=== PATIENT | male | born 1960 | race Caucasian/White ===

== ENCOUNTER 2022-02-13 22:47 | Observation (INO) | payer BC, SELFPAY ==
[2022-02-13 22:56] VITALS: BP 149/82; PULSE 84; RESP 16; TEMP 36.4; O2SAT 94
--- NOTE | 2022-02-13 23:33 | DI.RAD_ITS ---
Exam(s) XR PORTABLE CHEST AP EXAM: XR PORTABLE CHEST AP CLINICAL HISTORY: cough, sob, r/o acute disease TECHNIQUE: COMPARISON: CR RIGHT KNEE LIMITED 1 OR 2 VIEW from 09/16/2014 FINDINGS: Portable AP film was obtained. The heart appears mildly enlarged. There are diffuse bilateral patch y intrapulmonary infiltrates consistent with multifocal pneumonitis. No gross pleural effusion seen on the frontal film. IMPRESSION: Appearance is suggestive of multifocal pneumonia in the appropriate clinical setting. RADIATION DOSE DELIVERED: Total DLP
[2022-02-14] VITALS (35 sets, daily range): BP systolic 121–157; BP diastolic 65–91; PULSE 57–87; RESP 14–20; TEMP 35–36.4; O2SAT 88–99
--- NOTE | 2022-02-14 00:06 | DI.VRAD_ITS ---
PROCEDURE INFORMATION: Exam: XR Chest Exam date and time: 02/13/2022 11:10 PM Age: 61 years old Clinical indication: Cough and shortness of breath; Patient HX: Cough, SOB, R/O acute disease. + covid test at home. TECHNIQUE: Imaging protocol: Radiologic exam of the chest. Views: 1 view. COMPARISON: No relevant prior studies available. FINDINGS: Lungs: There scattered hazy opacities in the mid to lower lungs bilaterally, worrisome for an infectious process. Given the patient's Covid positive status, CT scan is recommended for further evaluation. Pleural spaces: No pneumothorax. There is blunting of the right costophrenic angle, suggestive of an effusion. The left costophrenic angle is difficult to delineate. Overlying soft tissue may be contributing. It is not well assessed. Heart/Mediastinum: There is cardiomegaly. The mediastinum is measuring widened at 7.5 cm. This may be secondary to the patient's semiupright status. If there is concern for acute mediastinal or vascular abnormality, CTA is recommended. Bones/joints: Skeletal degenerative changes. IMPRESSION: 1. There scattered hazy opacities in the mid to lower lungs bilaterally, worrisome for an infectious process. Given the patient's Covid positive status, CT scan is recommended for further evaluation. 2. Possible small right pleural effusion. Left costophrenic angle not well assessed. 3. Cardiomegaly. 4.The mediastinum is measuring widened at 7.5 cm. This may be secondary to the patient's semiupright status. If there is concern for acute mediastinal or vascular abnormality, CTA is recommended. Other findings/details as above. THIS REPORT CONTAINS FINDINGS THAT MAY BE CRITICAL TO PATIENT CARE. The findings were verbally communicated via telephone conference with alanna anne at 12:05 AM EST on 02/14/2022. The findings were acknowledged and understood. A CT scan is being performed. Correlation with those findings suggested. Dictated and Authenticated by: Venessa Rodriguez MD. Ordering:BIJU Hughes MD
--- NOTE | 2022-02-14 00:22 | W.ED.GENAD ---
Discharge Plan Disposition Patient Disposition: Admit to [facility] Condition: Stable Discharge Details Clinical Impression: COVID-19, Multifocal pneumonia, Hypoxia Admit Date/Time: 02/14/22 02:32 Admit Provider: Benedicto Aguilar Attending Provider: Benedicto Aguilar Primary Care Provider: Unknown,Unknown ED Provider: Ellen Marquez Discharge Data Discharge Date/Time-TO BE ENTERED AT DEPARTURE: 02/14/22 03:40 Medical Decision Making 2300 -- 61-year-old male who is morbidly obese with a history of atrial fibrillation on Eliquis, hypertension, hyperlipidemia, sleep apnea presents with a diagnosis of COVID this morning with a complaint of cough and shortness of breath of the past 2 days. Vitals reassuring. His blood pressure is moderately elevated. His oxygen saturation is 94% on room air. Patient is speaking in full sentences demonstrates no signs of respiratory distress. He has diminished breath sounds throughout but no obvious wheezing or crackles. Portable chest x-ray obtained on arrival and notes a possible multifocal pneumonia. Case discussed with virtual radiology who recommends CT chest. We will place an IV, bolus IV fluids, screening labs, CT chest, IV Solu-Medrol, DuoNeb and reassess. 0010 -- labs and imaging reviewed. Normal white blood cell count. Troponin within normal limits. CT chest again notes groundglass opacities likely consistent with multifocal pneumonia in the setting of COVID-19 but no evidence of PE. Patient reassessed and oxygen saturation 90 to 91% on room air. He does admit to some improvement with DuoNeb. I attempted to order monoclonal antibody infusion but this is no longer available. I confirmed this with the nursing eyewear manufacturing supervisor and on-call pharmacy. I do not think that patient is appropriate for paxloivd as he is on Eliquis which requires 50% dose decrease. Considering his multifocal pneumonia in the setting of hypoxia, will admit for continued observation with plan for IV fluid hydration, IV steroids, IV remdesivir and supplemental oxygen as needed. We will place patient on 2 L nasal cannula oxygen. 0220 --Case discussed with hospitalist who accepts patient for admission. Medical Records Medical records reviewed: Yes I reviewed the patient's medical records. Imaging Data Radiologic Study: Radiologist's impression: XR Chest Exam date and time: 02/13/2022 11:10 PM Age: 61 years old Clinical indication: Cough and shortness of breath; Patient HX: Cough, SOB, R/O acute disease. + covid test at home. TECHNIQUE: Imaging protocol: Radiologic exam of the chest. Views: 1 view. COMPARISON: No relevant prior studies available. FINDINGS: Lungs: There scattered hazy opacities in the mid to lower lungs bilaterally, worrisome for an infectious process. Given the patient's Covid positive status, CT scan is recommended for further evaluation. Pleural spaces: No pneumothorax.? There is blunting of the right costophrenic angle, suggestive of an effusion.? The left costophrenic angle is difficult to delineate. Overlying soft tissue may be contributing. It is not well assessed. Heart/Mediastinum: There is cardiomegaly. The mediastinum is measuring widened at 7.5 cm. This may be secondary to the patient's semiupright status. If there is concern for acute mediastinal or vascular abnormality, CTA is recommended. Bones/joints: Skeletal degenerative changes. IMPRESSION: 1. There scattered hazy opacities in the mid to lower lungs bilaterally, worrisome for an infectious process. Given the patient's Covid positive status, CT scan is recommended for further evaluation. 2. Possible small right pleural effusion.? Left costophrenic angle not well assessed. 3. Cardiomegaly. 4.The mediastinum is measuring widened at 7.5 cm. This may be secondary to the patient's semiupright status. If there is concern for acute mediastinal or vascular abnormality, CTA is recommended.? Other findings/details as above. CTA Chest With Contrast Exam date and time: 02/14/2022 1:04 AM Age: 61 years old Clinical indication: Cough and shortness of breath; Patient HX: Cough, SOB, R/O pneumonia TECHNIQUE: Imaging protocol: Computed tomographic angiography of the chest with contrast. 3D rendering (Not supervised by radiologist): MIP and/or 3D reconstructed images were created by the technologist. Radiation optimization: All CT scans at this facility use at least one of these dose optimization techniques: automated exposure control; mA and/or kV adjustment per patient size (includes targeted exams where dose is matched to clinical indication); or iterative reconstruction. Contrast material: OMNI-PAQUE 350; Contrast volume: 100 ml; Contrast route: INTRAVENOUS (IV);? COMPARISON: XR PORTABLE CHEST AP 02/13/2022 11:10 PM FINDINGS: Pulmonary arteries: The pulmonary artery is enlarged measuring 3.2 cm. Consider developing pulmonary hypertension. No evidence of acute pulmonary embolism. Aorta: The aorta is normal without evidence of aneurysmal dilatation, dissection or occlusive disease. Lungs: There are diffuse interstitial infiltrates present. This may represent cardiogenic versus noncardiogenic edema. An acute inflammatory process and/or infectious process/pneumonia are not excluded. Diffuse ground-glass opacities within the lungs. These findings are nonspecific and may represent hypoventilatory change,edema, hemorrhage, or an infectious/inflammatory process (acute or chronic). There is no evidence of pulmonary masses. Pleural spaces: There is no evidence of pneumothorax. There are no pleural effusions present. Heart: No evidence of reflux of contrast into the inferior vena cava or hepatic veins to suggest right heart strain or pulmonary hypertension. There is moderate atherosclerotic calcification of the coronary arteries. The cardiac structures are otherwise normal. The right ventricular to left ventricular ratio is normal measuring approximately 0.9. Lymph nodes: There is no evidence of lymphadenopathy. Bones/joints: The spine, sternum, ribs, and pectoral girdles show no evidence of acute abnormality. Soft tissues: There are no soft tissue masses or fluid collections. The upper abdominal viscera are unremarkable. Other findings: The mediastinal structures are normal. IMPRESSION: 1. There are diffuse interstitial infiltrates present. This may represent cardiogenic versus noncardiogenic edema. An acute inflammatory process and/or infectious process/pneumonia are not excluded. Diffuse ground-glass opacities within the lungs. These findings are nonspecific and may represent hypoventilatory change,edema, hemorrhage, or an infectious/inflammatory process (acute or chronic). 2. No evidence of acute pulmonary embolism. Lab Data Lab results reviewed: Yes I reviewed the patient's lab results. Labs: Laboratory Tests Range/Units 02/14/22 02/14/22 00:30 00:30 WBC (4.4-10.8) 10^3/uL 8.43 RBC (4.36-5.78) 10^6/uL 5.31 Hgb (13.5-17.5) g/dL 15.5 Hct (40.0-50.0) % 46.5 MCV (80-95) fL 88 MCH (27.0-33.0) pg 29.2 MCHC (32.0-36.0) % 33.3 RDW (11.8-14.1) % 14.0 Plt Count (130-400) 10^3/uL 153 MPV (8.0-11.0) fL 10.2 Immature Gran % 0.4 Neutrophils % 78.1 Lymphocytes % 7.9 Monocytes % 13.3 Eosinophils % 0.1 Basophils % 0.2 Nucleated RBC % (0.0-0.3) % 0.0 Absolute Neutrophils (1.2-6.7) 10^3/uL 6.58 Absolute Lymphocytes (1.2-3.4) 10^3/uL 0.67 L Absolute Monocytes (0.1-0.8) 10^3/uL 1.12 H Absolute Eosinophils (0.0-0.7) 10^3/uL 0.01 Absolute Basophils (0.0-0.2) 10^3/uL 0.02 Sodium (136-145) mmol/L 140 Potassium (3.5-5.1) mmol/L 3.4 L Chloride (98-107) mmol/L 101 Carbon Dioxide (21.0-32.0) mmol/L 29.1 Anion Gap (3-11) mmol/L 9.9 BUN (7-18) mg/dL 21 H Creatinine (0.70-1.30) mg/dL 1.4 H Est GFR (CKD-EPI 2020) (mL/min/1.73m2) 56.83 Glucose (74-106) mg/dL 123 H Calcium (8.5-10.1) mg/dL 8.8 Magnesium (1.8-2.4) mg/dL 1.8 Total Bilirubin (0.2-1.0) mg/dL 1.9 H AST (15-37) U/L 31 ALT (16-63) U/L 39 Alkaline Phosphatase (46-116) U/L 83 Troponin I (<or=60) ng/L 51 Total Protein (6.4-8.2) g/dL 7.3 Albumin (3.4-5.0) g/dL 3.5 Sign Out No HPI General Mode of arrival: ambulatory. Date/Time Provider Initiated Documentation: 02/13/22 22:48. Limitations to Documentation: no limitations. Information obtained by: patient. HPI Narrative: Pt is a 61yo M w/ a h/o atrial fibrillation on eliquis, hypertension, hyperlipidemia, morbid obesity, sleep apnea who presents for cough, difficulty breathing and a diagnosis of COVID this morning. Patient states 2 days ago he started with nasal congestion, cough and then today rest to worsening cough and shortness of breath. He states he has family members in healthcare and they prescribed him Tessalon Perles, albuterol and paxlovid. He states he took 1 dose of Paxlovid this evening. Patient took Tylenol as well earlier today. He denies any known fever. Related Data Home Medications Medication Instructions Recorded Confirmed metoprolol succinate 200 mg 200 mg PO BID #60 tabs 03/17/18 02/13/22 tablet,extended release 24 hr apixaban 5 mg tablet (Eliquis) 5 mg PO BID 90 days #180 tabs 05/26/18 02/13/22 potassium chloride 8 mEq 8 meq PO DAILY 90 days #90 tab-caps 07/10/18 02/13/22 tablet,extended release (Klor-Con) lisinopril 20 mg tablet 20 mg PO DAILY 90 days #90 tab-caps 08/04/18 02/13/22 lisinopril 40 mg tablet 40 mg PO DAILY 90 days #90 tabs 08/04/18 02/13/22 amlodipine 10 mg tablet 10 mg PO DAILY 02/13/22 02/13/22 atorvastatin 80 mg tablet 80 mg PO DAILY 02/13/22 02/13/22 bupropion HCl 150 mg tablet,12 hr 150 mg PO BID 02/13/22 02/13/22 sustained-release minoxidil 10 mg tablet 10 mg PO BID 02/13/22 02/13/22 torsemide 20 mg tablet 20 mg PO DAILY 02/13/22 02/13/22 prednisone 20 mg tablet 40 mg PO DAILY #6 tabs 02/15/22 Previous Rx's Medication Instructions Recorded metoprolol succinate 200 mg 200 mg PO BID #60 tabs 03/17/18 tablet,extended release 24 hr apixaban 5 mg tablet (Eliquis) 5 mg PO BID 90 days #180 tabs 05/26/18 potassium chloride 8 mEq 8 meq PO DAILY 90 days #90 tab-caps 07/10/18 tablet,extended release (Klor-Con) lisinopril 20 mg tablet 20 mg PO DAILY 90 days #90 tab-caps 08/04/18 lisinopril 40 mg tablet 40 mg PO DAILY 90 days #90 tabs 08/04/18 prednisone 20 mg tablet 40 mg PO DAILY #6 tabs 02/15/22 Allergies Allergy/AdvReac Type Severity Reaction Status Date / Time No Known Allergies Allergy Unverified 02/13/22 23:02 General Stated Complaint: RespSymp JAZZ: 4 Review of Systems All systems reviewed & are unremarkable except as noted in HPI and below Constitutional Constitutional: Reports as per HPI, Denies chills and Denies fever(s) Eyes Eyes: Denies blurry vision ENT Ears, Nose, Mouth, and Throat: Denies dizziness, Reports sore throat and Denies throat swelling Cardiovascular Cardiovascular: Denies chest pain and Reports dyspnea Respiratory Respiratory: Reports cough and Reports dyspnea Gastrointestinal Gastrointestinal: Denies abdominal pain, Denies diarrhea and Denies vomiting Genitourinary Genitourinary: Denies hematuria and Denies dysuria Musculoskeletal Musculoskeletal: Denies back pain and Denies numbness Integumentary/Breasts Skin/Breast: Denies lesions and Denies rash Neurologic Neurologic: Denies dizziness, Denies localized weakness and Denies numbness Allergic/Immunologic Allergic/Immunologic: Denies throat swelling PFSH All Active Problems (Updated 02/16/22 @ 00:05 by ANGELIQUE FLORENCE) COVID-19 (Acute) Multifocal pneumonia (Acute) Chronic rhinitis (Chronic 03/24/11) Dysmetabolic syndrome X (Chronic 03/24/11) obesity, impaired FBS, hypertension, Knee pain, right (Chronic 09/16/14) prior x-rays 2006, 2011; Synvisc Dr Piña Localized primary osteoarthritis of lower leg (Chronic 03/24/11) Localized primary osteoarthritis of lower legs, bilateral (Chronic 03/24/11) Paroxysmal ventricular tachycardia (Chronic 06/13/07) JUNE 2007 [facility] [place] ANTHONY DYKES, F/U 09/2011; EP STUDY 10/22/11, NOT INDUCABLE Medical History Atrial fibrillation (07/22/15) Chronic anticoagulation (04/14/15) CADSVaSC2 score 3: Apixaban ([facility] [place]); ASA discontinued 12/2016! Essential hypertension (03/28/82) difficult to control, onset 1982 at life insurance PE Goal 140/90 Hyperlipidemia (03/24/11) goal LDL<70 [place] Morbid obesity (03/24/11) realistic goal 340 (07/2013) achieved 01/2014; new goal 330#; Take [employer] Life program with Dtr-in-law Sleep apnea Bi-PAP SINCE 2006 per [facility], Dr Min Morrissey Surgical History History of bilateral knee replacement Family History Mother , auto accident at age 30. No problems noted. Father Heart disease Myocardial infarction Sister No problems noted. 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 What type of physical activity do you participate in: none Do you feel safe in your relationship?: Yes Exam Const General: cooperative and no acute distress Orientation: alert, awake and oriented x3 HENMT Head: normal to inspection Ears: hearing grossly normal bilaterally and external ears normal Face and sinus: normal facial exam Mouth: oral mucosae normal Throat: posterior oropharynx normal Eyes General: appearance normal, both eyes and all related structures Pupils: PERRL EOM: EOM intact bilaterally Neck Neck: normal visual inspection and No submandibular swelling Lymphatic: no lymphadenopathy noted Chest Chest: normal inspection of the chest and no tenderness Resp Effort & Inspection: normal respiratory effort and able to speak in complete sentences Auscultation: diminished lung sounds bilaterally throughout Cardio Rate: regular rate Rhythm: regular rhythm GI Inspection: normal to inspection and obesity Palpation: soft, not firm, not rigid and nontender Auscultation: hypoactive bowel sounds Skin General skin exam: no rashes or lesions noted Neuro General: patient alert, patient awake and patient oriented x3 Cognition: normal cognition Speech: speech normal Motor: muscle tone normal throughout Sensory Exam: no sensory deficits noted Extrem General: normal to inspection, full ROM, capillary refill normal, no calf tenderness bilaterally and no edema Psych Appearance: grossly normal Mental Status: mental status grossly normal Speech and Movement: speech and movement normal Affect: normal affect Course Vital Signs Vital signs: Vital Signs Temperature 97.5 F L 02/13/22 22:56 Pulse 84 02/13/22 22:56 Respiratory Rate 16 02/13/22 22:56 Blood Pressure 149/82 H 02/13/22 22:56 Pulse Oximetry 94 02/13/22 22:56 Temperature 97.5 F L 02/13/22 22:56 Temperature Source Temporal Artery Scan 02/13/22 22:56 Pulse 84 02/13/22 22:56 Respiratory Rate 16 02/13/22 22:56 Respiratory Effort 02/13/22 22:56 Blood Pressure 149/82 H 02/13/22 22:56 Blood Pressure Position Sitting 02/13/22 22:56 Pulse Oximetry 94 02/13/22 22:56 Oxygen Delivery Method Room Air 02/13/22 22:56 Oxygen Flow Rate 0 02/13/22 22:56 Pain Level 0 02/13/22 22:56
[2022-02-14] MEDS: Normal Saline 250 ML 500 ML IV (00:30)
[2022-02-14 00:32] LABS: Abs Immature Grans 0.03 10^3/uL (0.0-0.06); Absolute Basophil Count 0.02 10^3/uL (0.0-0.2); Absolute Eosinophil Count 0.01 10^3/uL (0.0-0.7); Absolute Lymphocyte Count 0.67 10^3/uL (1.2-3.4); Absolute Monocyte Count 1.12 10^3/uL (0.1-0.8); Absolute Neutrophil Count 6.58 10^3/uL (1.2-6.7); Basophils % 0.2; Eosinophils % 0.1; HCT 46.5 % (40.0-50.0); HGB 15.5 g/dL (13.5-17.5); Immature Grans % 0.4; Lymphocytes % 7.9; MCH 29.2 pg (27.0-33.0); MCHC 33.3 % (32.0-36.0); MCV 88 fL (80-95); MPV 10.2 fL (8.0-11.0); Monocytes % 13.3; Neutrophils % 78.1; Platelet Count 153 10^3/uL (130-400); RBC 5.31 10^6/uL (4.36-5.78); RDW-SD 45.3 fL; WBC 8.43 10^3/uL (4.4-10.8)
[2022-02-14] MEDS: methylPREDNISolone SUCC 125 MG VIAL IVP (00:40)
[2022-02-14] MEDS: Omnipaque 350 MG/ML 100 ML BTL IJ (00:42)
[2022-02-14 00:50] LABS: ALT 39 U/L (16-63); AST 31 U/L (15-37); Albumin 3.5 g/dL (3.4-5.0); Alkaline Phosphatase 83 U/L (46-116); Anion Gap 9.9 mmol/L (3-11); BUN 21 mg/dL (7-18); Bilirubin, Total 1.9 mg/dL (0.2-1.0); CO2 29.1 mmol/L (21.0-32.0); CREATININE 1.4 mg/dL (0.70-1.30); Calcium 8.8 mg/dL (8.5-10.1); Chloride 101 mmol/L (98-107); Estimated GFR 56.83 (mL/min/1.73m2); Glucose 123 mg/dL (74-106); Magnesium 1.8 mg/dL (1.8-2.4); Potassium 3.4 mmol/L (3.5-5.1); Sodium 140 mmol/L (136-145); Total Protein 7.3 g/dL (6.4-8.2); Troponin I 51 ng/L (<or=60)
[2022-02-14] MEDS: Albuterol/Ipratropium 3 ML UPD VIAL UPD (00:50)
--- NOTE | 2022-02-14 01:15 | DI.CT_ITS ---
Exam(s) CT CHEST PE CTA EXAM: CT CHEST PE CTA CLINICAL HISTORY: shortness of breath, cough, r/o PE/pneumonia. TECHNIQUE: Imaging Protocol: Axial CT angiography was performed with multi-slice acquisition and mu lti-planar and/or 3D reconstructions. CONTRAST MATERIAL: Intravenous: Omnipaque 350 Contrast volume:structured data in ml COMPARISON: No exams were available for comparison FINDINGS: CT angiography of the chest was performed with intravenous infusion of 100 cc of Omnipaque 350. There are due multifocal diffuse bilateral pulmonary ground-glass and consolidative opacities, the fi ndings are suspicious for infectious process although they could represent variant pulmonary edema. Heart is mildly enlarged with coronary artery calcification.. No pleural effusion. Tracheobronchial tree appears intact. No evidence of pulmonary embolic disease. Thoracic aorta is of normal diameter, no thoracic aortic an eurysm or dissection, major branch vessels appear intact. No mediastinal or hilar adenopathy. Images obtained through the upper abdomen show unremarkable appearance of the visualized portions of the liver, spleen, pancreas, adrenals, and kidneys. IMPRESSION: Pulmonary opacities with pattern suggesting infectious process,CHF not excluded.. No evidence of pul monary embolic disease. RADIATION DOSE DELIVERED: 697.18mGy.cm Total DLP 697.18mGy.cm Total DLP DATA REPOSITORY: All CT scans at this facility are submitted to the National Radiology Data Registry (NRDR) Dose Index Registry (DIR) with the [employer] (A[employer]). RADIATION OPTIMIZATION: All CT scans at this facility use at least one of these dose optimization te chniques: automated exposure control; mA and/or kV adjustment per patient size (includes targeted exa ms where dose is matched to clinical indication); or iterative reconstruction.
--- NOTE | 2022-02-14 02:17 | DI.VRAD_ITS ---
PROCEDURE INFORMATION: Exam: CTA Chest With Contrast Exam date and time: 02/14/2022 1:04 AM Age: 61 years old Clinical indication: Cough and shortness of breath; Patient HX: Cough, SOB, R/O pneumonia TECHNIQUE: Imaging protocol: Computed tomographic angiography of the chest with contrast. 3D rendering (Not supervised by radiologist): MIP and/or 3D reconstructed images were created by the technologist. Radiation optimization: All CT scans at this facility use at least one of these dose optimization techniques: automated exposure control; mA and/or kV adjustment per patient size (includes targeted exams where dose is matched to clinical indication); or iterative reconstruction. Contrast material: OMNI-PAQUE 350; Contrast volume: 100 ml; Contrast route: INTRAVENOUS (IV); COMPARISON: XR PORTABLE CHEST AP 02/13/2022 11:10 PM FINDINGS: Pulmonary arteries: The pulmonary artery is enlarged measuring 3.2 cm. Consider developing pulmonary hypertension. No evidence of acute pulmonary embolism. Aorta: The aorta is normal without evidence of aneurysmal dilatation, dissection or occlusive disease. Lungs: There are diffuse interstitial infiltrates present. This may represent cardiogenic versus noncardiogenic edema. An acute inflammatory process and/or infectious process/pneumonia are not excluded. Diffuse ground-glass opacities within the lungs. These findings are nonspecific and may represent hypoventilatory change,edema, hemorrhage, or an infectious/inflammatory process (acute or chronic). There is no evidence of pulmonary masses. Pleural spaces: There is no evidence of pneumothorax. There are no pleural effusions present. Heart: No evidence of reflux of contrast into the inferior vena cava or hepatic veins to suggest right heart strain or pulmonary hypertension. There is moderate atherosclerotic calcification of the coronary arteries. The cardiac structures are otherwise normal. The right ventricular to left ventricular ratio is normal measuring approximately 0.9. Lymph nodes: There is no evidence of lymphadenopathy. Bones/joints: The spine, sternum, ribs, and pectoral girdles show no evidence of acute abnormality. Soft tissues: There are no soft tissue masses or fluid collections. The upper abdominal viscera are unremarkable. Other findings: The mediastinal structures are normal. IMPRESSION: 1. There are diffuse interstitial infiltrates present. This may represent cardiogenic versus noncardiogenic edema. An acute inflammatory process and/or infectious process/pneumonia are not excluded. Diffuse ground-glass opacities within the lungs. These findings are nonspecific and may represent hypoventilatory change,edema, hemorrhage, or an infectious/inflammatory process (acute or chronic). 2. No evidence of acute pulmonary embolism. Dictated and Authenticated by: Trevor Regan MD. Ordering:BIJU Hughes MD
[2022-02-14 02:36] LABS: Source Nasal/Nares
[2022-02-14 02:46] LABS: Procalcitonin 0.1 ng/mL
[2022-02-14 03:05] LABS: COVID-19 PCR POSITIVE (Negative)
--- OUTSIDE RECORDS SUMMARY | 2022-02-14 03:43 | XMS_ITS | Encounter Summary ---
:1960 [place] [address] Care Team Providers Name Role Phone Álvaro Lagos MD Primary Care Provider [phone] Encounter Details Date Type Department Care Team Description 08/13/2016 Ancillary Procedure Radiology Library at [place], Ronald Bui [facility] [place] [address] ORTHOPAEDIC SURGERY [phone] [place] [id number] (Wo rk) Social History Tobacco Use Types Packs/Day Years Used Date Smoking Tobacco: Never Smokeless Tobacco: Never Sex Assigned at Date Recorded Not on file documented as of this encounter Plan of Treatment Not on filedocumented as of this encounter Procedures Procedure Name Priority Date/Time Associated Diagnosis Comme nts FILM LIBRARY Routine 08/13/2016 12:00 AM Results for this STORAGE ONLY DX EDT procedure ar e in LOWER EXTREMITY the results section. documented in this encounter Results Film Library- Storage Only DX Lower Extremity (08/13/2016 12:00 AM EDT) Specimen (Source) Anatomical Location Collection Method / Collectio n Time Received Time / Laterality Volume Narrative PRADEEP - 06/20/2018 7:27 PM EDT This exam is auto-finalizing. It's purpo se is for storage only. Ramandeep Chávez MD Octavio FILM LIBRARY ORDERABLES Performing Organization Address City/State/ZIP Code Phon e Number RAD [place], [place] documented in this encounter Visit Diagnoses Not on filedocumented in this encounter Care Teams Commercial Construction Estimator Relationship Specialty Start Date End Date Álvaro Lagos MD PCP - General 02/03/10 06/21/[address] [place] [address] documented as of this encounter
--- OUTSIDE RECORDS SUMMARY | 2022-02-14 03:43 | XMS_ITS | Encounter Summary ---
:1960 Author Organization [facility] [place] [address] Care Team Providers Name Role Phone Álvaro London DO Primary Care Provider Reason for Visit Auth/Cert Specialty Diagnoses / Procedures Referred By Contact Refer red To Contact Diagnoses f/u colo - CONSULT Procedures PRO COLONOSCOPY, DIAGNOSTIC COLONOSCOPY, DIAGNOSTIC Referral ID Status Reason Start Date Expiration Date Visits Requ ested Visits Authorized [id number] 1 Encounter Details Date Type Department Care Team Description 10/07/2017 Anesthesia Event Gastroenterology at [facility] Fernando Nieves, [facility] [place] [address] [facility] [phone] DR ANESTHESIOLOGY [place] [address] Anesthesia Record Procedure Summary Procedure Name Responsible Anesthesia Start Anesthesia Stop Anesthesiologist Time Time COLONOSCOPY, Fernando Nieves MD 10/07/17 1139 10/07/17 12 09 DIAGNOSTIC (Trunk) Events Date Time Event Comment 10/07/2017 1139 AN Verify 1139 Start 1139 An Start Data 1142 An Induction 1145 Anesthesia Ready 1209 an stop data 1209 Recovery or ICU Handoff Patient care was transferred to the destination unit staff after review of the patient's medica l history, current anesthetic/surgi tres status and plan, according to the Provider Handoff Checklist. 1209 Stop 1242 Name Total IV Lidocaine 40 mg Propofol 150 mg Propofol INF 372.63 mg PHENYLephrine 80 mcg lactated Ringers infusion 1,000 mL 0 mL Agents Name O2 Air N2O Blood No blood administrations on file. Lines, Drains, and Airways Type Details Placement Removal PIV 10/07/17; 1131; metacarpal 10/07/17 1131 by Leydi varelas, 10/07/17 1303 by Christy, vein (top of hand), right; PRABHJOT Pink RN [id number] catheter system; 22 gauge; paras robles rn; distraction, tolerated well; 0; 10/07/17; 1303 documented in this encounter Social History Tobacco Use Types Packs/Day Years Used Date Smoking Tobacco: Never Smokeless Tobacco: Never Alcohol Use Standard Drinks/Week Comments No 0 (1 standard drink = 0.6 oz pure alcoho l) no alcohol since 1984 Sex Assigned at Date Recorded Not on file documented as of this encounter OR Notes Anesthesia Postprocedure Evaluation - Fernando Nieves MD - 10/07/2017 3:27 PM EDT [facility] Department of Anesthesiology Post-procedure Note Patient: Reza James II Procedure Summary Date Anesthesia Start Anesthesia Stop Room / Location 10/07/17 1139 1209 [facility] / [facility] Procedure Diagnosis Surgeon Responsible Provider COLONOSCOPY, DIAGNOSTIC (N/A Trunk) (hx of hyperplastic polyp sigmoid - CONSULT;; Special prep: NuLytely 4L, 2 days of clears prior to procedure ) Jonh Cortez MD Schroeck, Hedwig, MD All Anesthesia Providers: Anesthesiologist: Fernando Nieves MD HIGHWAY WORKER: Sravan Christian CRNA Most Recent Vitals: 10/07/17 1240 BP: 119/74 Pulse: SpO2: 97% Pain Patient Location: PACU/[facility] Level of Consciousness: Awake and Alert Pain Management: Satisfactory Analgesia PONV: None Cardiovascular Status: At Baseline and Hemodynamically Stable Respiratory Status: At Baseline and Room Air Postoperative Fluid Status: Intravascular EUvolemia Possible Anesthetic Complications: NONE apparent at time of evaluation Final Primary Anesthesia Type: General (The anesthetic type performed was the same as planned.) Comments: FERNANDO NIEVES MD Anesthesia Preprocedure Evaluation - Fernando Nieves MD - 10/06/2017 5:16 PM EDT Pre-Anesthesia Evaluation for: Reza James II a 57 y.o. male. Procedure(s): COLONOSCOPY, DIAGNOSTIC Patient Active Problem List Diagnosis ??? Ventricular tachycardia episode 2007 Pre-syncope / palpitations - Presented with Wide complex tachycardia ~ 20 mins duration, terminatedwith cardioversion. Cardiac catheterization 06/19/2007 Nonobstructive coronary artery disease - Moderate diffuse left ventricular dysfunction (Calculated EF-45%) EPS 06/20/2007 - Reproducibly inducible LB/inferior axis monomorphic VT at about 208 bpm that is pace-terminable (symptoms identical to those at presentation). VT morphology was slightly different with the different inductions, though all were LBB/inferior axis. The transition in the precordial leads varied. Repeat EPS 06/23/2007 on verapamil, VT still inducible, flecainide added - Inducible monomorphic VT, with both RBBB and LBBB morphologies, both with right inferior axis. A high septal outflow tract focus is possible. Cannot exclude bundle branch reentry on the basis of thisstudy. Repeat EPS 08/23/2007 on flecainide Patient was not inducible for a sustained ventricular tachycardia. The NSVT had multiple (including polymorphic) morphologies. Flecainide stopped probably that summer, patient reports taking it for only a few mo TTE 06/19/2007 1. The left ventricular chamber size is normal. Moderate concentric LVH, LVEF 65%. No LV WMAs 2. The right ventricle is not well visualized. Right ventricular global systolic function is probably normal. 3. The left atrium is mildly dilated. 4. There is no hemodynamically significant valve disease. 5. There is mild dilatation of the ascending aorta 3.8 cm ??? KAYLEEN on CPAP ??? Obesity, morbid - BMI 52 ??? HTN (hypertension) Thought to be secondary to obesity and KAYLEEN Renal artery angiography 06/19/2007: There is no atherosclerosis of the renal arteries bilaterally. LAB RESULTS: TSH Renin Activity Aldosterone Free Normetanephrine Free Metanephrine 06/21/2007 <0.6 Na-deplete, upright: Mean: 5.9 Range: 2.9-10.8 Na-replete, upright: Mean: 1.0 Range: <= 0.6-3.0 5.8 Normal: <=21 0.35 Normal: <0.90 <0.20 Normal: <0.50 06/19/2007 1.86 * ??? S/P vasectomy ??? Hyperlipidemia Past Medical History: Diagnosis Date ??? HTN (hypertension) 09/26/2011 ??? Hyperlipidemia 09/26/2011 ??? Obesity, morbid 09/26/2011 ??? KAYLEEN on CPAP 09/26/2011 ??? S/P vasectomy 09/26/2011 ??? Ventricular tachycardia 09/26/2011 No past surgical history on file. Social History Substance Use Topics ??? Smoking status: Never Smoker ??? Smokeless tobacco: Never Used ??? Alcohol use Not on file History Drug Use Not on file Allergies Allergen Reactions ??? Fish Containing Products Medications: MAR and/or home medications have been reviewed. Physical Exam: There were no vitals filed for this visit. There is no height or weight on file to calculate BMI. Airway Assessment: Mallampati: III TM distance: >3 FB Neck ROM: full Cardiovascular Assessment: Rate: normal cardiovascular exam normal Pulmonary Assessment: pulmonary exam normal Dental Assessment: Misc Assessment: IV access: Peripheral line Anesthesia Plan: ASA 3 MAC, with a(n) intravenous induction 57yoM, 134kg, forcolonoscopy. PMH: morbid obesity BMI 46, HTN (torsemide, DOROTA-I, BB, CCB), KAYLEEN (CPAP). A flutter on eliquis. Plan: Propofol IV with rincon airway, LMA or ETT as backup. The patient verbalized understanding of the anesthesia plan including risks and alternatives and agreed to proceed. All questions were answered. Ata Nieves MD. Region - Other Informed Consent: Anesthetic plan and risks discussed with patient. Plan discussed with HIGHWAY WORKER and attending. PAT Staff Note documented in this encounter Plan of Treatment Not on filedocumented as of this encounter Visit Diagnoses Not on filedocumented in this encounter Administered Medications Inactive Administered Medications - up to 3 most recent administrations Medication Order MAR Action Action Date Dose Rate Site lactated Ringers infusion 1,000 mL New Bag 10/07/2017 11:39 AM EDT 1,000 mL, at 100 mL/hr, Intravenous, CONTINUOUS, Starting on Tue10/07/17 at 1130, Until Tue10/07/17 at 1303, Day of Surgery (Day of Procedure) New Bag 10/07/2017 11:30 AM EDT 1,000 mLs 100 mL/hr lidocaine (PF) (XYLOCAINE) 100 mg/5 mL (2 %) Given 11:42 AM EDT 40 mg injection PRN, Starting on Tue10/07/17 at 1142, Until Tue10/07/17 at 1209, Anesthesia Intra-op, Routine PHENYLephrine in NS (PF) (VIOLETA-SYNEPHRINE) Given 10/07/2017 11:54 AM EDT 80 mcg 0.8 mg/10 mL (80 mcg/mL) multi-dose injection Syrg PRN, Starting on Tue10/07/17 at 1154, Until Tue10/07/17 at 1209, Anesthesia Intra-op, Routine propofol (DIPRIVAN) 10 mg/mL bolus injection Given 11:44 AM EDT 50 mg (Anesthesia) PRN, Starting on Tue10/07/17 at 1142, Until Tue10/07/17 at 1209, Anesthesia Intra-op Given 10/07/2017 11:43 AM EDT 40 mg Given 10/07/2017 11:42 AM EDT 60 mg propofol (DIPRIVAN) Rate/Dose 10/07/2017 11:58 75 mcg/kg/min 62.7 mL /hr infusion Change AM EDT CONTINUOUS PRN, Starting on Tue10/07/17 at 1142, Until Tue10/07/17 at 1209, Anesthesia Intra-op, Routine Rate/Dose Change 10/07/2017 11:54 AM EDT 125 mcg/kg/min 104.5 mL/hr New Bag 10/07/2017 11:42 AM EDT 150 mcg/kg/min 125.4 mL/hr documented in this encounter Care Teams Warper Tender Relationship Specialty Start Date End Date Álvaro London DO PCP - General Family Medicine 10/07/17 01/19/[address] [place] [address] documented as of this encounter
--- OUTSIDE RECORDS SUMMARY | 2022-02-14 03:43 | XMS_ITS | Encounter Summary ---
:1960 Author Organization [facility] [place] [address] Care Team Providers Name Role Phone Álvaro Lagos MD Primary Care Provider [phone] Reason for Visit Reason Onset Date Comments Medication Refill 04/10/2015 Fani Encounter Details Date Type Department Care Team Description 04/10/2015 Refill Cardiology at [facility] [place], Medication Refill [facility] MD Vinay ([place]liquelbert) [place] [address] CARDIOLOGY DEPT [place] [address] (Wo rk) Social History Tobacco Use Types Packs/Day Years Used Date Smoking Tobacco: Never Smokeless Tobacco: Never Sex Assigned at Date Recorded Not on file documented as of this encounter Miscellaneous Notes Telephone Encounter - Karen Avitia RN - 04/15/2015 9:17 AM EST Rx handled by Dr. Forde, see encounter dated 04/14/2015. Closing encounter. Karen Avitia RN 04/15/2015 9:17 AM Telephone Encounter - Karen Avitia RN - 04/10/2015 12:16 PM EST Incoming call received from patient. He has decided he would like to try Eliquis. Encounter forwarded to Vinay Forde MD for order. Will notify patient once order has been received and pharmacy contacted patient is aware that PA maybe needed. Karen Avitia, PRABHJOT 04/10/2015 12:40 PM documented in this encounter Plan of Treatment Not on filedocumented as of this encounter Visit Diagnoses Not on filedocumented in this encounter Care Teams Tax Accounting Assistant Relationship Specialty Start Date End Date Álvaro Lagos MD PCP - General 02/03/10 06/21/17 [address] [place] [address] documented as of this encounter
--- OUTSIDE RECORDS SUMMARY | 2022-02-14 03:43 | XMS_ITS | Encounter Summary ---
:1960 Author Organization [facility] [place] [address] Care Team Providers Name Role Phone Álvaro Lagos MD Primary Care Provider [phone] Encounter Details Date Type Department Care Team Description 05/26/2015 Orders Only Cardiology Vinay Forde, [facility] [place] [address] [facility] [phone] CARDIOLOGY DEPT [place] [address] (Wo rk) Social History Tobacco Use Types Packs/Day Years Used Date Smoking Tobacco: Never Smokeless Tobacco: Never Sex Assigned at Date Recorded Not on file documented as of this encounter Plan of Treatment Not on filedocumented as of this encounter Visit Diagnoses Not on filedocumented in this encounter Care Teams Jitterbug Operator Relationship Specialty Start Date End Date Álvaro Lagos MD PCP - General 02/03/10 06/21/17 [address] [place] [address] documented as of this encounter
--- OUTSIDE RECORDS SUMMARY | 2022-02-14 03:43 | XMS_ITS | Encounter Summary ---
:1960 Author Organization [facility] [place] [address] Care Team Providers Name Role Phone Jv Fam DO Primary Care Provider Reason for Visit Consultation (Routine) - Closed Specialty Diagnoses / Procedures Referred By Contact Refer red To Contact Endocrinology Diagnoses Hypoglycemia Miroslava Friend MD [facility] Endocrinology 3b [facility] D [facility] [place] [address] [place] [address] Referral ID Status Reason Start Date Expiration Date Visits V isits Requested Authorized [id number] Closed Consult, 10/30/2020 10/30/2021 1 1 Test & Treat Encounter Details Date Type Department Care Team Description 01/20/2021 Office Visit Endocrinology at [facility] Dinorah Ceja, Obesity, morbid - BMI 52; [facility] [place] [address] CENTER [phone] ENDOCRINOLOGY DEPT [place], [place] [address] Social History Tobacco Use Types Packs/Day Years Used Date Smoking Tobacco: Never Smokeless Tobacco: Never Alcohol Use Standard Drinks/Week Comments No 0 (1 standard drink = 0.6 oz pure alcoho l) no alcohol since 1984 Sex Assigned at Date Recorded Not on file documented as of this encounter Last Filed Vital Signs Vital Sign Reading Time Taken Comments Blood Pressure 169/108 01/20/2021 8:03 AM EST Pulse 65 01/20/2021 8:03 AM EST Temperature 35.9 ??C (96.6 ??F) 01/20/2021 8:03 AM EST Respiratory Rate - - Oxygen Saturation 100% 01/20/2021 8:03 AM EST Inhaled Oxygen Concentration - - Weight 152 kg (335 lb) 01/20/2021 8:03 AM EST Height 176.5 cm (5' 9.5) 01/20/2021 8:03 AM EST Body Mass Index 48.76 01/20/2021 8:03 AM EST documented in this encounter Progress Notes Dinorah Amato MD - 01/20/2021 8:30 AM EST Images from the original note were not included. Endocrinology Consult Note Name: Meli James II : 1960 Date: 01/20/21 Reason for Consult: Hypoglycemia HPI: Meli James II is a 60 y.o. male with a PMH significant for V. tach in 2007, KAYLEEN on CPAP, morbid obesity, hypertension, and hyperlipidemia who presents today referred by his PCP for evaluation of hypoglycemia. 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 He called 911 and when EMS arrived he was found to have a fsg of 34. He was given glucose with improvement of his symptoms. He was brought to the ED and was told everything was normal. On that day he skipped breakfast because he was trying to reduce his calory intake. His last meal was 2 apples and a bow of popcorn on the eveningbefore. The second event happened in the morning of 11/25/20, when he was at home sitting on his chair after he had breakfast (waffles). This event was less severe and his main complaint was vision blurriness. He checked his vitals and the BP was 159/101, his fsg was 120. Patient has not experienced any events asides from the ones mentioned above. He does not have a history of diabetes, but because of his hx of cardiac disease he keeps a daily log of his vital signs andmeals. His is diabetic (diet- controlled only), and she has a glucometer at home. Review of Systems: negative except for what is mentioned in HPI Past Medical History: Diagnosis Date ??? HTN (hypertension) 09/26/2011 ??? Hyperlipidemia 09/26/2011 ??? Obesity, morbid 09/26/2011 ??? KAYLEEN on CPAP 09/26/2011 ??? S/P vasectomy 09/26/2011 ??? Ventricular tachycardia 09/26/2011 Past Surgical History: Procedure Laterality Date ??? PRO COLONOSCOPY, DIAGNOSTIC N/A 10/07/2017 COLONOSCOPY, DIAGNOSTIC performed by Jonh Cortez MD at [facility] ENDOSCOPY He had both knees replaced in 2019 Family Hx: maternal grandfather had diabetes, paternal uncle and cousin with diabetes. Other relatives from both sides with cardiac disease. Social History Socioeconomic History ??? Marital status: Spouse name: Not on file ??? Number of children: Not on file ??? Years of education: Not on file ??? Highest education level: Not on file Occupational History ??? Not on file Tobacco Use ??? Smoking status: Never Smoker ??? Smokeless tobacco: Never Used Vaping Use ??? Vaping Use: Never used Substance and Sexual Activity ??? Alcohol use: No Comment: no alcohol since 1984 ??? Drug use: No ??? Sexual activity: Not on file Other Topics Concern ??? Do You live alone? Yes ??? Tobacco in Home Not Asked Social History Narrative ??? 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 has diabetes. Etoh: none Smoking: none Illicit drug use: none Allergies Allergen Reactions ??? Fish Containing Products Vitals BP (!) 169/108 Pulse 65 Temp 35.9 ??C (96.6 ??F) (Temporal) Ht 176.5 cm (5' 9.5) Wt (!) 152kg (335 lb) SpO2 100% BMI 48.76 kg/m?? Physical Exam: General appearance: pleasant male pt, appears stated age, not in distress HEENT: anicteric, EOMI, KEYON, no lymphadenopathy, moist mucus membranes CVS: +S1, S2. no murmurs, RRR Pulm: clear to auscultation BL Abd: soft, non-tender, non-distended, +bowel sounds, no rebound or guarding Extremities: 2+ pulses peripherally, no edema, no wounds over feet Neurological: non-focal, 2+ DTRs Thyroid gland: non-palpable Labs: Results for MELI JAMES II ( ) as of 01/21/2021 20:41 Ref. Range 10/30/2020 16:22 10/30/2020 17:35 10/30/2020 18:21 Insulin Lvl Latest Ref Range: 2.6 - 24.9 mcunit/mL 19.6 C-Peptide Latest Ref Range: 1.1 - 4.4 ng/mL 3.4 Proinsulin Latest Ref Range: 3.6 - 22 pmol/L 23 (H) Results for MELI JAMES II ( ) as of 01/21/2021 20:41 Ref. Range 10/30/2020 17:35 10/30/2020 19:33 Sodium Latest Ref Range: 135 - 145 mmol/L 145 Potassium Latest Ref Range: 3.5 - 5.0 mmol/L 3.7 Chloride Latest Ref Range: 98 - 107 mmol/L 106 CO2 Latest Ref Range: 22 - 31 mmol/L 29 Anion Gap Latest Ref Range: 5 - 15 mmol/L 10 BUN Latest Ref Range: 10 - 20 mg/dL 16 Creatinine Latest Ref Range: 0.80 - 1.50 mg/dL 1.04 Estimated GFR Latest Ref Range: >=60 mL/min/1.73 m?? 77 Calcium Latest Ref Range: 8.5 - 10.5 mg/dL 8.8 BOHB Latest Ref Range: 0.00 - 0.30 mmol/L 0.12 Glucose Lvl Latest Ref Range: 65 - 199 mg/dL 96 Assessment and plan: Meli James II is a 60 y.o. male with a PMH significant for V. tach in 2007, KAYLEEN on CPAP, morbid obesity, hypertension, and hyperlipidemia who presents today referred by his PCP for evaluation of hypoglycemia. During the first episode, when he felt more symptomatic, his fsg was 34. It is possible that he experienced reactive hypoglycemia, in which he had over stimulation of insulin secretion even though he had skipped breakfast on that morning. It is also possible, although less likely in the setting of symptoms, that the fsg value was inaccurate, lowering his actual glucose level. Today we decided to implant a CGM using Jose-2 for 14 days to monitor his blood glucose closely andevaluate for any episodes of hypoglycemia. Additionally, we discussed the importance of having balanced meals with more protein and less carbs as to avoid excess insulin secretion and post-prandial hypoglycemia. We also discussed importance of weight loss and exercising as tolerated in the setting of elevated BMI ~ 50 and metabolic syndrome. We will also check his A1c, cortisol, ACTH, TSH and free T4 to rule out other underlying causes thatcould cause similar symptoms. Thank you for allowing us participate in the care of this patient. Patient was discussed with Dr. Hankins. Dinorah Amato, PGY4 Endocrinology Fellow Pager: [phone] Lefty Hankins MD - 01/20/2021 8:30 AM EST I have seen the patient and reviewed Dr. Dinorah Amato's above history and I agree with the details as written. The assessment and plan were formulated in discussion with me and I agree with them as documented. We will check baseline lab and start diagnostic CGM using Jose-2 for 14 days to monitor BGclosely for his most likely reactive hypoglycemia for BMI ~50 and metabolic syndrome. He will try tocut back on carb and eat more protein and white meats to prevent insulin over-stimulation and post-pandrial hypoglycemia. Thanks for the consult. Lefty Hankins MD, PhD, FACP, FACE documented in this encounter Plan of Treatment Not on filedocumented as of this encounter Results T4, free (01/20/2021 10:23 AM EST) P athologist Signature Free T4 1.29 0.93 - 1.70 [facility] ng/dL [facility] Comment: Reference Interval (ng/dL): Females: ??First Trimester: 0.97-1.68 ??Second Trimester: 0.77-1.51 ??Third Trimester: 0.77-1.49 Specimen Anatomical Collection Method Collection Time Receive d Time (Source) Location / / Volume Laterality Blood 01/20/2021 10:23 01/20/2021 AM EST 10:38 AM EST Resulting Agency Comment Spec In Lab Lefty Hankins MD CHEMISTRY ORDERABLES Performing Organization Address City/[facility]/ZIP [facility] Phon e Number [address] TSH (01/20/2021 10:23 AM EST) P athologist Signature TSH 1.98 0.27 - 4.20 ANGELY MELGARCOCK mcIU/mL [facility] Comment: Reference Interval (mcIU/mL): Females: ??First Trimester: 0.23-3.88 ??Second Trimester: 0.22-3.90 ??Third Trimester: 0.44-4.66 Specimen Anatomical Collection Method Collection Time Receive d Time (Source) Location / / Volume Laterality Blood 01/20/2021 10:23 01/20/2021 AM EST 10:38 AM EST Resulting Agency Comment Spec In Lab Lefty Hankins MD CHEMISTRY ORDERABLES Performing Organization Address City/[facility] Phon e Number [address] ACTH (01/20/2021 10:23 AM EST) P athologist Signature ACTH 15 pg/mL ANGELY NEWELL ([facility]) LABORATORY Comment: REFERENCE VALUE------ 7.2-63 (a.m. collection) Test Performed by: [facility] [address] [address] 03 Gas Combustion Engineer: Gary Jain M.D. Ph. D.; CLIA# [id number] Specimen Anatomical Collection Method Collection Time Receive d Time (Source) Location / / Volume Laterality Blood 01/20/2021 10:23 01/20/2021 4:31 AM EST PM EST Resulting Agency Comment Spec In Lab Lefty Hankins MD CHEMISTRY ORDERABLES Performing Organization Address City/[facility] Code Phon e Number [address] Cortisol (01/20/2021 10:23 AM EST) P athologist Signature Cortisol 11.1 mcg/dL [facility] Comment: Reference ranges: ??AM (6-10am): ??4.8-19.5 mcg/dL ??PM (4-8pm) : ??2.5-11.9 mcg/dL Specimen Anatomical Collection Method Collection Time Receive d Time (Source) Location / / Volume Laterality Blood 01/20/2021 10:23 01/20/2021 AM EST 10:38 AM EST Resulting Agency Comment Spec In Lab Lefty Hankins MD CHEMISTRY ORDERABLES Performing Organization Address City/[facility] Code Phon e Number [address] Hemoglobin A1c (01/20/2021 10:23 AM EST) athologist Signature Hemoglobin A1C 5.4 4.3 - 5.6 [facility] Comment: Reference Range: 4.3 - 5.6% 5.7 - 6.4% - Increased Risk of Developin g Diabetes Mellitus >= 6.5% - Consistent with diagnosis of D iabetes Mellitus In the absence of hyperglycemia (i.e. pl asma glucose > 200 mg/dL) or classic symptoms of hyperglycemia a repeat measu rement of HbA1c should be performed on a separate sample to confirm the diagnos is. Diagnosis and Classification of Diabetes Mellitus, Diabetes Care 2013; 36: Suppl. 1, S67-85 Est Avg Gluc 110 mg/dL [facility] Comment: eAG equivalents for HbA1c percentages: HbA1c(%) ?eAG(mg/dL) 6.0 ?126 6.5 ?140 7.0 ?154 7.5 ?169 8.0 ?183 8.5 ?197 9.0 ?212 9.5 ?226 10.0 ? 240 Limitations: The eAG calculation has not been validated on women, individuals below 18 years old and above 70 years old, and individuals with hemoglobinopathies. Additional resources are available on ADA website. Mark ESPINOZA, Spencer J, Madeline R, et al. ??Tr anslating the A1C assay into estimated average glucose values. ??Diabetes Care 2008:31(8):9139-1766. Specimen Anatomical Collection Method Collection Time Receive d Time (Source) Location / / Volume Laterality Blood 01/20/2021 10:23 01/20/2021 AM EST 10:37 AM EST Resulting Agency Comment Spec In Lab Lefty Hankins MD CHEMISTRY ORDERABLES Performing Organization Address City/State/ZIP [place] [address] documented in this encounter Visit Diagnoses Diagnosis Obesity, morbid - BMI 52 Morbid obesity Hypoglycemia Hypoglycemia, unspecified documented in this encounter Care Teams Flute Grinder Relationship Specialty Start Date End Date Jv Fam, PCP - General Family Medicine 01/20/21 [address] [place] [address] documented as of this encounter
--- OUTSIDE RECORDS SUMMARY | 2022-02-14 03:43 | XMS_ITS | Encounter Summary ---
:1960 Author Organization [facility] [place] [address] Care Team Providers Name Role Phone Reynaldo Lagos MD Primary Care Provider [phone] Reason for Referral Diagnostic Test (Routine) - Closed Specialty Diagnoses / Procedures Referred By Contact Refer red To Contact Cardiology Diagnoses Chest pain, unspecified type Vinay Doll Mhm[facility] Non-Inv Card Lab Procedures Echocardiogram Transthoracic(Leb) [facility] [place] [address] [place] [address] Referral ID Status Reason Start Date Expiration Date Visits V isits Requested Authorized [id number] Closed Specialty 08/13/2015 08/12/2016 1 1 Service Requested Reason for Visit Reason Comments Shortness of Breath Encounter Details Date Type Department Care Team Description 07/04/2015 Office Visit Cardiology at [facility] Aprremediosnidmis, Diastolic congestive heart f ailure, unspecified congestive heart failure chronicity; [facility] MD Vinay Chest pain, unspecified type; [facility] Paroxysmal [place] [address] CARDIOLOGY DEPT [phone] [place], [place] [address] Social History Tobacco Use Types Packs/Day Years Used Date Smoking Tobacco: Never Smokeless Tobacco: Never Sex Assigned at Date Recorded Not on file documented as of this encounter Last Filed Vital Signs Vital Sign Reading Time Taken Comments Blood Pressure 130/78 07/04/2015 1:21 PM EDT Pulse 63 07/04/2015 1:21 PM EDT Temperature - - Respiratory Rate - - Oxygen Saturation 97% 07/04/2015 1:21 PM EDT Inhaled Oxygen Concentration - - Weight 134 kg (295 lb 6.4 oz) 07/04/2015 1:21 PM EDT Height 175.3 cm (5' 9) 07/04/2015 1:21 PM EDT Body Mass Index 43.62 07/04/2015 1:21 PM EDT documented in this encounter Progress Notes Esha Larose MD - 07/04/2015 8:46 PM EDT I was the attending physician available for supervision at the time of this visit. I did not see thepatient or discuss the plan of management. I did not submit any professional charges as the fellow provided the care. ESHA LAROSE MD Vinay Doll MD - 07/03/2015 4:26 PM EDT Cardiology Clinic Follow-up Note Patient Name: Reza James II Date of : 1960 Age: 54 y.o. PCP: REYNALDO LAGOS MD Presenting Diagnosis/Chief Complaint: AF Problem List: Patient Active Problem List Diagnosis Code ??? Ventricular tachycardia episode 2007 I47.2 ??? KAYLEEN on CPAP G47.33 ??? Obesity, morbid - BMI 52 E66.01 ??? HTN (hypertension) I10 ??? S/P vasectomy Z98.52 ??? Hyperlipidemia E78.5 History of Present Illness: Reza James II is a 54 y.o. male presents today in follow up for his cardiac problems. Mr. James his morbidly obese ( BMI 45)?? male has history of CAD ( nonobstructive) , rate controlled AF diagnosed in March now on usp anticoagulation for his AF with elevated [id number] score with Apxaban 5 mg bid,ith newly diagnosed AF, resistant hypertension, dyslipidemia, KAYLEEN on SPAP,history of RVOT/ventricular arrhythmia, CKD, IGT and chronic fatigue for many years. Initially his fatigue was attributed to yasmine dose of beta blockers. He denies dizziness, palpitations, lightheadedness, syncope,PND, orthopnea, pedal edema.?? Mr. James had several episodes of epigastric discomfort not always associated with exertion. He noticed the he had those episodes after eating salmon. After he stopped taking salmon he stopped having those chest discomfort episodes. 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 He is compliant with his medication. Past Medical History: Past Medical History Diagnosis Date ??? Ventricular tachycardia 09/26/2011 ??? KAYLEEN on CPAP 09/26/2011 ??? Obesity, morbid 09/26/2011 ??? HTN (hypertension) 09/26/2011 ??? S/P vasectomy 09/26/2011 ??? Hyperlipidemia 09/26/2011 Review of Systems (as above otherwise): General: no fevers, chills, night sweats; no recent weight changes; no fatigue EENT: no changes in vision; Cardiovascular: as above Respiratory: no SOB, BEARD, no cough, no wheeze GI: no abdominal pain; no nausea or vomiting Heme: no easy bruising or bleeding Neuro: no headaches; no numbness or tingling; no weakness Allergies Allergen Reactions ??? Fish Containing Products Current Home Medications: ??? apixaban (ELIQUIS) 5 mg Tablet ??? lisinopril (PRINIVIL;ZESTRIL) 20 mg Tablet ??? buPROPion (WELLBUTRIN SR) 150 mg Tablet Sustained Release ??? potassium chloride (KLOR-CON) 8 mEq tablet ??? aspirin 81 mg EC tablet ??? atorvastatin (LIPITOR) 80 mg tablet ??? lisinopril (PRINIVIL;ZESTRIL) 40 mg tablet ??? metoprolol succinate (TOPROL-XL) 200 mg 24 hr tablet ??? minoxidil (LONITEN) 10 mg tablet ??? torsemide (DEMADEX) 20 mg tablet ??? amlodipine (NORVASC) 10 mg tablet ??? glucosamine-chondroitin 500-400 mg tablet Social and family history reviewed. Physical Exam: Filed Vitals: 07/04/15 1321 BP: 130/78 Pulse: 63 General: morbidly obese, appears well, in no acute distress CV: Irregular rate and rhythm, Normally split S1, S2, No murmur or S3. JVP normal. Normal peripheralpulses. No carotid or abdominal bruits. Trace b/l pedal edema. Pulmonary: Non labored breathing. Breath sounds throughout. No wheezes, rales or rhonchi Abdomen: Protuberant, soft and non-tender, no ascites. 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 Last 3 Lytes Recent Labs 07/04/15 1420 NA 145 K 4.4 CL 103 CO2 30 BUN 23* CREATININE 1.30 Last 3 LFTs Recent Labs 07/04/15 1420 AST 28 ALT 31 ALKPHOS 86 BILITOT 1.2 BILIDIR 0.3 Assessment and Plan: 54 y.o. male is seen in clinic for regular follow up. He is overall doing well and continues to haveactive lifestyle. 1. CAD. Had nonobstructive CAD on [facility] when he had RVOT. Recent episodes of epigastric discomfort stopped after he stopped heating fish. He denies any CP with exertion now. He supposed to have a stress test done in his PCP's office but for some reason it did not happen there. He is on GDMT ( ASA, statin, BB and DOROTA). 2. Rate control AF was recently diagnosed, we started usp anticoagulation (elevated [id number] score) apixaban 5 mg bid since April 15. Today on exam his heart rhythm is irregular. Today he did have labs: renal function is stable and LFTs are WNL. In 2007 he had normal LV systolic function and moderately enlarged LA. In 2011 his LA was already severely enlarged. At this point he might have underwent significant electrical remodeling of his LA and gnosticism and maintenance of sinus rhythm may be challenging. However , he will attempt to restore sinus rhythm at least once. To help determining which antiarrythmic to use for possible antiarrythmic strategy, at this point we need to have new assessment of his cardiac structure and ischemia. 3.The patient has history RVOT VT eight years ago. Now is on high dose of Metoprolol ( 200 mg BID). He had no more dizziness or syncope. 4. Resistant HTN on 5 high dose BP medication. BP today is controlled. Plan: TTE A nuclear stress test. EKG next time he is in cardiology. Continue all his current cardiac medication including apixaban. When I have results of a stress test and TTE, patient is expecting call and at this point he might agree on a DCCV while he is on apixaban. Following AF control strategy will depend on if he is able to maintain sinus rhythm and for how long. Will monitor renal function and LFTs yearly. Time of next visit will depend on depending on exercise MPI and TTE results. Vinay Doll MD Stitching Machine Setter Pager # [phone] documented in this encounter Miscellaneous Notes Addendum Note - Vinay Doll MD - 07/04/2015 7:28 PM EDT Addended by: VINAY DOLL on: 07/04/2015 07:28 PM Modules accepted: Orders documented in this encounter Plan of Treatment Scheduled Orders Name Type Priority Associated Diagnoses Order S chedule EKG 12 Lead ECG Routine Paroxysmal atrial fibrillati on Ordered: 07/04/2015 documented as of this encounter Procedures Procedure Name Priority Date/Time Associated Diagnosis Comme nts HEMOGRAM STAT 07/04/2015 2:20 PM Diastolic congestive R esults for this EDT heart failure, procedure are in unspecified the results congestive heart section. failure chronicity DIFFERENTIAL, STAT 07/04/2015 2:20 PM Diastolic congestive Results for this AUTOMATED EDT heart failure, procedure are in unspecified the results congestive heart section. failure chronicity CBC (WITH DIFF) STAT 07/04/2015 2:20 PM Diastolic congestiv e EDT heart failure, unspecified congestive heart failure chronicity HEPATIC FUNCTION STAT 07/04/2015 2:20 PM Diastolic congesti ve Results for this PANEL EDT heart failure, procedure are in unspecified the results congestive heart section. failure chronicity BASIC METABOLIC STAT 07/04/2015 2:20 PM Diastolic congestiv e Results for this PANEL (NON-FASTING) EDT heart failure, proced ure are in unspecified the results congestive heart section. failure chronicity documented in this encounter Results ECHOCARDIOGRAM COMPLETE (08/26/2015 11:48 AM EDT) P athologist Signature EF 68 HEARTLAB SYSTEM Anatomical Region Laterality Modality Other Specimen (Source) Anatomical Location Collection Method / Collectio n Time Received Time / Laterality Volume 08/26/2015 Narrative 08/26/2015 1:39 PM EDT Procedure: ?Transthoracic Echocardiogram Patient: ?FLUM REZA ?(Age): 1960(55y) Med Rec#: ? [id number] ?Sex: ?M ? Site Loc: ? [facility] ?Ht / Wt: ??175(cm)/134(kg) Pt. Loc: ?Echo Lab ?BSA: ?2.44 Study Date: ?? 08/26/2015 ?Pt. Type: Outpatient Tape: ? Referring: Esha Larose ([id number] ) Referring: MALI Reading: Mauri Heredia ([id number]) Pin Drafting Machine Operator: Viet Mcmanus Diagnosis: *ICD-10-PCS Chest pain, unspecified (R0 7.9) CPT Codes: *Echo Full (06852) *Spectral Doppler (83126) *Color Doppler (68993) BP: ? 154/108 SUMMARY: 1. Mild concentric left ventricular hype rtrophy is observed. ??There is normal global left ventricular systolic function. The quantitative left ventricular ejection fraction by biplane Siddiqui's method is 68%. ??There are no left ventricular segmental wall m otion abnormalities. 2. Right ventricular chamber size, wall thickness, and systolic function are within normal limits. 3. There is mild to moderate (1-2+/4+) m itral regurgitation present. 4. The estimated pulmonary artery systol ic pressure is 35 mmHg. 5. There is no pericardial effusion. 6. See remainder of report for additiona l findings. Findings ? : Study Quality: ? Adequate Left Ventricle: ? The left ventricle is mildly dilated. ?Mild concentric left ventricular h ypertrophy is observed. ?There is normal global left ventri cular systolic function. ?The quantitative left ventricular ejection fraction by biplane Siddiqui's method is 68%. ?There are no left ventricular segm ental wall motion abnormalities. ?Left ventricular diastolic functio n is abnormal. ?Doppler assessment is consistent w ith elevated left sided filling pressure. Left Atrium: ? The left atrium is se verely dilated. Right Ventricle: ? Right ventricular chamber size, wall thickness, and systolic function are within normal limi ts. ?No pulmonary hypertension is noted . ?The estimated pulmonary artery sys tolic pressure is 35 mmHg. ?The estimated right atrial pressur e is 3 mmHg. Right Atrium: ? The right atrium is moderately dilated. Aortic Valve: ? The aortic valve is trileaflet. The leaflets are thin with normal excursion. There is no aorti c stenosis or regurgitation present. Mitral Valve: ? The mitral valve is probably normal. ?There is mild to moderate (1-2+/4+ ) mitral regurgitation present. Tricuspid Valve: ? The tricuspid mono ve appears normal in structure and function. ?There is trace tricuspid regurgita tion present. Pulmonic Valve: ? The pulmonic valve appears normal in structure and function. Pericardium: ? There is no pericardi al effusion. ?A pericardial fat pad is visualize d. Aorta: ? The aortic root is normal i n size. ?The ascending aorta is normal in s blake. ?There is no evidence of coarctatio n of the aorta. Pulmonary Artery: ? The main pulmona ry artery appears normal. Venous: ? The inferior vena cava radha ears normal in size. ?There is a greater than 50% respir atory change in the inferior vena cava dimension. Misc: ? See remainder of report for additional findings. ?Two-dimensional echo, spectral Dop pler and color Doppler performed. Chambers 2D ?Value ?Units (Range) ? IVSd (2D) ? 1.4 ?cm ? LVPWd (2D) ?1 ?cm ? LVIDd (2D) ?5.9 ?cm ? LVIDs (2D) ?3.3 ?cm ? LV FS (2D) ?44 ? % ? Ao root diameter (2D3.3 ?cm (2.1 - 3.6) ? Ascending Ao ?3.2 ?cm (2 - 3.5) ? Volumes/Mass ?Value ?Units (Range) ? LA Area 4 CH ?36.9 ? cm2 (<21) ? LA ESV BP (A/L) inde68.5 ? ml/m2 ? RA AREA 4CH ? 26.3 ? cm2 ? LV ESV SP 4CH (MOD) 36.4 ? ml ? LV ESV SP 2CH (MOD) 38.2 ? ml ? LV EDV BP ? 116.3 ?ml ? LV ESV BP ? 37.2 ? ml ? BP EF (MOD) ? 68 ? % ? LV mass (2D) ?244 ?g ? LV mass (2D) index ??100 ?g/m2 ? Diastolic/Systolic Function ?Value ?Units (Range) ? MV E-wave Vmax ?1.1 ?m/sec ? LV septal e' Vmax ?? 0.1 ?m/sec ? LV lateral e' Vmax ??0.1 ?m/sec ? LV average e' Vmax ??0.1 ?m/sec ? LV E:e' septal ratio18.4 ? ratio ? LV E:e' lateral rati10 ? ratio ? LV average E:e' rati13.8 ? ratio ? Tricuspid Valve ?Value ?Units (Range) ? TR Vmax ? 2.8 ?m/sec ? TR peak gradient ?32 ? mmHg ? RAP ? 3 ?mmHg ? RVSP ?35 ? mmHg ? Measurement Trending Name ? 08/26/2015 ? LV EDV BP ?1 16.29 LVIDd (2D) ? 5. 92 LV ESV BP ?3 7.2 LVIDs (2D) ? 3. 34 Wall Motion: Segment Name ?Rest ? Base-Anteroseptal ?? Normal ? Base-Anterior ? Normal ? Base-Anterolateral ??Normal ? Base-Posterolateral Normal ? Base-Inferior ? Normal ? Base-Inferoseptal ?? Normal ? Mid-Anteroseptal ?Normal ? Mid-Anterior ?Normal ? Mid-Anterolateral ?? Normal ? Mid-Posterolateral ??Normal ? Mid-Inferior ?Normal ? Mid-Inferoseptal ?Normal ? [place]-Septal ? Normal ? [place]-Anterior ? Normal ? [place]-Lateral ?Normal ? [place]-Inferior ? Normal ? [place]-Tip ?Normal ? This report has been electronically sign ed by: _ Mauri Heredia M.D. ? 08/26/2015 13:39:18 Images reviewed and interpretation verif iedre [facility] Cardiac Ultrasound Laboratory Procedure Note Mauri Heredia MD - 08/26/2015Format ting of this note might be different from the original. Procedure: Transthoracic Echocardiogram Patient: BELTRAN BROUSSARD(Age): [birth year] [age]y) Med Rec#: [id number] Sex: M Site Loc: [facility] Ht / Wt: 175(cm)/134(kg) Pt. Loc: Echo Lab BSA: 2.44 Study Date: 08/26/2015 Pt. Type: Outpati ent Tape: Referring: Esha Larose ([id number] ) Referring: MALI Reading: Mauri Heredia ([id number]) Pin Drafting Machine Operator: Viet Mcmanus Diagnosis: *ICD-10-PCS Chest pain, unspecified (R0 7.9) CPT Codes: *Echo Full (32995) *Spectral Doppler (61675) *Color Doppler (68733) BP: 154/108 SUMMARY: 1. Mild concentric left ventricular hype rtrophy is observed. There is normal global left ventricular systolic function. The quantitative left ventricular ejection fraction by biplane Siddiqui's method is 68%. There are no left ventricular segmental wall m otion abnormalities. 2. Right ventricular chamber size, wall thickness, and systolic function are within normal limits. 3. There is mild to moderate (1-2+/4+) m itral regurgitation present. 4. The estimated pulmonary artery systol ic pressure is 35 mmHg. 5. There is no pericardial effusion. 6. See remainder of report for additiona l findings. Findings : Study Quality: Adequate Left Ventricle: The left ventricle is mi ldly dilated. Mild concentric left ventricular hypert rophy is observed. There is normal global left ventricular systolic function. The quantitative left ventricular eject ion fraction by biplane Siddiqui's method is 68%. There are no left ventricular segmental wall motion abnormalities. Left ventricular diastolic function is abnormal. Doppler assessment is consistent with e levated left sided filling pressure. Left Atrium: The left atrium is severely dilated. Right Ventricle: Right ventricular chamb er size, wall thickness, and systolic function are within normal limi ts. No pulmonary hypertension is noted. The estimated pulmonary artery systolic pressure is 35 mmHg. The estimated right atrial pressure is 3 mmHg. Right Atrium: The right atrium is modera tely dilated. Aortic Valve: The aortic valve is trilea flet. The leaflets are thin with normal excursion. There is no aorti c stenosis or regurgitation present. Mitral Valve: The mitral valve is probab ly normal. There is mild to moderate (1-2+/4+) sherin ral regurgitation present. Tricuspid Valve: The tricuspid valve radha ears normal in structure and function. There is trace tricuspid regurgitation present. Pulmonic Valve: The pulmonic valve appea rs normal in structure and function. Pericardium: There is no pericardial eff usion. A pericardial fat pad is visualized. Aorta: The aortic root is normal in size . The ascending aorta is normal in size. There is no evidence of coarctation of the aorta. Pulmonary Artery: The main pulmonary art vilma appears normal. Venous: The inferior vena cava appears n ormal in size. There is a greater than 50% respiratory change in the inferior vena cava dimension. Misc: See remainder of report for additi onal findings. Two-dimensional echo, spectral Doppler and color Doppler performed. Chambers 2D Value Units (Range) IVSd (2D) 1.4 cm LVPWd (2D) 1 cm LVIDd (2D) 5.9 cm LVIDs (2D) 3.3 cm LV FS (2D) 44 % Ao root diameter (2D3.3 cm (2.1 - 3.6) Ascending Ao 3.2 cm (2 - 3.5) Volumes/Mass Value Units (Range) LA Area 4 CH 36.9 cm2 (<21) LA ESV BP (A/L) inde68.5 ml/m2 RA AREA 4CH 26.3 cm2 LV ESV SP 4CH (MOD) 36.4 ml LV ESV SP 2CH (MOD) 38.2 ml LV EDV BP 116.3 ml LV ESV BP 37.2 ml BP EF (MOD) 68 % LV mass (2D) 244 g LV mass (2D) index 100 g/m2 Diastolic/Systolic Function Value Units (Range) MV E-wave Vmax 1.1 m/sec LV septal e' Vmax 0.1 m/sec LV lateral e' Vmax 0.1 m/sec LV average e' Vmax 0.1 m/sec LV E:e' septal ratio18.4 ratio LV E:e' lateral rati10 ratio LV average E:e' rati13.8 ratio Tricuspid Valve Value Units (Range) TR Vmax 2.8 m/sec TR peak gradient 32 mmHg RAP 3 mmHg RVSP 35 mmHg Measurement Trending Name 08/26/2015 LV EDV BP 116.29 LVIDd (2D) 5.92 LV ESV BP 37.2 LVIDs (2D) 3.34 Wall Motion: Segment Name Rest Base-Anteroseptal Normal Base-Anterior Normal Base-Anterolateral Normal Base-Posterolateral Normal Base-Inferior Normal Base-Inferoseptal Normal Mid-Anteroseptal Normal Mid-Anterior Normal Mid-Anterolateral Normal Mid-Posterolateral Normal Mid-Inferior Normal Mid-Inferoseptal Normal [place]-Septal Normal [place]-Anterior Normal [place]-Lateral Normal [place]-Inferior Normal [place]-Tip Normal This report has been electronically sign ed by: _ Mauri Heredia M.D. 08/26/2015 13:39: 18 Images reviewed and interpretation mendez dove [facility] Cardiac Ultrasound Laboratory Esha Larose MD ECHO ORDERABLES Nuclear Exercise Stress Cardiology (08/26/2015 10:56 AM EDT) Anatomical Region Laterality Modality Other Specimen (Source) Anatomical Location Collection Method / Collectio n Time Received Time / Laterality Volume Narrative This result has an attachment that is no t available. Esha Larose MD CARDIAC SERVICES ORDERABLES Differential, Automated (07/04/2015 2:20 PM EDT) P athologist Signature Neutrophils % 58.9 % [facility] Neutr Abs (ANC) 3.06 1.50 - [facility] 6.30 [facility] x10(3)/[facility] LABORATORY Lymphocytes % 24.9 % [facility] Lymphocytes Abs 1.3 1.0 - 3.6 [facility] x10(3)/[facility] LABORATORY Monocytes % 13.5 % [facility] Monocyte Abs 0.7 0.2 - 1.0 [facility] x10(3)/[facility] LABORATORY Eosinophils % 1.7 % [facility] Eosinophils Abs 0.1 0.0 - 0.5 [facility] x10(3)/[facility] LABORATORY Basophils % 0.6 % [facility] Basophils Abs 0.0 0.0 - 0.2 [facility] x10(3)/[facility] LABORATORY Immature Gran % 0.40 % [facility] Comment: Immature granulocytes(IG's)percentage an d absolute count will include metamyelocytes, myelocytes, and promyelo cytes. Blood smears from CBCs yielding IG's will be scanned manually for concor dance. If this scan disagrees with the automated IG or if promyelocytes are not ed, a manual differential will be performed. Mireille Gran Abs 0.02 0.00 - 0.05 x10(3)/[facility] LAB[facility]AT[facility] Specimen Anatomical Collection Method Collection Time Receive d Time (Source) Location / / Volume Laterality Blood specimen 07/04/2015 2:20 PM 016 2:31 (specimen) EDT PM EDT Resulting Agency Comment Spec In Lab Esha Larose MD HEMATOLOGY ORDERABLES Performing Organization Address City/State/[place] [address] (ABNORMAL) Hemogram (07/04/2015 2:20 PM EDT) athologist Signature WBC 5.2 4.0 - 10.0 [place] x10(3)/[facility] LABORATORY RBC 5.73 4.63 - [place] 6.08 [facility] x10(6)/[facility] LABORATORY Hemoglobin 16.8 13.7 - [place] 17.5 gm/dL [facility] Hematocrit 48.3 40.0 - [place] 51.0 % [facility] MCV 84.3 79.0 - [place] 92.0 [facility] LABORATORY MCH 29.3 25.6 - [place] 32.2 pg [facility] MCHC 34.8 32.0 - [place] 36.5 gm/dL [facility] Platelets 176 145 - 370 [facility] LABORATORY RDWSD 45.7 35.0 - [place] 46.0 [facility] LABORATORY RDWCV 15.0 (H) 10.9 - [place] 14.4 % [facility] MPV 11.0 9.0 - 12.0 [facility] REECE [facility] LABORATORY Specimen Anatomical Collection Method Collection Time Receive d Time (Source) Location / / Volume Laterality Blood specimen 07/04/2015 2:20 PM 016 2:31 (specimen) EDT PM EDT Resulting Agency Comment Spec In Lab Esha Larose MD HEMATOLOGY ORDERABLES Performing Organization Address City/State/[place] [address] Hepatic Function Panel (07/04/2015 2:20 PM EDT) athologist Signature Total Protein 7.3 6.1 - 8.0 [place] gm/dL [facility] Albumin 4.2 3.2 - 5.2 [place] gm/dL [facility] AST 28 0 - 39 [place] unit/L [facility] ALT 31 0 - 55 [place] unit/L [facility] Alk Phos 86 40 - 120 [place] [facility] unit/L [facility] Total 1.2 0.2 - 1.3 [facility] Bilirubin mg/dL [facility] Bili, Direct 0.3 0.0 - 0.3 [facility] mg/dL [facility] Specimen Anatomical Collection Method Collection Time Receive d Time (Source) Location / / Volume Laterality Blood specimen 07/04/2015 2:20 PM 016 2:31 (specimen) EDT PM EDT Resulting Agency Comment Spec In Lab Esha Larose MD CHEMISTRY ORDERABLES Performing Organization Address City/State/[place] [address] (ABNORMAL) Basic Metabolic Panel (non-fasting) (07/04/2015 2:20 PM EDT) athologist Signature Glucose Lvl 103 65 - 199 [facility] mg/dL [facility] Comment: Diabetes: >=200 mg/dL plus symp toms BUN 23 (H) 10 - 20 mg/dL [facility] Creatinine 1.30 0.80 - 1.50 mg/dL [facility] Comment: Please note that the pediatric reference intervals supplied above were not validated at [facility]. Results from pediatri c patients should be interpreted in conjunction to the patient's age, height and muscle mass. Sodium 145 135 - 145 mmol/L [facility] Potassium 4.4 3.5 - 5.0 mmol/L [facility] Comment: Please note: ??Patients with WBC >100,00 0 may have falsely elevated Potassium levels. ??For accurate Potassium quantif ication in these patients send serum separator tube (gold top) for subsequent determinations. ??Contact the Clinical Chemistry Laboratory if there are any qu estions. Chloride 103 98 - 107 mmol/L [facility] CO2 30 22 - 31 mmol/L [facility] Anion Gap 12 5 - 15 mmol/L [facility] Calcium 9.2 8.5 - 10.5 mg/dL [facility] Estimated GFR 57 (L) >=60 [facility] Comment: This estimated GFR (eGFR) value was calc ulated using the MDRD equation which has been validated on patients between t he ages of 18 and 70. The MDRD should not be used to assess kidney function in patients < 18 years of age or in patients with extremes of body mass, or in patients with acute kidney failure. This value should be multiplied by 1.2 f or patients. For further information please copy and past e the following links into your internet browser. http://Sleep Number/DHnkdep http://Sleep Number/DHMCnkf Specimen Anatomical Collection Method Collection Time Receive d Time (Source) Location / / Volume Laterality Blood specimen 07/04/2015 2:20 PM 016 2:31 (specimen) EDT PM EDT Resulting Agency Comment Spec In Lab Esha Larose MD CHEMISTRY ORDERABLES Performing Organization Address City/State/[place] [address] documented in this encounter Visit Diagnoses Diagnosis Diastolic congestive heart failure, unsp ecified congestive heart failure chronicity Chest pain, unspecified type Paroxysmal atrial fibrillation Atrial fibrillation Chest pain, unspecified type documented in this encounter Care Teams Wringer And Setter Relationship Specialty Start Date End Date Reynaldo Lagos MD PCP - General 02/03/10 06/21/17 [address] [place] [address] documented as of this encounter
--- OUTSIDE RECORDS SUMMARY | 2022-02-14 03:43 | XMS_ITS | Encounter Summary ---
:1960 [place] [address] Care Team Providers Name Role Phone Álvaro Lagos MD Primary Care Provider Encounter Details Date Type Department Care Team Description 09/16/2014 Ancillary Procedure Radiology Library at [place], Ronald Bui [facility] [place] [facility] [place] [address] [place] [phone] ORTHOPAEDIC SURGERY [phone] [place] [id number] (Wo rk) Social History Tobacco Use Types Packs/Day Years Used Date Smoking Tobacco: Never Smokeless Tobacco: Never Sex Assigned at Date Recorded Not on file documented as of this encounter Plan of Treatment Not on filedocumented as of this encounter Procedures Procedure Name Priority Date/Time Associated Diagnosis Comme nts FILM LIBRARY Routine 09/16/2014 12:00 AM Results for this STORAGE ONLY DX EDT procedure ar e in KNEE the results section. documented in this encounter Results Film Library- Storage Only DX [place]nee (09/16/2014 12:00 AM EDT) Specimen (Source) Anatomical Location Collection Method / Collectio n Time Received Time / Laterality Volume Narrative PRADEEP - 06/20/2018 7:26 PM EDT This exam is auto-finalizing. It's purpo se is for storage only. Ramandeep Chávez MD [facility] FILM LIBRARY ORDERABLES Performing Organization Address City/State/ZIP Code Phon e Number RAD [place], [place] documented in this encounter Visit Diagnoses Not on filedocumented in this encounter Care Teams Snap Shearer Relationship Specialty Start Date End Date Álvaro Lagos MD PCP - General 02/03/10 06/21/17 [address] [place] [address] documented as of this encounter
--- OUTSIDE RECORDS SUMMARY | 2022-02-14 03:43 | XMS_ITS | Encounter Summary ---
:1960 [place] [address] Care Team Providers Name Role Phone Álvaro Lagos MD Primary Care Provider [phone] Encounter Details Date Type Department Care Team Description 10/26/2011 Notes Only [place] [facility]am Aparicio MD [facility] [place] [address] CARDIOLOGY DEPT. [phone] [place], [place] [address] (Wo rk) Social History Tobacco Use Types Packs/Day Years Used Date Smoking Tobacco: Never Smokeless Tobacco: Never Sex Assigned at Date Recorded Not on file documented as of this encounter Progress Notes Selam Aparicio MD - 10/26/2011 1:05 PM EDT ELECTROPHYSIOLOGY NOTE PROBLEM LIST 1. 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 Presented 06/2007 with presyncope/palpitations and WCT of 20 min duration terminated with CV ?? EPS 06/20/2007: Inducible mono VT with double extrastim: cl 208ms, LBB/inf axis morphology. Term with RVP a 250 ms. ?? SAECG: nondiagnostic/negative ?? EPS 06/23/2007 (on VPL 480 mg/d, metoprolol 75 mg/d): Inducible for RBB/R inf and LBB/ right inf axix VTs (CL 255 ms) with double extrastim. ?? Clinical trial of Flecainide (no recurrent VT) ?? EPS 08/23/2007 (off flecainide for 5 days): noninducible for VT(multiple morphologies of nonsust VT and poly VT induced). Normal RV and RVOT voltage map. ?? ZioPatch 09/28/2011: 6D, 2H sinus with avg HR 60, range 41-100 bpm. Rare atrial ectopy (0.4%) with10 runs of SVT (longest 10 beats at 100 bpm, fastest 9 beats at 142 bpm). Freq LUCI (5.5%). [id number] multiform VPCs, 710 VPC couples (0.3%), 10 VPC triplets. 2 runs WCT - longest and fastest 19 beats at 163 bpm - WCT morphologies of two events different. Longest WCT may be aberrantly conducted SVT, the VTmore likely. No pauses. No symptoms ?? EPS 10/26/2011: noninducible for VT despite up to triples and Isuprel. Occasional single VPCs which appear to originate in the RVOT. Not ablated as asymptomatic. 2. No known structural heart disease (LV dilitation, possibly related to body size). Mild LVH. Transient decreased LVEF during VT presentation (?transient myocarditis, tachymyopathy) ?? Echo 2006: conc LVH. LVEF 70%, BENJAMIN. No WMAs. ?? Echo 06/19/2007: Nl LV size. Mod conc LVH. LVEF 65%. No WMAa. RV not well visualized, but global RVfn prob normal. Mild Asc Ao dilitation. Nl valves. ?? Cath 06/19/2007: LVEDP 27.LVEF 40-45% with mod diffuse LV dysfn. Nl LM. Mild diffuse prox LAD. Nl Cx, Nl RCA. ?? ETT 12/18/2008: (on VPL 240 bid, metoprolo 200 bid- held 48 hours). Baseline sinus with VPCs. Ex to 7 METs, HR 163 (95%). Sats 92-93% during exercise, 98% post exercise. Freq multifocal VPCs, and couplets. No ischemia. ?? RV gram - no evidence of ARVD ?? Echo 10/06/2011: Mod dil LV (6.5 cm uncorrected for BSA). Mild conc LVH. Est LVEF 65%. All patrick not seen. Nl RV. Dil RA and LA. Est PAS 22. Thickened Ao V w/o or AI. Trace MR and TR. 3. HTN 4. KAYLEEN 5. Obesity 6. Hyperlipidemia Allergies/ADR: none Recent cardiovascular evaluation was performed. Echo revealed a slightly dilated LV with normal systolic function. The end diastolic dimension is not corrected for his size (350 pounds). He does also have some concentric LVH which may be related to his hypertension. His recent Ziopatch monitor revealsfrequent ventricular ectopy, primarily of 2 morphologies, with 2 runs of a nonsustained wide-complextachycardia. One reveals a relatively slow ventricular tachycardia, the other is a faster wide-complex tachycardia at 163 beats per minute-this may represent aberrantly conducted SVT, though I think ventricular tachycardia is more likely. Extensive electrophysiology testing to induce ventricular arrhyt hmias was unremarkable (other than occasional single PVCs which map to the RVOT. Review of his electrophysiology history is notable for: Presentation with wide- complex tachycardia and transient LV dysfunction (since normalized), inducible with programmed ventricular stimulation andpremature beats for ventricular tachycardia with both right bundle and left bundle morphologies, noninducible for VT 2 months after his initial presentation (after LV normalized), multiform ventricularectopy (though to predominantly two morphologies noted) on current long-term monitoring. As his left ventricular systolic function is normal, he is noninducible for worrisome arrhythmias, prolonged ECG monitoring does not show important arrhythmias, and he is asymptomatic (no syncope or presyncope for years), I believe his risk for recurrent arrhythmic syncope and sudden arrhythmic is low. documented in this encounter Plan of Treatment Not on filedocumented as of this encounter Visit Diagnoses Not on filedocumented in this encounter Care Teams Teacher Lip Reading Relationship Specialty Start Date End Date Álvaro Lagos MD PCP - General 02/03/10 06/21/[id number] [place] [address] documented as of this encounter
--- OUTSIDE RECORDS SUMMARY | 2022-02-14 03:43 | XMS_ITS | Encounter Summary ---
:1960 [place] [address] Care Team Providers Name Role Phone Álvaro Lagos MD Primary Care Provider [phone] Encounter Details Date Type Department Care Team Description 08/26/2015 Hospital Encounter Non-Invasive Lachelle, Chest jacquelyn n, Cardiology Lab Sri Solomon unspecified type [facility] [place] [id number] [phone] Social History Tobacco Use Types Packs/Day Years Used Date Smoking Tobacco: Never Smokeless Tobacco: Never Sex Assigned at Date Recorded Not on file documented as of this encounter Medications at Time of Discharge Medication Sig Dispensed Refills Start Date End Date amLODIPine (NORVASC) Take 1 tablet by mouth 90 tablet 11 10 mg daily. Indications: TabletIndications: Hypertension hypertension lisinopril Take 60 mg by mouth 0 (PRINIVIL;ZESTRIL) 20 daily. mg Tablet buPROPion (WELLBUTRIN Take 150 mg by mouth 2 0 SR) 150 mg Tablet times daily. Sustained Release potassium chloride Take 8 mEq by mouth 0 (KLOR-CON) 8 mEq daily. tablet atorvastatin (LIPITOR) Take 80 mg by mouth 0 80 mg daily. Indications: tabletIndications: Mixed Hyperlipidemia mixed hyperlipidemia lisinopril Take 40 mg by mouth 0 (PRINIVIL;ZESTRIL) 40 daily. With 20 mg mg tabletIndications: tablet Indications: hypertension Hypertension metoprolol succinate Take 200 mg by mouth 2 0 (TOPROL-XL) 200 mg 24 times daily. 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 hypertension Indications: Hypertension torsemide (DEMADEX) 20 Take 20 mg by mouth 0 mg tabletIndications: daily. Indications: edema, hypertension Edema, Hypertension glucosamine-chondroiti 0 09/05/2009 n 500-400 mg tablet apixaban (ELIQUIS) 5 Take 1 tablet by mouth 180 tablet 3 mg Tablet 2 times daily. aspirin 81 mg EC Take 81 mg by mouth 0 10/07/2017 tablet daily. documented as of this encounter Plan of Treatment Not on filedocumented as of this encounter Procedures Procedure Name Priority Date/Time Associated Diagnosis Comme nts NUCLEAR EXERCISE STRESS Routine 08/26/2015 10:56 AM Chest pain , unspecified CARDIOLOGY EDT type documented in this encounter Results Nuclear Exercise Stress Cardiology (08/26/2015 10:56 AM EDT) Anatomical Region Laterality Modality Other Specimen (Source) Anatomical Location Collection Method / Collectio n Time Received Time / Laterality Volume Narrative This result has an attachment that is no t available. Peter Larose MD CARDIAC SERVICES ORDERABLES documented in this encounter Visit Diagnoses Diagnosis Chest pain, unspecified type documented in this encounter Care Teams Java Manager Relationship Specialty Start Date End Date Álvaro Lagos MD PCP - General 02/03/10 06/21/17 [address] [facility] [place] [address] documented as of this encounter
--- OUTSIDE RECORDS SUMMARY | 2022-02-14 03:43 | XMS_ITS | Encounter Summary ---
:1960 Author Organization [facility] [place] [address] Care Team Providers Name Role Phone Álvaro Lagos MD Primary Care Provider [phone] Reason for Visit Reason Onset Date Comments Medication Refill 05/26/2015 Encounter Details Date Type Department Care Team Description 05/26/2015 Refill Cardiology at [facility] Vinay Forde, Medication Refill [facility] [place] [address] [facility] [phone] CARDIOLOGY DEPT [place] [id number] (Wo rk) Social History Tobacco Use Types Packs/Day Years Used Date Smoking Tobacco: Never Smokeless Tobacco: Never Sex Assigned at Date Recorded Not on file documented as of this encounter Plan of Treatment Not on filedocumented as of this encounter Visit Diagnoses Not on filedocumented in this encounter Care Teams Furnace Tapper Relationship Specialty Start Date End Date Álvaro Lagos MD PCP - General 02/03/10 06/21/17 [address] [place] [address] documented as of this encounter
--- OUTSIDE RECORDS SUMMARY | 2022-02-14 03:43 | XMS_ITS | Encounter Summary ---
:1960 [place] [address] Care Team Providers Name Role Phone Álvaro Lagos MD Primary Care Provider [phone] Reason for Visit Reason Onset Date Comments Medication Refill 07/28/2015 Encounter Details Date Type Department Care Team Description 07/28/2015 Refill Cardiovascular Clarissa Forde Medicati on Refill [facility] lashae Mclean MD [facility] [place] [address] CARDIOLOGY DEPT [phone] [place] [address] (Wo rk) Social History Tobacco Use Types Packs/Day Years Used Date Smoking Tobacco: Never Smokeless Tobacco: Never Sex Assigned at Date Recorded Not on file documented as of this encounter Plan of Treatment Not on filedocumented as of this encounter Visit Diagnoses Not on filedocumented in this encounter Care Teams Box Sorter Relationship Specialty Start Date End Date Álvaro Lagos MD PCP - General 02/03/10 06/21/[address] [place] [id number] documented as of this encounter
--- OUTSIDE RECORDS SUMMARY | 2022-02-14 03:43 | XMS_ITS | Encounter Summary ---
:1960 Author Organization [facility] [place] [address] Care Team Providers Name Role Phone Álvaro Lagos MD Primary Care Provider [phone] Reason for Visit Diagnostic Test (Routine) - Closed Specialty Diagnoses / Procedures Referred By Contact Refer red To Contact Radiology Diagnoses Chest pain, unspecified type Vinay Forde [facility] Nuclear Med Procedures NM myocardial perfusion scan, pharmacologic NM myocardial perfusion - stress & [place] [address] [place] [address] Referral ID Status Reason Start Date Expiration Date Visits V isits Requested Authorized [id number] Closed Specialty 08/13/2015 08/12/2016 1 1 Service Requested Encounter Details Date Type Department Care Team Description 08/26/2015 Hospital Encounter Nuclear Medicine at [facility] fatoumata Hearn MD [facility] [place] [address] CARDIOLOGY DEPT [phone] [place], [place] [address] (Wo rk) Social History Tobacco [...] encounter Procedures Procedure Name Priority Date/Time Associated Comments Diagnosis NM PHARMACOLOGIC Routine 08/26/2015 12:16 Chest pain, Results for this STRESS AND REST PM EDT unspecified type procedur e are in MYOCARDIAL PERFUSION the res ults section. documented in this encounter Visit Diagnoses Not on filedocumented in this encounter Administered Medications Inactive Administered Medications - up to 3 most recent administrations Medication Order MAR Action Action Date Dose Rate Site technetium (Tc-99m) sestamibi Given 08/26/2015 10:50 AM EDT 23.3 mCi injection 23.3 mCi 23.3 mCi, Intravenous, ONCE PRN, 1 dose, Starting on Tue08/26/15 at 1050, Until Tue08/26/15 at 1050, Per Protocol, Routine documented in this encounter Care Teams Laundry Aide Relationship Specialty Start Date End Date Álvaro Lagos MD PCP - General 02/03/10 06/21/[address] [place] [address] documented as of this encounter
--- OUTSIDE RECORDS SUMMARY | 2022-02-14 03:43 | XMS_ITS | Encounter Summary ---
:1960 Author Organization [facility] [address] Care Team Providers Name Role Phone Álvaro Lagos MD Primary Care Provider [phone] Reason for Visit Diagnostic Test (Routine) - Closed Specialty Diagnoses / Procedures Referred By Contact Refer red To Contact Radiology Diagnoses Chest pain, unspecified type Vinay Forde [facility] Rad Nuclear Med Procedures NM myocardial perfusion scan, pharmacologic NM myocardial perfusion - stress & rest [facility] [place] [address] [place] [address] Referral ID Status Reason Start Date Expiration Date Visits V isits Requested Authorized [id number] Closed Specialty 08/13/2015 08/12/2016 1 1 Service Requested Encounter Details Date Type Department Care Team Description 08/26/2015 Hospital Encounter Nuclear Medicine at [facility], est pain, Clarissa Rubénkitty Hearn MD unspecified type [facility] [address] [place] CARDIOLOGY DEPT [address] [place], [place] [phone] Social History Tobacco Use Types Packs/Day Years [...] res ults section. documented in this encounter Results NM myocardial perfusion scan, pharmacologic (08/26/2015 12:16 PM EDT) Anatomical Region Laterality Modality Nuclear Medicine Specimen (Source) Anatomical Location Collection Method / Collectio n Time Received Time / Laterality Volume Impressions 08/26/2015 1:24 PM EDT No ischemia or scar. ??Left ventricular function is normal. Narrative 08/26/2015 1:24 PM EDT EXAMINATION: NM MYOCARDIAL PERFUSION SCAN, PHARMACOLOGIC CLINICAL HISTORY: chest pain TECHNIQUE: During rest, 7.1 mCi of techn etium-99m sestamibi was administered intravenously. Approximately 20 minutes later, SPECT images of the heart were obtained with reconstruction in the shor t, vertical long and horizontal long axis. The patient then received regadenoson in travenously at a dose of 0.4 mg. 20 seconds later, 23.3 mCi of technetium-99 m sestamibi was administered intravenously. Images of the heart were then again obtained with SPECT reconstruction. A low-dose CT scan was acquired for the purpose of attenuation correction COMPARISON: None FINDINGS: No fixed or reversible perfusion defects are present. Functional analysis: Myocardial function: There is normal wal l thickening and wall motion. Left ventricular ejection fraction: 54 % (normal greater than than 50%). Procedure Note Jayy De La Torre MD - 08/26/2015 EXAMINATION: NM MYOCARDIAL PERFUSION SCA N, PHARMACOLOGIC CLINICAL HISTORY: chest pain TECHNIQUE: During rest, 7.1 mCi of techn etium-99m sestamibi was administered intravenously. Approximately 20 minutes later, SPECT images of the heart were obtained with reconstruction in the shor t, vertical long and horizontal long axis. The patient then received regadenoson in travenously at a dose of 0.4 mg. 20 seconds later, 23.3 mCi of technetium-99 m sestamibi was administered intravenously. Images of the heart were then again obtained with SPECT reconstruction. A low-dose CT scan was acquired for the purpose of attenuation correction COMPARISON: None FINDINGS: No fixed or reversible perfusion defects are present. Functional analysis: Myocardial function: There is normal wal l thickening and wall motion. Left ventricular ejection fraction: 54 % (normal greater than than 50%). IMPRESSION No ischemia or scar. Left ventricular fu nction is normal. Peter Larose MD [facility] [place] ORDERABLES documented in this encounter Visit Diagnoses Diagnosis Chest pain, unspecified type Chest pain, unspecified type documented in this encounter Administered Medications Inactive Administered Medications - up to 3 most recent administrations Medication Order MAR Action Action Date Dose Rate Site technetium (Tc-99m) sestamibi Given 08/26/2015 8:34 AM EDT 7.1 m Ci injection 7.1 mCi 7.1 mCi, Intravenous, ONCE PRN, 1 dose, Starting on Tue08/26/15 at 0834, Until Tue08/26/15 at 0834, Per Protocol, Routine documented in this encounter Care Teams End Polisher Relationship Specialty Start Date End Date Álvaro Lagos MD PCP - General 02/03/10 06/21/[address] [place] [address] documented as of this encounter
--- OUTSIDE RECORDS SUMMARY | 2022-02-14 03:43 | XMS_ITS | Encounter Summary ---
:1960 Author Organization [facility] [place] [address] Care Team Providers Name Role Phone Álvaro London DO Primary Care Provider Reason for Visit Auth/Cert Specialty Diagnoses / Procedures Referred By Contact Refer red To Contact Diagnoses f/u colo - CONSULT Procedures PRO COLONOSCOPY, DIAGNOSTIC COLONOSCOPY, DIAGNOSTIC Referral ID Status Reason Start Date Expiration Date Visits Requ ested Visits Authorized [id number] 1 1 Encounter Details Date Type Department Care Team Description 10/07/2017 Surgery Gastroenterology at [facility] Jonh Cortez, COLONOSCOPY, [facility] Dhiraj brown [place] [address] [facility] [phone] [place], [place] [address] Social History Tobacco Use Types Packs/Day Years Used Date Smoking Tobacco: Never Smokeless Tobacco: Never Alcohol Use Standard Drinks/Week Comments No 0 (1 standard drink = 0.6 oz pure alcoho l) no alcohol since 1984 Sex Assigned at Date Recorded Not on file documented as of this encounter Last Filed Vital Signs Vital Sign Reading Time Taken Comments Blood Pressure 148/91 10/07/2017 11:14 AM EDT Pulse 80 10/07/2017 11:14 AM EDT Temperature - - Respiratory Rate - - Oxygen Saturation 98% 10/07/2017 11:14 AM EDT Inhaled Oxygen Concentration - - Weight 139.3 kg (307 lb) 10/07/2017 11:14 AM EDT Height 177.8 cm (5' 10) 10/07/2017 11:14 AM EDT Body Mass Index 44.05 10/07/2017 11:14 AM EDT documented in this encounter Discharge Instructions Discharge InstructionsChristy Claudia NeriPRABHJOT - 10/07/2017 12:31 PM EDT Colonoscopy What to expect after the procedure You may feel a little more gassy or bloated than usual. This is normal. You should expect the return of normal bowel function in the 2 to 3 days. Activity Because of the sedation that you received your judgement and reaction time are effected ?? Go home and rest quietly for the remainder of the day. You may resume your normal activities tomorrow. ?? Change from one position to the next slowly. You may lose your balance unexpectedly ?? Be careful on stairs, as you may be unsteady on your feet FOR THE NEXT 24 HRS ?? DO NOT DRIVE OR OPERATE ANY MACHINERY ?? DO NOT DRINK ALCOHOLIC BEVERAGES ?? DO NOT SIGN LEGAL DOCUMENTS ?? If you are a smoker: DO NOT SMOKE WHILE YOU ARE ALONE Diet ?? Start by eating small portions of foods that ordinarily will not upset your stomach . Avoid gas producing foods for the next few days ?? Be gentle with what you choose to start with ?? Drink plenty of fluids ( unless your doctor has told you not to). IV SITE-- slight redness, or tenderness is normal. You can use warm compresses if you become concerned. If the tenderness +/or redness increases or foul drainage and a red streak occurs, please contact your PCP immediately When shoud you call for help? Call 911 anytime you think you may need emergency care. For example If you pass out ( loss of consciousness) If you pass maroon or bloody stools If you have severe belly pain Call your doctor now or seek immediate medical care If your stools are black and tarlike If your stools have streaks of blood, but you did not have a biopsy or any polyps removed If you have belly pain, or your belly is swollen and firm If you vomit If you have a fever If you are very dizzy Watch closely for changes in your health, and be sure to contact your doctor if you have any problems Your doctor will let you know when you will need your next colonoscopy. The results of your test andyour risk for colorectal cancer will help your doctor decide how often you need to be checked. [facility] [phone] Otherwise contact [phone] and ask to speak to the bus or truck garage mechanic vaccines solutions specialist Follow up care is a gannon part of your treatment and safety. Be sure to make and go to all appointments, and call your doctor if you are having problems. Discharge instructions reviewed with patient who expresses understanding documented in this encounter Medications at Time of Discharge Medication Sig Dispensed Refills Start Date End Date amLODIPine (NORVASC) 10 Take 1 tablet by mouth 90 tablet 11 07/04/2015 mg TabletIndications: daily. Indications: hypertension Hypertension lisinopril Take 60 mg by mouth 0 (PRINIVIL;ZESTRIL) 20 daily. mg Tablet buPROPion (WELLBUTRIN Take 150 mg by mouth 2 0 SR) 150 mg Tablet times daily. Sustained Release potassium chloride Take 8 mEq by mouth 0 (KLOR-CON) 8 mEq tablet daily. atorvastatin (LIPITOR) Take 80 mg by mouth [...] tabletIndications: daily. Indications: edema, hypertension Edema, Hypertension glucosamine-chondroitin 0 09/05/2009 500-400 mg tablet apixaban (ELIQUIS) 5 mg Take 1 tablet by mouth 180 tablet 3 07/29/2015 Tablet 2 times daily. documented as of this encounter H&P Notes Jonh Cortez MD - 10/07/2017 11:34 AM EDT Gastroenterology and Hepatology Pre-Procedure History and Physical Exam Procedure: Colonoscopy: Indication: 57yo man for CRC screening. Hx polyp 8 years ago, poor prep per patient. Had additional prep for this procedure. No GI complaints. No family hx CRC. Has held eliquis for this procedure. Patient Active Problem List Diagnosis Code ??? Ventricular tachycardia episode 2008 I47.2 ??? KAYLEEN on CPAP G47.33, Z99.89 ??? Obesity, morbid - BMI 52 E66.01 ??? HTN (hypertension) I10 ??? S/P vasectomy Z98.52 ??? Hyperlipidemia E78.5 EXAM: HEENT: Airway examined, oropharynx clear Mallampati Score: II (soft palate, uvula, fauces visible) LUNGS: Clear to auscultation HEART: Regular rate and rhythm, normal S1, S2 ABDOMEN: Normal bowel sounds, soft, non tender, non distended, A/P Proceed with the planned endoscopic procedure. ASA 3 - Patient with moderate systemic disease with functional limitations Sedation Plan: anesthesia Risks and benefits of the procedure explained to the patient. Consent signed. documented in this encounter Miscellaneous Notes Op Note - Jonh Cortez MD - 10/07/2017 12:06 PM EDT [facility] Operative Note Patient Name: Reza James II : [id number] MR#: [id number] Case Date: 10/07/2017 Surgeon: Surgeon(s) and Role: * Jonh Cortez MD - Primary Preoperative diagnosis: hx of hyperplastic polyp sigmoid - CONSULT; - Special prep: NuLytely 4L, 2 days of clears prior to procedure Postoperative diagnosis: * No post-op diagnosis entered * Procedure(s) (LRB): COLONOSCOPY, DIAGNOSTIC (N/A) Anesthesia: MAC Please see Provation for full procedure note. Jonh Cortez MD 10/07/2017 documented in this encounter Plan of Treatment Not on filedocumented as of this encounter Procedures Procedure Name Priority Date/Time Associated Diagnosis Comme nts COLONOSCOPY, 10/07/2017 11:39 hx of hyperplastic DIAGNOSTIC AM EDT polyp sigmoid - CONSULT; Special prep: NuLytely 4L, 2 days of clears prior to procedure COLONOSCOPY Routine 10/07/2017 11:30 Results for this AM EDT procedure are i n the results section. documented in this encounter Results COLONOSCOPY (10/07/2017 11:30 AM EDT) [employer] Method Time Signature COLONOSCOPY [facility]OVATION Endoscopy Procedure Date: 10/07/2017 11:30 AM ? Patient Name: Reza James ? Date of : 1960 ? Age: 57 ? Order #: [id number] ? Instrument Name: [id number] ? Procedure: ? Colonoscopy Indications: ? Screening for colorectal malignant ? neoplasm, personal hx hyperpl astic ? polyp, last colonoscopy incom plete ? and poor prep. Providers: ? Jonh Cortez, Beth Michele, RN, ? Zoey Alicea, Contact Agent Referring MD: ? Medicines: ? Propofol per Anesthesia Complications: ? No immediate complications. Procedure: ? Pre-Anesthesia Assessment: ? - Prior to the procedure, a H istory ? and Physical was performed, a nd ? patient medications, allergie s and ? sensitivities were reviewed. The ? patient's tolerance of previo us ? anesthesia was reviewed. ? - The risks and benefits of t he ? procedure and the sedation op tions ? and risks were discussed with the ? patient. All questions were a nswered ? and informed consent was obta ined. ? The procedure, indications, b enefits, ? risks and alternatives were e xplained ? to the patient. Specifically ? discussed were potential ? complications including, but not ? limited to, bleeding, perfora tion, ? infection, missing a cancer, and ? adverse medication reactions. The ? patient was placed in the lef t ? lateral decubitus position, a nd a ? digital rectal exam was perfo rmed. ? The Colonoscope was inserted in the ? anus and under direct visuali zation, ? advanced to the terminal ileu m, with ? identification of the appendi ceal ? orifice and IC valve. Careful ? inspection was made as the ? colonoscope was withdrawn. Th e ? colonoscopy was performed winsome quiñones. ? The patient tolerated the pro cedure ? well. The quality of the milla l ? preparation was excellent. Sc ope ? withdrawal time was 11 minute s. ? Findings: ? The perianal and digital rectal examinations were ? normal. ? A few small-mouthed diverticula were found in the ? sigmoid colon and descending colon. ? The exam was otherwise without abnormality on direct ? and retroflexion views. ? The terminal ileum appeared normal. ? Moderate Sedation: ? Not applicable - See Anesthesia documentation Impression: ?- Diverticulosis in the sigmoid co anel ? and in the descending colon. ? - The examination was otherwi se ? normal on direct and retrofle xion ? views. Recommendation: ?- High fiber diet. ? - Repeat colonoscopy in 10 ye ars for ? screening purposes. ? Procedure Code(s): ?? --- Professional --- ? G0121, Colorectal cancer scre ening; ? colonoscopy on individual not meeting ? criteria for high risk ? --- Technical --- ? G0121, Colorectal cancer scre ening; ? colonoscopy on individual not meeting ? criteria for high risk CPT copyright 2016 [employer]. All rights reserved. The codes documented in this report are preliminary and upon horn player review may be revised to meet current compliance requirements. Attending Participation: ? I personally performed the entire procedure. ? Jonh Cortez, 10/07/2017 12:05:38 PM Number of Addenda: 0 Note Initiated On: 10/07/2017 11:30 AM Specimen (Source) Anatomical Collection Method Collection Time Re ceived Time Location / / Volume Laterality 10/07/2017 11:30 AM EDT Unknown GENERAL SURGICAL ORDERABLES Performing Organization Address City/State/ZIP Code Phon e Number PROVATION documented in this encounter Visit Diagnoses Not [...] 11:30 AM EDT 1,000 mLs 100 mL/hr documented in this encounter Active and Recently Administered Medications Times are shown in EDT. Continuous Medication Order 10/05/2017 10/06/2017 10/07/2017 lactated Ringers infusion 1,000 mL (CANCELED) 1130 (New Bag - Provider: Adriana Christy RN)1139 (New Bag - Provider: Sravan Christian CRNA) 1,000 mL, at 100 mL/hr, Intravenous, CON TINUOUS, Starting Tue10/07/17 at 1130, Until Tue10/07/17 at 1303, Day of Surgery (Day of Procedure) documented in this encounter Care Teams President & Ceo Relationship Specialty Start Date End Date Álvaro London DO PCP - General Family Medicine 10/07/17 01/19/[address] [place] [address] documented as of this encounter
--- OUTSIDE RECORDS SUMMARY | 2022-02-14 03:43 | XMS_ITS | Encounter Summary ---
:1960 Author Organization [facility] [place] [address] Care Team Providers Name Role Phone Álvaro Lagos MD Primary Care Provider [phone] Reason for Visit Reason Comments Atrial Fibrillation Chest Pain Consultation (Routine) - Closed Specialty Diagnoses / Procedures Referred By Contact Refer red To Contact Cardiology Diagnoses h/o EP studies 2011; h/o varrhythmias, now newly recognized Afib, longstanding htn Álvaro Lagos, [facility] Cardiology 4a MD [address] [address] [place], [place] Phone: [phone] Referral ID Status Reason Start Date Expiration Date Visits V isits Requested Authorized [id number] Closed Consult, 03/12/2015 03/11/2016 1 1 [facility] Encounter Details Date Type Department Care Team Description 03/31/2015 Office Visit Cardiology at [facility] Benedicto Stanley MD [facility] [place] [address] Atrial fibrillation, [facility] Vinay Forde MD [facility] [place] [address] [place] [address] Social History Tobacco Use Types Packs/Day Years Used Date Smoking Tobacco: Never Smokeless Tobacco: Never Sex Assigned at Date Recorded Not on file documented as of this encounter Last Filed Vital Signs Vital Sign Reading Time Taken Comments Blood Pressure 138/82 03/31/2015 2:51 PM EST Pulse 75 03/31/2015 2:51 PM EST Temperature - - Respiratory Rate - - Oxygen Saturation 97% 03/31/2015 2:51 PM EST Inhaled Oxygen Concentration - - Weight 137.9 kg (304 lb) 03/31/2015 2:51 PM EST Height 176.5 cm (5' 9.5) 03/31/2015 2:51 PM EST Body Mass Index 44.25 03/31/2015 2:51 PM EST documented in this encounter Progress Notes Benedicto Stanley MD - 04/01/2015 7:51 AM EST I have seen and talked with Mr. James. He wishes to have his subsequent work up nearer to home, and results will be sent to Dr. Forde. Vinay Forde MD - 03/31/2015 12:58 PM EST Cardiology Clinic New Patient Visit Note Patient Name: Reza James II Date of : 1960 Age: 54 y.o. PCP: ÁLVARO LAGOS MD Presenting Diagnosis/Chief Complaint/ Reason for cardiology referral: Atrial fibrillation. Problem List: Patient Active Problem List Diagnosis ??? Ventricular tachycardia episode 2007 Overview Note: Pre-syncope / palpitations - Presented with Wide [...] morbid - BMI 52 ??? HTN (hypertension) Overview Note: Thought to be secondary to obesity and KAYLEEN Renal artery angiography 06/19/2007: There is no atherosclerosis of the renal arteries bilaterally. ??? S/P vasectomy ??? Hyperlipidemia The patient was referred to cardiology clinic by Dr. Yolis Rea from [facility] from [place], [place] for evaluation and management of AF. The patient is accompanied today by his Bridget. History of Present Illness: Reza James II is a 54 y.o. morbidly obese ( BMI 45) male with newly diagnosed AF, CAD, resistant hypertension, dyslipidemia, KAYLEEN on SPAP, morbid obesity, history of ???ventricular arrhythmia?? , CKD,IGT continues to have chronic fatigue for many years. Initially his fatigue was attributed to yasmine dose of beta blockers. However, he had EKG gonzalez as part of his work up in February and he was found vianney in rate controled AF. The patient is on metoprolol 200 mg bid. He denies dizziness, palpitations,lightheadedness, syncope,PND, orthopnea, pedal edema. Mr. James had two episodes of chest pain in last two month. One in January, that was mils substernalchest pressure lasting for 1 hour. Another episode was around Nuria , he developed similar chestpain lasting for ~ hours , after he shoveled snow. 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 He is usually tired by the rime be comes back from work. He intentionally lost 100 lb in 2 years with diet. His HTN is better controlled controlled recently , and his CBG was 120 in his PCPs office recently. 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 He is . They have two grown children. He doesn't smoke or drink. Family History: Father had bypass at 61. His mother in a motor vehicle accident. Past Medical History: Past Medical History Diagnosis Date ??? Ventricular tachycardia 09/26/2011 ??? KAYLEEN on CPAP 09/26/2011 ??? Obesity, morbid 09/26/2011 ??? HTN (hypertension) 09/26/2011 ??? S/P vasectomy 09/26/2011 ??? Hyperlipidemia 09/26/2011 Review of Systems (as above otherwise): General: no fevers, chills, night sweats; + recent weight changes; + fatigue EENT: no changes in vision; Cardiovascular: as above Respiratory: + SOB, + GONZALEZ, no cough, no wheeze GI: no abdominal pain: Heme: no easy bruising or bleeding No Known Allergies Current Home Medications: ??? lisinopril (PRINIVIL;ZESTRIL) 60 mg daily. ??? buPROPion (WELLBUTRIN SR) 150 mg Tablet Sustained Release ??? potassium chloride (KLOR-CON) 8 mEq tablet ??? aspirin 81 mg EC tablet ??? atorvastatin (LIPITOR) 80 mg tablet ??? metoprolol succinate (TOPROL-XL) 200 mg bid. ??? minoxidil (LONITEN) 10 mg , bid. ??? torsemide (DEMADEX) 20 mg tablet ??? amlodipine (NORVASC) 10 mg tablet ??? glucosamine-chondroitin 500-400 mg tablet Physical Exam: Filed Vitals: 03/31/15 1451 BP: 138/82 Pulse: 75 General: obese man , appears well, in no acute distress CV:Irregular rate and rhythm, distant heart sounds, normally split S1, S2, No murmur or S3. JVP normal. Trace b/l pedal edema. Pulmonary: Non labored breathing. Breath sounds throughout. No wheezes, rales or rhonchi Abdomen: Protuberant, soft and non-tender. TRACTOR DRIVER: Alert and oriented x3. Available cardiology studies: ECG 03/31/2015: AF HR 80. C June 2007: Nonobstructive coronary artery disease. TTE June 2007 : Normal LV function EF 65%, no RWAM. The left atrium was severely dilated TTE 09/2011:1. The left ventricle is moderately dilated (uncorrected for BSA). Mild concentric left ventricular hypertrophy is observed. No obvious segmental wall motion abnormalities. The inferobase was not well visualized. (Suggest additional imaging with contrast if clinically indicated.) There is normal global left ventricular systolic function. Ejection fraction is estimated to be 65%. 2. Right ventricular chamber size, wall thickness, and systolic function are within normal limits. 3. There is no hemodynamically significant valve disease. 4. The left atrium is severely dilated He had negative for ischemic nuclear stress test in 2008, Assessment and Plan: 54 y.o. morbidly obese male ( BMI 45) with multiple cardiac problems, was recently diagnosed with AF. 1. Atrial fibrillation is newly diagnosed. He denies palpitations and his symptoms is chronic fatigue. There was no AF on ZIO in 2011. Now AF is rate controlled. CADSVaSC2 score is elevated to 3 ( HTN, IGT and CAD). He needs to be on fci anticoagulation for stroke prevention in atrial fibrillation. We had extensive conversation with his and the patient regarding starting antithrombotic therapy. The discussion was centered around risks of stroke vs bleeding, and affordability of different novel anticoagulants. Dabigatran, rivaroxaban, apixaban, and edoxaban. I have the patient printouts of patient information information. The patient and his agree with starting anticoagulation. However they want first to call their insurance and inquire who much will be co pay. The patient will call his PCP and PCP will start a anticoagulation. 2. HTN for many years. Renal arteries were checked at the time of cath and were normal in 2007. Renin, aldosterone and metanephrine levels obtained were also normal in 2007. His blood pressure has been difficult to control initially however it is better controlled lately. He has been f/u by [facility] nephrology / HTN clinic. Resistant hypertension, on max dose of 5 medications. Today his BP is controlled. 3. CAD. Had nonobstructive disease on [facility] 5 years ago. In last two months he had two episodes of chest pain , concerning for ischemia. He is on ASA, metoprolol, ARB and yasmine intensity statin. 4. 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 Presenting with Wide complex tachycardia ~ 20 mins duration which was terminated with cardioversion. LB/inferior axis monomorphic VT was noted during 06/20/07 EPS. On repeat EPS on verapamil, VT still inducible, flecainide added then and d/ed . RHC showed no ev idence of RV dysplasia. In August 2007 he had a EPS for VTs. ???Patient was not inducible for a sustained ventricular tachycardia. The NSVT had multiple (including polymorphic) morphologies?? Since 2007 , he did not have any more symptoms of VT. Recommendations: Continue current medication. Patient is preferring to have a stress test and echocardiography at his PCPs office in [facility]. The patient preferres his PCP to start intermodal dispatcher anticoagulation after he ( patient) inquires regarding co- pay. The patient will call the PCP's office in several days. Next cardiology visit in 1 month. Will review new echo and stress test results on that visit. The patient was seen and discussed with Dr. Stanley at the time of their visit This note is being forwarded to the patient's PCP. Vinay Forde MD Hand Buffing Wheel Former Pager # [phone] documented in this encounter Plan of Treatment Not on filedocumented as of this encounter Procedures Procedure Name Priority Date/Time Associated Diagnosis Comme nts EKG 12-LEAD STAT 03/31/2015 2:55 PM Atrial fibrillation, R esults for this EST unspecified type procedure a re in the results section. documented in this encounter Results EKG 12 Lead (03/31/2015 2:55 PM EST) Component Value Ref Range Test Analysis Performed Pathologis t Method Time At Signature Ventricular rate 80 BPM MUSE SYSTEM Atrial Rate 357 BPM MUSE SYSTEM QRS Duration 106 ms MUSE SYSTEM Q-T Interval 414 ms MUSE SYSTEM QTC Calculated 477 ms MUSE SYSTEM (Bezet) Calculated R [place] 57 degrees MUSE SYSTEM Calculated T [place] 22 degrees MUSE SYSTEM INTERPRETATION Atrial fibrillation with pre mature ventricular or aberrantly conducted complexes MUSE SYSTEM Incomplete right bundle branch block Abnormal ECG When compared with ECG of 26-OCT-2011 07:47, Atrial fibrillation has replaced Sinus rhythm Confirmed by MD MARLEYOSCAR ([id number]) on 04/01/2015 5:49:54 AM Specimen Anatomical Collection Method Collection Time Receive d Time (Source) Location / / Volume Laterality 03/31/2015 2:55 PM 6 5:49 EST AM EST Benedicto Stanley MD ECG ORDERABLES Performing Organization Address City/State/ZIP Code Phon e Number MUSE SYSTEM documented in this encounter Visit Diagnoses Diagnosis Atrial fibrillation, unspecified type documented in this encounter Care Teams Welder Plastic Relationship Specialty Start Date End Date Álvaro Lagos MD PCP - General 02/03/10 06/21/[address] [place] [address] documented as of this encounter
--- OUTSIDE RECORDS SUMMARY | 2022-02-14 03:43 | XMS_ITS | Encounter Summary ---
:1960 Author Organization [facility] [place] [address] Care Team Providers Name Role Phone Álvaro Lagos MD Primary Care Provider [phone] Reason for Visit Diagnostic Test (Routine) - Closed Specialty Diagnoses / Procedures Referred By Contact Refer red To Contact Radiology Diagnoses Chest pain, unspecified type Vinay Forde [facility] Nuclear Med Procedures NM myocardial perfusion scan, pharmacologic NM myocardial perfusion - stress & rest [facility] [place] [address] [place] [address] Referral ID Status Reason Start Date Expiration Date Visits V isits Requested Authorized [id number] Closed Specialty 08/13/2015 08/12/2016 1 1 Service Requested Encounter Details Date Type Department Care Team Description 08/26/2015 Hospital Encounter Nuclear Medicine at [facility], est pain, Clarissa Rubénkitty Hearn MD unspecified type [facility] [address] [place], [place] [phone] [id number] Social History Tobacco Use Types Packs/Day Years [...] fu nction is normal. Peter Larose MD [facility] [place] ORDERABLES documented in this encounter Visit Diagnoses Diagnosis Chest pain, unspecified type Chest pain, unspecified type documented in this encounter Care Teams Auditing Manager Relationship Specialty Start Date End Date Álvaro Lagos MD PCP - General 02/03/10 06/21/17 [address] [place] [address] documented as of this encounter
--- OUTSIDE RECORDS SUMMARY | 2022-02-14 03:43 | XMS_ITS | Encounter Summary ---
:1960 [place] [address] Care Team Providers Name Role Phone Jv Fam DO Primary Care Provider Encounter Details Date Type Department Care Team Description 01/20/2021 Laboratory Appointment Lab 3L Angely Zambrano ty, morbid - BMI 52; [place] [id number] Social History Tobacco Use Types Packs/Day Years [...] Procedure Name Priority Date/Time Associated Comments Diagnosis HC PCH ADRENOCORTICOTROPIC Routine 01/20/2021 10:23 Obesity, m orbid - Results for this HORMONE AM EST BMI 52 procedure are in Hypoglycemia the results section. HC THYROID STIMULATING Routine 01/20/2021 10:23 Obesity, morbi d - Results for this HORMONE, SERUM AM EST BMI 52 procedure are in Hypoglycemia the results section. HC FREE THYROXINE (T4) Routine 01/20/2021 10:23 Obesity, morbi d - Results for this AM EST BMI 52 procedure are in Hypoglycemia the results section. HC HEMOGLOBIN A1C Routine 01/20/2021 10:23 Obesity, morbid - R esults for this AM EST BMI 52 procedure are in Hypoglycemia the results section. HC CORTISOL, BLOOD Routine 01/20/2021 10:23 Obesity, morbid - Results for this AM EST BMI 52 procedure are in Hypoglycemia the results section. documented in this encounter Results Hemoglobin A1c (01/20/2021 10:23 AM EST) athologist Signature Hemoglobin A1C 5.4 4.3 - 5.6 [facility] Comment: Reference Range: 4.3 - 5.6% [...] Mellitus, Diabetes Care 2013; 36: Suppl. 1, S67-74 Est Avg Gluc 110 mg/dL [facility] Comment: eAG equivalents for HbA1c percentages: HbA1c(%) ?eAG(mg/dL) 6.0 ?126 6.5 ?140 7.0 ?154 7.5 ?169 8.0 ?183 8.5 ?197 9.0 ?212 9.5 ?226 10.0 ? 240 Limitations: The eAG calculation has not been validated on women, individuals below 18 years old and above 70 years old, and individuals with hemoglobinopathies. Additional resources are available on [facility] ADA website. Mark ESPINOZA, Spencer J, Madeline R, et al. ??Tr anslating the A1C assay into estimated average glucose values. ??Diabetes Care 2008:31(8):9145-2448. Specimen Anatomical Collection Method Collection Time Receive d Time (Source) Location / / Volume Laterality Blood 01/20/2021 10:23 01/20/2021 AM EST 10:37 AM EST Resulting Agency Comment Spec In Lab Lefty Hanknis MD CHEMISTRY ORDERABLES Performing Organization Address City/[facility]/ZIP Code Phon e Number [address] Cortisol (01/20/2021 10:23 AM EST) P athologist Signature Cortisol 11.1 mcg/dL [facility] Comment: Reference ranges: ??AM (6-10am): ??4.8-19.5 mcg/dL ??PM (4-8pm) : ??2.5-11.9 mcg/dL Specimen Anatomical Collection Method Collection Time Receive d Time (Source) Location / / Volume Laterality Blood 01/20/2021 10:23 01/20/2021 AM EST 10:38 AM EST Resulting Agency Comment Spec In Lab Lefty Hankins MD CHEMISTRY ORDERABLES Performing Organization Address City/[facility] Code Phon e Number [address] ACTH (01/20/2021 10:23 AM EST) P athologist Signature ACTH 15 pg/mL [facility]ORATORY Comment: REFERENCE VALUE------ 7.2-63 (a.m. collection) Test Performed by: [facility] [address] [address] 95 Supervisor Lens Generating: Gray Jain M.D. Ph. D.; CLIA# [id number] Specimen Anatomical Collection Method Collection Time Receive d Time (Source) Location / / Volume Laterality Blood 01/20/2021 10:23 01/20/2021 4:31 AM EST PM EST Resulting Agency Comment Spec In Lab Lefty Hankins MD CHEMISTRY ORDERABLES Performing Organization Address City/[facility]/ZIP Code Phon e Number [place] [phone] [facility] [address] TSH (01/20/2021 10:23 AM EST) athologist Signature TSH 1.98 0.27 - 4.20 ANGELY NEWELL mcIU/mL [facility] Comment: Reference Interval (mcIU/mL): Females: ??First Trimester: 0.23-3.88 ??Second Trimester: 0.22-3.90 ??Third Trimester: 0.44-4.66 Specimen Anatomical Collection Method Collection Time Receive d Time (Source) Location / / Volume Laterality Blood 01/20/2021 10:23 01/20/2021 AM EST 10:38 AM EST Resulting Agency Comment Spec In Lab Lefty Hankins MD CHEMISTRY ORDERABLES Performing Organization Address City/State/ZIP Code Phon e Number [place] [phone] T4, free (01/20/2021 10:23 AM EST) athologist Signature Free T4 1.29 0.93 - 1.70 ANGELY NEWELL ng/dL [facility] Comment: Reference Interval (ng/dL): Females: ??First Trimester: 0.97-1.68 ??Second Trimester: 0.77-1.51 ??Third Trimester: 0.77-1.49 Specimen Anatomical Collection Method Collection Time Receive d Time (Source) Location / / Volume Laterality Blood 01/20/2021 10:23 01/20/2021 AM EST 10:38 AM EST Resulting Agency Comment Spec In Lab Lefty Hankins MD CHEMISTRY ORDERABLES Performing Organization Address City/State/ZIP [facility] [place] [address] documented in this encounter Visit Diagnoses Diagnosis Obesity, morbid - BMI 52 Morbid obesity Hypoglycemia Hypoglycemia, unspecified documented in this encounter Care Teams Tractor Mechanic Helper Relationship Specialty Start Date End Date Jv Fam DO PCP - General Family Medicine 01/20/21 [address] [place] [address] documented as of this encounter
--- OUTSIDE RECORDS SUMMARY | 2022-02-14 03:43 | XMS_ITS | Encounter Summary ---
:1960 Author Organization [facility] [address] Care Team Providers Name Role Phone Álvaro London DO Primary Care Provider Encounter Details Date Type Department Care Team Description 06/29/2018 Hospital Encounter [place] [facility] Ramandeep Chávez Pain in both knees, [address] [facility] [address] Hao MD unspecified [place], [place] [facility] chronicity [address] [place] [phone] [place] [address] Social History Tobacco Use Types Packs/Day Years [...] times daily. documented as of this encounter Plan of Treatment Not on filedocumented as of this encounter Procedures Procedure Name Priority Date/Time Associated Diagnosis Comme nts XR KNEE STANDING Routine 06/29/2018 9:38 AM Pain in both knees , Results for this ALIGNMENT AP LAT EDT unspecified procedure a re in [place] chronicity the result s BILAT section. documented in this encounter Results XR Knee Standing Alignment AP Lat 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 For questions regarding this report, please contact e number below. ? Electronically signed by: Dhiraj Morales [facility] ([phone]), at 06/29/2018 10:42 AM Narrative 06/29/2018 10:42 AM EDT EXAMINATION: XR KNEE STANDING ALIGNMENT AP LAT [place] BILAT CLINICAL HISTORY: bilat knee pain TECHNIQUE: Separate images of the pelvis , knees and feet were acquired in the AP projection with the patient standing. Th yeis images were stitched together to form a composite image of the pelvis and legs allowing for evaluation of lower extremity alignment in the weight bearin g position. 4 views of both knees COMPARISON: None FINDINGS: Standing alignment: There is a varus def ormity of both knees with 5 cm medial mechanical axis deviation on the RIGHT a nd 4.3 cm medial mechanical axis deviation on the LEFT. There is severe symmetrical bilateral tr icompartmental degenerative arthropathy with most severe narrowing of the medial joint space and large bilateral marginal osteophytes involving all guerline rtments. Trace joint effusion on the RIGHT. No joint effusion on the LEFT. No soft tissue calcifications or large subchondral cysts. Procedure Note Candelaria John MD - 06/29/2018Formattin g of this note might be different from the original. EXAMINATION: XR KNEE STANDING ALIGNMENT AP LAT [facility] BILAT CLINICAL HISTORY: bilat knee pain TECHNIQUE: Separate images of the pelvis , knees and feet were acquired in the AP projection with the patient standing. Th yesi images were stitched together to form a composite image of the pelvis and legs allowing for evaluation of lower extremity alignment in the weight bearin g position. 4 views of both knees COMPARISON: None FINDINGS: Standing alignment: There is a varus def ormity of both knees with 5 cm medial mechanical axis deviation on the RIGHT a nd 4.3 cm medial mechanical axis deviation on the LEFT. There is severe symmetrical bilateral tr icompartmental degenerative arthropathy with most severe narrowing of the medial joint space and large bilateral marginal osteophytes involving all guerline rtments. Trace joint effusion on the RIGHT. No joint effusion on the LEFT. No soft tissue calcifications or large subchondral cysts. IMPRESSION Severe bilateral tricompartmental knee d egenerative arthropathy, most severely affecting the medial compartments Thank you for letting us participate in the care of this patient. For questions regarding this report, please contact e number below. Electronically signed by: Dhiraj Morales [facility] ([phone]), at 06/29/2018 10:42 AM Ramandeep Chávez MD IMG DX ORDERABLES documented in this encounter Visit Diagnoses Diagnosis Pain in both knees, unspecified chronici ty documented in this encounter Care Teams Cuff Folder Relationship Specialty Start Date End Date Álvaro London DO PCP - General Family Medicine 10/07/17 01/19/[id number] [place] [address] documented as of this encounter
--- OUTSIDE RECORDS SUMMARY | 2022-02-14 03:43 | XMS_ITS | Encounter Summary ---
:1960 Author Organization [place] [address] Care Team Providers Name Role Phone Álvaro Lagos MD Primary Care Provider [phone] Reason for Visit Diagnostic Test (Routine) - Closed Specialty Diagnoses / Procedures Referred By Contact Refer red To Contact Radiology Diagnoses Chest pain, unspecified type Vinay Forde [facility] Nuclear Med Procedures NM myocardial perfusion scan, pharmacologic NM myocardial perfusion - stress & [place] [address] [place] [address] Referral ID Status Reason Start Date Expiration Date Visits V isits Requested Authorized [id number] Closed Specialty 08/13/2015 08/12/2016 1 1 Service Requested Encounter Details Date Type Department Care Team Description 08/26/2015 Hospital Encounter Nuclear Medicine at [facility] fatoumata Hearn MD [facility] [place] [address] CARDIOLOGY DEPT [phone] [place], [place] [address] (Wo rk) Social History Tobacco [...] fu nction is normal. Peter Larose MD [facility] NM ORDERABLES documented in this encounter Visit Diagnoses Not on filedocumented in this encounter Care Teams In Home Nanny Relationship Specialty Start Date End Date Álvaro Lagos MD PCP - General 02/03/10 06/21/[address] [place] [address] documented as of this encounter
--- OUTSIDE RECORDS SUMMARY | 2022-02-14 03:43 | XMS_ITS | Encounter Summary ---
:1960 Author Organization [facility] [place] [address] Care Team Providers Name Role Phone Álvaro Lagos MD Primary Care Provider [phone] Encounter Details Date Type Department Care Team Description 08/28/2015 Telephone Cardiology Vinay Forde, [facility] [place] [address] [facility] [phone] CARDIOLOGY DEPT [place] [id number] (Wo rk) Social History Tobacco Use Types Packs/Day Years Used Date Smoking Tobacco: Never Smokeless Tobacco: Never Sex Assigned at Date Recorded Not on file documented as of this encounter Miscellaneous Notes Telephone Encounter - Vinay Forde MD - 08/28/2015 5:23 PM EDT Called the patient and updated him on the TTE and stress test findings. The patient is doing well, feel great and he has lost 100 lb intentionally. On next visit will discuss possible DCCV for his AF. Vinay Forde MD Body Presser Pager # [phone] documented in this encounter Plan of Treatment Not on filedocumented as of this encounter Visit Diagnoses Not on filedocumented in this encounter Care Teams Cooling Machine Operator Relationship Specialty Start Date End Date Álvaro Lagos MD PCP - General 02/03/10 06/21/17 [address] [place] [address] documented as of this encounter
--- OUTSIDE RECORDS SUMMARY | 2022-02-14 03:43 | XMS_ITS | Encounter Summary ---
:1960 Author Organization [facility] [place] [address] Care Team Providers Name Role Phone Álvaro London DO Primary Care Provider Reason for Visit Auth/Cert Specialty Diagnoses / Procedures Referred By Contact Refer red To Contact Diagnoses f/u colo - CONSULT Procedures PRO COLONOSCOPY, DIAGNOSTIC COLONOSCOPY, DIAGNOSTIC Referral ID Status Reason Start Date Expiration Date Visits Requ ested Visits Authorized [id number] 1 1 Encounter Details Date Type Department Care Team Description 10/07/2017 Hospital Encounter [facility]ology at [facility] Jonh Cortez, [facility] [place] [address] [facility] [phone] Winkler MD 0375 Social History Tobacco Use Types Packs/Day Years Used Date Smoking Tobacco: Never Smokeless Tobacco: Never Alcohol Use Standard Drinks/Week Comments No 0 (1 standard drink = 0.6 oz pure alcoho l) no alcohol since 1984 Sex Assigned at Date Recorded Not on file documented as of this encounter Last Filed Vital Signs Vital Sign Reading Time Taken Comments Blood Pressure 119/74 10/07/2017 12:40 PM EDT Pulse 80 10/07/2017 11:14 AM EDT Temperature - - Respiratory Rate - - Oxygen Saturation 97% 10/07/2017 12:40 PM EDT Inhaled Oxygen Concentration - - Weight 139.3 kg (307 lb) 10/07/2017 11:14 AM EDT Height 177.8 cm (5' 10) 10/07/2017 11:14 AM EDT Body Mass Index 44.05 10/07/2017 11:14 AM EDT documented in this encounter Discharge Instructions Discharge InstructionsLaurence Harrisonah PRABHJOT Neri - 10/07/2017 12:31 PM EDT Colonoscopy What [...] how often you need to be checked. Tuesday-Tuesday Same Day Endo [phone]-8p Otherwise contact [phone] and ask to speak to the environmental maintenance worker tour production supervisor Follow up care is a gannon part [...] Cortez MD - 10/07/2017 12:06 PM EDT [facility] Operative Note Patient Name: Reza James II : [id number] MR#: [id number] Case Date: 10/07/2017 Surgeon: Surgeon(s) and Role: * Jonh Cortez MD - Primary Preoperative diagnosis: hx of hyperplastic polyp sigmoid - CONSULT; - Special prep: NuLytely 4L, 2 days of clears prior to procedure Postoperative diagnosis: * No post-op diagnosis entered * Procedure(s) (LRB): COLONOSCOPY, DIAGNOSTIC (N/A) Anesthesia: MAC Please see Provation for full procedure note. Jonh Cortze MD 10/07/2017 documented in this encounter Plan [...] encounter Results COLONOSCOPY (10/07/2017 11:30 AM EDT) [facility] Method Time Signature COLONOSCOPY [facility] Endoscopy Procedure Date: 10/07/2017 11:30 AM ? Patient Name: Reza James ? Date of : 1960 ? Age: 57 ? Order #: [id number] ? Instrument Name: [id number] ? Procedure: ? Colonoscopy Indications: ? Screening for colorectal malignant ? neoplasm, personal hx hyperpl astic ? polyp, last colonoscopy incom plete ? and poor prep. Providers: ? Jonh Cortez, Beth Michele, RN, ? Zoey Alicea, Wholesale Agronomist Referring MD: ? Medicines: ? Propofol per [...] criteria for high risk CPT copyright 2016 [employer]. All rights reserved. The codes documented in this report are preliminary and upon car wash attendant review may be revised to meet current [...] Procedure) documented in this encounter Care Teams Spooler Operator Automatic Relationship Specialty Start Date End Date Álvaro London DO PCP - General Family Medicine 10/07/17 01/19/[address] [place] [address] documented as of this encounter
--- OUTSIDE RECORDS SUMMARY | 2022-02-14 03:43 | XMS_ITS | Clinical Summary ---
:1960 Author Organization [place] [address] Care Team Providers Name Role Phone Jv Fam DO Primary Care Provider Allergies Active Allergy Reactions Severity Noted Date Comments Fish Containing Products 07/04/2015 Medications Medication Sig Dispensed Refills Start Date End Date Status glucosamine-chondroi 0 09/05/2009 Active tin 500-400 mg tablet atorvastatin Take 80 mg by mouth 0 Active (LIPITOR) 80 mg daily. Indications: tabletIndications: Mixed Hyperlipidemia mixed hyperlipidemia lisinopril Take 40 mg by mouth 0 Active (PRINIVIL;ZESTRIL) daily. With 20 mg 40 mg tablet Indications: tabletIndications: Hypertension hypertension metoprolol succinate Take 200 mg by mouth 0 Active (TOPROL-XL) 200 mg 2 times daily. 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 tabletIndications: Indications: hypertension Hypertension torsemide (DEMADEX) Take 20 mg by mouth 0 Active 20 mg daily. Indications: tabletIndications: Edema, Hypertension edema, hypertension potassium chloride Take 8 mEq by mouth 0 Active (KLOR-CON) 8 mEq daily. tablet lisinopril Take 60 mg by mouth 0 Active (PRINIVIL;ZESTRIL) daily. 20 mg Tablet buPROPion Take 150 mg by mouth 0 Active (WELLBUTRIN SR) 150 2 times daily. mg Tablet Sustained Release amLODIPine (NORVASC) Take 1 tablet by 90 tablet 11 07/04/2015 Active 10 mg mouth daily. TabletIndications: Indications: hypertension Hypertension apixaban (ELIQUIS) 5 Take 1 tablet by 180 tablet 3 07/29/2015 Active mg Tablet mouth 2 times daily. Active Problems Problem Noted Date Reactive hypoglycemia 01/20/2021 Atrial fibrillation 07/22/2015 Chronic anticoagulation 04/14/2015 Ventricular tachycardia episode 200709/26/2011 Overview: Pre-syncope / palpitations - Presented w ith Wide complex tachycardia ~ 20 mins duration, terminated with cardioversion. Cardiac catheterization 06/19/2007 Nonobstructive coronary artery disease - Moderate diffuse left ventricular dysf unction (Calculated EF-45%) EPS 06/20/2007 - Reproducibly inducible LB/inferior axi s monomorphic VT at about 208 bpm that is pace-terminable (symptoms identical to those at presentation). VT morphology was slightly different with the different i nductions, though all were LBB/inferior axis. The transition in the precordial leads varied. Repeat EPS 06/23/2007 on verapamil, VT st ill inducible, flecainide added - Inducible monomorphic VT, with both RB BB and LBBB morphologies, both with right inferior axis. A high septal outflow tract focus is possible. Cannot exclude bundle branch reentry on the basis of this study. Repeat EPS 08/23/2007 on flecainide Patient was not inducible for a sustaine d ventricular tachycardia. The NSVT had multiple (including polymorphic) morphologies. Flecainide stopped probably that summer, patient reports taking it for only a few mo TTE 06/19/2007 1. The left ventricular chamber size is normal. Moderate concentric LVH, LVEF 65%. No LV WMAs 2. The right ventricle is not well visua lized. Right ventricular global systolic function is probably normal. 3. The left atrium is mildly dilated. 4. There is no hemodynamically significa nt valve disease. 5. There is mild dilatation of the ascen ding aorta 3.8 cm KAYLEEN on CPAP 09/26/2011 Obesity, morbid - BMI 52 09/26/2011 HTN (hypertension) 09/26/2011 Overview: Formatting of this note is dif ferent from the original. Thought to be secondary to obesity and O SA Renal artery angiography 06/19/2007: There is no atherosclerosis of the renal arteries bilaterally. LAB RESULTS: TSH Renin Activity Aldoster one Free Normetanephrine Free Metanephrine 06/21/2007 <0.6 Na-deplete, upright: Mean: 5.9 Range: 2.9-10.8 Na-replete, upright: Mean: 1.0 Range: <= 0.6-3.0 5.8 Normal: <=21 0.35 Normal: <0.90 <0.20 Normal: <0.50 06/19/2007 1.86 * S/P vasectomy 09/26/2011 Hyperlipidemia 09/26/2011 Metabolic syndrome 03/24/2011 Chronic rhinitis 03/24/2011 Primary localized osteoarthritis 03/24/2011 Immunizations Name Administration Dates Next Due Influenza Vaccine PF, Quadrivalent 12/19/2018 Social History Tobacco Use Types Packs/Day Years Used Date Smoking Tobacco: Never Smokeless Tobacco: Never Alcohol Use Standard Drinks/Week Comments No 0 (1 standard drink = 0.6 oz pure alcoho l) no alcohol since 1984 Sex Assigned at Date Recorded Not on file Last Filed Vital Signs Vital Sign Reading Time Taken Comments Blood Pressure 169/108 01/20/2021 8:03 AM EST Pulse 65 01/20/2021 8:03 AM EST Temperature 35.9 ??C (96.6 ??F) 01/20/2021 8:03 AM EST Respiratory Rate 16 10/30/2020 7:44 PM EDT Oxygen Saturation 100% 01/20/2021 8:03 AM EST Inhaled Oxygen Concentration - - Weight 152 kg (335 lb) 01/20/2021 8:03 AM EST Height 176.5 cm (5' 9.5) 01/20/2021 8:03 AM EST Body Mass Index 48.76 01/20/2021 8:03 AM EST Plan of Treatment Health Maintenance Due Date Last Done Comments CT Colonography 1960 FIT DNA 1960 FIT 1960 Sigmoidoscopy 1960 Covid-19 Vaccine (#1) 01/04/1960 HIV screen 07/04/1977 Hepatitis C Screening 07/04/1977 Tdap adult 07/04/1978 Tetanus vaccine 07/04/1978 Zoster vaccine (1 of 2) 07/04/2009 Advance Directive 07/04/2014 Influenza (Flu) vaccine (1 of 1 - 11/12/2021 12/19/2018 Influenza standard series) Diabetes Screening (HgbA1C or 01/21/2024 01/20/2021, 2020, Glucose) 07/04/2015, Additional history exists Colonoscopy 10/08/2027 10/07/2017, 10/07/2017 Colorectal Cancer Screening 10/08/2027 Sigmoidoscopy (10 year) with FIT 10/08/2027 10/07/2017, yearly Insurance Payer Benefit Plan Subscriber ID Effective Dates Phone Address Type / Group [facility] [id number] 2018-[place]ay [phone] [address] [facility] t [address] [facility] [address] Care Teams Lvn Lpn Relationship Specialty Start Date End Date Jv Fam DO PCP - General Family Medicine 01/20/21 [address] [place] [address]
--- OUTSIDE RECORDS SUMMARY | 2022-02-14 03:43 | XMS_ITS | Encounter Summary ---
:1960 Author Organization [facility] [place] [address] Care Team Providers Name Role Phone Álvaro London DO Primary Care Provider Encounter Details Date Type Department Care Team Description 07/03/2018 Telephone Orthopaedics at [facility] Ramandeep Chávez MD [facility] [place] [address] ORTHOPAEDIC SURGERY [phone] [place] [id number] (Wo rk) Social History Tobacco Use Types Packs/Day Years Used Date Smoking Tobacco: Never Smokeless Tobacco: Never Alcohol Use Standard Drinks/Week Comments No 0 (1 standard drink = 0.6 oz pure alcoho l) no alcohol since 1984 Sex Assigned at Date Recorded Not on file documented as of this encounter Miscellaneous Notes Telephone Encounter - Sandra Guzman Edi - 07/06/2018 8:39 AM EDT I attempted to call Star holcomb and left on Tuesday, 07/04 and Wednesday 07/05 to relay the following message from Dr. Martinez in regards to autologous transfusion for TJA. Autologous transfusion which is the process of donating own blood for possible use after surgery isNO longer considered appropriate. This is because the blood donation close to surgery places additional stress on the body which adds to the stress of surgery and increases complications of surgery. Additionally, blood loss with TJA has decreased so much that most patients do NOT need transfusion after surgery and even if the patient has donated blood, that blood is NOT transfused back to them because they do NOT meet criteria for transfusion. - Dr. Martinez Telephone Encounter - Sandra Guzman - 07/03/2018 12:49 PM EDT Star called in today stating that he would like to hold off on the surgery until his weight is bettercontrolled. He did have one other questions in regards to the risks associated with TJA. He is worried that he might need a blood transfusion, but he would like to give his own blood to use at his surgery if he needs it. He wanted to know the process on how to go about that. I stated I would talk to my team members and let him know with a call back. documented in this encounter Plan of Treatment Not on filedocumented as of this encounter Visit Diagnoses Not on filedocumented in this encounter Care Teams System Developer Associate Manager Relationship Specialty Start Date End Date Álvaro London DO PCP - General Family Medicine 10/07/17 01/19/[address] [place] [address] documented as of this encounter
--- OUTSIDE RECORDS SUMMARY | 2022-02-14 03:43 | XMS_ITS | Encounter Summary ---
:1960 Author Organization [facility] [place] [address] Care Team Providers Name Role Phone Álvaro Lagos MD Primary Care Provider Reason for Referral Diagnostic Test (Routine) - Closed Specialty Diagnoses / Procedures Referred By Contact Refer red To Contact Cardiology Diagnoses Chest pain, unspecified type Apridonidze, Teimuraz, Mhmh Non-Inv Card Lab Procedures Echocardiogram Transthoracic(Leb) [facility] [place] [address] [place] [address] Referral ID Status Reason Start Date Expiration Date Visits V isits Requested Authorized [id number] Closed Specialty 08/13/2015 08/12/2016 1 1 Service Requested Reason for Visit Diagnostic Test (Routine) - Closed Specialty Diagnoses / Procedures Referred By Contact Refer red To Contact Cardiology Diagnoses Chest pain, unspecified type Apridonidze, Teimuraz, Mhmh Non-Inv Card Lab Procedures Echocardiogram Transthoracic(Leb) [facility] [place] [address] [place] [address] Referral ID Status Reason Start Date Expiration Date Visits V isits Requested Authorized [id number] Closed Specialty 08/13/2015 08/12/2016 1 1 Service Requested Encounter Details Date Type Department Care Team Description 08/26/2015 Hospital Encounter Non-Invasive Siomara Larose n, Cardiology Lab Sri Solomon unspecified type [facility] [address] [facility] CARDIOLOGY [address] [place] [phone] Social History Tobacco Use Types Packs/Day Years [...] Procedure Name Priority Date/Time Associated Comments Diagnosis ECHOCARDIOGRAM COMPLETE Routine 08/26/2015 11:48 Chest pain, Results for this AM EDT unspecified type procedure a re in the results section. documented in this encounter Results ECHOCARDIOGRAM COMPLETE (08/26/2015 11:48 AM EDT) P athologist Signature EF 68 HEARTLAB SYSTEM Anatomical Region Laterality Modality Other Specimen (Source) Anatomical Location Collection Method / Collectio n Time Received Time / Laterality Volume 08/26/2015 Narrative 08/26/2015 1:39 PM EDT Procedure: ?Transthoracic Echocardiogram Patient: ?FLUM REZA ?(Age): 1960(55y) Med Rec#: ? [id number] ?Sex: ?M ? Site Loc: ? [facility] ?Ht / Wt: ??175(cm)/134(kg) Pt. Loc: ?Echo Lab ?BSA: ?2.44 Study Date: ?? 08/26/2015 ?Pt. Type: Outpatient Tape: ? Referring: Peter Larose ([id number] ) Referring: MALI Reading: Mauri Heredia ([id number]) Soil Technologist: Viet Mcmanus Diagnosis: *ICD-10-PCS Chest pain, unspecified (R0 7.9) CPT Codes: *Echo Full (20513) *Spectral Doppler (83613) *Color Doppler (19251) BP: ? 154/108 SUMMARY: 1. Mild concentric [...] ? Mid-Inferior ?Normal ? Mid-Inferoseptal ?Normal ? [place]-Septal ? Normal ? [place]-Anterior ? Normal ? [place]-Lateral ?Normal ? [place]-Inferior ? Normal ? [place]-Tip ?Normal ? This report has been electronically sign ed by: _ Mauri Heredia M.D. ? 08/26/2015 13:39:18 Images reviewed and interpretation mendez dove [facility] Cardiac Ultrasound Laboratory Procedure Note Mauri Heredia MD - 08/26/2015Format ting of this note might be different from the original. Procedure: Transthoracic Echocardiogram Patient: BELTRAN BROUSSARD(Age): [birth year] [age]y) Med Rec#: [id number] Sex: M Site Loc: [facility] Ht / Wt: 175(cm)/134(kg) Pt. Loc: Echo Lab BSA: 2.44 Study Date: 08/26/2015 Pt. Type: Outpati ent Tape: Referring: Peter Larose ([id number] ) Referring: MALI Reading: Mauri Heredia ([id number]) Soil Technologist: Viet Mcmanus Diagnosis: *ICD-10-PCS Chest pain, unspecified (R0 7.9) CPT Codes: *Echo Full (98129) *Spectral Doppler (05066) *Color Doppler (86068) BP: 154/108 SUMMARY: 1. Mild concentric left [...] Normal Mid-Posterolateral Normal Mid-Inferior Normal Mid-Inferoseptal Normal [place]-Septal Normal [place]-Anterior Normal [place]-Lateral Normal [place]-Inferior Normal [place]-Tip Normal This report has been electronically sign ed by: _ Mauri Heredia M.D. 08/26/2015 13:39: 18 Images reviewed and interpretation mendez doev [facility] Cardiac Ultrasound Laboratory Peter Larose MD ECHO ORDERABLES documented in this encounter Visit Diagnoses Diagnosis Chest pain, unspecified type documented in this encounter Care Teams Heavy Cleaner Relationship Specialty Start Date End Date Álvaro Lagos MD PCP - General 02/03/10 06/21/[address] [place] [address] documented as of this encounter
--- OUTSIDE RECORDS SUMMARY | 2022-02-14 03:43 | XMS_ITS | Encounter Summary ---
:1960 Author Organization [facility] [place] [address] Care Team Providers Name Role Phone Álvaro London DO Primary Care Provider Encounter Details Date Type Department Care Team Description 06/27/2018 Orders Only Orthopaedics at [facility] Ramandeep Chávez Pain in both knees, [facility] MD Hao [address] [facility] [place] [address] ORTHOPAEDIC SURGERY [place] [address] Social History Tobacco Use Types Packs/Day Years Used Date Smoking Tobacco: Never Smokeless Tobacco: Never Alcohol Use Standard Drinks/Week Comments No 0 (1 standard drink = 0.6 oz pure alcoho l) no alcohol since 1984 Sex Assigned at Date Recorded Not on file documented as of this encounter Plan of Treatment Not on filedocumented as of this encounter Visit Diagnoses Diagnosis Pain in both knees, unspecified chronici ty documented in this encounter Care Teams Telegraph Service Rater Relationship Specialty Start Date End Date Álvaro London DO PCP - General Family Medicine 10/07/17 01/19/[address] [place] [address] documented as of this encounter
--- OUTSIDE RECORDS SUMMARY | 2022-02-14 03:43 | XMS_ITS | Encounter Summary ---
:1960 Author Organization [facility] [place] [address] Care Team Providers Name Role Phone Jv Fam DO Primary Care Provider Encounter Details Date Type Department Care Team Description 01/26/2021 Telephone Endocrinology at [facility] Liz Weston, [place] [address] Social History Tobacco Use Types Packs/Day Years Used Date Smoking Tobacco: Never Smokeless Tobacco: Never Alcohol Use Standard Drinks/Week Comments No 0 (1 standard drink = 0.6 oz pure alcoho l) no alcohol since 1984 Sex Assigned at Date Recorded Not on file documented as of this encounter Miscellaneous Notes Telephone Encounter - Liz Weston, RN - 01/26/2021 11:28 AM EST Patient states he was given a glucose reader and that it malfunctioned this weekend and the patient removed it and is looking for further instruction. documented in this encounter Plan of Treatment Not on filedocumented as of this encounter Visit Diagnoses Not on filedocumented in this encounter Care Teams Restaurant Assistant Relationship Specialty Start Date End Date Jv Fam DO PCP - General Family Medicine 01/20/[address] [place] [address] documented as of this encounter
--- OUTSIDE RECORDS SUMMARY | 2022-02-14 03:43 | XMS_ITS | Encounter Summary ---
:1960 Author Organization [facility] [place] [address] Care Team Providers Name Role Phone Álvaro London DO Primary Care Provider Reason for Visit Reason Comments Bilateral Knee Pain Consultation (Routine) - Closed Specialty Diagnoses / Procedures Referred By Contact Refer red To Contact Orthopaedics Diagnoses Bubba knee replacement Aleksey Piña MD [facility] [address] [place] [id number] Referral ID Status Reason Start Date Expiration Date Visits V isits Requested Authorized [id number] Closed Consult, 06/16/2018 06/16/2019 1 1 [facility] Encounter Details Date Type Department Care Team Description 06/29/2018 Office Visit Orthopaedics at [facility] Ramandeep Chávez Pain of right lower extremit y; [facility] MD Hao Pain of left lower extremity; [facility] MEDICAL Primary osteoarthritis [place] [address] CENTER [phone] [place] [address] Social History Tobacco Use Types Packs/Day Years Used Date Smoking Tobacco: Never Smokeless Tobacco: Never Alcohol Use Standard Drinks/Week Comments No 0 (1 standard drink = 0.6 oz pure alcoho l) no alcohol since 1984 Sex Assigned at Date Recorded Not on file documented as of this encounter Last Filed Vital Signs Vital Sign Reading Time Taken Comments Blood Pressure 141/99 06/29/2018 10:31 AM EDT Pulse 74 06/29/2018 10:31 AM EDT Temperature - - Respiratory Rate - - Oxygen Saturation - - Inhaled Oxygen Concentration - - Weight 138.8 kg (306 lb) 06/29/2018 10:31 AM EDT measur ed Height 176.5 cm (5' 9.5) 06/29/2018 10:31 AM EDT measu red Body Mass Index 44.54 06/29/2018 10:31 AM EDT documented in this encounter Progress Notes Arminda Shen MD - 06/29/2018 9:00 AM EDT Images from the original note were not included. Department of Orthopaedics Division of Adult Joint Reconstructive Surgery CHIEF COMPLAINT: Chief Complaint Patient presents with ??? Bilateral Knee Pain ARTHROPLASTY HISTORY/PREVIOUS KNEE SURGERY: 1. None Reza was referred from Aleksey Piña MD [address] [place] [id number] I.D.: Reza James II is a 57 y.o. year old male w/ KAYLEEN on CPAP, Afib on Eliquis, hx ventricular tachycardia, HTN, depression being seen today to discuss his bilateral knee pain. he notes the right knee is more symptomatic. His history and physical exam were reviewed in detail. He states the knee has been symptomatic for years. The pain is predominantly global. Of note the patient describes his issues is less pain but more as immobility, weakness, mechanical symptoms. He notes that his knee pain is significant now to the point where it limits his activity and has kept him from doing the things he wants to do. There was not inciting trauma/injury. He does not describe hip pain. He feels that his knee pain is keeping him from walking and doing daily activities as he would like to including snowblowing, doing his leaves, yard work.. Aggravating factors include activity, stair climbing, getting up from a chair, weight bearing, sitting for prolonged periods of time. Alleviating factors include rest, avoiding painful activities. Reza has no pain at night.. He can weight bear on both legs and does not use assistive devices consistently. Has done therapy exercises at home Previous treatments tried: - Injections into the joint: Yes: Bilateral Synvisc - NSAIDs/Pain meds: medication used prn - Brace treatment: Yes Mr. James denies fevers/chills/headache/chest pain/shortness of breath/abdominal pain/nausea or vomiting/weight changes He does not endorse a history of DVT/PE or clotting disorder. QUESTIONNAIRE RESPONSES: No flowsheet data found. No flowsheet data found. No flowsheet data found. No flowsheet data found. ALLERGIES Allergies Allergen Reactions ??? Fish Containing Products Allergies to metals: denies . SOCIAL HISTORY: reports that he has never smoked. He has never used smokeless tobacco. He reports that he does not drink alcohol or use drugs. 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 Ventricular tachycardia episode 2008 I47.2 ??? KAYLEEN on CPAP G47.33, Z99.89 ??? Obesity, morbid - BMI 52 E66.01 ??? HTN (hypertension) I10 ??? S/P vasectomy Z98.52 ??? Hyperlipidemia E78.5 VITALS: BP Readings from Last 1 Encounters: 10/07/17 119/74 Pulse Readings from Last 1 Encounters: 10/07/17 80 There is no height or weight on file to calculate BMI. PHYSICAL EXAM: Constitution: Reza James II sits in the clinic today alert, appears stated age and cooperative. Heis alert and oriented. I have made the following determinations: Knee Exam: Right Prior surgery on this joint: No Knee ROM: Extension:10 Flexion: 125 Alignment: 5-10 degrees Varus Stability: A/P Translation <5mm. Varus (lateral stability) <5mm Valgus (medial stability) <5mm Extension La degrees or less Radiographic evidence of joint damage: [0= normal; 1=minimal ; 2= some osteophytes , some narrowing ; 3= moderate osteophytes, significant narrowing, mild deformity; 4= large osteophytes, marked narrowing, obvious deformity]: 3= moderate osteophytes, significant narrorwing, mild deformity Patella Tracking: Normal Skin Integrity: Normal Pulses Palpable: Right PT: Yes Right DP:Yes Motor/Sensory: Distal Motor: Normal Distal Sensory: Normal Quadriceps Strength: 5 Knee Exam: Left Prior surgery on this joint: No Knee ROM: Extension:10 Flexion: 125 Alignment: 5-11 degrees Varus Stability: A/P Translation <5mm and 5-10mm Varus (lateral stability) <5mm Valgus (medial stability) <5mm Extension La degrees or less Radiographic evidence of joint damage: [0= normal; 1=minimal ; 2= some osteophytes , some narrowing ; 3= moderate osteophytes, significant narrowing, mild deformity; 4= large osteophytes, marked narrowing, obvious deformity]: 4= large osteophytes, marked narrowing, obvious deformity Patella Tracking: Normal Skin Integrity: Normal Pulses Palpable: Left DP:Yes 1+ Motor/Sensory: Distal Motor:Normal Distal Sensory: Normal Quadriceps Strength:5 IMAGING: X-rays of the bilateral knees demonstrate joint space narrowing, subchondral sclerosis and shows DJDchanges, likely chronic. ASSESSMENT AND PLAN: Mr. James is a 57 y.o. year old male with severe osteoarthritis of his bilateral knees. At this pointpatient has tried many of the nonoperative interventions regarding his bilateral knee arthritis withthe right side bothering him more than the left. We reviewed the multiple treatment options available to him for this condition and the hurtful but non-harmful nature of arthritis. Both operative and nonoperative options were discussed as well as the pure elective nature of each. Considering the apparent impact on his lifestyle and having explored non-operative treatment options, we discussed that total knee arthroplasty would be a reasonable option. The caveat being that we discussed the prognosticindicators as far is patient characteristics and specifically discussed the patient's current BMI. The patient reports that he has lost 80 pounds of the past few years. He continues to be at a BMI of about 44 which we discussed puts him at increased risk for postoperative infection. We reviewed the significantly detrimental effects of postoperative infection would have including a 5-year mortality rate of around 25%. We also discussed the specifics of the surgery including but not limited to the incision, the tibial femoral and patellar components, the postoperative weightbearing restrictions and expected postoperative recovery course. 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 We had a very michael discussion with the patient regarding his increased risk with a BMI of greater than 40. He is not diabetic and does not smoke. His other risk factors areminimal outside of his cardiac history of atrial fibrillation and episode of the tach in 2007. We would like him to get medical clearance prior to doing any procedure. At this point patient feels he has exhausted his nonoperative options. He expressed that ultimately he always wanted to avoid surgery but now feels that this is the only option. He understands the risks of the surgery itself and specifically risks increased with his body habitus. Knowing these risks, the patient would still like to pursue operative intervention in the form of a total knee arthroplasty. Patient will continue to think over total knee arthroplasty discussed with his but he is rather certain that he would like to proceed. Questions solicited and answered. Potential barriers to total joint arthroplasty: -BMI > 40: Yes Body mass index is 44.54 kg/m??. -Active Tobacco use: No -Diabetes with hemoglobin A1C > 7.5: No He will seek out the needed medical clearance and undergo the needed testing to ensure medical suitability for the proposed surgical intervention. We will plan to meet him again in the weeks prior to an anticipated potential surgical date, to review his medical consult and testing, answer any and all questions, and formulate our definitive decisions regarding proceeding with surgery (or not) at that time only. Arminda Shen MD I have seen the patient and reviewed the resident's above history and I agree with the details as written. The assessment and plan were formulated in discussion with me and I agree with them as documented. Ramandeep Chávez MD Ramandeep Chávez MD - 06/29/2018 9:00 AM EDT Mr. James is a 57 y.o. year old male with Bilateral knee pain (R>L). The patient is an appropriate candidate for consideration of staged Bilateral total knee replacement(right first). An extensive discussion was conducted of the natural history of the disease and the variety of surgical and non-surgical treatment options available to the patient. A risk/benefit analysis was discussed with the patient reviewing the advantages and disadvantages of surgical interventionat this time. A full explanation was given of the nature and the purpose of the procedure and anesthesia, its benefits, possible alternative methods of diagnosis of treatment, the risks involved, the po ssibility of complications, the foreseeable consequences of the procedure and the possible results of the non-treatment. No guarantee or assurance was made as to the results that may be obtained. Specifically, the risks were identified to include, but are not limited, to the following: Infection, phlebitis, pulmonary embolism, , paralysis, dislocation, pain, stiffness, instability, limp, weakness, breakage, leg-length inequality, uncontrolled bleeding, nerve injury, blood vessel injury, pressure sores, anesthetic risks, delayed healing of wound and bone, and wear and loosening. Further discussion was undertaken with the patient about the details of surgical preparation, treatment and postoperative rehabilitationincluding medical clearance, the hospital course and the postoperative rehabilitation involved. All in all, I feel that this patient is a good candidate for surgical reconstruction. The patient has been counseled regarding the elevated risks associated with surgical complications in patients with a BMI >40. The patient demonstrates a profound understanding of the increased risk. Despite the patient, otherwise being an appropriate candidate for surgical reconstruction, the patient understands he would ideally lose additional weight to achieve a BMI of <40. However, he has already lost more than 80 pounds over the past several years and the pain has gotten so bad, he would like prefer to proceed forward with surgery understanding his increased risk. Additionally we had a discussion regarding his young age places him at an increased risk of difficulty with his postoperative pain management as well as increased risk of implant failure in the future. He's going to discuss the increased risk with his and make a decision regarding whether or not he proceeds forward with surgery. Ramandeep Chávez MD documented in this encounter Plan of Treatment Not on filedocumented as of this encounter Visit Diagnoses Diagnosis Pain of right lower extremity Pain of left lower extremity Primary osteoarthritis of both knees Primary localized osteoarthrosis, lower leg documented in this encounter Care Teams Craft Manager Relationship Specialty Start Date End Date Álvaro London DO PCP - General Family Medicine 10/07/17 01/19/21 [address] [place] [address] documented as of this encounter
--- OUTSIDE RECORDS SUMMARY | 2022-02-14 03:43 | XMS_ITS | Encounter Summary ---
:1960 Author Organization [facility] [place] [address] Care Team Providers Name Role Phone Jv Fam DO Primary Care Provider Encounter Details Date Type Department Care Team Description 01/29/2021 Telephone Endocrinology at [facility] [place] [address] Social History Tobacco Use Types Packs/Day Years Used Date Smoking Tobacco: Never Smokeless Tobacco: Never Alcohol Use Standard Drinks/Week Comments No 0 (1 standard drink = 0.6 oz pure alcoho l) no alcohol since 1984 Sex Assigned at Date Recorded Not on file documented as of this encounter Miscellaneous Notes Telephone Encounter - Kelly Escalante RN - 01/29/2021 11:36 AM EST Pt called saying that you had given hin a glucose reader and it is malfunctioning and would like to talk to you about it. documented in this encounter Plan of Treatment Not on filedocumented as of this encounter Visit Diagnoses Not on filedocumented in this encounter Care Teams Code Enforcement Officer Relationship Specialty Start Date End Date Jv Fam DO PCP - General Family Medicine 01/20/[address] [place] [id number] documented as of this encounter
--- OUTSIDE RECORDS SUMMARY | 2022-02-14 03:43 | XMS_ITS | Encounter Summary ---
:1960 Author Organization [facility] [place] [address] Care Team Providers Name Role Phone SuryaÁlvaro DO Primary Care Provider Reason for Referral Consultation (Routine) - Closed Specialty Diagnoses / Procedures Referred By Contact Refer red To Contact Endocrinology Diagnoses Hypoglycemia Miroslava Friend MD [facility] EMERGENCY [place] [address] [place] [address] Referral ID Status Reason Start Date Expiration Date Visits V isits Requested Authorized [id number] Closed Consult, 10/30/2020 10/30/2021 1 1 Test & Treat Reason for Visit Reason Comments Dizziness Encounter Details Date Type Department Care Team Description 10/30/2020 Emergency Emergency Department Arash Prieto MD [facility] [place] [address] Hypoglycemia [facility] ospital Sheree Peralta MD [facility] [place] [address] [facility] [place] [address] Social History Tobacco Use Types Packs/Day Years Used Date Smoking Tobacco: Never Smokeless Tobacco: Never Alcohol Use Standard Drinks/Week Comments No 0 (1 standard drink = 0.6 oz pure alcoho l) no alcohol since 1984 Sex Assigned at Date Recorded Not on file documented as of this encounter Last Filed Vital Signs Vital Sign Reading Time Taken Comments Blood Pressure 157/116 10/30/2020 7:44 PM EDT Pulse 55 10/30/2020 7:44 PM EDT Temperature 36.7 ??C (98.1 ??F) 10/30/2020 7:44 PM EDT Respiratory Rate 16 10/30/2020 7:44 PM EDT Oxygen Saturation 99% 10/30/2020 7:44 PM EDT Inhaled Oxygen Concentration - - Weight - - Height - - Body Mass Index - - documented in this encounter Discharge Instructions Discharge InstructionsMiroslava Friend MD - 10/30/2020 7:21 PM EDT You were seen in the emergency room due to an episode of dizziness and were found by EMS to have abnormaly low blood sugar. Your lab results were reassuring and did not show any signs of infection, electrolyte abnormalities,or damage to heart muscle or new heart rhythm abnormalities. You have been referred to endocrinology for follow-up. They should call you to schedule an appointment but if you do not hear from them you can call at [phone] Please do not skip meals and focus on staying hydrated in the meantime. Continue home medications asprescribed. If you experience new or worsening symptoms including dizziness, confusion, chest pain or pressure, inability to tolerate food or water, or any other concerning symptoms please return to the emergency room for evaluation. documented in this encounter Medications at Time [...] times daily. documented as of this encounter ED Notes Mauri Humphrey RN - 10/30/2020 9:11 PM EDT Patient medically cleared and discharged to home. Discharge instructions discussed with provider. Patient encouraged to follow up with PCP/ specialist, and to return with any new or worsening symptoms.Patient denies questions regarding discharge. No obvious signs of acute distress at time of discharge. Patient ambulated independently with a steady gait out of the dept. Venessa eBdoya RN - 10/30/2020 5:46 PM EDT IV inserted/labs sent, pt tolerated procedure well. Miroslava Friend MD - 10/30/2020 2:26 PM EDT ED Resident Note HPI: Reza James II is a 60 y.o. male with past medical history of V. tach in 2007, KAYLEEN on CPAP, morbid obesity, hypertension, hyperlipidemia who presents to the Emergency Department via EMS after a transient episode of dizziness and found to be hypoglycemic in the field. The patient reports that he was driving along when he suddenly became lightheaded and felt like he was floating, then had a spinning sensation pulled off to the side. He called 911 and while in the phone developed a sensation of chest tightness and nausea. EMS arrived and he was found to have a glucose of 34. He was subsequently transferred to the emergency room and received oral glucose, fingerstickon arrival was 98 and he reported feeling much better. He has been dieting and 90 breakfast this morning and ate only a bowl of popcorn to apples for dinner last night. He is not on any diabetes meds and does not carry a diagnosis of diabetes as far as he knows. He does have a history of ventricular tachycardia in 2007 which required cardioversion and has not had another episode as far as he knows. Reports history of A. fib presented seeking remember for whichshe is on Eliquis and metoprolol. Pt was seen under the supervision of an attending physician. Patient Active Problem List Diagnosis Code ??? Ventricular tachycardia episode 2007 I47.2 ??? KAYLEEN on CPAP G47.33, Z99.89 ??? Obesity, morbid - BMI 52 E66.01 ??? HTN (hypertension) I10 ??? S/P vasectomy Z98.52 ??? Hyperlipidemia E78.5 No current facility-administered medications for this encounter. Current Outpatient Medications: ??? apixaban (ELIQUIS) 5 mg Tablet, Take 1 tablet by mouth 2 times daily., Disp: 180 tablet, Rfl: 3 ??? amLODIPine (NORVASC) 10 mg Tablet, Take 1 tablet by mouth daily. Indications: Hypertension, Disp: 90 tablet, Rfl: 11 ??? lisinopril (PRINIVIL;ZESTRIL) 20 mg Tablet, Take 20 mg by mouth daily. With 40 mg tablet, Disp: , Rfl: ??? buPROPion (WELLBUTRIN SR) 150 mg Tablet Sustained Release, Take 150 mg by mouth 2 times daily., Disp: , Rfl: ??? potassium chloride (KLOR-CON) 8 mEq tablet, Take 8 mEq by mouth daily., Disp: , Rfl: ??? atorvastatin (LIPITOR) 80 mg tablet, Take 80 mg by mouth daily. Indications: Mixed Hyperlipidemia, Disp: , Rfl: ??? lisinopril (PRINIVIL;ZESTRIL) 40 mg tablet, Take 40 mg by mouth daily. With 20 mg tablet Indications: Hypertension, Disp: , Rfl: ??? metoprolol succinate (TOPROL-XL) 200 mg 24 hr tablet, Take 200 mg by mouth 2 times daily. 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 minoxidil (LONITEN) 10 mg tablet, Take 10 mg by mouth 2 times daily. Indications: Hypertension, Disp: , Rfl: ??? torsemide (DEMADEX) 20 mg tablet, Take 20 mg by mouth daily. Indications: Edema, Hypertension, Disp: , Rfl: ??? glucosamine-chondroitin 500-400 mg tablet, , Disp: , Rfl: Review of Systems Constitutional: Negative for chills and fever. HENT: Negative. Eyes: Negative for visual disturbance. Respiratory: Positive for chest tightness. Negative for cough, shortness of breath and wheezing. Cardiovascular: Negative for chest pain, palpitations and leg swelling. Gastrointestinal: Positive for nausea. Negative for abdominal pain, diarrhea and vomiting. Genitourinary: Negative. Musculoskeletal: Negative. Skin: Negative. Allergic/Immunologic: Negative for immunocompromised state. Neurological: Positive for dizziness and light-headedness. Negative for seizures, syncope, facial asymmetry, speech difficulty, weakness, numbness and headaches. Psychiatric/Behavioral: Negative. Pertinent positives and negatives are included in the HPI, otherwise at least ten systems were reviewed and negative. Past Medical and Surgical Histories, Social History, Medications, Allergies were reviewed in the chart. Vitals: ED Triage Vitals BP: n/a Pulse: n/a Resp: n/a Temp: n/a Temp src: n/a SpO2: n/a O2 Device: n/a O2 Flow Rate (L/min): n/a Physical Exam Constitutional: General: He is not in acute distress. Appearance: Normal appearance. He is obese. He is not ill-appearing, toxic- appearing or diaphoretic. HENT: Head: Normocephalic. Nose: Nose normal. Mouth/Throat: Mouth: Mucous membranes are moist. Pharynx: Oropharynx is clear. Eyes: General: No scleral icterus. Pupils: Pupils are equal, round, and reactive to light. Cardiovascular: Rate and Rhythm: Normal rate. Rhythm irregular. Pulmonary: Effort: Pulmonary effort is normal. No respiratory distress. Breath sounds: No wheezing or rales. Abdominal: General: There is no distension. Tenderness: There is no abdominal tenderness. There is no guarding. Musculoskeletal: Cervical back: Neck supple. No rigidity. Right lower leg: Edema present. Left lower leg: Edema present. Skin: General: Skin is warm and dry. Neurological: General: No focal deficit present. Mental Status: He is alert and oriented to person, place, and time. ED Course: I have reviewed labs and imaging, images and available reports, and they are significant for: Negative troponin, normal CBC, BMP, uyjir-xk-ftor glucose 98 prior to discharge, normal C-peptide and insulin. Recent Results (from the past 24 hour(s)) POCT Glucose Result Value Ref Range POC Glucose 98 65 - 199 mg/dL Hemogram Result Value Ref Range WBC 5.9 4.0 - 9.5 x10(3)/mcL RBC 5.59 (H) 4.58 - 5.54 x10(6)/mcL Hemoglobin 16.4 13.7 - 16.5 gm/dL Hematocrit 48.6 (H) 40.5 - 48.5 % MCV 86.9 82.9 - 93.1 fL MCH 29.3 27.5 - 32.1 pg MCHC 33.7 32.0 - 35.7 gm/dL Platelets 190 145 - 357 x10(3)/mcL RDWSD 42.5 36.0 - 45.0 fL RDWCV 13.3 11.4 - 13.8 % MPV 10.5 7.6 - 12.9 fL nRBC % Auto 0.0 % nRBC Abs Auto 0.000 0.000 - 0.000 x10(3)/mcL Differential, Automated Result Value Ref Range Neutrophils % 70.7 % Neutr Abs (ANC) 4.19 1.70 - 6.10 x10(3)/mcL Lymphocytes % 17.9 % Lymphocytes Abs 1.1 0.9 - 3.2 x10(3)/mcL Monocytes % 9.1 % Monocyte Abs 0.5 0.3 - 0.9 x10(3)/mcL Eosinophils % 1.5 % Eosinophils Abs 0.1 0.0 - 0.4 x10(3)/mcL Basophils % 0.5 % Basophils Abs 0.0 0.0 - 0.1 x10(3)/mcL Immature Gran % 0.30 % Mireille Gran Abs 0.02 0.00 - 0.04 x10(3)/mcL Gold Tube HOLD Result Value Ref Range Gold Hold Sample in lab. Basic Metabolic Panel (non-fasting) Result Value Ref Range Glucose Lvl 96 65 - 199 mg/dL BUN 16 10 - 20 mg/dL Creatinine 1.04 0.80 - 1.50 mg/dL Sodium 145 135 - 145 mmol/L Potassium 3.7 3.5 - 5.0 mmol/L Chloride 106 98 - 107 mmol/L CO2 29 22 - 31 mmol/L Anion Gap 10 5 - 15 mmol/L Calcium 8.8 8.5 - 10.5 mg/dL Estimated GFR 77 >=60 mL/min/1.73 m?? C-peptide Result Value Ref Range C-Peptide 3.4 1.1 - 4.4 ng/mL Beta Hydroxybutyrate Result Value Ref Range BOHB 0.12 0.00 - 0.30 mmol/L Troponin Result Value Ref Range Troponin-T <0.01 0.00 - 0.00 ng/mL Insulin, total Result Value Ref Range Insulin Lvl 19.6 2.6 - 24.9 mcunit/mL Gold Tube HOLD Result Value Ref Range Gold Hold Sample in lab. POCT Glucose Result Value Ref Range POC Glucose 96 65 - 199 mg/dL Assessment and Plan: 60 y.o. male with past medical history of V. tach in 2007, KAYLEEN on CPAP, morbid obesity, hypertension, hyperlipidemia who presents to the Emergency Department via EMS after a transient episode of dizziness and found to be hypoglycemic in the field at 34, which resolved with oral glucose given by EMS prior to arrival. Work-up was reassuring including negative ACS work-up with nonischemic EKG and negative troponin, nosymptoms of chest pain or tightness or dyspnea and his other labs were unremarkable as well. He was observed and maintain normal glucose with rfeph-gm-mjxf of 96 prior to discharge. It is possible thathis poor p.o. intake over this a.m and last night are responsible however this is more hypoglycemic than one would anticipate without contributing factors from DM medications. Referred to endocrinologyfor outpatient w/u and discharged in stable condition. The visit findings, diagnosis, and care plan were discussed with the patient. The diagnosis and care plans discussions were outlined in the discharge instructions. The patient expressed understanding of the details of the visit, the return precautions and that he should return to the ER at any time for worsening symptoms, new symptoms, or other concerns. he agrees with the follow- up plan. Miroslava Friend MD Resident 10/31/20 0118 Associated attestation - Arash Yeager MD - 10/31/2020 9:41 AM EDT ED ATTENDING ADDENDUM: The patient was seen in conjunction with Dr. Friend, the resident physician. I have independently performed the gannon portions of the history and physical exam. I have reviewed all diagnostic studies personally including labs, imaging studies and EKG's. I have reviewed the patient's chart where indicated. I have also reviewed/obtained the allergies, medication, past medical history, and social history as documented in other parts of the chart. I have discussed the details of the case with the residentand agree with the all gannon portions of the H&P and plan as described in the resident note above. documented in this encounter Miscellaneous Notes ED Triage - Horacio Garza RN - 10/30/2020 2:29 PM EDT Pt reports that he was driving when he had sudden onset of dizziness. Was able to safely side puller and call EMS. Denies any loss of consciousness. EMS found pt hypoglycemic. No history of DM. IV and oral dextrose by EMS with resolution of symptoms. Pt BG 98 in triage. EKG ordered. Pt on monitor. HPI (Adult) Stated Reason for Visit: Episode of dizziness while driving, EMS found pt hypoglycemic and gave oralglucose History Obtained From: patient, EMS Precipitating Event(s): none documented in this encounter Plan of Treatment Scheduled Orders Name Type Priority Associated Diagnoses Order S chedule EKG 12 Lead ECG STAT One Time for 1 Occurrences starting 10/30/2020 unti l 10/30/2020 Scheduled Referrals Name Type Priority Associated Diagnoses Order S chedule Referral to Outpatient Routine Hypoglycemia Ordered: Endocrinology Referral 10/30/2020 documented as of this encounter Procedures Procedure Name Priority Date/Time Associated Comments Diagnosis POCT GLUCOSE Routine 10/30/2020 7:33 PM Results f or this EDT procedure are i n the results section. GOLD TUBE HOLD STAT 10/30/2020 6:21 PM Results for this EDT procedure are i n the results section. HC INSULIN LEVEL STAT 10/30/2020 6:21 PM Resul ts for this EDT procedure are i n the results section. HC STAT 10/30/2020 5:35 PM Results f or this BETA-HYDROXYBUTYRIC EDT procedur e are in ACID the results section. HC C PEPTIDE STAT 10/30/2020 5:35 PM Results f or this EDT procedure are i n the results section. HC TROPONIN T STAT 10/30/2020 5:35 PM Results for this EDT procedure are i n the results section. BASIC METABOLIC STAT 10/30/2020 5:35 PM Result s for this PANEL (NON-FASTING) EDT procedur e are in the results section. HEMOGRAM STAT 10/30/2020 4:22 PM Results f or this EDT procedure are i n the results section. DIFFERENTIAL, STAT 10/30/2020 4:22 PM Results for this AUTOMATED EDT procedure are i n the results section. GOLD TUBE HOLD STAT 10/30/2020 4:22 PM Results for this EDT procedure are i n the results section. HC PCH PROINSULIN STAT 10/30/2020 4:22 PM Resu lts for this EDT procedure are i n the results section. HC CBC,PLT & AUTO STAT 10/30/2020 4:22 PM DIFF EDT EKG 12-LEAD STAT 10/30/2020 2:40 PM Results f or this EDT procedure are i n the results section. POCT GLUCOSE Routine 10/30/2020 2:23 PM Results f or this EDT procedure are i n the results section. documented in this encounter Results POCT Glucose (10/30/2020 7:33 PM EDT) P athologist Signature POC Glucose 96 65 - 199 [facility] mg/dL [facility] Comment: Supplemental ranges: <140 mg/dL before meals <180 mg/dL all other times of the day Specimen Anatomical Collection Method Collection Time Receive d Time (Source) Location / / Volume Laterality Blood 10/30/2020 7:33 PM 7:33 EDT PM EDT Sheree Peralta MD POINT OF CARE TEST ORDERABLE S Performing Organization Address City/State/ZIP Code Phon e Number [address] Gold Tube HOLD (10/30/2020 6:21 PM EDT) athologist [facility] Gold Hold Sample in [facility] lab. [facility] Specimen Anatomical Collection Method Collection Time Receive d Time (Source) Location / / Volume Laterality Blood Venous Draw / 10/30/2020 6:21 PM 10/31/19 6:30 Unknown EDT PM EDT Maximilian Chan MD CHEMISTRY ORDERABLES Performing Organization Address City/[facility]/[place]IP [place] [address] Insulin, total (10/30/2020 6:21 PM EDT) [facility] Insulin Lvl 19.6 2.6 - 24.9 [facility] mcunit/mL [facility] Specimen Anatomical Collection Method Collection Time Receive d Time (Source) Location / / Volume Laterality Blood 10/30/2020 6:21 PM 6:29 EDT PM EDT Resulting Agency Comment Spec In Lab Sheree Peralta MD CHEMISTRY ORDERABLES Performing Organization Address City/[facility]/[place]IP [place] [address] Troponin (10/30/2020 5:35 PM EDT) athologist [id number] Troponin-T <0.01 0.00 - 0.00 [facility] ng/mL [facility] Comment: The 99th percentile for Troponin T is le ss than 0.01 ng/mL, any detectable cTnT concentration using this assay should be considered elevated. According to the third universal definit ion of myocardial infarction the following criteria with a clinical prese ntation consistent with acute myocardial ischemia meets the diagnosis for a myocardial infarction ([place]). Detection of a rise and/or fall of cTnT, with at least one value greater than the 99th percentile (> or = 0.01) and wi th at least one of the following ?? Symptoms of ischemia ?? New or presumed new significant ST-se gment-T wave (ST-T) changes or new left bundle branch block (LBBB) ?? Development of pathologic Q waves in the ECG ?? Imaging evidence of new loss of viabl e myocardium or new regional wall motion abnormality ?? Identification of an intracoronary th rombus by angiography or autopsy Samples for cTnT testing should be obtai lizzeth serially upon first assessment and again 3 to 6 hours later. If the clinica l suspicion is high and previous samples have been negative an additional sample may be indicated. Reference: Third [place] Definition of Myocardial Infarction. Journal of the [place] [employer] 2012;60:1581-98 Specimen Anatomical Collection Method Collection Time Receive d Time (Source) Location / / Volume Laterality Blood 10/30/2020 5:35 PM 5:45 EDT PM EDT Resulting Agency Comment Spec In Lab Arash Yeager MD CHEMISTRY ORDERABLES Performing Organization Address City/State/ZIP Code Phon e Number [address] Beta Hydroxybutyrate (10/30/2020 5:35 PM EDT) athologist Signature BOHB 0.12 0.00 - 0.30 [facility] mmol/L [facility] Comment: Reference range: ??0.00-0.30 mmol/L, bas ed on an overnight fast. ??Children may be higher. Specimen Anatomical Collection Method Collection Time Receive d Time (Source) Location / / Volume Laterality Blood 10/30/2020 5:35 PM 5:45 EDT PM EDT Resulting Agency Comment Spec In Lab Arash Yeager MD CHEMISTRY ORDERABLES Performing Organization Address City/[facility]/ZIP Code Phon e Number [address] C-peptide (10/30/2020 5:35 PM EDT) athologist Signature C-Peptide 3.4 1.1 - 4.4 [facility] ng/mL [facility] Comment: As of June 18, 2020, C-Peptide testing h as moved from the [facility] to the Alena David. Please note the updated reference intervals. Specimen Anatomical Collection Method Collection Time Receive d Time (Source) Location / / Volume Laterality Blood 10/30/2020 5:35 PM 5:45 EDT PM EDT Resulting Agency Comment Spec In Lab Arash Yeager MD CHEMISTRY ORDERABLES Performing Organization Address City/State/ZIP [place] [address] Basic Metabolic Panel (non-fasting) (10/30/2020 5:35 PM EDT) P athologist Signature Glucose Lvl 96 65 - 199 [facility] mg/dL [facility] Comment: Diabetes: >=200 mg/dL plus symp toms BUN 16 10 - 20 mg/dL [facility] Creatinine 1.04 0.80 - 1.50 mg/dL [facility] Sodium 145 135 - 145 mmol/L [facility] Potassium 3.7 3.5 - 5.0 mmol/L [facility] Comment: Please note: ??Patients with WBC >100,00 0 may have falsely elevated Potassium levels. ??For accurate Potassium quantif ication in these patients send serum separator tube (gold top) for subsequent determinations. ??Contact the Clinical Chemistry Laboratory if there are any qu estions. Chloride 106 98 - 107 mmol/L [facility] CO2 29 22 - 31 mmol/L [facility] Anion Gap 10 5 - 15 mmol/L [facility] Calcium 8.8 8.5 - 10.5 mg/dL [facility] Estimated GFR 77 >=60 mL/min/1.73 m?? [facility] Comment: This patient? s estimated glomerular filtration rate (eGFR) is between 77 mL/min/1.73 m2 (patients with less muscl e mass per kg body weight) and 89 mL/min/1.73 m2 (patients with more muscl e mass per kg body weight) as determined by the CKD-EPI equation. Asse ssment of eGFR is not appropriate when creatinine concentrations are rapidly ch anging. For clinical decisions where creatinine clearance will affect therapy , a 24-hour urine creatinine clearance may be advised. Assignment of CKD stage 1 - 5 for patien ts with an eGFR near the transition point between stages may be based on cli nical assessment of muscle mass and symptoms in addition to eGFR. Specimen Anatomical Collection Method Collection Time Receive d Time (Source) Location / / Volume Laterality Blood 10/30/2020 5:35 PM 5:45 EDT PM EDT Resulting Agency Comment Spec In Lab Arash Yeager MD CHEMISTRY ORDERABLES Performing Organization Address City/State/ZIP Code Phon e Number [address] Gold Tube HOLD (10/30/2020 4:22 PM EDT) athologist Signature Gold Hold Sample in [facility]. [facility] Specimen Anatomical Collection Method Collection Time Receive d Time (Source) Location / / Volume Laterality Blood Venous Draw / 10/30/2020 4:22 PM 10/31/19 4:33 Unknown EDT PM EDT Miroslava Friend MD CHEMISTRY ORDERABLES Performing Organization Address City/State/ZIP Code Phon e Number [address] Differential, Automated (10/30/2020 4:22 PM EDT) athologist Signature Neutrophils % 70.7 % [facility] Neutr Abs (ANC) 4.19 1.70 - [facility] 6.10 [facility] x10(3)/[facility] LABORATORY Lymphocytes % 17.9 % [facility] Lymphocytes Abs 1.1 0.9 - 3.2 [facility] x10(3)/[facility] LABORATORY Monocytes % 9.1 % [facility] Monocyte Abs 0.5 0.3 - 0.9 [facility] x10(3)/[facility] LABORATORY Eosinophils % 1.5 % [facility] Eosinophils Abs 0.1 0.0 - 0.4 [facility] x10(3)/[facility] LABORATORY Basophils % 0.5 % [facility] Basophils Abs 0.0 0.0 - 0.1 [facility] x10(3)/[facility] LABORATORY Immature Gran % 0.30 % [facility] Comment: Immature granulocytes(IG's)percentage an d absolute count will include metamyelocytes, myelocytes, and promyelo cytes. Blood smears from CBCs yielding IG's will be scanned manually for concor dance. If this scan disagrees with the automated IG or if promyelocytes are not ed, a manual differential will be performed. Mireille Gran Abs 0.02 0.00 - 0.04 x10(3)/[facility] Specimen Anatomical Collection Method Collection Time Receive d Time (Source) Location / / Volume Laterality Blood 10/30/2020 4:22 PM 4:33 EDT PM EDT Resulting Agency Comment Spec In Lab Miroslava Friend MD HEMATOLOGY ORDERABLES Performing Organization Address City/State/ZIP [place] [address] (ABNORMAL) Hemogram (10/30/2020 4:22 PM EDT) Analysis Performed At Patho logist Time Signature WBC 5.9 4.0 - 9.5 [facility] x10(3)/[facility] LABORATORY RBC 5.59 (H) 4.58 - [facility] 5.54 [facility] HOSPITAL x10(6)/[facility] LABORATORY Hemoglobin 16.4 13.7 - [facility]dL [facility] Hematocrit 48.6 (H) 40.5 - [facility] 48.5 % [facility] MCV 86.9 82.9 - [facility] 93.[address] [facility] LABORATORY MCH 29.3 27.5 - [facility] 32.1 pg [facility] MCHC 33.7 32.0 - [facility] 35.[facility] gm/dL [facility] Platelets 190 145 - 357 [facility] x10(3)/[facility] LABORATORY RDWSD 42.5 36.0 - [facility] 45.0 [facility] RDWCV 13.3 11.4 - [facility] 13.8 % [facility] MPV 10.5 7.6 - 12.9 [facility] LABORATORY nRBC % Auto 0.0 % [facility] LABOR[facility] nRBC Abs Auto 0.000 0.000 - [facility] 0.000 [facility] x10(3)/[facility] LABORATORY Specimen Anatomical Collection Method Collection Time Receive d Time (Source) Location / / Volume Laterality Blood 10/30/2020 4:22 PM 1 4:33 EDT PM EDT Resulting Agency Comment Spec In Lab Miroslava Friend MD HEMATOLOGY ORDERABLES Performing Organization Address City/[facility]/ZIP Code Phon e Number [place] [phone] (ABNORMAL) Proinsulin (10/30/2020 4:22 PM EDT) athologist Signature Proinsulin 23 (H) 3.6 - 22 [facility] pmol/L [facility] Comment: ADDITIONAL INFORMATIO N This test was developed and its performa nce characteristics determined by [facility] in a manner co nsistent with CLIA requirements. This test has not been emily ared or approved by the U.S. Food and Drug Administration. Test Performed by: [facility] [address] [place] [address] 56 Work From Home: Gray Jain M.D. Ph. D.; CLIA# [id number] Specimen Anatomical Collection Method Collection Time Receive d Time (Source) Location / / Volume Laterality Blood 10/30/2020 4:22 PM 1 9:18 EDT AM EDT Resulting Agency Comment Spec In Lab Arash Yeager MD CHEMISTRY ORDERABLES Performing Organization Address City/[facility]/ZIP [facility] Phon e Number [place] [phone] EKG 12 Lead (10/30/2020 2:40 PM EDT) Component Value Ref Range Test Analysis Performed Pathologis t Method Time At Signature Ventricular rate 59 BPM MUSE SYSTEM Atrial Rate 53 BPM MUSE SYSTEM QRS Duration 122 ms MUSE SYSTEM Q-T Interval 456 ms MUSE SYSTEM QTC Calculated 451 ms MUSE SYSTEM (Bezet) Calculated R [place] 1 degrees MUSE SYSTEM Calculated T [place] 6 degrees MUSE SYSTEM INTERPRETATION Atrial fibrillation with slow ventricular response MUSE SYSTEM Non-specific intra-ventricular conduction delay Abnormal ECG When compared with ECG of 31-MAR-2015 14:55, Questionable change in QRS duration Confirmed by Charlie Kim MD ([id number]) on 11/03/2020 10:08:18 A M Specimen Anatomical Collection Method Collection Time Receive d Time (Source) Location / / Volume Laterality 10/30/2020 2:40 PM 1 EDT 10:08 AM EDT Arash Yeager MD ECG ORDERABLES Performing Organization Address City/State/ZIP Code Phon e Number MUSE SYSTEM POCT Glucose (10/30/2020 2:23 PM EDT) P athologist Signature POC Glucose 98 65 - 199 [facility] mg/dL [facility] Comment: Supplemental ranges: <140 mg/dL before meals <180 mg/dL all other times of the day Specimen Anatomical Collection Method Collection Time Receive d Time (Source) Location / / Volume Laterality Blood 10/30/2020 2:23 PM 1 2:23 EDT PM EDT Emergency Dept POINT OF CARE TEST ORDERABLE S Performing Organization Address City/State/[place] [address] documented in this encounter Visit Diagnoses Diagnosis Hypoglycemia Hypoglycemia, unspecified documented in this encounter Care Teams Filterer Relationship Specialty Start Date End Date Álvaro London DO PCP - General Family Medicine 10/07/17 01/19/[address] [place] [address] documented as of this encounter
--- OUTSIDE RECORDS SUMMARY | 2022-02-14 03:43 | XMS_ITS | Encounter Summary ---
:1960 Author Organization [facility] [place] [address] Care Team Providers Name Role Phone Álvaro Lagos MD Primary Care Provider [phone] Encounter Details Date Type Department Care Team Description 04/14/2015 Telephone Cardiology Vinay Forde, [facility] [place] [address] [facility] [phone] CARDIOLOGY DEPT [place] [phone] (Wo rk) Social History Tobacco Use Types Packs/Day Years Used Date Smoking Tobacco: Never Smokeless Tobacco: Never Sex Assigned at Date Recorded Not on file documented as of this encounter Miscellaneous Notes Telephone Encounter - Vinay Forde MD - 04/14/2015 7:25 AM EST Patient Active Problem List Diagnosis ??? Ventricular [...] 1.86 * ??? S/P vasectomy ??? Hyperlipidemia Reza James II is a 54 y.o. 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 All anticoagulation options were provided to the patient, as well as a appropriate literature to giv en to him at the last visit. After several days , the patient called us back and informed us that hedecided to start start Apixaban. He wanted [facility] ( [facility] not his PCP to prescribe him Apixaban. I have requested baseline labs from his PCP. Cr 1.21, GFR > 60, SAT 26. ALT 42, Alb 3.3. Also total Chol 97, HDL 41, LDL 50. Will start Apixaban 5 mg bid Will monitor renal function and LFTs yearly. Due to CAD, he is no ASA 81 mg daily. A stress test is pending in OSH. On next visit, after the the stress test results will be available, will decide whether to continue ASA with Apixaban due to somewhat elevated risk of bleeding. Will also discuss need to minimize NSAIDS with apixaban. Vinay Forde MD Oyster Bed Worker Pager # [phone] documented in this encounter Plan of Treatment Not on filedocumented as of this encounter Visit Diagnoses Not on filedocumented in this encounter Care Teams Therapeutic Program Worker Relationship Specialty Start Date End Date Álvaro Lagos MD PCP - General 02/03/10 06/21/[address] [place] [address] documented as of this encounter
--- OUTSIDE RECORDS SUMMARY | 2022-02-14 03:44 | XMS_ITS | Encounter Summary ---
:1960 Author Organization [facility] [place] [address] Care Team Providers Name Role Phone Reynaldo Lagos MD Primary Care Provider [phone] Reason for Visit Reason Comments Irregular Heart Beat need clearance for bus pérez gonzalez Encounter Details Date Type Department Care Team Description 09/28/2011 Office Visit Cardiology at [facility] Selam Aparicio Ventricular arrhythmia [facility] MD Edi (Primary Dx) [place] [address] CARDIOLOGY DEPT. [phone] [place], [place] [address] Social History Tobacco Use Types Packs/Day Years Used Date Smoking Tobacco: Never Smokeless Tobacco: Never Sex Assigned at Date Recorded Not on file documented as of this encounter Last Filed Vital Signs Vital Sign Reading Time Taken Comments Blood Pressure 130/82 09/28/2011 11:17 AM EDT Pulse 56 09/28/2011 11:17 AM regular, rad ial EDT Temperature - - Respiratory Rate - - Oxygen Saturation 97% 09/28/2011 11:17 AM EDT Inhaled Oxygen Concentration - - Weight 161.9 kg (357 lb) 09/28/2011 11:17 AM EDT Height 176.5 cm (5' 9.5) 09/28/2011 11:17 AM EDT Body Mass Index 51.96 09/28/2011 11:17 AM EDT documented in this encounter Patient Instructions Patient InstructionsSelam Aparicio MD - 09/28/2011 12:12 PM EDT 1. 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 2. Call my office ([phone]) documented in this encounter Progress Notes Selam Aparicio MD - 09/28/2011 12:10 PM EDT ELECTROPHYSIOLOGY CONSULT NOTE PROBLEM LIST: 1. 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 Presented 06/2007 with presyncope/palpitations and [...] induced). Normal RV and RVOT voltage map. 2. No known structural heart disease ?? Echo 2006: conc LVH. LVEF 70%, [...] RV gram - no evidence of ARVD 3. HTN 4. KAYLEEN 5. Obesity 6. Hyperlipidemia Allergies/ADR: none Reza James II is a 51 y.o. male who is seen at the request of Dr. 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 The patient presented in 2007 with presyncope and palpitations and was discovered to be in a wide-complex tachycardia. 12-lead ECG was not obtained, but he successfully underwent electrical cardioversion (awake, remembers a). He was transferred to [facility] where evaluation including echocardiography and cardiac catheterization Revealed only a transient decline in left ventricular systolic function which rapidly reversed. He had no significant coronary artery disease, right ventriculography was negative for ARV D. An MRI scan was not performed due to to his obesity. Signal-averaged electrocardiography was nondiagnostic/negative. Initial electrophysiology testing revealed left bundle/inferior axis morphology ventricular tachycardia inducible with programmed ventricular stimulation. He remained inducible despite high-dose verapamil and metoprolol and was consequently discharged on flecainide and verapamil, plan for readmission for elective ablation. The patient tells me the flecainide was discontinued 5 days prior to the EPS (level < 0.1). He was noninducible at the time of the followup electrophysiology examination so ablation was not performed. P. Flecainide was discontinued and he has not had recurrence of either the symptoms (diaphoresis presyncope palpitations) or documented dysrhythmia since then. He's been maintained on numerous medications including metoprolol for difficult to control hypertension. Most recently, his blood pressure is generally under good control running 125/65 when he checks it at home. He notes that he has dyspnea with significant activity (mowing the lawn, weed whacking coming ellipticalling, but he is able to do these activities as well as work around the home. 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 He does not think he's had significant cardiovascular evaluation since his hospitalization [id number] except for a treadmill stress test sometime in 2008 or 2009. He has had no orthopnea, PND, lightheadedness, LOC, CP, palpitations, or edema. PAST MEDICAL HISTORY: As above FAMILY HISTORY: His sister has ill-defined heart rhythm problems at age 48. His father had coronary artery disease at age 60. There is no family history of sudden . SOCIAL HISTORY: Is a lifelong nonsmoker. He does not drink caffeinated or alcoholic beverages. History Social History ??? Marital Status: Spouse Name: N/A Number of Children: N/A ??? Years of Education: N/A Occupational History ??? Not on file. Social History Main Topics ??? Smoking status: Never Smoker ??? Smokeless tobacco: Never Used ??? Alcohol Use: Not on file ??? Drug Use: Not on file ??? Sexually Active: Not on file Other Topics Concern ??? Not on file Social History Narrative ??? No narrative on file REVIEW OF SYSTEMS: Extensive ROS was performed as documented in the patient survey. Pertinent positives include: He wears reading glasses and is troubled by knee arthritis ALLERGIES: No Known Allergies MEDICATIONS: Outpatient encounter prescriptions as of 09/28/2011 Medication Sig Dispense Refill ??? potassium chloride (KLOR-CON) 8 mEq tablet Take 8 mEq by mouth daily. ??? aspirin 81 mg EC tablet Take 81 mg by mouth daily. ??? atorvastatin (LIPITOR) 80 mg tablet Take 80 mg by mouth daily. Indications: Mixed Hyperlipidemia ??? lisinopril (PRINIVIL;ZESTRIL) 40 mg tablet Take 40 mg by mouth daily. Indications: Hypertension ??? lisinopril (PRINIVIL;ZESTRIL) 20 mg tablet Take 20 mg by mouth daily. Indications: Hypertension ??? metoprolol succinate (TOPROL-XL) 200 mg 24 hr tablet Take 200 mg by mouth 2 times daily. 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 minoxidil (LONITEN) 10 mg tablet Take 10 mg by mouth 2 times daily. Indications: Hypertension ??? torsemide (DEMADEX) 20 mg tablet Take 20 mg by mouth daily. Indications: Edema, Hypertension ??? amlodipine (NORVASC) 10 mg tablet Take 10 mg by mouth daily. Indications: Hypertension ??? glucosamine-chondroitin 500-400 mg tablet ??? DISCONTD: potassium chloride SA (K-DUR;KLOR-CON) 20 mEq tablet Take 20 mEq by mouth daily. PHYSICAL EXAMINATION: Filed Vitals: 09/28/11 1117 BP: 130/82 Pulse: 56 Height: 176.5 cm (5' 9.5) Weight: 161.934 kg (357 lb) SpO2: 97% General: Well appearing, normal affect. Obese Skin: Warm and dry Head/Eyes: Pupils equal. ENT: Benign. Mucosal membranes moist. Neck: Jugular venous pressure normal. Lungs: Clear to auscultation. Cor: Regular rhythm. Normal S1 and S2. No murmurs, gallops, rubs, thrills, lifts, heaves. Abdomen: Normal bowel sounds. Neuro: Grossly nonfocal. LABORATORIES: Electrocardiogram: Sinus rhythm at 50 beats per minute. Probable left atrial enlargement. Incompleteright ventricular conduction delay. Small Q waves inferiorly. No significant change compared to July 2007.. No evidence of Brugada, ARVD, LVH, LQTS, pre-excitation. Tracing personally visualized by me. IMPRESSION: 1. Idiopathic or transient ventricular tachycardia. Workup for structural heart disease revealed transient decline in left ventricular function-whether this represents stunning from his ventricular tachycardia and cardioversion or a primary process is unclear (although the rapidity of the resolution suggests the former). His primary induced arrhythmia with a left bundle inferior axis suggestive of a right ventricular outflow or high septum origin however followup EPS off flecainide was notable for the absence of sustained inducible ventricular arrhythmias although the nonsustained ventricular arrhythmias have been multiple morphologies. Since then, he has been without clear recurrence or symptoms. While the risk of sudden with idiopathic RVOT ventricular tachycardia is very low, there is a small risk of syncope. He has been syncope free since 2007 and therefore likely the risk of recurrentsyncope is low. However, because of his history of ventricular tachycardia, it is reasonable to reevaluate his substrate and arrhythmia inducibility. Toward that end, I have recommended A Ziopatch monitor and reassessment of structural heart disease (weight precludes MRI so he will undergo echocardiography) looking for ARV D., cardiomyopathy. Will consider repeat EP study pending results to assess inducibility. PLAN: 1. Ziopatch monitor for 7-14 days 2. MRI (if possible, weight precluded MRI in 2007), o/w echo 3. Consider EPS to assess VT inducibility. 70 of the 80 minute visit spent evaluating the patient, the majority in direct consultation and coordinating care. cc: REYNALDO LAGOS MD documented in this encounter Procedure Notes Provider, Scanning - 10/05/2011 9:03 AM EDTAssociated Order(s): SCAN DOC: STRESS TEST documented in this encounter Plan of Treatment Not on filedocumented as of this encounter Procedures Procedure Name Priority Date/Time Associated Diagnosis Comme nts STRESS TEST SCAN 10/05/2011 9:03 AM Resul ts for this EDT procedure are i n the results section. documented in this encounter Results Echo Transthoracic (Complete) (10/06/2011 10:39 AM EDT) athologist Signature EF 65 HEARTLAB SYSTEM Anatomical Region Laterality Modality Other Specimen (Source) Anatomical Location Collection Method / Collectio n Time Received Time / Laterality Volume 10/06/2011 Narrative 10/06/2011 11:12 AM EDT Procedure: ? Transthoracic Echocardiogram Patient: ? BELTRAN GARRISON ? (Age): 1960(51) Med Rec#: ?[id number] ? Sex: ?M ? Site Loc: ?[facility] ? Ht / Wt: ??178(cm)/160(kg) Pt. Loc: ? Echo Lab ? BSA: ?2.81 Study Date: ?10/06/2011 ? Pt. Type: Outpatient Tape: ? Referring: Selam Aparicio Forming Process Worker: Jaye Maher SARAH Diagnosis: ??Hypertension (401.9) ??Arrhythmia (427.89) CPT Code(s): ??Spectral Doppler (35404), ??Echo Full (55375), ??Color Doppler (71802), Indication(s): ??Ventricular arrhythmia Rhythm: Sinus HR ?BP ?160/90 ?? SUMMARY: 1. The left ventricle is moderately dila ken (uncorrected for BSA). Mild concentric left ventricular hypertrophy is observed. No obvious segmental wall motion abnormalities. The inferobase was not well visualized. (Suggest additional imaging with contrast if clinically indicated.) There is normal global left ventricular systolic function. Ejection fraction is estimated to be 65% . 2. Right ventricular chamber size, wall thickness, and systolic function are within normal limits. 3. There is no hemodynamically significa nt valve disease. 4. See remainder of report for additiona l findings. FINDINGS: Left Ventricle ?The left ventricle is moderately d ilated. ?Mild concentric left ventricular h ypertrophy is observed. ?There is normal global left ventri cular systolic function. ??Ejection fraction is estimated to be 65%. ?There are no left ventricular segm ental wall motion abnormalities. Left Atrium ?The left atrium is severely dilate d. Right Ventricle ?Right ventricular chamber size, wa ll thickness, and systolic function are within normal limits. ?No pulmonary hypertension is noted . ?The estimated pulmonary artery sys tolic pressure is 22 mmHg. ?The estimated right atrial pressur e is 3 mmHg. Right Atrium ?The right atrium is mildly dilated . Aortic Valve ?The aortic valve is probably tricu spid. ?The aortic valve leaflets are mild ly thickened. ?The left coronary cusp of the aort ic valve is thickened. ?The non coronary cusp of the aorti c valve is thickened. ?There is no evidence of aortic mono ve stenosis. ?There is no evidence of aortic reg urgitation. Mitral Valve ?The mitral valve appears normal in structure and function. ?There is trace mitral regurgitatio n present. Tricuspid Valve ?The tricuspid valve appears normal in structure and function. ?There is trace tricuspid regurgita tion present. Pulmonic Valve ?The pulmonic valve appears normal in structure and function. Pericardium ?There is no pericardial effusion. ?A pericardial fat pad is visualize d. Aorta ?The aortic root is normal in size. ?The ascending aorta is normal in s ize. ?There is no evidence of coarctatio n of the aorta. Pulmonary Artery ?The main pulmonary artery appears normal. Venous ?The inferior vena cava appears nor mal in size. ?There is a greater than 50% respir atory change in the inferior vena cava dimension. Misc ?Two-dimensional echo, spectral Dop pler and color Doppler performed. Wall Motion: Segment Name ?Rest ? Base-Anteroseptal ?? Normal ? Base-Anterior ? Normal ? Base-Anterolateral ??Normal ? Base-Posterolateral Normal ? Base-Inferior ? Not Seen ? Base-Inferoseptal ?? Not Seen ? Mid-Anteroseptal ?Normal ? Mid-Anterior ?Normal ? Mid-Anterolateral ?? Normal ? Mid-Posterolateral ??Normal ? Mid-Inferior ?Normal ? Mid-Inferoseptal ?Normal ? [place]-Septal ? Normal ? [place]-Anterior ? Normal ? [place]-Lateral ?Normal ? [place]-Inferior ? Normal ? [place]-Tip ?Normal ? Chambers ?Value ?Units (Range) ? LV EF Est ? 65 ? % (55 to 80) ? IVSd MM ? 1.4 ?cm (0.3 to 1.1) ? LVIDd MM ?6.5 ?cm (3.7 to 5.6) ? PWd MM ?1.3 ?cm (0.6 to 1.1) ? LVIDs MM ?4.1 ?cm (2.3 to 3.9) ? LVFS MM ? 36 ? % (28 to 42) ? IVSd 2D ? 1.3 ?cm ? LVIDd 2D ?6.4 ?cm ? PWd 2D ?1.3 ?cm ? LV mass ? 420 ?gm ? LA area ? 36 ? cm2 (<21) ? RA area ? 21 ? cm2 (<18) ? Ao root ? 3.3 ?cm (2.1 to 3.6) ? Asc Ao ?3.3 ?cm (2 to 3.5) ? Mitral Valve ?Value ?Units (Range) ? E peak ?1 ?m/sec ? E/A ratio ? 3 ?ratio ? MVDT ?234 ?msec ? E1 ?0.12 ? m/sec ? E/E1 ?8 ?ratio ? Tricuspid/Pulmonic Valves ?Value ?Units (Range) ? TR peak russ ? 2.2 ?m/sec ? RAP ? 3 ?mmHg ? RVSP/PASP ? 22 ? mmHg ? This report has been electronically sign ed by: _ Earnest Scherer MD ? 10/06/2011 11 :12:22 Images reviewed and interpretation mendez [facility] Cardiac Ultrasound Laboratory Procedure Note Earnest Scherer MD - 10/06/2011Formatt ing of this note might be different from the original. Procedure: Transthoracic Echocardiogram Patient: BELTRAN BROUSSARD(Age): [birth year] [age]) Med Rec#: [id number] Sex: M Site Loc: [facility] Ht / Wt: 178(cm)/160(kg) Pt. Loc: Echo Lab BSA: 2.81 Study Date: 10/06/2011 Pt. Type: Outpati ent Tape: Referring: Selam Aparicio Forming Process Worker: Jaye Maher SARAH Diagnosis: Hypertension (401.9) Arrhythmia (427.89) CPT Code(s): Spectral Doppler (05604), E cho Full (27916), Color Doppler (42434), Indication(s): Ventricular arrhythmia Rhythm: Sinus HR BP 160/90 SUMMARY: 1. The left ventricle is moderately dila ken (uncorrected for BSA). Mild concentric left ventricular hypertrophy is observed. No obvious segmental wall motion abnormalities. The inferobase was not well visualized. (Suggest additional imaging with contrast if clinically indicated.) There is normal global left ventricular systolic function. Ejection fraction is estimated to be 65% . 2. Right ventricular chamber size, wall thickness, and systolic function are within normal limits. 3. There is no hemodynamically significa nt valve disease. 4. See remainder of report for additiona l findings. FINDINGS: Left Ventricle The left ventricle is moderately dilate d. Mild concentric left ventricular hypert rophy is observed. There is normal global left ventricular systolic function. Ejection fraction is estimated to be 65%. There are no left ventricular segmental wall motion abnormalities. Left Atrium The left atrium is severely dilated. Right Ventricle Right ventricular chamber size, wall th ickness, and systolic function are within normal limits. No pulmonary hypertension is noted. The estimated pulmonary artery systolic pressure is 22 mmHg. The estimated right atrial pressure is 3 mmHg. Right Atrium The right atrium is mildly dilated. Aortic Valve The aortic valve is probably tricuspid. The aortic valve leaflets are mildly th ickened. The left coronary cusp of the aortic va lve is thickened. The non coronary cusp of the aortic mono ve is thickened. There is no evidence of aortic valve st enosis. There is no evidence of aortic regurgit ation. Mitral Valve The mitral valve appears normal in stru cture and function. There is trace mitral regurgitation pre sent. Tricuspid Valve The tricuspid valve appears normal in s tructure and function. There is trace tricuspid regurgitation present. Pulmonic Valve The pulmonic valve appears normal in st ructure and function. Pericardium There is no pericardial effusion. A pericardial fat pad is visualized. Aorta The aortic root is normal in size. The ascending aorta is normal in size. There is no evidence of coarctation of the aorta. Pulmonary Artery The main pulmonary artery appears carissa l. Venous The inferior vena cava appears normal i n size. There is a greater than 50% respiratory change in the inferior vena cava dimension. Misc Two-dimensional echo, spectral Doppler and color Doppler performed. Wall Motion: Segment Name Rest Base-Anteroseptal Normal Base-Anterior Normal Base-Anterolateral Normal Base-Posterolateral Normal Base-Inferior Not Seen Base-Inferoseptal Not Seen Mid-Anteroseptal Normal Mid-Anterior Normal Mid-Anterolateral Normal Mid-Posterolateral Normal Mid-Inferior Normal Mid-Inferoseptal Normal [place]-Septal Normal [place]-Anterior Normal [place]-Lateral Normal [place]-Inferior Normal [place]-Tip Normal Chambers Value Units (Range) LV EF Est 65 % (55 to 80) IVSd MM 1.4 cm (0.3 to 1.1) LVIDd MM 6.5 cm (3.7 to 5.6) PWd MM 1.3 cm (0.6 to 1.1) LVIDs MM 4.1 cm (2.3 to 3.9) LVFS MM 36 % (28 to 42) IVSd 2D 1.3 cm LVIDd 2D 6.4 cm PWd 2D 1.3 cm LV mass 420 gm LA area 36 cm2 (<21) RA area 21 cm2 (<18) Ao root 3.3 cm (2.1 to 3.6) Asc Ao 3.3 cm (2 to 3.5) Mitral Valve Value Units (Range) E peak 1 m/sec E/A ratio 3 ratio MVDT 234 msec E1 0.12 m/sec E/E1 8 ratio Tricuspid/Pulmonic Valves Value Units (Range) TR peak russ 2.2 m/sec RAP 3 mmHg RVSP/PASP 22 mmHg This report has been electronically sign ed by: _ Earnest Scherer MD 10/06/2011 11:12:22 Images reviewed and interpretation verif ied [facility] Cardiac Ultrasound Laboratory Selam Aparicio MD ECHO ORDERABLES SCAN DOC: STRESS TEST (10/05/2011 9:03 AM EDT) Anatomical Region Laterality Modality Other Narrative 10/05/2011 9:04 AM EDT Procedure Note Provider, Scanning - 10/05/2011 9:03 AM EDT Scanning Provider MEDIA MGR SCAN EXT ORDR/RSLT ZIOPATCH (09/28/2011 1:35 PM EDT) Anatomical Region Laterality Modality Other Specimen (Source) Anatomical Location Collection Method / Collectio n Time Received Time / Laterality Volume Narrative 10/15/2011 1:19 PM EDT ZIOPATCH MONITOR Hookup Date: 09/28/2011 During the 6 day 2 hour (5 days, 6 hours after artifact removed) monitored period, the predominant rhythm with sinu s. ??The average heart rate was 60 beats per minute. The minimum heart rate was 41 beats per minute at 5:12 AM. ??The maximum sinus rate was 100 sid ts per minute at 2:57 PM. Rare (0.4%) atrial ectopy was noted. The re were 1946 single APCs, 15 APC couplets, and 3 APC triplets. There were 10 runs of SVT, the longest consisting of 10 beats at an average rat e of 100 beats per minute and the fastest consisting of 9 beats at a maxim um rate of 160 beats per minute with an average rate of 142 beats per mi nute. Frequent (5.5%) ventricular ectopy was n oted with nearly 25,000 single VPCs, 710 VPC couplets (0.3%), and 10 RECOVERY RN C triplets. Multiform ventricular ectopy was noted (two predominant morpho logies). There were 2 runs of wide-complex tachycardia. The longest co nsisted of 19 beats at an average rate of 163 beats per minute. This run i s suggestive of ventricular tachycardia, though aberrantly conducted SVT cannot be excluded. There was also a 4 beat run of ventricular tachyca rdia followed by a 1.4 second pause and a VPC couplet. No significant pauses occurred. There were no patient events or symptoms reported. Procedure Note Selam Aparicio MD - 10/15/2011Forma tting of this note might be different from the original. ZIOPATCH MONITOR Hookup Date: 09/28/2011 During the 6 day 2 hour (5 days, 6 hours after artifact removed) monitored period, the predominant rhythm with sinus. The average heart rate was 60 beats per minute. The minimum heart rate was 41 beats per minute at 5:12 AM. The maximum sinus rate was 100 beats per minute at 2:57 PM. Rare (0.4%) atrial ectopy was noted. The re were 1946 single APCs, 15 APC couplets, and 3 APC triplets. There were 10 runs of SVT, the longest consisting of 10 beats at an average rate of 100 beats per minute and the fastest consisting of 9 beats at a maxim um rate of 160 beats per minute with an average rate of 142 beats per minute. Frequent (5.5%) ventricular ectopy was n oted with nearly 25,000 single VPCs, 710 VPC couplets (0.3%), and 10 VPC triplets. Multiform ventricular ectopy was noted (two predominant morphologies). There were 2 runs of wide-complex tachycardia. The longest co nsisted of 19 beats at an average rate of 163 beats per minute. This run is suggestive of ventricular tachycardia, though aberrantly conducted SVT cannot be excluded. There was also a 4 beat run of ventricular tachyca rdia followed by a 1.4 second pause and a VPC couplet. No significant pauses occurred. There were no patient events or symptoms reported. Selam Aparicio MD CARDIAC SERVICES ORDERABLES documented in this encounter Visit Diagnoses Diagnosis Ventricular arrhythmia - Primary Cardiac dysrhythmia, unspecified Ventricular arrhythmia Cardiac dysrhythmia, unspecified Ventricular arrhythmia Cardiac dysrhythmia, unspecified documented in this encounter Care Teams School Services Officer Relationship Specialty Start Date End Date Reynaldo Lagos MD PCP - General 02/03/10 06/21/[address] [place] [address] documented as of this encounter
--- OUTSIDE RECORDS SUMMARY | 2022-02-14 03:44 | XMS_ITS | Encounter Summary ---
:1960 [place] [address] Care Team Providers Name Role Phone Álvaro Lagos MD Primary Care Provider [phone] Encounter Details Date Type Department Care Team Description 10/15/2011 Notes Only Cardiology at [facility] [place] Selam Aparicio MD [facility] [place] [address] CARDIOLOGY DEPT. [phone] [place], [place] [address] (Wo rk) Social History Tobacco Use Types Packs/Day Years Used Date Smoking Tobacco: Never Smokeless Tobacco: Never Sex Assigned at Date Recorded Not on file documented as of this encounter Progress Notes Selam Aparicio MD - 10/15/2011 1:41 PM EDT PROBLEM LIST: 1. Idiopathic ventricular tachycardia, likely [...] beats at 142 bpm). Freq LUCI (5.5%). [id number] multiform VPCs, 710 VPC couples (0.3%), 10 VPC triplets. 2 runs WCT - longest and fastest 19 beats at 163 bpm - WCT morphologies of two events different. Longest WCT may be aberrantly conducted SVT, the VTmore likely. No pauses. No symptoms. 2. No known structural heart disease ?? [...] KAYLEEN 5. Obesity 6. Hyperlipidemia Allergies/ADR: none Echo revealed a slightly dilated LV with normal systolic function. The end diastolic dimension is not corrected for his size (350 pounds). He does also have some concentric LVH which may be related to his hypertension. His recent [employer] monitor reveals frequent ventricular ectopy, primarily of 2 morp hologies, with 2 runs of a wide-complex tachycardia. One reveals a relatively slow ventricular tachycardia, the other is a faster wide-complex tachycardia at 163 beats per minute-this may represent aberrantly conducted SVT, though I think ventricular tachycardia is more likely. Review of his electrophysiology history is notable for: Presentation with wide- complex tachycardia and transient LV dysfunction (since normalized), inducible with programmed ventricular stimulation andpremature beats for ventricular tachycardia with both right bundle and left bundle morphologies, noninducible for VT 2 months after his initial presentation (after LV normalized), multiform ventricularectopy (though to predominantly two morphologies noted) on current long-term monitoring. The induction of ventricular tachycardia with premature beats and the multiform ventricular ectopy Are somewhat atypical for right ventricular outflow tract tachycardia. Septal tachycardias are described which may have both right and left bundle branch morphologies. His transient left ventricular dysfunction raises the potential that he had a reversible cardiomyopathy/myocarditis leading to his ventricular ectopy. Arrhythmogenic right ventricular dysplasia also can present with multiformed ventricular ectopy. Echocardiography does not suggest ARVD, however this is relatively insensitive. Unfortunately, his weight exceeds the MRI limit. While I think his risk for hemodynamically important sustained ventricular arrhythmias at this time is small, the underlying etiology remains unclear. Therefore, consideration for further evaluation with electrophysiology testing seems reasonable. Reviewed results and discussed EPS and possible ablation over phone. Patient would like an aggressive approach to risk stratification and treatment - EPS and possible ablation with anesthesia assistance scheduled for week of 10/25/2011 documented in this encounter Plan of Treatment Not on filedocumented as of this encounter Visit Diagnoses Not on filedocumented in this encounter Care Teams [employer] Relationship Specialty Start Date End Date Álvaro Lagos MD PCP - General 02/03/10 06/21/[id number] [place] [address] documented as of this encounter
--- OUTSIDE RECORDS SUMMARY | 2022-02-14 03:44 | XMS_ITS | Encounter Summary ---
:1960 [place] [address] Care Team Providers Name Role Phone Álvaro Lagos MD Primary Care Provider [phone] Encounter Details Date Type Department Care Team Description 10/26[facility]2011 [facility] Clarissa Jaquez MD tachycardia) [facility] [address] [place] [phone] Social History Tobacco Use Types Packs/Day Years Used Date Smoking Tobacco: Never Smokeless Tobacco: Never Sex Assigned at Date Recorded Not on file documented as of this encounter Last Filed Vital Signs Vital Sign Reading Time Taken Comments Blood Pressure 172/76 10/26/2011 4:45 PM EDT Pulse 84 10/26/2011 4:45 PM EDT Temperature 36.3 ??C (97.3 ??F) 10/26/2011 1:00 PM EDT Respiratory Rate 20 10/26/2011 4:45 PM EDT Oxygen Saturation 100% 10/26/2011 4:45 PM EDT Inhaled Oxygen Concentration - - Weight - - Height - - Body Mass Index - - documented in this encounter Discharge Instructions Patient InstructionsHieu Fiore MD - 10/26/2011 12:57 PM EDT DISCHARGE INSTRUCTIONS FOLLOWING YOUR ABLATION 1. Catheter Insertion Area Care You may take a shower if you wish the morning after the procedure. Wash the area with soap and water. Look for signs of infection over the next several days. A little spot of blood at the catheter insertion area is not unusual. A bruise or a small lump underthe skin is normal; they generally disappear in three or four days. Expect some mild tenderness overthe area where the catheter was inserted. This should improve during the 24 to 48 hours after the procedure. Take Tylenol if needed and contact your doctor if the discomfort worsens. 2. Problems to Watch For If there is bright red blood flowing from the catheter insertion area STOP what you are doing and lie down. Hold pressure steadily on the area for fifteen minutes. Call for help. If the bleeding does not stop in fifteen minutes, call 911. If there is swelling with a ???black and blue?? color at the catheter insertion area, there may be bleeding inside. Call your doctor if there is any increase in size. Check the insertion site for the next few days at home. Signs of infection are: Redness Swelling Yellow, white, green or brown, foul smelling drainage Increased soreness If you think there is an infection, take your temperature. Then call your doctor. The limb on the side where you had the catheter inserted, should look and feel normal in its color, sensation and temperature. If your leg becomes cool, pale, blue or changing color with numbness and tingling, contact your doctor. If you feel faint or dizzy, lie down with your feet elevated. Have someone call the doctor. If you are alert, drink fluids. 3. Activity If you are discharged the same day as your procedure, do not drive yourself home. You may walk around when you get home but keep your activity to a minimum until the next morning. Do not bend over, strain or lift heavy objects for twenty four hours after the procedure. Do not participate in active sports for forty eight hours. You may engage in sexual activity after forty eight hours. The doctor will tell you when you can return to work. If you do not perform heavy physical labor, most people can return to work in a few days. 4. If your irregular heart rhythm returns, call your doctor. documented in this encounter Medications at Time of Discharge Medication Sig Dispensed Refills Start Date End Date potassium chloride Take 8 mEq by mouth [...] Hypertension glucosamine-chondroitin 0 09/05/2009 500-400 mg tablet aspirin 81 mg EC tablet Take 81 mg by mouth 0 10/07/2017 daily. amlodipine (NORVASC) 10 Take 10 mg by mouth 0 07/04/2015 mg tabletIndications: daily. Indications: hypertension Hypertension documented as of this encounter H&P Notes Dilan Reno MD - 10/26/2011 7:10 AM EDT Patient Name: Reza James II Patient Age: 51 y.o. Birthdate: 1960 Admit date: 10/26/2011 Attending Physician: Dilan Reno MD Same Day Electrophysiology 24 Hour Up Date H&P The patient's history and physical exam have been reviewed and completed. There has been no intervalchange from that of the pre-operative history and physical exam done within the last [address] Selam Aparicio's note from 10/15/2011 for details. Patient seen and examined this am. Labs from today reviewed. He takes metoprolol succinate 200 mg PO bid. Last dose of metoprolol was on Tuesday(10/22/2011). He has no complaints today. Risks/benefits of procedure explained to patient. Risks including bleeding, infection, cardiac tamponade (requiring pericardiocentesis), pneumothorax (requiringchest tube placement), DVT (requiring anticoagulation for 3 - 6 months), and stroke (if we cross over to left side) were discussed. He understands. Informed consent signed and in chart. Patient is stable to go for planned EP study and possible ablation of RVOT VT under general anesthesia. Hieu Fiore MD EP Fellow. Addendum I have personally reviewed the available data, interviewed, examined the patient and agree with the essential elements as outlined in Dr Fiore's note I would add the following. Reza James II is a 51 y.o. here in the same day unit , for planned EPS +/- ablation. He has an essentially structurally normal heart, almost asymptomatic VPC's that have been treated with metoprolol. He has remained relatively active until recent mcfp. Prior EPS confirmed RVOT type PVC's (although other morphologies have also been seen) Risks of the procedure as above discussed. Plan: EPS +/- ablation DILAN RENO MD documented in this encounter Miscellaneous Notes Miscellaneous - Provider, Scanning - 10/27/2011 3:08 AM EDT Miscellaneous - Provider, Scanning - 10/27/2011 3:01 AM EDT Discharge Summary - Dilan Reno MD - 10/26/2011 1:04 PM EDT Patient Name: Reza James II Patient Age: 51 y.o. 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 Study was done under general anesthesia. EP studywas negative for inducible VT/SVT. Patient was awoken from anesthesia, extubated in the EP lab and transported to the recovery room in stable condition. Patient discharged home when same day criteria was met to follow in EP clinic as scheduled. Hieu Fiore MD EP fellow. Agreed DILAN RENO MD Brief Op Note - Hieu Fiore MD - 10/26/2011 12:57 PM EDT Brief Operative Note Patient Name: Reza James II : 1960 MR#: [id number] Case Date: 10/26/2011 Surgeon: Surgeon(s) and Role: * DILAN RENO MD - Primary * HIEU FIORE MD - Resident-Baggage Agent Preoperative diagnosis: Non Sustained VT Postoperative diagnosis: EP Study negative for inducible VT/SVT Procedure(s): Electrophysiology Study Anesthesia: General Findings: EP Study negative for inducible VT/SVT Complications: Nil Estimated Blood Loss: 10 ml Disposition: Discharged home when same day criteria was met. Hieu Fiore MD EP Service Miscellaneous - Provider, Scanning - 10/26/2011 7:48 AM EDT documented in this encounter Plan of Treatment Not on filedocumented as of this encounter Procedures Procedure Name Priority Date/Time Associated Comments Diagnosis ELECTROPHYSIOLOGY Routine 10/26/2011 12:53 VT (ventricular Res ults for this PROCEDURE PM EDT tachycardia) procedure are i n the results section. ELECTROPHYSIOLOGY 10/26/2011 8:00 VT (ventricular PROCEDURE AM EDT tachycardia) EKG 12-LEAD STAT 10/26/2011 7:47 VT (ventricular Results f or this AM EDT tachycardia) procedure are i n the results section. BMP W/FASTING GLUCOSE STAT 10/26/2011 6:08 VT (ventricular Results for this AM EDT tachycardia) procedure are i n the results section. DIFFERENTIAL, AUTOMATED STAT 10/26/2011 6:08 R esults for this AM EDT procedure are i n the results section. ABO/RH TYPING STAT 10/26/2011 6:08 VT (ventricular Results for this AM EDT tachycardia) procedure are i n the results section. PROTHROMBIN TIME STAT 10/26/2011 6:08 VT (ventricular Resul ts for this AM EDT tachycardia) procedure are i n the results section. CBC (WITH DIFF) STAT 10/26/2011 6:08 VT (ventricular Result s for this AM EDT tachycardia) procedure are i n the results section. ANTIBODY SCREEN STAT 10/26/2011 6:08 VT (ventricular Result s for this AM EDT tachycardia) procedure are i n the results section. TYPE AND SCREEN STAT 10/26/2011 6:08 VT (ventricular ([facility]) AM EDT tachycardia) documented in this encounter Results Electrophysiology Procedure (10/26/2011 12:53 PM EDT) Anatomical Region Laterality Modality Other Specimen (Source) Anatomical Location Collection Method / Collectio n Time Received Time / Laterality Volume Impressions 11/09/2011 12:06 PM EDT : 1. Normal conduction with no aberrancy a nd no evidence of dual AV physiology. 2. Patient was not inducible for a susta ined monomorphic ventricular tachycardia. The non sustained ventricul ar tachycardias had multiple (including polymorphic) morphologies. 3. Patient had spontaneous PVCs with a L BBB morphology and inferior axis. Pacing from the low RVOT resulted in a 03/[address] Dilan Reno was present and partic ipated in all gannon aspects of procedure. Narrative 11/09/2011 12:06 PM EDT Comprehensive Electrophysiology Evaluati on, 3 Dimensional Mapping (Elvin-X), General Anesthesia Indication: Ventricular tachycardia Operators: Hieu Fiore MD; JULEE Morrissey.ChB Procedure: The [facility] was [facility] in the fasting mildly sedated state. ??Continuous electrocardiographic monitoring was inst ituted. General anesthesia was provided by the anesthesia service. Both groins and the right neck were prepped and draped in the usual sterile fashion and 1% lidocaine with 0.5 % bupivicaine in a 1:1 mixture was insti lled for local anesthesia. Access was achieved utilizing the modified Seld coretta technique, guided by ultrasonography. Catheters were position ed utilizing fluoroscopy. Site ? Sheath ??Catheter ? Access site ? His ? 10 Fr Trio ??[address]-Star CRD2 ? Left femoral vein Right atrium ?10 Fr Trio ??4 Fr Quad ? Left femoral vein Right Ventricle 10 Fr Trio ??4 Fr Quad ? Left femoral vein Coronary sinus ??6 Fr ?6 Fr Da ig CS decapolar ?Right internal jugular Electrophysiology evaluation and 3-D map ping (Elvin-X), were performed as detailed below and stored on Thismoment. After the procedure was completed, the catheters and sheaths wer e removed, and hemostasis was obtained by manual compression. The skyler ent tolerated the procedure well and was transported to a monitored bed i n good condition. Total fluoroscopy time: 17.9 minutes, DAP: 561 7 Gy-cm2. RESULTS: The baseline rhythm was sinus at 946 ms. Intervals: UT 163 ms QRS 110 ms QT 490 ms AH 81 ??ms HV 46 ??ms Effective refractory periods: AV Node: 600/280 RA: < 600/280 RVA: 600/290; 400/250 RVOT: 600/290; 400/270 VA: 600/420 ? Conduction: AV Wenckebach: 400 ms VA Wenckebach: 480 ms SUMMARY: 1. Atrioventricular (AV) shea conductio n was normal with AV Wenckebach at 400 ms. UT was not longer than RR and th ere was no aberrancy. VA conduction was present at 600 ms. 2. His-Purkinje conduction was normal wi th an H-V interval of 46 ms. 3. Patient had spontaneous PVCs with a L BBB morphology and inferior axis. Pacing from the low RVOT resulted in a 1 03/25 match. 4. Programmed stimulation from two right ventricular sites (RV apex and RVOT) using two drive trains and up to a nd including triple extra-stimuli was performed. Multiple short runs of no n sustained VT were induced but with multiple different morphologies inc luding an episode of sustained polymorphic VT requiring defibrillation with a single 200 Joule counter shock. In addition rapid ventricular pac ing was performed without induction of any significant ventricular arrhythmias. 5. Isuprel was started at 2 mcg/min and gradually increased to 10 mcg/min with increase in heart rate from 62 - 13 0 beats/min. No sustained VT was noted during Isuprel infusion. Isuprel w as turned off. During washout phase, rapid atrial and ventricular paci ng did not induced sustained arrhythmia. Procedure Note Dilan Reno MD - 11/09/2011Formatt ing of this note might be different from the original. Comprehensive Electrophysiology Evaluati on, 3 Dimensional Mapping (Elvin-X), General Anesthesia Indication: Ventricular tachycardia Operators: Hieu Fiore MD; JULEE Morrissey.ChB Procedure: The patient was brought to [facility] in the fasting mildly sedated state. Continuous electrocardiographic monitoring was instituted. General anesthesia was provided by the anesthesia service. Both groins and the right neck were prepped and draped in the usual sterile fashion and 1% lidocaine with 0.5 % bupivicaine in a 1:1 mixture was instilled for local anesthesia. Access was achieved utilizing the modified Seld coretta technique, guided by ultrasonography. Catheters were positioned utilizing fluoroscopy. Site Sheath Catheter Access site His [address]-Star CRD2 Left fe moral vein Right atrium 10 Fr Trio 4 Fr Quad Left f emoral vein Right Ventricle 10 Fr Trio 4 Fr Quad Lef t femoral vein Coronary sinus 6 Fr 6 Fr Daig CS decapol ar Right internal jugular Electrophysiology evaluation and 3-D map ping (Elvin-X), were performed as detailed below and stored on optical disk. After the procedure was completed, the catheters and sheaths were removed, and hemostasis was obtained by manual compression. The skyler ent tolerated the procedure well and was transported to a monitored bed in good condition. Total fluoroscopy time: 17.9 minutes, DAP: 5617 Gy-cm2. RESULTS: The baseline rhythm was sinus at 946 ms. Intervals: UT 163 ms QRS 110 ms QT 490 ms AH 81 ms HV 46 ms Effective refractory periods: AV Node: 600/280 RA: < 600/280 RVA: 600/290; 400/250 RVOT: 600/290; 400/270 VA: 600/420 Conduction: AV Wenckebach: 400 ms VA Wenckebach: 480 ms SUMMARY: 1. Atrioventricular (AV) shea conductio n was normal with AV Wenckebach at 400 ms. UT was not longer than RR and there was no aberrancy. VA conduction was present at 600 ms. 2. His-Purkinje conduction was normal wi an H-V interval of 46 ms. 3. Patient had spontaneous PVCs with a L BBB morphology and inferior axis. Pacing from the low RVOT resulted in a 11/12 match. 4. Programmed stimulation from two right ventricular sites (RV apex and RVOT) using two drive trains and up to and including triple extra-stimuli was performed. Multiple short runs of non sustained VT were induced but with multiple different morphologies inc luding an episode of sustained polymorphic VT requiring defibrillation with a single 200 Joule counter shock. In addition rapid ventricular pacing was performed without induction of any significant ventricular arrhythmias. 5. Isuprel was started at 2 mcg/min and gradually increased to 10 mcg/min with increase in heart rate from 62 - 130 beats/min. No sustained VT was noted during Isuprel infusion. Isuprel was turned off. During washout phase, rapid atrial and ventricular paci ng did not induced sustained arrhythmia. IMPRESSION: 1. Normal conduction with no aberrancy a nd no evidence of dual AV physiology. 2. Patient was not inducible for a susta ined monomorphic ventricular tachycardia. The non sustained ventricular tachycardias had multiple (including polymorphic) morphologies. 3. Patient had spontaneous PVCs with a L BBB morphology and inferior axis. Pacing from the low RVOT resulted in a 11/[address] Dilan Reno was present and partic ipated in all gannon aspects of procedure. Dilan Reno MD EP PROCEDURE ORDERABLES EKG 12 Lead (10/26/2011 7:47 AM EDT) Component Value Ref Range Test Analysis Performed Pathologis t Method Time At Signature Ventricular rate 73 BPM MUSE SYSTEM Atrial Rate 73 BPM MUSE SYSTEM P-R Interval 162 ms MUSE SYSTEM QRS Duration 108 ms MUSE SYSTEM Q-T Interval 442 ms MUSE SYSTEM QTC Calculated 486 ms MUSE SYSTEM (Bezet) Calculated P [place] 66 degrees MUSE SYSTEM Calculated R [place] -38 degrees MUSE SYSTEM Calculated T [place] 27 degrees MUSE SYSTEM INTERPRETATION Sinus rhythm Occasional Premature ventricular complexe s MUSE SYSTEM Incomplete right bundle branch block When compared with ECG of 23-SEP-2011 14:08, Premature ventricular complexes are now Present Confirmed by MD DAPHNE, OSCAR ([id number]) on 10/27/2011 5:14:49 PM Specimen Anatomical Collection Method Collection Time Receive d Time (Source) Location / / Volume Laterality 10/26/2011 7:47 AM 2 5:14 EDT PM EDT Selam Aparicio MD ECG ORDERABLES Performing Organization Address City/State/ZIP Code Phon e Number MUSE SYSTEM (ABNORMAL) DIFFERENTIAL, AUTOMATED (10/26/2011 6:08 AM EDT) [facility] gist Method Time Signature Neutrophils % 53.3 34.0 - CERN[place] 71.0 % [place] Neutr Abs (ANC) 2.89 1.50 - [place] 6.30 M[place]EN[place] x10(3)/mc L Lymphocytes % 30.6 19.0 - [place] 53.0 % MILLENNIUM Lymphocytes Abs 1.7 1.0 - 3.6 [place] x10(3)/mc MILLENNIUM L Monocytes % 13.7 (H) 4.0 - CERN[place] 13.0 % MILLENNIUM Monocyte Abs 0.7 0.2 - 1.0 [place] x10(3)/mc MILLENNIUM L Eosinophils % 2.0 0.0 - 7.0 [place] % [place] Eosinophils Abs 0.1 0.0 - 0.5 C[facility] x10(3)/mc MILLENNIUM L Basophils % 0.2 0.0 - 2.0 [place] % [place] Basophils Abs 0.0 0.0 - 0.2 C[place] x10(3)/mc MILLENNIUM L Immature Gran % 0.20 0.00 - CERNER 0.66 % [facility] Comment: Immature granulocytes(IG's)percentage an d absolute count will include metamyelocytes, myelocytes, and promyelo cytes. Blood smears from CBCs yielding IG's will be scanned manually for concor dance. If this scan disagrees with the automated IG or if promyelocytes are not ed, a manual differential will be performed. Mireille Gran Abs 0.01 0.00 - 0.05 x10(3)/mcL CER NER MILLENNIUM Specimen Anatomical Collection Method Collection Time Receive d Time (Source) Location / / Volume Laterality Blood specimen 10/26/2011 6:08 AM 012 6:28 (specimen) EDT AM EDT Selam Aparicio MD HEMATOLOGY ORDERABLES Performing Organization Address City/State/ZIP Code Phon e Number [place] [id number] [place] MILLENNIUM ANTIBODY SCREEN (10/26/2011 6:08 AM EDT) Analysis Performed At Patho logist Time Signature Ab Screen Negative CERLISHA Interp [facility] Expires at [id number] [facility] [id number] on: [facility] Specimen Anatomical Collection Method Collection Time Receive d Time (Source) Location / / Volume Laterality Blood specimen 10/26/2011 6:08 AM 012 6:29 (specimen) EDT AM EDT Resulting Agency Comment Spec In Lab Selam Aparicio MD BLOOD BANK ORDERABLES Performing Organization Address City/[facility]/ZIP [place] [address] [facility] ABO/RH TYPING (10/26/2011 6:08 AM EDT) athologist [facility] ABORh Type A Pos [facility] Specimen Anatomical Collection Method Collection Time Receive d Time (Source) Location / / Volume Laterality Blood specimen 10/26/2011 6:08 AM 012 6:29 (specimen) EDT AM EDT Resulting Agency Comment Spec In Lab Selam Aparicio MD BLOOD BANK ORDERABLES Performing Organization Address City/[facility]/ZIP [place] [address] [facility] (ABNORMAL) BMP w/fasting Glucose (10/26/2011 6:08 AM EDT) P athologist Signature Glucose 103 (H) 65 - 99 [facility] Fasting mg/dL [facility] Comment: ?Fasting* Glucose Interpretive C riteria Normal ?65-99 mg/dL Impaired Fasting glucose ?100-125 mg/dL Consistent with Diabetes Mellitus ? >or= 126 mg/dL *Fasting is defined as no caloric intake for at least 8 hours In the absence of unequivocal hypergly cemia a plasma glucose value of >or= 126 mg/dL should be repeated on a subseq u day. Diagnosis and Classification of Diabetes Mellitus, Position Statement from the [place] [employer]. ??Diabete s Care, Volume 33, Supplement 1, Mar 2009 BUN 23 (H) 10 - 20 mg/dL CERNER MILLENNIU M Creatinine 1.07 0.80 - 1.50 mg/dL C[facility] MILL ENNIUM Comment: Please note that the pediatric reference intervals supplied above were not validated at [facility]. Results from pediatri c patients should be interpreted in conjunction to the patient's age, height and muscle mass. Sodium 145 135 - 145 mmol/L CERNER [facility] DELIA NIUM Potassium 3.8 3.5 - 5.0 mmol/L [facility]UM Comment: Please note: ??Patients with WBC >100,00 0 may have falsely elevated Potassium levels. ??For accurate Potassium quantif ication in these patients send serum separator tube (gold top) for subsequent determinations. ??Contact the Clinical Chemistry Laboratory if there are any qu estions. Chloride 106 98 - 107 mmol/L CERNER MILLENN IUM CO2 26 22 - 31 mmol/L CERNER MILLENNI UM Anion Gap 13 5 - 15 mmol/L CERNER MILLENNIU M Calcium 9.3 8.5 - 10.5 mg/dL CERNER [facility] DEL[facility] NIUM Estimated GFR >60 >=60 CERNER MILLENNIU M Comment: The National Kidney Disease Education Pr ogram (NKDEP) has recommended all laboratories report estimated GFR (eGFR) along with plasma creatinine measurements to assist you with recognit ion of early kidney disease. Caveats: ??Plasma creatinine should be a t steady-state (unchanged within the past week). For patient s multiply eGFR by 1.2. The MDRD equation was developed using patients be tween the ages of 18 and 70 years. ?? The MDRD equation has not been validated for patients < 18 years of age and should not be used to assess renal function in the pediatric population. ??The MDRD eGFR equation will also overestimate the true GFR of patients above the age of 70. ??This overestimation is variable bu t increases with age. At present, NKDEP does NOT recommend usi ng the MDRD equation for drug dosing purposes and pharmacists should continue to use their current dosing methods. In addition, numerical eGFR values great er than 60 ml/min/1.73 square meters should be treated as > 60, and not an ex act number due to greater inaccuracies at these higher values. Per NKDEP, they classify normal renal function as any GFR >60ml/min/1.73 square meters; chronic kidney disease wh en GFR <60, and renal failure when GFR <15. ??This calculation may not be valid for patients with atypical muscle mass (very lean or obese), acute renal failur e, and in patients with diabetic kidney disease. References: http://nkdep.nih.gov/resources/NKDEP_Sug gestn4Labs_0606_508.pdf http://www.kidney.org/professionals/kls/ pdf/faq_gfr.pdf Massimo K, Fallon NA, Paulina AK, Romel TS, Piper AD, Rich RAVEN. Relative performance of the MDRD and CKD-EPI equa tions for estimating glomerular filtration rate among patients with vari ed clinical presentations. Clin J Am Soc Nephrol;6:1963-72. Specimen Anatomical Collection Method Collection Time Receive d Time (Source) Location / / Volume Laterality Blood specimen 10/26/2011 6:08 AM 012 6:29 (specimen) EDT AM EDT Resulting Agency Comment Spec In Lab Selam Aparicio MD CHEMISTRY ORDERABLES Performing Organization Address City/[facility]/ZIP Code Phon e Number [address] [facility] Prothrombin Time (10/26/2011 6:08 AM EDT) P athologist Signature PT 13.2 11.9 - 14.7 CERNER [facility] MILLENNIUM Comment: [facility] Transfusion Committee Guidelines: I NR less than 2.0, PTT less than OR equal to 43.5 seconds, or Fibrinogen gre ater than or equal to 100 mg/dl indicate adequate procoagulant activity for hemostasis in patients without underlying bleeding disorders. INR 1.0 0.9 - 1.1 [facility] Specimen Anatomical Collection Method Collection Time Receive d Time (Source) Location / / Volume Laterality Blood specimen 10/26/2011 6:08 AM 012 6:28 (specimen) EDT AM EDT Resulting Agency Comment Spec In Lab Selam Aparicio MD HEMATOLOGY ORDERABLES Performing Organization Address City/[facility]/ZIP [place] [address] [facility] CBC (with Diff) (10/26/2011 6:08 AM EDT) P athologist Signature WBC 5.4 4.0 - 10.0 CERNER x10(3)/mcL MILLENNIUM RBC 5.50 4.63 - 6.08 CERNER x10(6)/mcL MILLENNIUM Hemoglobin 16.1 13.7 - 17.5 CERNER gm/dL MILLENNIUM Hematocrit 46.7 40.0 - 51.0 CERNER % MILLENNIUM MCV 84.9 79.0 - 92.0 CERNER fL MILLENNIUM MCH 29.3 25.6 - 32.2 CERNER pg MILLENNIUM MCHC 34.5 32.0 - 36.5 CERNER gm/dL MILLENNIUM Platelets 172 145 - 370 CERNER x10(3)/mcL MILLENNIUM RDWSD 42.1 35.0 - 46.0 CERNER fL [facility] RDWCV 13.7 10.9 - 14.4 CERNER % MILLENNIUM MPV 11.5 9.0 - 12.0 CERNER fL [facility] Specimen Anatomical Collection Method Collection Time Receive d Time (Source) Location / / Volume Laterality Blood specimen 10/26/2011 6:08 AM 012 6:28 (specimen) EDT AM EDT Resulting Agency Comment Spec In Lab Selam Aparicio MD HEMATOLOGY ORDERABLES Performing Organization Address City/State/ZIP Code Phon e Number [address] [facility] documented in this encounter Visit Diagnoses Diagnosis VT (ventricular tachycardia) Paroxysmal ventricular tachycardia VT (ventricular tachycardia) Paroxysmal ventricular tachycardia documented in this encounter Administered Medications Inactive Administered Medications - up to 3 most recent administrations Medication Order MAR Action Action Date Dose Rate Site BUpivacaine (PF) (MARCAINE) 0.5 % Given 10/26/2011 9:10 AM EDT 1 50 mg (5 mg/mL) injection 150 mg 150 mg (30 mL), Subcutaneous, ONCE, 1 dose, On Tue10/26/11 at 0800, EP (Intra-Procedure), Routine isoproterenol (ISUPREL) 1 mg in New Bag 10/26/2011 12:08 PM ED T 10 mcg/min 150 mL/hr sodium chloride 0.9% 250 mL infusion (EP lab) 1-20 mcg/min (rounded to 15-300 mL/hr), Intravenous, CONTINUOUS PRN, Starting on Tue10/26/11 at 0736, Until Tue10/26/11 at 1251, EP Study/Ablation, EP (Intra-Procedure) New Bag 10/26/2011 12:06 PM EDT 5 mcg/min 75 mL/hr New Bag 10/26/2011 11:58 AM EDT 2 mcg/min 30 mL/hr lactated ringers infusion 1,000 New Bag 10/26/2011 6:50 AM EDT 1,000 mLs 100 mL/hr mL 1,000 mL, at 100 mL/hr, Intravenous, CONTINUOUS, Starting on Tue10/26/11 at 0700, Until Tue10/26/11 at 1945, Day of Surgery (Day of Procedure) lidocaine (XYLOCAINE) 20 mg/mL (2 %) Given 10/26/2011 9:10 AM ED T 400 mg injection 400 mg 400 mg (20 mL), Subcutaneous, ONCE, 1 dose, On Tue10/26/11 at 0800, EP (Intra-Procedure), Routine documented in this encounter Active and Recently Administered Medications Times are shown in EDT. Scheduled Medication Order 10/24/2011 10/25/2011 10/26/2011 BUpivacaine (PF) (MARCAINE) 0.5 % (5 mg/mL) injection 150 mg (CO MPLETED) 0910 (Given - Provider: Angelina Whitman RN) 30 mL = 150 mg, Subcutaneous, ONCE, 1 do se, Tue10/26/11 at 0800, EP (Intra- Procedure), Routine lidocaine (XYLOCAINE) 20 mg/mL (2 %) injection 400 mg (COMPLETED ) 0910 (Given - Provider: Angelina Whitman RN) 20 mL = 400 mg, Subcutaneous, ONCE, 1 do se, Tue10/26/11 at 0800, EP (Intra- Procedure), Routine Continuous Medication Order 10/24/2011 10/25/2011 10/26/2011 lactated ringers infusion 1,000 mL (CANCELED) 0650 (New Bag - Provider: Yumiko Hough RN)0700 (Due) 1,000 mL, at 100 mL/hr, Intravenous, CON TINUOUS, Starting Tue10/26/11 at 0700, Until Tue10/26/11 at 1945, Day of Surgery (Day of Procedure) PRN Medication Order 10/24/2011 10/25/2011 10/26/2011 isoproterenol (ISUPREL) 1 mg in sodium c hloride 0.9% 250 mL infusion (EP lab) (CANCELED) 1158 (New Bag - Prov ider: Angelina Whitman RN)1206 (New Bag - Provider: Angelina Whitman RN)1208 (New Bag - Provider: Angelina Whitman, RN)1209 (Stopped - Provider: Angelina Whitman, RN) 1-20 mcg/min = 15-300 mL/hr, Intravenous , CONTINUOUS PRN, Starting Tue10/26/11 at 0736, Until Tue10/26/11 at 1251, EP Study/Ablation, EP (Intra-Procedure) documented in this encounter Care Teams Aerophysics Engineer Relationship Specialty Start Date End Date Álvaro Lagos MD PCP - General 02/03/10 06/21/[address] [place] [address] documented as of this encounter
--- OUTSIDE RECORDS SUMMARY | 2022-02-14 03:44 | XMS_ITS | Encounter Summary ---
:1960 Author Organization [facility] [place] [address] Care Team Providers Name Role Phone Álvaro Lagos MD Primary Care Provider Encounter Details Date Type Department Care Team Description 10/26/2011 Surgery Electrophysiology Lab at Dilan Reno LECTROPHYSIOLOGY [facility] MD Gisele PROCEDURE [facility] [place] [address] CENTER [phone] [place] [address] Social History Tobacco Use Types Packs/Day Years Used Date Smoking Tobacco: Never Smokeless Tobacco: Never Sex Assigned at Date Recorded Not on file documented as of this encounter Last Filed Vital Signs Vital Sign Reading Time Taken Comments Blood Pressure 180/81 10/26/2011 1:00 PM EDT Pulse 83 10/26/2011 1:00 PM EDT Temperature 36.3 ??C (97.3 ??F) 10/26/2011 1:00 PM EDT Respiratory Rate 15 10/26/2011 1:00 PM EDT Oxygen Saturation 100% 10/26/2011 1:00 PM EDT Inhaled Oxygen Concentration - - [...] He has remained relatively active until recent skilled nursing. Prior EPS confirmed RVOT type PVC's (although [...] Name: Reza James II : 1960 MR#: [id number] Case Date: 10/26/2011 Surgeon: Surgeon(s) and Role: * DILAN RENO MD - Primary * HIEU FIORE MD - Resident-Cut Off Sawyer Log Preoperative diagnosis: Non Sustained VT Postoperative diagnosis: [...] AND SCREEN STAT 10/26/2011 6:08 VT (ventricular ([facility]/CGP/FARHAT) AM EDT tachycardia) documented in this encounter [...] RVOT resulted in a 1 03/[address] Dilan Reno was present and partic ipated in all gannon aspects of procedure. Narrative 11/09/2011 12:06 PM EDT Comprehensive Electrophysiology Evaluati on, 3 Dimensional Mapping (Elvin-X), General Anesthesia Indication: Ventricular tachycardia Operators: Hieu Fiore MD; JULEE Morrissey.[facility] Procedure: The patient was brought to [facility] Electrophysiology Laboratory in the fasting mildly [...] performed as detailed below and stored on [employer]. After the procedure was completed, the catheters and sheaths wer e removed, and hemostasis was obtained by manual compression. The skyler ent tolerated the procedure well and was transported to a monitored bed i n good condition. Total fluoroscopy time: 17.9 minutes, DAP: 561 7 Gy-cm2. RESULTS: The baseline rhythm was sinus at 946 ms. Intervals: IL 163 ms QRS 110 ms QT 490 ms AH 81 ??ms HV 46 ??ms Effective refractory periods: AV Node: 600/280 RA: < 600/280 RVA: 600/290; 400/250 RVOT: 600/290; 400/270 VA: 600/420 ? Conduction: AV Wenckebach: 400 ms VA Wenckebach: 480 ms SUMMARY: 1. Atrioventricular (AV) shea conductio n was normal with AV Wenckebach at 400 ms. IL was not longer than RR and th [...] Morrissey.[facility] Procedure: The patient was brought to [facility] Electrophysiology Laboratory in the fasting mildly [...] rhythm was sinus at 946 ms. Intervals: IL 163 ms QRS 110 ms QT 490 ms AH 81 ms HV 46 ms Effective refractory periods: AV Node: 600/280 RA: < 600/280 RVA: 600/290; 400/250 RVOT: 600/290; 400/270 VA: 600/420 Conduction: AV Wenckebach: 400 ms VA Wenckebach: 480 ms SUMMARY: 1. Atrioventricular (AV) shea conductio n was normal with AV Wenckebach at 400 ms. IL was not longer than RR and there was no aberrancy. VA conduction was present at 600 ms. 2. His-Purkinje conduction was normal [facility] an H-V interval of 46 ms. 3. [...] 486 ms MUSE SYSTEM (Bezet) Calculated P [place] 66 degrees MUSE SYSTEM Calculated R [place] -38 degrees MUSE SYSTEM Calculated T [place] 27 degrees MUSE SYSTEM INTERPRETATION Sinus rhythm [...] (ABNORMAL) DIFFERENTIAL, AUTOMATED (10/26/2011 6:08 AM EDT) [facility] Method Time Signature Neutrophils % 53.3 [...] Organization Address City/State/ZIP [place] [address] CERNER MILLENNIUM ANTIBODY SCREEN (10/26/2011 6:08 AM EDT) Analysis Performed At Patho logist Time Signature Ab Screen Negative CERNER Interp [facility] Expires at [id number] [facility] 2359 on: [facility] Specimen Anatomical Collection Method Collection Time Receive d Time (Source) Location / / Volume Laterality Blood specimen 10/26/2011 6:08 AM 012 6:29 (specimen) EDT AM EDT Resulting Agency Comment Spec In Lab Selam Aparicio MD BLOOD BANK ORDERABLES Performing Organization Address City/State/[place] [address] [facility] ABO/RH TYPING (10/26/2011 6:08 AM EDT) athologist Signature ABORh Type A Pos [facility] Specimen Anatomical Collection Method Collection Time Receive d Time (Source) Location / / Volume Laterality Blood specimen 10/26/2011 6:08 AM 012 6:29 (specimen) EDT AM EDT Resulting Agency Comment Spec In Lab Selam Aparicio MD BLOOD BANK ORDERABLES Performing Organization Address City/[facility]/ZIP [place] [address] [facility] (ABNORMAL) BMP w/fasting Glucose (10/26/2011 6:08 AM EDT) P athologist Signature Glucose 103 (H) 65 - 99 [facility] Fasting mg/dL [facility] Comment: ?Fasting* Glucose Interpretive C riteria [...] of Diabetes Mellitus, Position Statement from the [employer] Diabetes Association. ??Diabete s Care, Volume 33, Supplement 1, Mar 2009 BUN 23 (H) 10 - 20 mg/dL CERNER MILLENNIU M Creatinine 1.07 0.80 - 1.50 mg/dL CERNER MILL ENNIUM Comment: Please note that the pediatric reference intervals supplied above were not validated at [facility]. Results from pediatri c patients should be [...] Aparicio MD CHEMISTRY ORDERABLES Performing Organization Address City/[facility]/ZIP Code Phon e Number [address] [facility] Prothrombin Time (10/26/2011 6:08 AM EDT) athologist Signature PT 13.2 11.9 - 14.7 [facility] Comment: [facility] Transfusion Committee Guidelines: I NR less than 2.0, PTT less than OR equal to 43.5 seconds, or Fibrinogen gre ater than or equal to 100 mg/dl indicate adequate procoagulant activity for hemostasis in patients without underlying bleeding disorders. INR 1.0 0.9 - 1.1 [facility] [employer] Specimen Anatomical Collection Method Collection Time Receive d Time (Source) Location / / Volume Laterality Blood specimen 10/26/2011 6:08 AM 012 6:28 (specimen) EDT AM EDT Resulting Agency Comment Spec In Lab Selam Aparicio MD HEMATOLOGY ORDERABLES Performing Organization Address City/[facility]/[place]IP [place] [address] [facility] CBC (with Diff) (10/26/2011 6:08 AM EDT) [...] MCHC 34.5 32.0 - 36.5 CERNER gm/dL [facility] Platelets 172 145 - 370 CERNER x10(3)/mcL MILLENNIUM RDWSD 42.1 35.0 - 46.0 [facility] fL [facility] RDWCV 13.7 10.9 - 14.4 CERNER % [facility] MPV 11.5 9.0 - 12.0 CERNER fL [facility] Specimen Anatomical Collection Method Collection Time Receive d Time (Source) Location / / Volume Laterality Blood specimen 10/26/2011 6:08 AM 012 6:28 (specimen) EDT AM EDT Resulting Agency Comment Spec In Lab Selam Aparicio MD HEMATOLOGY ORDERABLES Performing Organization Address City/State/ZIP Code Phon e Number [address] [facility] documented in this encounter Visit Diagnoses [...] (5 mg/mL) injection 150 mg (CO MPLETED) 909 (Given - Provider: Angelina Whitman RN) 30 mL = 150 mg, Subcutaneous, ONCE, 1 do se, Tue10/26/11 at 0800, EP (Intra- Procedure), Routine lidocaine (XYLOCAINE) 20 mg/mL (2 %) injection 400 mg (COMPLETED ) 0910 (Given - Provider: Angelina Whitman, PRABHJOT) 20 mL = 400 mg, Subcutaneous, ONCE, 1 do se, e 10/26/11 at 0800, EP (Intra- Procedure), Routine Continuous [...] 1158 (New Bag - Prov ider: Angelina Whitman, RN)1206 (New Bag - Provider: Angelina Whitman, RN)1208 (New Bag - Provider: Angelina Whitman, RN)1209 (Stopped - Provider: Angelina Whitman, RN) 1-20 mcg/min = 15-300 mL/hr, Intravenous , CONTINUOUS PRN, Starting Tue10/26/11 at 0736, Until Tue10/26/11 at 1251, EP Study/Ablation, EP (Intra-Procedure) documented in this encounter Care Teams Crew Dispatcher Relationship Specialty Start Date End Date Álvaro Lagos MD PCP - General 02/03/10 06/21/[address] [place] [address] documented as of this encounter
--- OUTSIDE RECORDS SUMMARY | 2022-02-14 03:44 | XMS_ITS | Encounter Summary ---
:1960 [place] [address] Care Team Providers Name Role Phone Álvaro Lagos MD Primary Care Provider [phone] Encounter Details Date Type Department Care Team Description 10/06/2011 Hospital Encounter Non-Invasive CARDIO, ECHO SIXTY MIN APPT None Ventricular Cardiology Lab Selam Daily MD [facility] [place] [address] [place] [id number] Social History Tobacco Use Types Packs/Day Years [...] hypertension Hypertension documented as of this encounter Plan of Treatment Not on filedocumented as of this encounter Procedures Procedure Name Priority Date/Time Associated Comments Diagnosis ECHOCARDIOGRAM Routine 10/06/2011 10:39 Ventricular Results f or this TRANSTHORACIC AM EDT arrhythmia procedure are in the results section. documented in this encounter Results Echo Transthoracic (Complete) (10/06/2011 10:39 AM EDT) P athologist Signature EF 65 HEARTRecordSled SYSTEM Anatomical Region Laterality Modality Other Specimen (Source) Anatomical Location Collection Method / Collectio n Time Received Time / Laterality Volume 10/06/2011 Narrative 10/06/2011 11:12 AM EDT Procedure: ? Transthoracic Echocardiogram Patient: ? BELTRAN GARRISON ? (Age): 1960(51) Med Rec#: ?[id number] ? Sex: ?M ? [place] Loc[place] [facility] ? Ht / Wt: ??178(cm)/160(kg) Pt. Loc: ? Echo Lab ? BSA: ?2.81 Study Date: ?10/06/2011 ? Pt. Type: Outpatient Tape: ? Referring: Selam Aparicio Inclinometer Tester: Jaye Maher [facility] Diagnosis: ??Hypertension (401.9) ??Arrhythmia (427.89) CPT Code(s): ??Spectral Doppler (32739), ??Echo Full (13786), ??Color Doppler (09797), Indication(s): ??Ventricular arrhythmia Rhythm: Sinus HR ?BP [...] ? Mid-Inferior ?Normal ? Mid-Inferoseptal ?Normal ? [place]-Septal ? Normal ? [place]-Anterior ? Normal ? [place]-Lateral ?Normal ? [place]-Inferior ? Normal ? [place]-Tip ?Normal ? Chambers ?Value ?Units (Range) ? [...] 10/06/2011 11 :12:22 Images reviewed and interpretation [facility] Cardiac Ultrasound Laboratory Procedure Note Earnest Scherer MD - 10/06/2011Formatt ing of this note might be different from the original. Procedure: Transthoracic Echocardiogram Patient: BELTRAN BROUSSARD(Age): [birth year] [age]) Med Rec#: [id number] Sex: M Site Loc: [facility] Ht / Wt: 178(cm)/160(kg) Pt. Loc: Echo Lab BSA: 2.81 Study Date: 10/06/2011 Pt. Type: Outpati ent Tape: Referring: Selam Aparicio Inclinometer Tester: Jaye Maher [facility] Diagnosis: Hypertension (401.9) Arrhythmia (427.89) CPT Code(s): Spectral Doppler (04766), E cho Full (26838), Color Doppler (38097), Indication(s): Ventricular arrhythmia Rhythm: Sinus HR BP [...] Normal Mid-Posterolateral Normal Mid-Inferior Normal Mid-Inferoseptal Normal [place]-Septal Normal [place]-Anterior Normal [place]-Lateral Normal [place]-Inferior Normal [place]-Tip Normal Chambers Value Units (Range) LV EF [...] 11:12:22 Images reviewed and interpretation verif ied [facility] Cardiac Ultrasound Laboratory Selam Aparicio MD ECHO ORDERABLES documented in this encounter Visit Diagnoses Diagnosis Ventricular arrhythmia Cardiac dysrhythmia, unspecified documented in this encounter Care Teams Supervisor Drawing Relationship Specialty Start Date End Date Álvaro Lagos MD PCP - General 02/03/10 06/21/[address] [place] [address] documented as of this encounter
--- OUTSIDE RECORDS SUMMARY | 2022-02-14 03:44 | XMS_ITS | Encounter Summary ---
:1960 [place] [address] Care Team Providers Name Role Phone Álvaro Lagos MD Primary Care Provider [phone] Encounter Details Date Type Department Care Team Description 10/26/2011 Anesthesia Event Electrophysiology Lab at Venessa Wilde MD [facility] [place] [address] [facility] [employer] CRNA [facility] [place] [address] [facility] [place] [address] Anesthesia Record Procedure Summary Procedure Name Responsible Anesthesia Start Anesthesia Stop Anesthesiologist Time Time ELECTROPHYSIOLOGY Venessa Ogden, 10/26/11 0801 1318 PROCEDURE MD Events Date Time Event Comment 10/26/2011 0730 0801 Start 1318 Stop No medications on file. Agents No agents on file. Blood No blood administrations on file. Lines, Drains, and Airways Type Details Placement Removal PIV 10/26/11; 0647; 10/26/11 0647 by 10/26/11 1712 b y 10/26/11; 1712 Yumiko Hough RN Thompson, Renee D, RN (RETIRED) Arterial 20 10/26/11 0844 by J Carlos 1712 by PRABHJOT Oneil Renee D, RN Urethral Catheter 10/26/11; 0902; 10/26/11 0902 by J Carlos, 2 1712 by indwelling double lumen PRABHJOT Roque Renee D, catheter; 12; inserted; RN drainage bag to dependent drainage; 10/26/11; 1712 LDA Cath/EP Sheath 10/26/11; 1009; 8 10/26/11 1009 by 10/26/11 1 250 by [place] Islander (Fr); Right; Angelina Eisenberg RN Ryan, Ka ren A, RN Femoral LDA Cath/EP Sheath 10/26/11; 1009; 10 10/26/11 1009 by 10/26/11 1251 by [place] Islander (Fr); Left; Angelina Eisenberg RN Ryan, Kar en A, RN Femoral LDA Cath/EP Sheath 10/26/11; 1009; 6 10/26/11 1009 by 10/26/11 1 251 by [place] Islander (Fr); Right; Angelina Eisenberg RN Ryan, Ka ren A RN Internal jugular documented in this encounter Social History Tobacco Use Types Packs/Day Years Used Date Smoking Tobacco: Never Smokeless Tobacco: Never Sex Assigned at Date Recorded Not on file documented as of this encounter OR Notes Anesthesia Postprocedure Evaluation - Venessa Ogden MD - 10/26/2011 4:09 PM EDT Patient: Reza Flum II Procedure(s) Performed: Procedure(s): ELECTROPHYSIOLOGY PROCEDURE Patient location: PACU Post-op pain: Adequate analgesia Post-op nausea: no nausea or vomiting Last Vitals: Filed Vitals: 10/26/11 1351 BP: 176/73 Pulse: 84 Temp: Resp: 18 Post-op cardiovascular and respiratory status: is stable Level of consciousness: awake Complications: no apparent complications Fluid Status: normal Anesthesia Preprocedure Evaluation - Venessa Ogden MD - 10/26/2011 7:50 AM EDT Anesthesia Evaluation Patient summary reviewed and Nursing notes reviewed No hx of anesthetic complications (No previous GA. Has had sedation without complications.) Airway Mallampati: II TM distance: >3 FB Neck ROM: full Dental - normal exam Pulmonary - normal exam (+) sleep apnea CPAP, (-) wheezes Cardiovascular - normal exam (+) hypertension well controlled, dysrhythmias, Rhythm: regular Rate: normal Neuro/Psych GI/Hepatic/Renal Endo/Other Abdominal Other findings: PMHx: Patient Active Problem List: Ventricular tachycardia episode 2007 (427.1Y) KAYLEEN on CPAP (327.23AE) Obesity, morbid - BMI 52 (278.01C) HTN (hypertension) (401.9AF) S/P vasectomy (V26.52B) Hyperlipidemia (272.4S) GERD: no URI: no Appropriately NPO: yes Recent Results (from the past 24 hour(s)) -CBC (WITH DIFF) WBC (x10(3)/mcL) 5.4 Low: 4.0 High: 10.0 RBC (x10(6)/mcL) 5.50 Low: 4.63 High: 6.08 Hemoglobin (gm/dL) 16.1 Low: 13.7 High: 17.5 Hematocrit (%) 46.7 Low: 40.0 High: 51.0 MCV (fL) 84.9 Low: 79.0 High: 92.0 MCH (pg) 29.3 Low: 25.6 High: 32.2 MCHC (gm/dL) 34.5 Low: 32.0 High: 36.5 Platelets (x10(3)/mcL) 172 Low: 145 High: 370 RDWSD (fL) 42.1 Low: 35.0 High: 46.0 RDWCV (%) 13.7 Low: 10.9 High: 14.4 MPV (fL) 11.5 Low: 9.0 High: 12.0 -PROTHROMBIN TIME PT (sec) 13.2 Low: 11.9 High: 14.7 INR 1.0 Low: 0.9 High: 1.1 -BMP W/FASTING GLUCOSE Glucose Fasting (mg/dL) 103 (*) Low: 65 High: 99 BUN (mg/dL) 23 (*) Low: 10 High: 20 Creatinine (mg/dL) 1.07 Low: 0.80 High: 1.50 Sodium (mmol/L) 145 Low: 135 High: 145 Potassium (mmol/L) 3.8 Low: 3.5 High: 5.0 Chloride (mmol/L) 106 Low: 98 High: 107 CO2 (mmol/L) 26 Low: 22 High: 31 Anion Gap (mmol/L) 13 Low: 5 High: 15 Calcium (mg/dL) 9.3 Low: 8.5 High: 10.5 Estimated GFR >60 Range: >=60 -ABO/RH TYPING ABORh Type A Pos -ANTIBODY SCREEN Ab Screen Interp Negative Specimen OD [id number] -DIFFERENTIAL, AUTOMATED Neutrophils % (%) 53.3 Low: 34.0 High: 71.0 Neutr Abs (ANC) (x10(3)/mcL) 2.89 Low: 1.50 High: 6.30 Lymphocytes % (%) 30.6 Low: 19.0 High: 53.0 Lymphocytes Abs (x10(3)/mcL) 1.7 Low: 1.0 High: 3.6 Monocytes % (%) 13.7 (*) Low: 4.0 High: 13.0 Monocyte Abs (x10(3)/mcL) 0.7 Low: 0.2 High: 1.0 Eosinophils % (%) 2.0 Low: 0.0 High: 7.0 Eosinophils Abs (x10(3)/mcL) 0.1 Low: 0.0 High: 0.5 Basophils % (%) 0.2 Low: 0.0 High: 2.0 Basophils Abs (x10(3)/mcL) 0.0 Low: 0.0 High: 0.2 Immature Gran % (%) 0.20 Low: 0.00 High: 0.66 Mireille Gran Abs (x10(3)/mcL) 0.01 Low: 0.00 High: 0.05 Anesthesia Plan ASA 3 General with intravenous induction Plan GA with RM- ETT. Plan A-line and adequate IV access. Plans and risks reviewed (including increased risk secondary to increased BMI). Questions answered. Anesthetic plan and risks discussed with patient. Plan discussed with ARMATURE STRAIGHTENER and attending. documented in this encounter Miscellaneous Notes Addendum Note - Verito Villavicencio - 10/27/2011 10:49 AM EDT Addendum created 10/27/11 1049 by Verito Villavicencio Modules edited:Anesthesia Events, Anesthesia Responsible Staff documented in this encounter Plan of Treatment Not on filedocumented as of this encounter Visit Diagnoses Not on filedocumented in this encounter Care Teams Shell Assembler Relationship Specialty Start Date End Date Álvaro Lagos MD PCP - General 02/03/10 06/21/[address] [place] [address] documented as of this encounter
--- OUTSIDE RECORDS SUMMARY | 2022-02-14 03:44 | XMS_ITS | Encounter Summary ---
:1960 [place] [address] Care Team Providers Name Role Phone Álvaro Lagos MD Primary Care Provider [phone] Encounter Details Date Type Department Care Team Description 09/28/2011 Hospital Encounter Non-Invasive ENERGY EFFICIENCY FINANCE MANAGER, CM Ve ntricular Cardiology Lab Selam Daily MD [facility] [place] [address] [place] [phone] Social History Tobacco Use Types Packs/Day Years [...] Name Priority Date/Time Associated Diagnosis Comme nts ZIOPATCH Routine 09/28/2011 1:35 PM Ventricular arrhythmia Results for this EDT procedure are i n the results section. documented in this encounter Results ZIOPATCH (09/28/2011 1:35 PM EDT) Anatomical Region [...] VPCs, 710 VPC couplets (0.3%), and 10 FORENSIC MEDICAL EXAMINER C triplets. Multiform ventricular ectopy was noted [...] unspecified documented in this encounter Care Teams Transcribing Machine Operator Relationship Specialty Start Date End Date Álvaro Lagos MD PCP - General 02/03/10 06/21/[address] [place] [address] documented as of this encounter
--- OUTSIDE RECORDS SUMMARY | 2022-02-14 03:44 | XMS_ITS | Encounter Summary ---
:1960 Author Organization [place] [address] Care Team Providers Name Role Phone Álvaro Lagos MD Primary Care Provider [phone] Reason for Visit Reason Onset Date Comments Other 12/17/2010 Encounter Details Date Type Department Care Team Description 12/17/2010 Telephone Nephrology Hypertension at Aureliano Simon MD Other [facility] Dhiraj [place] [address] [place] [address] [phone] (Wo rk) Social History Tobacco Use Types Packs/Day Years Used Date Smoking Tobacco: Never Assessed Sex Assigned at Date Recorded Not on file documented as of this encounter Miscellaneous Notes Telephone Encounter - Karen Gould - 12/17/2010 1:57 PM EDT APPT LABS ONLY documented in this encounter Plan of Treatment Not on filedocumented as of this encounter Visit Diagnoses Diagnosis Unspecified hypertensive kidney disease with chronic kidney disease stage V or end stage renal disease(403.91) - Primary Unspecified hypertensive kidney disease with chronic kidney disease stage V or end stage renal disease documented in this encounter Care Teams Warp Preparer Relationship Specialty Start Date End Date Álvaro Lagos MD PCP - General 02/03/10 06/21/17 [address] [place] [address] documented as of this encounter
--- OUTSIDE RECORDS SUMMARY | 2022-02-14 03:44 | XMS_ITS | Encounter Summary ---
:1960 [place] [address] Care Team Providers Name Role Phone Álvaro Lagos MD Primary Care Provider [phone] Encounter Details Date Type Department Care Team Description 10/10/2011 Notes Only Cardiology at [facility] Selam Aparicio MD [facility] [place] [address] CARDIOLOGY DEPT. [phone] [place], [place] [address] (Wo rk) Social History Tobacco Use Types Packs/Day Years Used Date Smoking Tobacco: Never Smokeless Tobacco: Never Sex Assigned at Date Recorded Not on file documented as of this encounter Progress Notes Selam Aparicio MD - 10/10/2011 4:57 PM EDT Echo 10/06/2011: Mod dil LV (6.5 cm uncorrected for BSA). Mild conc LVH. Est LVEF 65%. All patrick not seen. Nl RV. Dil RA and LA. Est PAS 22. Thickened Ao V w/o or AI. Trace MR and TR. LV dilitation likely related to obesity (nearly 450 lbs). Conc LVH may be related to HTN. documented in this encounter Plan of Treatment Not on filedocumented as of this encounter Visit Diagnoses Not on filedocumented in this encounter Care Teams Back Roller Relationship Specialty Start Date End Date Álvaro Laogs MD PCP - General 02/03/10 06/21/17 [address] [place] [address] documented as of this encounter
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
[2022-02-14] MEDS: REMDESIVIR 200 MG in Normal Saline 250 ML 250 MG IVPB (04:20)
[2022-02-14] MEDS: Normal Saline 1,000 ML 80 ML IV (05:20)
[2022-02-14] MEDS: Albuterol 2.5 MG/3 ML INH SOLN VIAL UPD ×2 (05:40→17:44)
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
[2022-02-14] MEDS: Torsemide 20 MG TAB PO (08:31)
[2022-02-14] MEDS: Apixaban 5 MG TAB PO ×2 (08:31→21:19)
[2022-02-14] MEDS: Metoprolol CR 100 MG TABCR 200 MG PO ×2 (08:31→21:19)
[2022-02-14] MEDS: amLODIPine 10 MG TAB PO (08:32)
[2022-02-14] MEDS: buPROPion-CR 150 MG TABCR PO ×2 (08:32→21:18)
[2022-02-14] MEDS: Potassium Chloride 10 MEQ TABCR PO (08:32)
--- NOTE | 2022-02-14 08:50 | PDOC.CMIN ---
- If Service Date Differs Date of service: 02/14/22 Time of Service: 08:50 Care Management Initial Assess REASON FOR HOSPITALIZATION:: Covid-19 PAST MEDICAL HISTORY/PAST SURGICAL HISTORY:: All Active Problems (Updated 02/14/22 @ 02:39 by Ellen Marquez DO). COVID-19 (Acute). Multifocal pneumonia (Acute). Hypoxia (Acute). Chronic rhinitis (Chronic 03/24/11). Dysmetabolic syndrome X (Chronic 03/24/11). obesity, impaired FBS, hypertension,. Knee pain, right (Chronic 09/16/14). prior x-rays 2006, 2011; Synvisc Dr Piña. Localized primary osteoarthritis of lower leg (Chronic 03/24/11). Localized primary osteoarthritis of lower legs, bilateral (Chronic 03/24/11). Paroxysmal ventricular tachycardia (Chronic 06/13/07). [place] [facility] [place] F/U 09/2011; EP STUDY 10/22/11, NOT INDUCABLE. Medical History (Updated 02/14/22 @ 02:39 by Ellen Marquez DO). Atrial fibrillation (07/22/15). Chronic anticoagulation (04/14/15). CADSVaSC2 score 3: Apixaban [place] [place] ASA discontinued 12/2016! Essential hypertension (03/28/82). difficult to control, onset 1982 at life insurance PE. Goal 140/90. Hyperlipidemia (03/24/11). goal LDL<70 [place]. Morbid obesity (03/24/11). realistic goal 340 (07/2013) achieved 01/2014; new goal 330#; Take Steps for Life program with Dtr-in-law. Sleep apnea. Bi-PAP SINCE 2006 per [facility] Neurology, Dr Min Morrissey. Surgical History (Updated 02/14/22 @ 02:31 by Ellen Marquez DO). History of bilateral knee replacement PREVIOUS FUNCTIONAL STATUS/SOCIAL/FAMILY SUPPORTS:: Reza lives in [facility] with his Ana M and daughter Ashley. They also have a son Tree who lives in [place]. 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 He is independent at baseline and does not receive any services. CURRENT FUNCTIONAL STATUS:: Star is on Covid precautions so CM did not meet with him in person but was able to speak to him on the phone. He was pleasant and agreeable to conversation. Star admitted to being tired but stated that he is feeling better. He is waiting to see the doctor to find out what his plan of care is and when he will be discharged. ADVANCE DIRECTIVES:: none on file Has patient been provided with info about the portal/API?: Yes Did the patient sign up for the portal?: Yes (previously) CODE STATUS:: Full Code INSURANCE COVERAGE / FINANCIAL ISSUES:: BC BS CURRENT HOME/COMMUNITY SERVICES/EQUIPMENT:: none PRIMARY CARE PHYSICIAN:: Jv Fam ([place]) [phone] POTENTIAL DISCHARGE NEEDS:: follow up with community providers and plan of care PATIENT/FAMILY EDUCATION NEEDS:: Review of discharge instructions, limitations, activity, medications, follow up plan, doscuss Ask Me Three TRANSPORTATION:: via private vehicle with family PLAN:: Star will likely be edischarged home withj no new services. He will follow up with community providers anfd paln of care and transport with family. CM will follow and support Star and his discharge planning needs.
[2022-02-14] MEDS: Minoxidil 2.5 MG TAB 10 MG PO ×2 (09:22→21:18)
[2022-02-14] MEDS: Atorvastatin 40 MG TAB 80 MG PO (21:19)
[2022-02-14] MEDS: Lisinopril 20 MG TAB 60 MG PO (21:33)
[2022-02-14] MEDS: Acetaminophen 500 MG TAB 1000 MG PO (21:34)
[2022-02-15] VITALS: PULSE 80
[2022-02-15 03:10] VITALS: BP 127/86; PULSE 90; RESP 20; TEMP 36.4; O2SAT 97
[2022-02-15 06:50] LABS: Abs Immature Grans 0.04 10^3/uL (0.0-0.06); Absolute Basophil Count 0.01 10^3/uL (0.0-0.2); Absolute Lymphocyte Count 0.79 10^3/uL (1.2-3.4); Absolute Monocyte Count 0.44 10^3/uL (0.1-0.8); Absolute Neutrophil Count 12.06 10^3/uL (1.2-6.7); Basophils % 0.1; HCT 44.7 % (40.0-50.0); HGB 15.3 g/dL (13.5-17.5); Immature Grans % 0.3; Lymphocytes % 5.9; MCH 29.4 pg (27.0-33.0); MCHC 34.2 % (32.0-36.0); MCV 86 fL (80-95); MPV 11.4 fL (8.0-11.0); Monocytes % 3.3; Neutrophils % 90.4; Platelet Count 151 10^3/uL (130-400); RDW 13.4 % (11.8-14.1); RDW-SD 42.5 fL; WBC 13.34 10^3/uL (4.4-10.8)
[2022-02-15 07:04] VITALS: PULSE 84
[2022-02-15 07:13] LABS: ALT 43 U/L (16-63); AST 49 U/L (15-37); Albumin 3.1 g/dL (3.4-5.0); Alkaline Phosphatase 79 U/L (46-116); Anion Gap 7.7 mmol/L (3-11); BUN 31 mg/dL (7-18); Bilirubin, Total 1.5 mg/dL (0.2-1.0); CO2 29.3 mmol/L (21.0-32.0); Chloride 102 mmol/L (98-107); Glucose 144 mg/dL (74-106); Potassium 4.1 mmol/L (3.5-5.1); Sodium 139 mmol/L (136-145)
[2022-02-15 07:32] LABS: D-Dimer 264 ng/mlFEU (<500)
[2022-02-15] MEDS: buPROPion-CR 150 MG TABCR PO (08:07)
[2022-02-15] MEDS: amLODIPine 10 MG TAB PO (08:07)
[2022-02-15] MEDS: Apixaban 5 MG TAB PO (08:07)
[2022-02-15] MEDS: Potassium Chloride 10 MEQ TABCR PO (08:07)
[2022-02-15] MEDS: Dexamethasone 4 MG/ML VIAL 6 MG IVP (08:07)
[2022-02-15] MEDS: Minoxidil 2.5 MG TAB 10 MG PO (08:07)
[2022-02-15] MEDS: Metoprolol CR 100 MG TABCR 200 MG PO (08:07)
[2022-02-15] MEDS: Torsemide 20 MG TAB PO (08:07)
[2022-02-15] MEDS: REMDESIVIR 100 MG in Normal Saline 250 ML 250 MG IVPB (08:08)
[2022-02-15] MEDS: Normal Saline Flush 10 ML SYR IVP (08:08)
[2022-02-15 08:21] VITALS: BP 138/88; PULSE 105; RESP 19; TEMP 36.5; O2SAT 98
--- NOTE | 2022-02-15 09:33 | W.PM.DS.N ---
Date of service: 02/15/22 Time of Service: 09:34 DS: Diagnosis Discharge Diagnosis (1) COVID-19: Status: Acute (2) Multifocal pneumonia: Status: Acute (3) Hypoxia: Status: Acute Discharge Plan Disposition Patient Disposition: Home Condition: Good Discharge Details Reason For Visit: Covid-19, Multifocal Pneumonia Admit Date/Time: 02/14/22 02:32 Admit Provider: Benedicto Aguilar Attending Provider: Benedicto Aguilar Primary Care Provider: Unknown,Unknown Hospital Course Hospital Course: This 61-year-old male who has been immunized and boosted for coronavirus was exposed to [employer] [facility] [employer] students who were ill about a week ago.? 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 He developed a influenza-like illness a few days prior to this presentation: myalgias and increasing shortness of breath and loose stools.? He tested positive for COVID the day before admission at home.? He has some family members who are involved in medical care in [place] who prescribed Paxlovid, albuterol inhaler and Tessalon.? He was having increasing shortness of breath, nausea and came to the hospital to be evaluated.? He had taken the Paxlovid pills at home.? He does not smoke cigarettes and has not drank alcohol the last 30 years.? He has a history of atrial fibrillation and is on chronic apixaban for this. He was positive for Covid-19 in the ED. His WBC count was normal. He was afebrile. Remdesivir treatment initiated. Paxlovid was not continued d/t potential interaction with Eliquis. Methylprednisolone 125mg IV given in the ED and then dexamethasone 6mg IV scheduled daily. He only required supplemental O2 briefly upon being admitted, then he remained stable on room air. Some mild BEARD initially that improved. + cough but no significant paroxysms. He remained afebrile. Appetite was normal. He will d/c with 3 days of 40mg po prednisone. He will resume his home medications. He was given several N95 masks to wear at home. Follow up with PCP in 1-2 weeks. Home Meds and New Rx's Prescriptions: New prednisone 20 mg tablet 40 mg PO DAILY Qty: 6 0RF Rx Instructions: First dose on 01/17/22 Continued metoprolol succinate 200 mg tablet extended release 24 hr 200 mg PO BID Qty: 60 0RF Eliquis 5 mg tablet 5 mg PO BID 90 Days Qty: 180 3RF Rx Instructions: began 04/15/15 [facility] cardiology, for atrial fibrillation, prevent clots potassium chloride [Klor-Con 8] 8 mEq tablet extended release 8 meq PO DAILY 90 Days Qty: 90 3RF Rx Instructions: replace potassium lisinopril 20 mg tablet 20 mg PO DAILY 90 Days Qty: 90 3RF Rx Instructions: along with 40 mg (total 60 mg/d) for BP control lisinopril 40 mg tablet 40 mg PO DAILY 90 Days Qty: 90 3RF Rx Instructions: along with 20 mg to control BP bupropion HCl 150 mg tablet sustained-release 12 hr 150 mg PO BID torsemide 20 mg tablet 20 mg PO DAILY amlodipine 10 mg tablet 10 mg PO DAILY minoxidil 10 mg tablet 10 mg PO BID atorvastatin 80 mg tablet 80 mg PO DAILY Discharge Instructions Additional Instructions: Quarantine at home for 5 days from onset of symptoms then can resume public activities with a mask (pt given several N95 masks). He will check with his employer, [employer], regarding their guidelines for returning to work. Stand Alone Forms: Nursing Discharge Form Referrals: Jv Fam [OSTEOPATHIC DOCTOR] - (Per patient he has an Appointment this week on Tuesday But he is going to call and see if he can change it to next week.) Activity:: Activity as Tolerated Equipment/Supplies:: No Equipment Needed Diet:: Resume usual diet Discharge Orders Discharge Orders: Discharge Order (Routine); Ordered 02/15/22 Ordered By: Darrion Miramontes DS: Summary Time Spent with Patient providing and/or coordinating discharge services: Greater than 30 minutes Status at Discharge Functional status at discharge: independent ambulation Overall status at discharge: patient is progressing back to baseline Mental Status: mental status grossly normal Speech and Movement: speech and movement normal Mood: congruent mood Affect: normal affect Exam Const General: cooperative Nutritional Appearance: obese Orientation: alert and oriented x3 Other: He appears older than his stated age. Eyes General: appearance normal, both eyes and all related structures Sclera: sclerae normal Neck Neck: normal visual inspection and no lymphadenopathy Resp Effort & Inspection: normal respiratory effort Auscultation: clear to auscultation bilaterally Cardio Rate: regular rate Rhythm: abnormal rhythm irregularly irregular Heart Sounds: S1 normal, S2 normal, no gallops and no murmurs GI Inspection: non-distended Palpation: soft and nontender Skin General skin exam: no rashes or lesions noted Neuro General: patient alert, patient awake and no focal motor deficits Extrem General: normal to inspection, no cyanosis and no edema Psych Appearance: grossly normal Mental Status: mental status grossly normal Speech and Movement: speech and movement normal Mood: congruent mood Affect: normal affect DS: Data Vitals/I&O Vitals and I&O: Vital Signs Temperature 36.5 C 02/15/22 08:21 Temperature Source Tympanic 02/15/22 08:21 Pulse 105 H 02/15/22 08:21 Pulse Rhythm Irregular 02/15/22 08:10 Pulse 75 02/14/22 03:16 Respiratory Rate 19 02/15/22 08:21 Respiratory Effort Non-Labored 02/15/22 08:10 Respiratory Depth Normal 02/15/22 08:10 Respiratory Pattern Normal 02/15/22 08:10 Blood Pressure 138/88 02/15/22 08:21 Blood Pressure Mean 96 02/14/22 03:16 Blood Pressure Position Sitting 02/13/22 22:56 Pulse Oximetry 98 02/15/22 08:21 Oxygen Delivery Method Room Air 02/15/22 08:21 Oxygen Flow Rate 0 02/15/22 08:21 Pain Level 0 02/15/22 08:21 Intake & Output 02/14/22 02/14/22 02/15/22 11:59 23:59 11:59 Intake Total 1314 / 1764 450 / 1764 250 / 250 Output Total 1800 / 1800 1650 / 1650 Balance 1314 / -36 -1350 / -36 -1400 / -1400 Weight 155.582 kg Intake: IV 844 / 844 Oral 470 / 920 450 / 920 250 / 250 Output: Urine 1800 / 1800 1650 / 1650 Other: Urine Color Yellow Yellow Straw Urine Appearance Clear Clear Clear Urine Odor None Comment Patient states its from two different times Stool Occult Blood Negative Stool Size Small Stool Characteristics Formed Hard Voiding Methods Toilet Toilet Urinal Data Completed and Pending Labs on day of discharge: Labs from last 24 hours 02/15/22 02/15/22 02/15/22 05:39 05:39 05:39 WBC 13.34 H RBC 5.20 Hgb 15.3 Hct 44.7 MCV 86 MCH 29.4 MCHC 34.2 RDW 13.4 Plt Count 151 MPV 11.4 H Immature Gran % 0.3 Neutrophils % 90.4 Lymphocytes % 5.9 Monocytes % 3.3 Eosinophils % 0.0 Basophils % 0.1 Nucleated RBC % 0.0 Absolute Neutrophils 12.06 H Absolute Lymphocytes 0.79 L Absolute Monocytes 0.44 Absolute Eosinophils 0.00 Absolute Basophils 0.01 D-Dimer 264 Sodium 139 Potassium 4.1 Chloride 102 Carbon Dioxide 29.3 Anion Gap 7.7 BUN 31 H Creatinine 1.0 Est GFR (CKD-EPI 2020) 85.10 Glucose 144 H Calcium 9.0 Total Bilirubin 1.5 H AST 49 H ALT 43 Alkaline Phosphatase 79 Total Protein 7.0 Albumin 3.1 L PFSH All Active Problems COVID-19 (Acute) Multifocal pneumonia (Acute) Hypoxia (Acute) Chronic rhinitis (Chronic 03/24/11) Dysmetabolic syndrome X (Chronic 03/24/11) obesity, impaired FBS, hypertension, Knee pain, right (Chronic 09/16/14) prior x-rays 2006, 2011; Synvisc Dr Piña Localized primary osteoarthritis of lower leg (Chronic 03/24/11) Localized primary osteoarthritis of lower legs, bilateral (Chronic 03/24/11) Paroxysmal ventricular tachycardia (Chronic 06/13/07) JUNE 2007 [facility] [place] [place] ANTHONY DYKES, F/U 09/2011; EP STUDY 10/22/11, NOT INDUCABLE Medical History Atrial fibrillation (07/22/15) Chronic anticoagulation (04/14/15) CADSVaSC2 score 3: Apixaban ([facility]); ASA discontinued 12/2016! Essential hypertension (03/28/82) difficult to control, onset 1982 at life insurance PE Goal 140/90 Hyperlipidemia (03/24/11) goal LDL<70 Luis Morbid obesity (03/24/11) realistic goal 340 (07/2013) achieved 01/2014; new goal 330#; Take Steps for Life program with Dtr-in-law Sleep apnea Bi-PAP SINCE 2006 per [facility] Neurology, Dr Min Morrissey Surgical History History of bilateral knee replacement Family History Mother , auto accident at age 30. No problems noted. Father Heart disease Myocardial infarction Sister No problems noted. 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
[2022-02-15 10:18] VITALS: PULSE 81
--- NOTE | 2022-02-15 12:17 | PDOC.CMDIS ---
- If Service Date Differs Date of service: 02/15/22 Time of Service: 12:17 LACE Index Scoring Tool - Questions: Length of Stay (in days): 1 Acuity (Admit via E.D.?): Yes Comorbidities: Chronic Pulmonary Disease E.D. Visits: 1 - Answers: Total Score: 7 Risk of Readmission: Low Risk Care Management Discharge Reason for Hospitalization: Covid-19 Discharge Plan: Ray will be discharged home with no new services. He will follow up with community providers and his plan of care as prescribed and transport via private vehicle with family. Patient/Family Education Needs: Review discharge instructions, discuss Ask Me Three.
== END 2022-02-15 10:41 | disposition home or self-care (01) ==
LOC: ER 02-14 03:13 → MS 02-14 03:41
PROVIDERS: Admitting Provider Family Medicine; Emergency Provider Physician Assistant; Visit Provider Family Medicine
DX: U07.1 COVID-19 (principal); R09.02 Hypoxemia; J12.82 Pneumonia due to coronavirus disease 2019; E66.01 Morbid (severe) obesity due to excess calories; Z68.43 Body mass index [BMI] 50.0-59.9, adult; I48.91 Unspecified atrial fibrillation; Z79.01 Long term (current) use of anticoagulants; I10 Essential (primary) hypertension; E78.5 Hyperlipidemia, unspecified; Z96.653 Presence of artificial knee joint, bilateral; G47.30 Sleep apnea, unspecified; E88.81 Metabolic syndrome and other insulin resistance
CPT/HCPCS: 36415; 71275; 80053; 84145; 87635; 96361; 96374; 99285; 71045; 83735; 84484; 85025; 85379; 94667; 99217; 99220; G0378; J0248; J1100; J2930; J3490; J7613; J7620

== ENCOUNTER 2025-02-11 13:45 | Inpatient (IN) | payer MEDICARE, BC, SELFPAY ==
[2025-02-11] VITALS (11 sets, daily range): BP systolic 129–174; BP diastolic 66–107; PULSE 56–87; RESP 16–25; TEMP 36.6–36.9; O2SAT 81–97
--- NOTE | 2025-02-11 14:00 | DI.US_ITS ---
Exam(s) US EXTREMITY VENOUS BI EXAM: US EXTREMITY VENOUS BI CLINICAL HISTORY: Leg swelling, redness. TECHNIQUE: Bilateral lower extremity venous ultrasound performed using grayscale, color-flow, and spectral Doppler analysis. COMPARISON: No exams were available for comparison FINDINGS: The right common femoral, femoral and popliteal veins demonstrate normal compressibility, augmentation, and color Doppler. The posterior tibial and peroneal veins could not be visualized due to soft tissue swelling and skin changes. The saphenofemoral junction is unremarkable. There is no evidence of a Melton's cyst. The soft tissues are unremarkable. The left common femoral, femoral and popliteal veins demonstrate normal compressibility, augmentation, and color Doppler. The posterior tibial and peroneal veins could not be visualized due to soft tissue swelling and skin changes. The saphenofemoral junction is unremarkable. There is no evidence of a Melton's cyst. The soft tissues are unremarkable. IMPRESSION: 1. No evidence of a right lower extremity DVT to the level of the popliteal vein. 2. No evidence of a left lower extremity DVT to the level of the popliteal vein. 3. The posterior tibial and peroneal veins could not be visualized due to soft tissue swelling. DATA REPOSITORY:
--- NOTE | 2025-02-11 14:00 | RT.EKG_ITS ---
APPROVED REPORT Exam: Resting ECG Reason for Exam: Hypoxia, leg swelling Patient Location: E HR:76 bpm ECG Measurements Heart Rate 76 AXIS SD [id number] P [id number] QRSd 125 QRS -83 QT 448 T 70 QTc 504 Conclusion Atrial fibrillation...? atrial activity No Occlusion NV
--- NOTE | 2025-02-11 14:00 | DI.RAD_ITS ---
Exam(s) XR CHEST 1V IN DI DEPT EXAM: XR CHEST 1V IN DI DEPT CLINICAL HISTORY: SOB TECHNIQUE: 2D digital imaging was performed of the chest. One image was obtained. An AP view was obtained. COMPARISON: CR,XR XR PORTABLE CHEST AP from 02/13/2022 FINDINGS: Exam limited by patient body habitus. MEDIASTINUM: Normal. HEART: Cardiomegaly. The heart has a globular configuration. This can be seen with pericardial effusion. Please correlate clinically. PULMONARY VASCULATURE: There is pulmonary venous congestion. LUNGS: There are scattered opacities seen in the lungs which may represent pulmonary edema. Pneumonia cannot be excluded. PLEURAL SPACE: There is blunting of the right costophrenic angle which may represent a small pleural effusion. There is no left pleural effusion. No pneumothorax. BONE:Within normal limits for the patient's age. OTHER FINDINGS:Normal. IMPRESSION: 1. Examination limited by patient body habitus. 2. Pulmonary venous congestion. 3. Cardiomegaly. The configuration of the heart raises a question of a pericardial effusion. Please correlate clinically. 4. Scattered pulmonary opacities which may represent pulmonary edema. Infection cannot be excluded. DATA REPOSITORY: RADIATION DOSE DELIVERED:
--- NOTE | 2025-02-11 14:14 | ED.GENADUL_ITS ---
Discharge Plan Discharge Details Chief Complaint: RashLesion Primary Care Provider: Jv Fam ED Provider: Latasha Morales Home Meds and New Rx's Prescriptions: No Action metoprolol succinate 200 mg tablet extended release 24 hr 200 mg PO BID Qty: 60 0RF Eliquis 5 mg tablet 5 mg PO BID 90 Days Qty: 180 3RF Rx Instructions: began 04/15/15 [facility] [place] cardiology, for atrial fibrillation, prevent clots potassium chloride [Klor-Con 8] 8 mEq tablet extended release 8 meq PO DAILY 90 Days Qty: 90 3RF Rx Instructions: replace potassium lisinopril 20 mg tablet 20 mg PO DAILY 90 Days Qty: 90 3RF Rx Instructions: along with 40 mg (total 60 mg/d) for BP control lisinopril 40 mg tablet 40 mg PO DAILY 90 Days Qty: 90 3RF Rx Instructions: along with 20 mg to control BP bupropion HCl 150 mg tablet sustained-release 12 hr 150 mg PO BID torsemide 20 mg tablet 20 mg PO DAILY amlodipine 10 mg tablet 10 mg PO DAILY minoxidil 10 mg tablet 10 mg PO BID atorvastatin 80 mg tablet 80 mg PO DAILY fluticasone propion-salmeterol 500-50 mcg/dose blister with device INHALATION albuterol sulfate 90 mcg/actuation HFA aerosol inhaler INHALATION fluticasone propion-salmeterol [Advair HFA] 230-21 mcg/actuation HFA aerosol inhaler INHALATION Spiriva Respimat 2.5 mcg/actuation mist INHALATION HPI General Mode of arrival: wheelchair . Date/Time Provider Initiated Documentation: 02/11/25 13:49 . Limitations to Documentation: no limitations . Information obtained by: patient, family, RN notes reviewed and old records reviewed . HPI Narrative: 64-year-old male presents to the ER with chief complaint of bilateral lower extremity swelling which has increased over the last 2 days, rash which is starting to spread up to bilateral arms and back over the last couple days. And some increased shortness of breath for the last 5 days. Past medical history includes paroxysmal ventricular tachycardia, hypertension, morbid obesity. Patient hypertension, sleep apnea. He is normally on 3 L oxygen nasal cannula. Was recently started on Protonix which is a new change in his medication. He does take 20 mg of torsemide daily. Denies new CP, reports his face feels hot but no documented fever. Related Data Home Medications ?Medication ?Instructions ?Recorded ?Confirmed metoprolol succinate 200 mg 200 mg PO BID #60 tabs 06/3002/11/25 tablet,extended release 24 hr apixaban 5 mg tablet (Eliquis) 5 mg PO BID 90 days #18 0 tabs 05/26/18 02/11/25 potassium chloride 8 mEq 8 meq PO DAILY 90 days #90 t ab-caps 07/10/18 02/11/25 tablet,extended release (Klor-Con) lisinopril 20 mg tablet 20 mg PO DAILY 90 days #90 t ab-caps 08/04/18 02/11/25 lisinopril 40 mg tablet 40 mg PO DAILY 90 days #90 t abs 08/04/18 02/11/25 amlodipine 10 mg tablet 10 mg PO DAILY 02/13/2204/07 atorvastatin 80 mg tablet 80 mg PO DAILY 02/13/2204/07 bupropion HCl 150 mg tablet,12 hr 150 mg PO BID 02/11/25 sustained-release minoxidil 10 mg tablet 10 mg PO BID 02/13/22 torsemide 20 mg tablet 20 mg PO DAILY 02/13/2204/07 albuterol sulfate 90 mcg/actuation inhalation 02/11/25 aerosol inhaler fluticasone 500 mcg-salmeterol 50 inhalation 02/11/25 mcg/dose blistr powdr for inhalation fluticasone propionate 230 inhalation 02/11/25 mcg-salmeterol 21 mcg/actuation HFA inhaler (Advair HFA) tiotropium bromide 2.5 inhalation 02/11/25 mcg/actuation mist for inhalation (Spiriva Respimat) Previous Rx's ?Medication ?Instructions ?Recorded metoprolol succinate 200 mg 200 mg PO BID #60 tabs 06/30 tablet,extended release 24 hr apixaban 5 mg tablet (Eliquis) 5 mg PO BID 90 days #18 0 tabs 05/26/18 potassium chloride 8 mEq 8 meq PO DAILY 90 days #90 t ab-caps 07/10/18 tablet,extended release (Klor-Con) lisinopril 20 mg tablet 20 mg PO DAILY 90 days #90 t ab-caps 08/04/18 lisinopril 40 mg tablet 40 mg PO DAILY 90 days #90 t abs 08/04/18 Allergies Allergy/AdvReac Type Severity Reaction Status Date / Time No Known Allergies Allergy Unverified 02/11/25 13:52 General Stated Complaint: RashLesion JAZZ: 3 Review of Systems All systems reviewed & are unremarkable except as noted in HPI and below Cardiovascular Cardiovascular: Denies chest pain, Reports pedal edema, Reports edema, Reports leg edema, Reports dyspnea and Reports dyspnea on exertion Respiratory Respiratory: Reports dyspnea and Reports dyspnea on exertion Musculoskeletal Musculoskeletal: Reports as per HPI Integumentary/Breasts Skin/Breast: Reports as per HPI, Reports pruritus, Reports new lesions, Reports erythema and Reports rash Exam Narrative Exam Narrative: Constitutional: Alert and oriented x3. Appears stated age. Obese body habitus. Head: Normocephalic, no trauma. Eyes: Pupils PERRL, Red reflex noted, EOM's intact. Eyelids symmetrical without lesions, discharge, or swelling. ENT: Bilateral TM's WNL, External ear normal to inspection, no mastoid TTP, swelling, or erythema, Nasal turbinates WNL, no nasal discharge. Normal de ntition, Posterior pharynx WNL, no exudate. Chest: RRR, Normal S1, S2, distal pulses intact. Resp: Lungs diminished to auscultation bilaterally, no wheezes, rales, or rhonchi. Abdomen: Soft, non-distended, Normoactive bowel sounds all 4 quads. Musculoskeletal: Unable to assess gait, Moves all 4 extremities without difficulty. Skin: Patient has chronic appearing peripheral vascular disease bilateral extremities, redness is chronic, however he does have a new rash spreading to the arms and back positive itching there is also weeping noted to the bilateral lower extremities capillary refill less than 2 sec. Neurologic: Cranial nerves II-XII intact. Alert and oriented x 3. Motor: No deficits noted. Sensory: Intact bilaterally all 4 extremities. Hematologic/Lymphatic: No ecchymosis, no lymphadenopathy. Const General: cooperative Nutritional Appearance: obese morbidly obese Orientation: alert, awake and oriented x3 Skin Rashes: rashes noted maculopapular rash diffuse Course Vital Signs Vital signs: Vital Signs Temperature 36.6 C 02/11/25 13:48 Pulse 80 02/11/25 13:48 Respiratory Rate 20 02/11/25 13:48 Blood Pressure 161/94 H 02/11/25 13:48 Pulse Oximetry 81 L 02/11/25 13:48 Temperature 36.6 C 02/11/25 13:48 Pulse 80 02/11/25 13:48 Respiratory Rate 20 02/11/25 13:48 Blood Pressure 161/94 H 02/11/25 13:48 Pulse Oximetry 81 L 02/11/25 13:48 Oxygen Delivery Method Nasal Cannula 02/11/25 13:48 Oxygen Flow Rate 3 02/11/25 13:48 Pain Level 3 02/11/25 13:48 Lab/Test Results Lab/Test Results: 02/11/25 14:12 Blood Blood Culture - Pending 02/11/25 14:12 Blood Blood Culture - Pending Medical Decision Making 64-year-old male presents to the ER with chief complaint of bilateral lower extremity swelling which has increased over the last 2 days, rash which is starting to spread up to bilateral arms and back over the last couple days. And some increased shortness of breath for the last 5 days. Past medical history includes paroxysmal ventricular tachycardia, hypertension, morbid obesity. Patient hypertension, sleep apnea. He is normally on 3 L oxygen nasal cannula. Was recently started on Protonix which is a new change in his medication. He does take 20 mg of torsemide daily. Denies new CP, reports his face feels hot but no documented fever. Workup ordered chest x-ray, bilateral ultrasound DVT study, CBC CMP lactate, PT PTT INR, troponin, VBG, chest x-ray, EKG. Serial troponins. Differential diagnosis includes but not limited to CHF exacerbation, cellulitis, CAD, NSTEMI, Patient is 81% on room air at triage, he was placed on his normal 3 L nasal cannula and satting 98% Labs show no leukocytosis, no left shift, PT 14.2 INR 1.4, VBG shows a pH of 7.43, bicarb is 31 base excess of 7, lactate 1.5, sodium 142 potassium 3.7 glucose is 125, initial troponin 49, proBNP 3225. Ultrasound of bilateral lower extremities is negative for DVT. 125 mg of methylprednisolone IV ordered 23 mg. Benadryl for the rash and 20 mg of furosemide IV. Care is to be handed off to oncoming rider Lang [employer] pending repeat troponin chest x-ray possible admission for CHF exacerbation. Imaging Data Radiologic Study: Imaging: Ultrasound Radiologist's impression: FINDINGS: The right common femoral, femoral and popliteal veins demonstrate normal compressibility, augmentation, and color Doppler. The posterior tibial and peroneal veins could not be visualized due to soft tissue swelling and skin changes. The saphenofemoral junction is unremarkable. There is no evidence of a Melton's cyst. The soft tissues are unremarkable. The left common femoral, femoral and popliteal veins demonstrate normal compressibility, augmentation, and color Doppler. The posterior tibial and peroneal veins could not be visualized due to soft tissue swelling and skin changes. The saphenofemoral junction is unremarkable. There is no evidence of a Melton's cyst. The soft tissues are unremarkable. IMPRESSION: 1. No evidence of a right lower extremity DVT to the level of the popliteal vein. 2. No evidence of a left lower extremity DVT to the level of the popliteal vein. 3. The posterior tibial and peroneal veins could not be visualized due to soft tissue swelling. Lab Data Lab results reviewed: Yes I reviewed the patient's lab results. Labs: 02/11/25 14:48 Blood Blood Culture - Pending 02/11/25 14:40 Blood Blood Culture - Pending Laboratory Tests Range/Units 02/11/25 14:48 WBC (4.4-10.8) 10^3/uL 8.51 RBC (4.36-5.78) 10^6/uL 4.60 Hgb (13.5-17.5) g/dL 13.4 L Hct (40.0-50.0) % 40.9 MCV (80-95) fL 89 MCH (27.0-33.0) pg 29.1 MCHC (32.0-36.0) % 32.8 RDW (11.8-14.1) % 13.6 Plt Count (130-400) 10^3/uL 190 MPV (8.0-11.0) fL 10.5 Immature Gran % % 0.4 Neutrophils % % 76.0 Lymphocytes % % 7.5 Monocytes % % 11.2 Eosinophils % % 4.5 Basophils % % 0.4 Nucleated RBC % (0.0-0.3) % 0.0 Absolute Neutrophils (1.2-6.7) 10^3/uL 6.48 Absolute Lymphocytes (1.2-3.4) 10^3/uL 0.64 L Absolute Monocytes (0.1-0.8) 10^3/uL 0.95 H Absolute Eosinophils (0.0-0.7) 10^3/uL 0.38 Absolute Basophils (0.0-0.2) 10^3/uL 0.03 PT (9.1-11.1) sec 14.2 H INR (0.9-1.1) 1.4 H APTT (20.6-30.2) sec 29.1 VBG pH (7.31-7.41) 7.43 H VBG pCO2 (41-51) mmHg 47 VBG pO2 mmHg 49 VBG HCO3 (23-28) mmol/L 31 H VBG Total CO2 (24-29) mmol/L 27 VBG O2 Saturation % 84 VBG Base Excess (-2-3) mmol/L 7 H VBG Lactate (<or=2.0) mmol/L 1.5 Sodium (136-145) mmol/L 142 Potassium (3.5-5.1) mmol/L 3.7 Chloride (98-107) mmol/L 105 Carbon Dioxide (20.0-31.0) mmol/L 30.3 Anion Gap (3-11) mmol/L 6.7 BUN (9-23) mg/dL 15 Creatinine (0.73-1.18) mg/dL 1.13 Est GFR (CKD-EPI 2020) (mL/min/1.73m2) 65.01 Glucose (74-106) mg/dL 125 H Calcium (8.3-10.6) mg/dL 8.5 Magnesium (1.6-2.6) mg/dL 1.8 Total Bilirubin (0.2-1.2) mg/dL 2.60 H AST (<34) U/L 27 ALT (10-49) U/L 25 Alkaline Phosphatase (46-116) U/L 91 Troponin I (<54) ng/L 35 NT-Pro-B Natriuret Pep (<300) pg/mL 3225 H Total Protein (5.7-8.2) g/dL 6.2 Albumin (3.2-5.0) g/dL 3.5 PFSH All Active Problems COVID-19 (Acute) Multifocal pneumonia (Acute) Chronic rhinitis (Chronic 03/24/11) Dysmetabolic syndrome X (Chronic 03/24/11) obesity, impaired FBS, hypertension, Knee pain, right (Chronic 09/16/14) prior x-rays 2006, 2011; Synvisc Dr Piña Localized primary osteoarthritis of lower leg (Chronic 03/24/11) Localized primary osteoarthritis of lower legs, bilateral (Chronic 03/24/11) Paroxysmal ventricular tachycardia (Chronic 06/13/07) JUNE 2007 [facility] [place] ANTHONY DYKES, F/U 09/2011; EP STUDY 10/22/11, NOT INDUCABLE Medical History Atrial fibrillation (07/22/15) Chronic anticoagulation (04/14/15) CADSVaSC2 score 3: Apixaban ([facility] [place]); ASA discontinued 12/2016! Essential hypertension (03/28/82) difficult to control, onset 1982 at life insurance PE Goal 140/90 Hyperlipidemia (03/24/11) goal LDL<70 Luis Morbid obesity (03/24/11) realistic goal 340 (07/2013) achieved 01/2014; new goal 330#; Take Steps for Life program with Dtr-in-law Sleep apnea Bi-PAP SINCE 2006 per [facility] Neurology, Dr Min Morrissey Surgical History History of bilateral knee replacement Family History Mother , auto accident at age 30. No problems noted. Father Heart disease Myocardial infarction Sister No problems noted. 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
[2025-02-11 15:00] LABS: BE (Venous) 7 mmol/L (-2-3); HCO3 (Venous) 31 mmol/L (23-28); O2 Sat (Venous) 84 %; TCO2 (Venous) 27 mmol/L (24-29); pCO2 (Venous) 47 mmHg (41-51); pO2 (Venous) 49 mmHg
[2025-02-11 15:12] LABS: Abs Immature Grans 0.03 10^3/uL (0.0-0.06); HCT 40.9 % (40.0-50.0); HGB 13.4 g/dL (13.5-17.5); Immature Grans % 0.4 %; MCH 29.1 pg (27.0-33.0); MCHC 32.8 % (32.0-36.0); MCV 89 fL (80-95); MPV 10.5 fL (8.0-11.0); Platelet Count 190 10^3/uL (130-400); RBC 4.60 10^6/uL (4.36-5.78); RDW 13.6 % (11.8-14.1); RDW-SD 44.4 fL; WBC 8.51 10^3/uL (4.4-10.8)
[2025-02-11 15:16] LABS: PTT Activated 29.1 sec (20.6-30.2); Prothrombin Time 14.2 sec (9.1-11.1)
[2025-02-11 15:17] LABS: INR 1.4 (0.9-1.1)
[2025-02-11 15:24] LABS: Troponin I 35 ng/L (<54)
[2025-02-11 15:25] LABS: Magnesium 1.8 mg/dL (1.6-2.6)
[2025-02-11 15:27] LABS: ALT 25 U/L (10-49); AST 27 U/L (<34); Albumin 3.5 g/dL (3.2-5.0); Alkaline Phosphatase 91 U/L (46-116); Anion Gap 6.7 mmol/L (3-11); BUN 15 mg/dL (9-23); Bilirubin, Total 2.60 mg/dL (0.2-1.2); CO2 30.3 mmol/L (20.0-31.0); Calcium 8.5 mg/dL (8.3-10.6); Chloride 105 mmol/L (98-107); Glucose 125 mg/dL (74-106); Potassium 3.7 mmol/L (3.5-5.1); Sodium 142 mmol/L (136-145); Total Protein 6.2 g/dL (5.7-8.2)
--- NOTE | 2025-02-11 15:44 | ED.PROG_ITS ---
Date of service: 02/11/25 Time of Service: 15:45 Medical Decision Making Handoff report received from Latasha Morales NP, daytime RANDI. Please see her note for full HPI, exam, interpretation of labs. Reza is a 64-year-old male with history of A-fib on anticoagulation, asthma, HTN, HLD, past history of paro xysmal V. tach (no recurrence), KAYLEEN, and dysmetabolic syndrome X to the emergency department today for evaluation of rash/weeping lower extremities accompanied by shortness of breath. Reports that he was recently started on home O2 due to desaturation with ambulation and shortness of breath, says this has been progressively worsening and accompanied by wheezing despite use of oxygen and inhalers as prescribed. He has noticed increasing swelling to his lower extremities, usually just is to below knee, but in the last week he has progressed up to the top of his thighs. This is accompanied by an erythematous itchy maculopapular rash that moved from his bilateral arms onto his back into his lower legs since yesterday. Also reports chills, decreased appetite, and weight gain despite eating less. Today has had bilateral flank pain to his back, describes this as a stabbing feeling with gentle palpation. Denies fevers, sore throat, cough, chest pain, vomiting, abdominal pain, change in b owel or bladder function, blood in stool or urine. He did not take his torsemide today. He says that he has been diagnosed with CHF, but has not had any history of heart attack, hospitalization, CHF, or cardiac procedures. Workup notable for elevated BNP >3000.CBC, CMP, mag, lactate, coags, overall reassuring, patient does have isolated elevated bilirubin (2.6, increased from 1.5 in 2021). Troponins flat 35 >39. Repeat elevated, ESR negative. EKG showing A-fib heart rate 76, no changes c/w acute ischemia. Lower extremity ultrasounds performed, no evidence of DVT to the level of the popliteal vein. D/Dx includes but not limited to: Viral illness, CHF, ACS, COPD/asthma exacerbation, pleural effusions, pneumonia, kidney stones, pyelonephritis, cholecystitis, malignancy. No red flags with rash concerning for serious systemic etiology. Received a DuoNeb, furosemide 20 mg IV, Solu-Medrol 125 mg IV, and Benadryl 25 mg. He does report decreased wheezing/work of breathing after DuoNeb. CT chest/abdomen/pelvis performed, before bilateral ground glass opacities and small bilateral pleural effusions. Opacities most consistent with pulmonary edema, as patient does not have any history of recent illness or symptoms concerning for infection. History and presentation consistent with fluid overload/CHF exacerbation, likely asthma component as well. Unclear etiology of flank discomfort, possibly related to pleural effusions. Rash likely contact dermatitis, unknown etiology. Discussed case with Dr. Chantal perkins hospitalist. Patient to be admitted to Medr unit for CHF exacerbation. Plan for echo in the morning. Imaging Data Radiologic Study: Radiologist's impression: Exam(s) CT CHEST/ABD/PEL W EXAM: CT CHEST/ABD/PEL W CLINICAL HISTORY: SOB, bilat flank pain, dec appetite, elev. bili TECHNIQUE: Imaging Protocol: Axial computed tomography images with coronal and sagittal reformatted images were created and reviewed. Lung Computer Aided Detection (CAD) was utilized. CONTRAST MATERIAL: Intravenous: Omnipaque 350 contrast volume:97 mL Oral: No COMPARISON: CT CT CHEST PE CTA from 02/14/2022 CR XR CHEST 1V IN DI DEPT from 02/11/2025 FINDINGS: CHEST: Tracheobronchial tree: Patent where visualized. No evidence of bronchiectasis. Pulmonary parenchyma: Multifocal ground-glass pulmonary opacities are present. There are calcified granuloma seen in the lungs. Visualized thyroid gland: Unremarkable. Mediastinum and Lanny: There are enlarged mediastinal lymph nodes. These may be reactive. The esophagus is unremarkable. Pleura: There are small bilateral pleural effusions. There is no pneumothorax. Heart: The heart is enlarged. Coronary artery calcifications are present. No pericardial effusion. Pulmonary arteries: Due to the timing of the bolus, there is suboptimal opacification of the pulmonary arteries. This examination is nondiagnostic for evaluation of pulmonary emboli. Aorta: Thoracic aorta non-dilated. Atherosclerotic calcification is present. Lymph nodes: Within normal limits. Soft tissues: Unremarkable. Bones:Within normal limits for the patient's age. ABDOMEN: Liver: Normal density. No measurable mass. Portal, Superior Mesenteric, and Splenic Veins: Unremarkable. Gallbladder and Biliary Tract: No radiodense calculus or dilation. Pancreas: Normal density, no abnormal calcifications or inflammatory process. Spleen: Normal. Adrenals: No masses seen. Kidneys: Normal size, contour and axis. No radiodense stones or obstructive uropathy. There is a left renal cyst. No follow-up is recommended. Abdominal Aorta: Abdominal portion non-dilated. Atherosclerotic calcification is present. Bowel: No obstruction or bowel wall thickening. Appendix is unremarkable. The stomach is incompletely distended limiting evaluation. Peritoneal Cavity: No ascites, collection or mesenteric inflammatory response. No free air. Lymph Nodes: Within normal limits. Bones: Within normal limits for the patient's age. Soft Tissues: There is mild edema seen in the soft tissues of the abdominal wall. There are fat containing bilateral inguinal hernias, left greater than right. PELVIS: Bladder: Symmetric distention, no gross wall thickening. Reproductive Organs: Unremarkable as visualized. Lymph Nodes: Within normal limits. Bones: Within normal limits. IMPRESSION: 1. There is no evidence of a pericardial effusion. 2. Multifocal ground-glass opacities. Differential considerations include infection including bacterial infection or viral infection such as COVID-19, acute pulmonary edema, chronic pneumonitis. 3. Small bilateral pleural effusions. 4. There is no acute abdominal or pelvic process. There is no evidence of cholelithiasis or biliary ductal dilatation, nephrolithiasis or hydronephrosis or appendicitis. 5. Mild edema seen in the soft tissues of the abdominal wall. Discharge Plan Disposition Patient Disposition: Admit to [facility] Discharge Details Clinical Impression: Acute exacerbation of CHF (congestive heart failure), Fluid overload, Asthma Primary Care Provider: Jv Fam ED Provider: Angela Avalos Home Meds and New Rx's Prescriptions: No Action metoprolol succinate 200 mg tablet extended release 24 hr 200 mg PO BID Qty: 60 0RF Eliquis 5 mg tablet 5 mg PO BID 90 Days Qty: 180 3RF Rx Instructions: began 04/15/15 [facility] [place], for atrial fibrillation, prevent clots potassium chloride [Klor-Con 8] 8 mEq tablet extended release 8 meq PO DAILY 90 Days Qty: 90 3RF Rx Instructions: replace potassium lisinopril 20 mg tablet 20 mg PO DAILY 90 Days Qty: 90 3RF Rx Instructions: along with 40 mg (total 60 mg/d) for BP control lisinopril 40 mg tablet 40 mg PO DAILY 90 Days Qty: 90 3RF Rx Instructions: along with 20 mg to control BP bupropion HCl 150 mg tablet sustained-release 12 hr 150 mg PO BID torsemide 20 mg tablet 20 mg PO DAILY amlodipine 10 mg tablet 10 mg PO DAILY minoxidil 10 mg tablet 10 mg PO BID atorvastatin 80 mg tablet 80 mg PO DAILY fluticasone propion-salmeterol 500-50 mcg/dose blister with device INHALATION albuterol sulfate 90 mcg/actuation HFA aerosol inhaler INHALATION fluticasone propion-salmeterol [Advair HFA] 230-21 mcg/actuation HFA aerosol inhaler INHALATION Spiriva Respimat 2.5 mcg/actuation mist INHALATION
[2025-02-11 16:00] LABS: ESR 11 mm/hr (0-20)
[2025-02-11] MEDS: diphenhydrAMINE 50 MG/ML VIAL 25 MG IVP (16:00)
--- NOTE | 2025-02-11 16:00 | DI.CT_ITS ---
Exam(s) CT CHEST/ABD/PEL W EXAM: CT CHEST/ABD/PEL W CLINICAL HISTORY: SOB, bilat flank pain, dec appetite, elev. bili TECHNIQUE: Imaging Protocol: Axial computed tomography images with coronal and sagittal reformatted images were created and reviewed. Lung Computer Aided Detection (CAD) was utilized. CONTRAST MATERIAL: Intravenous: Omnipaque 350 contrast volume:97 mL Oral: No COMPARISON: CT CT CHEST PE CTA from 02/14/2022 CR XR CHEST 1V IN DI DEPT from 02/11/2025 FINDINGS: CHEST: Tracheobronchial tree: Patent where visualized. No evidence of bronchiectasis. Pulmonary parenchyma: Multifocal ground-glass pulmonary opacities are present. There are calcified granuloma seen in the lungs. Visualized thyroid gland: Unremarkable. Mediastinum and Lanny: There are enlarged mediastinal lymph nodes. These may be reactive. The esophagus is unremarkable. Pleura: There are small bilateral pleural effusions. There is no pneumothorax. Heart: The heart is enlarged. Coronary artery calcifications are present. No pericardial effusion. Pulmonary arteries: Due to the timing of the bolus, there is suboptimal opacification of the pulmonary arteries. This examination is nondiagnostic for evaluation of pulmonary emboli. Aorta: Thoracic aorta non-dilated. Atherosclerotic calcification is present. Lymph nodes: Within normal limits. Soft tissues: Unremarkable. Bones:Within normal limits for the patient's age. ABDOMEN: Liver: Normal density. No measurable mass. Portal, Superior Mesenteric, and Splenic Veins: Unremarkable. Gallbladder and Biliary Tract: No radiodense calculus or dilation. Pancreas: Normal density, no abnormal calcifications or inflammatory process. Spleen: Normal. Adrenals: No masses seen. Kidneys: Normal size, contour and axis. No radiodense stones or obstructive uropathy. There is a left renal cyst. No follow-up is recommended. Abdominal Aorta: Abdominal portion non-dilated. Atherosclerotic calcification is present. Bowel: No obstruction or bowel wall thickening. Appendix is unremarkable. The stomach is incompletely distended limiting evaluation. Peritoneal Cavity: No ascites, collection or mesenteric inflammatory response. No free air. Lymph Nodes: Within normal limits. Bones: Within normal limits for the patient's age. Soft Tissues: There is mild edema seen in the soft tissues of the abdominal wall. There are fat containing bilateral inguinal hernias, left greater than right. PELVIS: Bladder: Symmetric distention, no gross wall thickening. Reproductive Organs: Unremarkable as visualized. Lymph Nodes: Within normal limits. Bones: Within normal limits. IMPRESSION: 1. There is no evidence of a pericardial effusion. 2. Multifocal ground-glass opacities. Differential considerations include infection including bacterial infection or viral infection such as COVID-19, acute pulmonary edema, chronic pneumonitis. 3. Small bilateral pleural effusions. 4. There is no acute abdominal or pelvic process. There is no evidence of cholelithiasis or biliary ductal dilatation, nephrolithiasis or hydronephrosis or appendicitis. 5. Mild edema seen in the soft tissues of the abdominal wall. RADIATION DOSE DELIVERED: 1,904.32mGy.cm Total DLP DATA REPOSITORY: All CT scans at this facility are submitted to the National Radiology Data Registry (NRDR) Dose Index Registry (DIR) with the [employer] (A[employer]). RADIATION OPTIMIZATION: All CT scans at this facility use at least one of these dose optimization techniques: automated exposure control; mA and/or kV adjustment per patient size (includes targeted exams where dose is matched to clinical indication); or iterative reconstruction.
[2025-02-11] MEDS: methylPREDNISolone SUCC 125 MG VIAL IVP (16:05)
[2025-02-11] MEDS: Furosemide 20 MG/2 ML VIAL IVP ×2 (16:09→23:54)
[2025-02-11] MEDS: Acetaminophen 500 MG TAB 1000 MG PO (16:11)
[2025-02-11] MEDS: Albuterol/Ipratropium 3 ML UPD VIAL UPD (16:19)
[2025-02-11 16:27] LABS: C-Reactive Protein 2.78 mg/dL (<=0.50); Troponin I 39 ng/L (<54)
[2025-02-11 17:22] LABS: COVID-19 PCR Negative (Negative); RSV PCR Negative (Negative)
[2025-02-11] MEDS: Normal Saline Flush 10 ML SYR IVP ×2 (17:26→22:00)
[2025-02-11] MEDS: Omnipaque 350 MG/ML 100 ML BTL IJ (17:27)
[2025-02-11] MEDS: Normal Saline - Diluent 50 ML VIAL IJ (17:27)
--- NOTE | 2025-02-11 19:05 | W.PM.HP.N ---
Date of service: 02/11/25 Time of Service: 19:07 Assessment and Plan Assessment and plan (1) Acute hypoxic respiratory failure: Start date: 02/11/25 Status: Acute Assessment and plan: This is a 64-year-old gentleman presenting with acute respiratory symptoms. To have exacerbation of CHF with weight gain and edema and also possible COPD exacerbation. He does have respiratory alkalosis with mostly hypoxemia and no CO2 retention. He will be treated for pneumonia, CHF and COPD with close observation. He has new onset oxygen needs recently with now increased need. He is a full code. (2) Acute exacerbation of CHF (congestive heart failure): Start date: 02/11/25 Status: Acute Assessment and plan: Patient received low-dose IV Lasix in the ED which will be continued at moderate dose increased from his baseline torsemide 20 mg daily. Monitor clinically. Update echocardiogram. (3) Asthma exacerbation in COPD: Start date: 02/11/25 Status: Acute Assessment and plan: IV steroids with aggressive nebulizer treatment. Monitor clinically. O2 supplementation as needed. Patient has had his inhaler therapy recently increased but not changed. (4) Multifocal pneumonia: Start date: 02/11/25 Status: Acute Assessment and plan: IV antibiotic therapy to cover community-acquired pneumonia. Patient was started on ceftriaxone and doxycycline. Ceftriaxone may also help with his erythematous lower leg with chronic edema and increased erythema though there does not appear to be acute cellulitis (5) Atrial fibrillation: Assessment and plan: Clinically stable with continue medical therapy including anticoagulation. (6) Essential hypertension: Assessment and plan: Cardiac monitoring with continued medical therapy. (7) Sleep apnea: Assessment and plan: On BiPAP which will be continued as patient tolerates. Patient should have home machine. History of Present Illness History of Present Illness Chief Complaint: Increasing shortness of breath with recent oxygen initiation, swelling Narrative: This is a 64-year-old gentleman with multiple medical problems presenting with recent onset of use of oxygen at home because of low oxygen level with a history of KAYLEEN on BiPAP with weight gain and edema gradually increasing over the lower extremities up to his upper legs. He has had increased shortness of breath from his baseline over the last 2 weeks and with the above changes as well, he came to the ED for evaluation with a complaint of a new truncal rash and flank pain. He had no fever but he did have chills. In the ED he was evaluated and found to have multifocal pneumonia or infiltrates which could be inflammatory versus fluid overload with the patient having also bilateral pleural effusion which was small. His BNP is elevated. He was given Lasix IV for possible exacerbation of CHF chronically on torsemide but having no recent echocardiogram. Patient had no fever or elevated WBC would be cover for possible community-acquired pneumonia while being treated for exacerbation of his COPD and CHF. He did complain of pruritus with his rash which was new onset and this was respond to Benadryl. This was thought to be a possible contact dermatitis with some recent new meds with inhalers and Protonix but no change in laundry detergent or soaps. His flank pain was thought to be secondary to his pleural effusion. There were no other etiologies for this pain found in the ED evaluation. He also had chronic peripheral edema in both legs with the left leg having more erythema recently but no increased pain. He will be admitted for IV antibiotic therapy and IV Lasix with follow-up echocardiogram having had no recent echocardiogram on his records. He is diabetic and will be continued with glucometer sliding scale coverage while hospitalized with his antihypertensives to be continued and anticoagulation with a history of chronic atrial fibrillation and TAVR are with the patient on Coumadin and being therapeutic. He is a full code. Review of Systems Narrative: 13 point review of systems otherwise unrevealing or stable. 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 He does wear BiPAP at home and is obese which is stable. [facility] All Active Problems (Updated 02/11/25 @ 19:39 by Earnest Cornejo) Acute hypoxic respiratory failure (Acute) Asthma exacerbation in COPD (Acute) Asthma (Chronic) Fluid overload (Acute) Acute exacerbation of CHF (congestive heart failure) (Acute) COVID-19 (Acute) Multifocal pneumonia (Acute) Chronic rhinitis (Chronic 03/24/11) Dysmetabolic syndrome X (Chronic 03/24/11) obesity, impaired FBS, hypertension, Knee pain, right (Chronic 09/16/14) prior x-rays 2006, 2011; Synvisc Dr Piña Localized primary osteoarthritis of lower leg (Chronic 03/24/11) Localized primary osteoarthritis of lower legs, bilateral (Chronic 03/24/11) Paroxysmal ventricular tachycardia (Chronic 06/13/07) JUNE 2007 [facility] ANTHONY DYKES, F/U 09/2011; EP STUDY 10/22/11, NOT INDUCABLE Medical History Atrial fibrillation (07/22/15) Chronic anticoagulation (04/14/15) CADSVaSC2 score 3: Apixaban ([facility]); ASA discontinued 12/2016! Essential hypertension (03/28/82) difficult to control, onset 1982 at life insurance PE Goal 140/90 Hyperlipidemia (03/24/11) goal LDL<70 [place] Morbid obesity (03/24/11) realistic goal 340 (07/2013) achieved 01/2014; new goal 330#; Take [employer] Life program with Dtr-in-law Sleep apnea Bi-PAP SINCE [address] [facility] Neurology, Dr Min Morrissey Surgical History History of bilateral knee replacement Family History Mother , auto accident at age 30. No problems noted. Father Heart disease Myocardial infarction Sister No problems noted. 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 What type of physical activity do you participate in: none Do you feel safe at home: Yes Do you feel safe in your relationship?: Yes Meds Allergies and Home Medications Allergies Allergy/AdvReac Type Severity Reaction Status Date / Time No Known Allergies Allergy Unverified 02/11/25 13:52 Home Medications ?Medication ?Instructions ?Recorded ?Confirmed ?Type metoprolol succinate 200 mg 200 mg PO BID #60 tabs 03/17/18 02/11/25 Rx tablet,extended release 24 hr apixaban 5 mg tablet (Eliquis) 5 mg PO BID 90 days #180 tabs 05/26/18 02/11/25 Rx potassium chloride 8 mEq 8 meq PO DAILY 90 days #90 tab-caps 07/10/18 02/11/25 Rx tablet,extended release (Klor-Con) lisinopril 20 mg tablet 20 mg PO DAILY 90 days #90 tab-caps 08/04/18 02/11/25 Rx lisinopril 40 mg tablet 40 mg PO DAILY 90 days #90 tabs 08/04/18 02/11/25 Rx amlodipine 10 mg tablet 10 mg PO DAILY 02/13/22 02/11/25 History atorvastatin 80 mg tablet 80 mg PO DAILY 02/13/22 02/11/25 History bupropion HCl 150 mg tablet,12 hr 150 mg PO BID 02/13/22 02/11/25 History sustained-release minoxidil 10 mg tablet 10 mg PO BID 02/13/22 02/11/25 History torsemide 20 mg tablet 20 mg PO DAILY 02/13/22 02/11/25 History albuterol sulfate 90 mcg/actuation 1 inh inhalation Q4H PRN 02/11/25 02/12/25 History aerosol inhaler fluticasone 500 mcg-salmeterol 50 1 inh inhalation DAILY 02/11/25 02/12/25 History mcg/dose blistr powdr for inhalation fluticasone propionate 230 2 puff inhalation DAILY 02/11/25 02/12/25 History mcg-salmeterol 21 mcg/actuation HFA inhaler (Advair HFA) tiotropium bromide 2.5 2 puff inhalation DAILY 02/11/25 02/12/25 History mcg/actuation mist for inhalation (Spiriva Respimat) Exam Narrative Exam Narrative: General: Patient is morbidly obese, alert and oriented x 3 and in no acute distress. HEENT: Normocephalic, coarse and facial features, eyes with pupils equal and reactive light symmetrically, extraocular movement intact and sclera anicteric. Oropharynx with moist mucosa. Neck: Supple without JVD. Back: Stooped posture without CVA tenderness.. Lungs: Bronchovesicular breath sound diffusely with slightly increased expiratory phase and end expiratory wheeze with upper airway rhonchi. No focalizing inspiratory rales. Fair aeration. Heart: Irregular irregular rhythm but normal rate. No murmur or gallop appreciated. Distant heart sounds. Abdomen: Morbidly obese with pannus, soft to palpation with no focalizing tenderness or guarding and no rebound. Bowel sounds positive all quadrants. No palpable hepatosplenomegaly. Genitalia/rectal: Exam deferred. Extremities: 3+ pitting edema which with hard edema over both lower extremities, circumferential erythema with lichenification of the skin, loss of hair and minimal tenderness left leg below the knee. No cyanosis or clubbing. Fair cap refill. Skin: Chronic changes as described left leg, diffuse maculopapular rash over trunk excluding face most of the extremities and palms and soles. Otherwise normal color, warm and dry. Neuro: Cranial nerves II through XII gross intact, no focalized motor deficits or tremor. Psych: Normal affect and mood. No abnormal thought processes. Remote and recent memory intact. Results Imaging Imaging Studies: EXAM: CT CHEST/ABD/PEL W CLINICAL HISTORY: SOB, bilat flank pain, dec appetite, elev. bili TECHNIQUE: Imaging Protocol: Axial computed tomography images with coronal and sagittal reformatted images were created and reviewed. Lung Computer Aided Detection (CAD) was utilized. CONTRAST MATERIAL: Intravenous: Omnipaque 350 contrast volume:97 mL Oral: No COMPARISON: CT CT CHEST PE CTA from 02/14/2022 CR XR CHEST 1V IN DI DEPT from 02/11/2025 FINDINGS: CHEST: Tracheobronchial tree: Patent where visualized. No evidence of bronchiectasis. Pulmonary parenchyma: Multifocal ground-glass pulmonary opacities are present. There are calcified granuloma seen in the lungs. Visualized thyroid gland: Unremarkable. Mediastinum and Lanny: There are enlarged mediastinal lymph nodes. These may be reactive. The esophagus is unremarkable. Pleura: There are small bilateral pleural effusions. There is no pneumothorax. Heart: The heart is enlarged. Coronary artery calcifications are present. No pericardial effusion. Pulmonary arteries: Due to the timing of the bolus, there is suboptimal opacification of the pulmonary arteries. This examination is nondiagnostic for evaluation of pulmonary emboli. Aorta: Thoracic aorta non-dilated. Atherosclerotic calcification is present. Lymph nodes: Within normal limits. Soft tissues: Unremarkable. Bones:Within normal limits for the patient's age. ABDOMEN: Liver: Normal density. No measurable mass. Portal, Superior Mesenteric, and Splenic Veins: Unremarkable. Gallbladder and Biliary Tract: No radiodense calculus or dilation. Pancreas: Normal density, no abnormal calcifications or inflammatory process. Spleen: Normal. Adrenals: No masses seen. Kidneys: Normal size, contour and axis. No radiodense stones or obstructive uropathy. There is a left renal cyst. No follow-up is recommended. Abdominal Aorta: Abdominal portion non-dilated. Atherosclerotic calcification is present. Bowel: No obstruction or bowel wall thickening. Appendix is unremarkable. The stomach is incompletely distended limiting evaluation. Peritoneal Cavity: No ascites, collection or mesenteric inflammatory response. No free air. Lymph Nodes: Within normal limits. Bones: Within normal limits for the patient's age. Soft Tissues: There is mild edema seen in the soft tissues of the abdominal wall. There are fat containing bilateral inguinal hernias, left greater than right. PELVIS: Bladder: Symmetric distention, no gross wall thickening. Reproductive Organs: Unremarkable as visualized. Lymph Nodes: Within normal limits. Bones: Within normal limits. IMPRESSION: 1. There is no evidence of a pericardial effusion. 2. Multifocal ground-glass opacities. Differential considerations include infection including bacterial infection or viral infection such as COVID-19, acute pulmonary edema, chronic pneumonitis. 3. Small bilateral pleural effusions. 4. There is no acute abdominal or pelvic process. There is no evidence of cholelithiasis or biliary ductal dilatation, nephrolithiasis or hydronephrosis or appendicitis. 5. Mild edema seen in the soft tissues of the abdominal wall. Labs 02/11/25 14:48 02/11/25 14:48 Labs: Laboratory Results - last 24 hr 02/11/25 02/11/25 02/11/25 14:48 15:55 16:39 WBC 8.51 RBC 4.60 Hgb 13.4 L Hct 40.9 MCV 89 MCH 29.1 MCHC 32.8 RDW 13.6 Plt Count 190 MPV 10.5 Immature Gran % 0.4 Neutrophils % 76.0 Lymphocytes % 7.5 Monocytes % 11.2 Eosinophils % 4.5 Basophils % 0.4 Nucleated RBC % 0.0 Absolute Neutrophils 6.48 Absolute Lymphocytes 0.64 L Absolute Monocytes 0.95 H Absolute Eosinophils 0.38 Absolute Basophils 0.03 ESR 11 PT 14.2 H INR 1.4 H APTT 29.1 VBG pH 7.43 H VBG pCO2 47 VBG pO2 49 VBG HCO3 31 H VBG Total CO2 27 VBG O2 Saturation 84 VBG Base Excess 7 H VBG Lactate 1.5 Sodium 142 Potassium 3.7 Chloride 105 Carbon Dioxide 30.3 Anion Gap 6.7 BUN 15 Creatinine 1.13 Est GFR (CKD-EPI 2020) 65.01 Glucose 125 H Calcium 8.5 Magnesium 1.8 Total Bilirubin 2.60 H AST 27 ALT 25 Alkaline Phosphatase 91 Troponin I 35 39 C-Reactive Protein 2.78 H NT-Pro-B Natriuret Pep 3225 H Total Protein 6.2 Albumin 3.5 COVID-19 Source Nasopharynx SARS-CoV-2 (PCR) Negative Influenza Type A (PCR) Negative Influenza Type B (PCR) Negative RSV (PCR) Negative 02/11/25 17:13 WBC RBC Hgb Hct MCV MCH MCHC RDW Plt Count MPV Immature Gran % Neutrophils % Lymphocytes % Monocytes % Eosinophils % Basophils % Nucleated RBC % Absolute Neutrophils Absolute Lymphocytes Absolute Monocytes Absolute Eosinophils Absolute Basophils ESR PT INR APTT VBG pH VBG pCO2 VBG pO2 VBG HCO3 VBG Total CO2 VBG O2 Saturation VBG Base Excess VBG Lactate Sodium Potassium Chloride Carbon Dioxide Anion Gap BUN Creatinine Est GFR (CKD-EPI 2020) Glucose Calcium Magnesium Total Bilirubin AST ALT Alkaline Phosphatase Troponin I Cancelled C-Reactive Protein NT-Pro-B Natriuret Pep Total Protein Albumin COVID-19 Source SARS-CoV-2 (PCR) Influenza Type A (PCR) Influenza Type B (PCR) RSV (PCR) Last Vital Signs Temp 36.6 C 02/11/25 13:48 Pulse 72 02/11/25 17:01 Resp 17 02/11/25 17:01 BP 136/72 02/11/25 17:01 Pulse Ox 94 02/11/25 17:01 VTE Prohylaxis Risk Level: Moderate/High Risk Contraindications: Medical contrainidcation Prophylaxis: Patient anticoagulated Time Spent Time spent with Patient: >75 minutes Time was spent: preparing to see the patient(eg.review tests), obtaining and/or reviewing separately otained hiistory, ordering medications,tests, procedures, indepentently interpreting results, counseling the patient and care coordination
[2025-02-11 22:00] LABS: Lab Add On Test DONE
[2025-02-11 22:23] LABS: Lipase 25 U/L (<53)
[2025-02-11 23:30] LABS: TSH (W/Ref FT4) 1.52 uIU/mL (0.55-4.78)
[2025-02-11] MEDS: Metoprolol CR 100 MG TABCR 200 MG PO (23:51)
[2025-02-11] MEDS: Lisinopril 10 MG TAB 60 MG PO (23:51)
[2025-02-11] MEDS: Acetaminophen 325 MG TAB 650 MG PO (23:52)
[2025-02-11] MEDS: buPROPion-CR 150 MG TABCR PO (23:53)
[2025-02-11] MEDS: DOXYCYCLINE 100 MG in Normal Saline 100 ML IVPB (23:53)
[2025-02-11] MEDS: Apixaban 5 MG TAB PO (23:53)
[2025-02-11] MEDS: diphenhydrAMINE 25 MG CAP PO (23:53)
[2025-02-11] MEDS: methylPREDNISolone SUCC 40 MG VIAL 60 MG IVP (23:54)
[2025-02-11] MEDS: cefTRIAXone 1 GM/50 ML BAG IVPB (23:55)
[2025-02-11] MEDS: Minoxidil 2.5 MG TAB 10 MG PO (23:58)
[2025-02-12] VITALS (13 sets, daily range): BP systolic 101–147; BP diastolic 59–97; PULSE 69–110; RESP 16–22; TEMP 35.5–36.9; O2SAT 88–97
[2025-02-12] MEDS: Albuterol/Ipratropium 3 ML UPD VIAL UPD ×3 (02:05→14:27)
--- NOTE | 2025-02-12 02:40 | RESPIRATORY ---
Pt has a home bipap unit and was able to verify his settings of . Has a new o2 order in the last couple of weeks and his home unit does not have home o2 bleed in. Pt reports he uses [facility] and has reached out to them to fix this. Pt has a 3l nc home order.
--- NOTE | 2025-02-12 04:39 | W.PC.ACHO ---
Registration Status: ADM IN Primary Language: Preferred Language: Japanese ED Information & Data Chief Complaint RashLesion 02/11/25 14:17 Triage Note pt with c/o body rash which 02/11/25 13:48 is painfull onset two days ago pt also c/o bilateral leg swelling Medical / Surgical History (Last Reviewed 02/11/25 @ 19:13 by Earnest Cornejo) Atrial fibrillation (07/22/15) Chronic anticoagulation (04/14/15) Essential hypertension (03/28/82) Hyperlipidemia (03/24/11) Morbid obesity (03/24/11) Sleep apnea (Last Reviewed 02/11/25 @ 19:13 by Earnest Cornejo) History of bilateral knee replacement Most Recent Vital Signs Temperature 36.0 C L 02/12/25 03:48 Temperature Source Tympanic 02/12/25 03:48 Pulse 83 02/12/25 03:41 Pulse Rhythm Regular 02/11/25 21:40 Pulse 80 02/11/25 20:31 Respiratory Rate 22 02/12/25 03:41 Respiratory Effort Short of Breath 02/11/25 21:40 Respiratory Depth Normal 02/11/25 21:40 Respiratory Pattern Normal 02/11/25 21:40 Blood Pressure 147/97 H 02/12/25 03:41 Blood Pressure Mean 113 02/12/25 03:41 Pulse Oximetry 97 02/12/25 03:41 Oxygen Delivery Method Nasal Cannula 02/12/25 03:41 Oxygen Flow Rate 3 02/12/25 03:41 Fraction of Inspired Oxygen (FIO2) 30 02/12/25 02:39 Pain Level 3 02/11/25 23:52 Comment 3L NC 02/11/25 20:31 Allergies No Known Allergies Allergy (Unverified 02/11/25 13:52) Active Medications Generic Name Dose Route Start Last Admin Trade Name Freq PRN Reason Stop Dose Admin Acetaminophen 650 mg 02/11/25 22:14 02/11/25 23:52 Acetaminophen 325 Mg Tab PO 650 mg Q4H PRN PRN Administration Albuterol/Ipratropium 3 ml 02/12/25 02:00 02/12/25 02:05 Albuterol/Ipratropium 3 Ml Upd Vial UPD 3 ml Q6H AGUILA Administration Apixaban 5 mg 02/11/25 22:30 02/11/25 23:53 Apixaban 5 Mg Tab PO 5 mg BID AGUILA Administration Bupropion HCl 150 mg 02/11/25 22:14 02/11/25 23:53 Bupropion-Cr 150 Mg Tabcr PO 150 mg BID AGUILA Administration Diphenhydramine HCl 25 mg 02/11/25 22:43 02/11/25 23:53 Diphenhydramine 25 Mg Cap PO 25 mg Q4H PRN PRN Administration Ceftriaxone Sodium/Dextrose 1 gm in 50 mls @ 100 mls/hr 02/11/25 23:00 02/11/25 23:55 Rocephin IVPB 100 mls/hr HS AGUILA Administration Doxycycline Hyclate 100 mg/ 100 mls @ 100 mls/hr 02/11/25 23:00 02/11/25 23:53 Sodium Chloride IVPB 100 mls/hr 1000,2200 AGUILA Administration Methylprednisolone Sodium Succinate 60 mg 02/12/25 00:00 02/11/25 23:54 Methylprednisolone Succ 40 Mg Vial IVP 60 mg Q8H AGUILA Administration Metoprolol Succinate 200 mg 02/11/25 23:00 02/11/25 23:51 Metoprolol Cr 100 Mg Tabcr PO 200 mg BID AGUILA Administration Sodium Chloride 0 ml 02/11/25 20:00 02/11/25 22:00 Normal Saline Flush 10 Ml Syr IVP 10 ml BID AGUILA Administration IV IV Catheter Type [Right Saline Lock Antecubital] IV Catheter Gauge [Right 18 Antecubital] Diet Orders Category Date Time Status Heart Healthy Eating [DIET] Nutrition 02/12/25 Breakfast Active Diagnostics 02/12/25 02/11/25 02/11/25 Range/Units 05:35 17:13 16:39 WBC Pending (4.4-10.8) 10^3/uL RBC Pending (4.36-5.78) 10^6/uL Hgb Pending (13.5-17.5) g/dL Hct Pending (40.0-50.0) % MCV Pending (80-95) fL MCH Pending (27.0-33.0) pg MCHC Pending (32.0-36.0) % RDW Pending (11.8-14.1) % Plt Count Pending (130-400) 10^3/uL MPV Pending (8.0-11.0) fL Immature Gran % % Neutrophils % % Lymphocytes % % Monocytes % % Eosinophils % % Basophils % % Nucleated RBC % (0.0-0.3) % Absolute Neutrophils (1.2-6.7) 10^3/uL Absolute Lymphocytes (1.2-3.4) 10^3/uL Absolute Monocytes (0.1-0.8) 10^3/uL Absolute Eosinophils (0.0-0.7) 10^3/uL Absolute Basophils (0.0-0.2) 10^3/uL ESR (0-20) mm/hr PT Pending (9.1-11.1) sec INR Pending (0.9-1.1) APTT (20.6-30.2) sec VBG pH (7.31-7.41) VBG pCO2 (41-51) mmHg VBG pO2 mmHg VBG HCO3 (23-28) mmol/L VBG Total CO2 (24-29) mmol/L VBG O2 Saturation % VBG Base Excess (-2-3) mmol/L VBG Lactate (<or=2.0) mmol/L Sodium Pending (136-145) mmol/L Potassium Pending (3.5-5.1) mmol/L Chloride Pending (98-107) mmol/L Carbon Dioxide Pending (20.0-31.0) mmol/L Anion Gap Pending (3-11) mmol/L BUN Pending (9-23) mg/dL Creatinine Pending (0.73-1.18) mg/dL Est GFR (CKD-EPI 2020) Pending (mL/min/1.73m2) Glucose Pending (74-106) mg/dL Calcium Pending (8.3-10.6) mg/dL Magnesium Pending (1.6-2.6) mg/dL Total Bilirubin Pending (0.2-1.2) mg/dL AST Pending (<34) U/L ALT Pending (10-49) U/L Alkaline Phosphatase Pending (46-116) U/L Troponin I Cancelled (<54) ng/L C-Reactive Protein (<=0.50) mg/dL NT-Pro-B Natriuret Pep (<300) pg/mL Total Protein Pending (5.7-8.2) g/dL Albumin Pending (3.2-5.0) g/dL Lipase (<53) U/L TSH (0.55-4.78) uIU/mL COVID-19 Source Nasopharynx SARS-CoV-2 (PCR) Negative (Negative) Influenza Type A (PCR) Negative (Negative) Influenza Type B (PCR) Negative (Negative) RSV (PCR) Negative (Negative) Add-On Test Request 02/11/25 02/11/25 Range/Units 15:55 14:48 WBC 8.51 (4.4-10.8) 10^3/uL RBC 4.60 (4.36-5.78) 10^6/uL Hgb 13.4 L (13.5-17.5) g/dL Hct 40.9 (40.0-50.0) % MCV 89 (80-95) fL MCH 29.1 (27.0-33.0) pg MCHC 32.8 (32.0-36.0) % RDW 13.6 (11.8-14.1) % Plt Count 190 (130-400) 10^3/uL MPV 10.5 (8.0-11.0) fL Immature Gran % 0.4 % Neutrophils % 76.0 % Lymphocytes % 7.5 % Monocytes % 11.2 % Eosinophils % 4.5 % Basophils % 0.4 % Nucleated RBC % 0.0 (0.0-0.3) % Absolute Neutrophils 6.48 (1.2-6.7) 10^3/uL Absolute Lymphocytes 0.64 L (1.2-3.4) 10^3/uL Absolute Monocytes 0.95 H (0.1-0.8) 10^3/uL Absolute Eosinophils 0.38 (0.0-0.7) 10^3/uL Absolute Basophils 0.03 (0.0-0.2) 10^3/uL ESR 11 (0-20) mm/hr PT 14.2 H (9.1-11.1) sec INR 1.4 H (0.9-1.1) APTT 29.1 (20.6-30.2) sec VBG pH 7.43 H (7.31-7.41) VBG pCO2 47 (41-51) mmHg VBG pO2 49 mmHg VBG HCO3 31 H (23-28) mmol/L VBG Total CO2 27 (24-29) mmol/L VBG O2 Saturation 84 % VBG Base Excess 7 H (-2-3) mmol/L VBG Lactate 1.5 (<or=2.0) mmol/L Sodium 142 (136-145) mmol/L Potassium 3.7 (3.5-5.1) mmol/L Chloride 105 (98-107) mmol/L Carbon Dioxide 30.3 (20.0-31.0) mmol/L Anion Gap 6.7 (3-11) mmol/L BUN 15 (9-23) mg/dL Creatinine 1.13 (0.73-1.18) mg/dL Est GFR (CKD-EPI 2020) 65.01 (mL/min/1.73m2) Glucose 125 H (74-106) mg/dL Calcium 8.5 (8.3-10.6) mg/dL Magnesium 1.8 (1.6-2.6) mg/dL Total Bilirubin 2.60 H (0.2-1.2) mg/dL AST 27 (<34) U/L ALT 25 (10-49) U/L Alkaline Phosphatase 91 (46-116) U/L Troponin I 39 35 (<54) ng/L C-Reactive Protein 2.78 H (<=0.50) mg/dL NT-Pro-B Natriuret Pep 3225 H (<300) pg/mL Total Protein 6.2 (5.7-8.2) g/dL Albumin 3.5 (3.2-5.0) g/dL Lipase 25 (<53) U/L TSH 1.52 (0.55-4.78) uIU/mL COVID-19 Source SARS-CoV-2 (PCR) (Negative) Influenza Type A (PCR) (Negative) Influenza Type B (PCR) (Negative) RSV (PCR) (Negative) Add-On Test Request DONE 02/11/25 14:48 Blood Culture - Pending Blood 02/11/25 14:40 Blood Culture - Pending Blood Intake and Output - 24 Hour Total 02/11/25 13:45 thru 02/12/25 00:28 Intake Total 240 Output Total 650 Balance -410 Weight 381.7 kg Intake: Oral 240 Output: Urine 650 Other: Urine Color Yellow Straw Urine Appearance Clear Urine Odor None Falls Risk Assessment History of Falls No History 02/11/25 21:40 Contributing Factors Incontinence,Medications 02/11/25 16:34 Ambulatory Aids Independent 02/11/25 21:40 Tubes/Lines W/no contributing factors 02/11/25 21:40 Gait Evaluation W/no contributing factors 02/11/25 16:34 Cognition No cognitive impairment 02/11/25 16:34 Fall Total Score 10 02/11/25 21:40 Level of Risk Standard/Low Risk 02/11/25 21:40 Problems (Last Reviewed 02/11/25 @ 19:13 by Earnest Cornejo) Acute hypoxic respiratory failure (Acute) Asthma exacerbation in COPD (Acute) Acute exacerbation of CHF (congestive heart failure) (Acute) Multifocal pneumonia (Acute) Notes 02/12/25 02:40 Respiratory by Mary Garza Pt has a home bipap unit and was able to verify his settings of . Has a new o2 order in the last couple of weeks and his home unit does not have home o2 bleed in. Pt reports he uses [facility] and has reached out to them to fix this. Pt has a 3l nc home order. Initialized on 02/12/25 02:40 - END OF NOTE Attestation Statement: By documenting the first initial, last name, and credentials of the reporting nurse below, both parties acknowledge that all relevant information regarding the patient handoff has been communicated, and that all questions have been addressed to ensure continuity and safety of care. Additional Patient Information/Comments: Report Received From: ED RN
[2025-02-12 07:11] LABS: HCT 40.2 % (40.0-50.0); HGB 13.8 g/dL (13.5-17.5); MCH 30.2 pg (27.0-33.0); MCHC 34.3 % (32.0-36.0); MCV 88 fL (80-95); MPV 10.9 fL (8.0-11.0); Platelet Count 198 10^3/uL (130-400); RBC 4.57 10^6/uL (4.36-5.78); RDW 13.2 % (11.8-14.1); RDW-SD 43.2 fL; WBC 6.89 10^3/uL (4.4-10.8)
[2025-02-12 07:23] LABS: INR 1.3 (0.9-1.1); Prothrombin Time 13.1 sec (9.1-11.1)
[2025-02-12 07:34] LABS: Magnesium 1.9 mg/dL (1.6-2.6)
[2025-02-12 07:37] LABS: ALT 26 U/L (10-49); AST 26 U/L (<34); Albumin 3.6 g/dL (3.2-5.0); Alkaline Phosphatase 89 U/L (46-116); Anion Gap 9.9 mmol/L (3-11); BUN 21 mg/dL (9-23); Bilirubin, Total 1.80 mg/dL (0.2-1.2); CO2 28.1 mmol/L (20.0-31.0); Calcium 8.7 mg/dL (8.3-10.6); Chloride 102 mmol/L (98-107); Glucose 169 mg/dL (74-106); Potassium 3.6 mmol/L (3.5-5.1); Sodium 140 mmol/L (136-145); Total Protein 6.1 g/dL (5.7-8.2)
[2025-02-12] MEDS: methylPREDNISolone SUCC 40 MG VIAL 60 MG IVP (08:51)
[2025-02-12] MEDS: Furosemide 40 MG/4 ML VIAL IVP ×2 (08:52→10:55)
[2025-02-12] MEDS: amLODIPine 10 MG TAB PO (08:53)
[2025-02-12] MEDS: Metoprolol CR 100 MG TABCR 200 MG PO ×2 (08:53→20:02)
[2025-02-12] MEDS: Minoxidil 2.5 MG TAB 10 MG PO ×2 (08:53→20:01)
[2025-02-12] MEDS: buPROPion-CR 150 MG TABCR PO ×2 (08:53→20:01)
[2025-02-12] MEDS: Apixaban 5 MG TAB PO ×2 (08:53→20:02)
[2025-02-12] MEDS: Normal Saline Flush 10 ML SYR IVP ×6 (08:55→20:02)
[2025-02-12] MEDS: DOXYCYCLINE 100 MG in Normal Saline 100 ML IVPB ×2 (09:00→21:46)
[2025-02-12] MEDS: Acetaminophen 325 MG TAB 650 MG PO (09:21)
[2025-02-12] MEDS: diphenhydrAMINE 25 MG CAP PO ×3 (09:21→20:07)
--- NOTE | 2025-02-12 09:35 | PDOC.CMIN ---
Date of service: 02/12/25 Time of Service: 09:35 Care Management Initial Assmt Initial Assessment Reason for Hospitalization: CHF,pneumonia Functional Status/Living Situation Patient Presentation: Star was sitting up in bed when CM met with him. he was pleasant and easily engaged with CM. Star was admitted with CHF, COPD and pneumonia. He informed that he has gained a lot of weight in less than a month but blamed it on not being able to afford his 'fat boy medication anymore as Medicare would not cover it. He was recently started on home oxygen at 3L/min and has been saturating in the high 80s to 90s on 2-3L/min since admission. Star also has a pruritic rash for which he is receiving Benadryl. Star lives in [facility] with his Ana M and daughter Ashley. He also has a son and another daughter, 8 grandchildren and a great grandson. Star is retired from a position with the [employer]. 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 He stated he is disappointed but understands. Star hopes to be able to apply for disability to cover him until the spring when he had planned to retire. He is independent at baseline and does not receive any services except for the home oxygen. Town of Residence: [facility] Resides with: Spouse ( Ana M) Significant Other/Family: Out of area (son in [place]) Natural Supports: family Employment Status: Retired Instrumental Activities of Daily Living (ADLs): Independent Medications Medication Management: No Issues/Barriers identified Advance Directives Advance Directives: Do you have an Advance Directive: N 09/21/19, 14:56 AD On File at [facility]: N 09/21/19, 14:56 Date Asked 02/11/25 02/11/25, 14:01 AD Date Reviewed COLST On File at [facility] No 02/11/25, 18:26 COLST Date Scanned Code Status Resuscitation Status Full Code Insurance Coverage/Financial Issues Insurance: Medicare /[facility] Care Team Visit Care Team Role Provider Type Benedicto Jeff MD [facility] STAFF PHYSICIAN Jv Fam Primary Care Provider OSTEOPATHIC DOCTOR Angela Murguia Emergency Provider NURSE PRACTITIONER Earnest Cornejo Admit Provider NON-[facility] STAFF PHYSICIAN Attending Provider Discharge Potential Discharge Needs: PCP F/U Appt Anticipated Barriers to Discharge: None Identified Patient/Family Education Needs: Review discharge instructions, discuss Ask Me Three Transportation: Private vehicle Plan: Star will likely be discharged home with no new services. He will follow up with community providers and plan of care and transport with family. CM will follow and support Star and his discharge planning needs. Social Determinants of Health Screening Social Determinants of health last assessed in clinic: 02/12/25 Will the Patient Participate in the Screening?: Yes Do you worry about having a steady place to live?: yes What is your living situation today?: I have housing today, but am worried about losing it Problems where you live: no known problems In the past 12 months, have you had to go without electric, gas, oil or water in your home?: no 1. Within the past 12 months, we worried whether our food would run out before we got money to buy more.: Never true 2. Within the past 12 months, the food we bought just didn't last and we didn't have money to get more.: Never true Has lack of transportation kept you from medical appointments or from doing things needed for daily living?: no Has anyone in your life made you feel unsafe or unsupported?: no How hard is it for you to pay for the very basics like food, housing, medical care, and heating? Would you say it is:: Not hard at all Do you want help finding or keeping work or a job?: I do not need or want help If for any reason you need help with day-to-day activities such as bathing, preparing meals, shopping, managing finances, etc., do you get the help you need?: I don?t need any help How often do you feel lonely or isolated from those around you?: Always Do you speak a language other than Hungarian at home?: No Does the patient want assistance with any of the above?: No Health Related Social Needs Health related social needs: housing instability, housed, with risk of homelessness (Z59.811) and feeling lonely/isolated (Z60.8) Health related social needs details: Feels lonely PFSH All Active Problems (Updated 02/12/25 @ 10:17 by Benedicto Jeff) Rash (Acute) Acute hypoxic respiratory failure (Acute) Asthma exacerbation in COPD (Acute) Asthma (Chronic) Fluid overload (Acute) Acute exacerbation of CHF (congestive heart failure) (Acute) COVID-19 (Acute) Multifocal pneumonia (Acute) Chronic rhinitis (Chronic 03/24/11) Dysmetabolic syndrome X (Chronic 03/24/11) obesity, impaired FBS, hypertension, Knee pain, right (Chronic 09/16/14) prior x-rays 2006, 2011; Synvisc Dr Piña Localized primary osteoarthritis of lower leg (Chronic 03/24/11) Localized primary osteoarthritis of lower legs, bilateral (Chronic 03/24/11) Paroxysmal ventricular tachycardia (Chronic 06/13/07) JUNE 2007 [facility] ANTHONY DYKES, F/U 09/2011; EP STUDY 10/22/11, NOT INDUCABLE Medical History Atrial fibrillation (07/22/15) Chronic anticoagulation (04/14/15) CADSVaSC2 score 3: Apixaban ([facility]); ASA discontinued 12/2016! Essential hypertension (03/28/82) difficult to control, onset 1982 at life insurance PE Goal 140/90 Hyperlipidemia (03/24/11) goal LDL<70 Luis Morbid obesity (03/24/11) realistic goal 340 (07/2013) achieved 01/2014; new goal 330#; Take Steps for Life program with Dtr-in-law Sleep apnea Bi-PAP SINCE 2006 per [facility] Neurology, Dr Min Morrissey Surgical History History of bilateral knee replacement Family History Mother , auto accident at age 30. No problems noted. Father Heart disease Myocardial infarction Sister No problems noted. 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
--- NOTE | 2025-02-12 10:02 | W.PM.PROGNOT ---
Date of Service Date of service: 02/12/25 Time of Service: 10:03 Assessment and Plan Assessment and plan (1) Acute hypoxic respiratory failure: Start date: 02/11/25 Status: Acute Assessment and plan: With evidence of both CHF (weight gain and edema) and also possible COPD exacerbation and pneumonia. No CO2 retention. See below (2) Acute exacerbation of CHF (congestive heart failure): Start date: 02/11/25 Status: Acute Assessment and plan: Some minimal/moderate response to 40mg furosemide, increase to 80mg for now, monitor clinically and follow lytes/GFR Should update echocardiogram, may not have capacity until 02/13 Edema diffuse, inflammatory rash may be a part of this, albumin normal but will get urinalysis and prot/cr (3) Asthma exacerbation in COPD: Start date: 02/11/25 Status: Acute Assessment and plan: Continue steroids with nebulizer treatment. Transition to oral prednisone 02/12 (4) Multifocal pneumonia: Start date: 02/11/25 Status: Acute Assessment and plan: IV antibiotic therapy to cover possible community-acquired pneumonia, ceftriaxone and doxycycline. (5) Atrial fibrillation: Assessment and plan: Clinically stable with continue medical therapy including anticoagulation. (6) Sleep apnea: Assessment and plan: On BiPAP which will be continued as patient tolerates. Patient should have home machine. (7) Rash: Status: Acute Assessment and plan: This was his presenting complaint. Diffuses nature c/w viral or allergic. Last new medication was 3+ weeksa go. A/w mild/moderately elevated CRP, possible respiratory infection. IgA nephritis also in ddx, get urinalysis and prot/cr. He is getting steroids. Consider punch biopsy if not clearing. Discharge Planning Discharge Plannin-3 days diuresis, asthma/COPD treatment Subjective Subjective Patient reports: no new complaints, feels better and tolerating a regular diet; denies diarrhea, nausea, vomiting or fever Interval history since last seen: Feeling a little better in terms of breathing and swelling. He doesn't feel like he is urinating a whole lot more than normal. Some cough, not productive or blood. His rash hasn't changed much. Exam Narrative Exam Narrative: General: alert and oriented x 4 and in no acute distress HEENT: no icterus, no rhinorrhea, no musosal lesions Neck: Supple without JVD evident Lungs: No rales or wheezing. Fair aeration. Heart: Irregular irregular rhythm but normal rate. No murmur or gallop appreciated. Distant heart sounds. Abdomen: +BS, soft to palpation with no focalizing tenderness or guarding and no rebound. B Extremities: 2-3+ pitting edema which with hard edema over both lower extremities, circumferential erythema with lichenification of the skin, 1+ in hands. No cyanosis or clubbing. Fair cap refill. Skin: Dark red and thickened skin tati legs, diffuse pink maculopapular rash over trunk, more on back excluding face, most of the extremities. Otherwise normal color, warm and dry. Objective Last Vital Signs Temp 35.9 C L 02/12/25 08:44 Pulse 89 02/12/25 08:53 Resp 18 02/12/25 08:44 BP 125/78 02/12/25 08:53 Pulse Ox 95 02/12/25 08:44 Laboratory Results - last 24 hr 02/11/25 02/11/25 02/11/25 14:48 15:55 16:39 WBC 8.51 RBC 4.60 Hgb 13.4 L Hct 40.9 MCV 89 MCH 29.1 MCHC 32.8 RDW 13.6 Plt Count 190 MPV 10.5 Immature Gran % 0.4 Neutrophils % 76.0 Lymphocytes % 7.5 Monocytes % 11.2 Eosinophils % 4.5 Basophils % 0.4 Nucleated RBC % 0.0 Absolute Neutrophils 6.48 Absolute Lymphocytes 0.64 L Absolute Monocytes 0.95 H Absolute Eosinophils 0.38 Absolute Basophils 0.03 ESR 11 PT 14.2 H INR 1.4 H APTT 29.1 VBG pH 7.43 H VBG pCO2 47 VBG pO2 49 VBG HCO3 31 H VBG Total CO2 27 VBG O2 Saturation 84 VBG Base Excess 7 H VBG Lactate 1.5 Sodium 142 Potassium 3.7 Chloride 105 Carbon Dioxide 30.3 Anion Gap 6.7 BUN 15 Creatinine 1.13 Est GFR (CKD-EPI 2020) 65.01 Glucose 125 H Calcium 8.5 Magnesium 1.8 Total Bilirubin 2.60 H AST 27 ALT 25 Alkaline Phosphatase 91 Troponin I 35 39 C-Reactive Protein 2.78 H NT-Pro-B Natriuret Pep 3225 H Total Protein 6.2 Albumin 3.5 Lipase 25 TSH 1.52 COVID-19 Source Nasopharynx SARS-CoV-2 (PCR) Negative Influenza Type A (PCR) Negative Influenza Type B (PCR) Negative RSV (PCR) Negative Add-On Test Request DONE 02/11/25 02/12/25 17:13 05:50 WBC 6.89 RBC 4.57 Hgb 13.8 Hct 40.2 MCV 88 MCH 30.2 MCHC 34.3 RDW 13.2 Plt Count 198 MPV 10.9 Immature Gran % Neutrophils % Lymphocytes % Monocytes % Eosinophils % Basophils % Nucleated RBC % Absolute Neutrophils Absolute Lymphocytes Absolute Monocytes Absolute Eosinophils Absolute Basophils ESR PT 13.1 H INR 1.3 H APTT VBG pH VBG pCO2 VBG pO2 VBG HCO3 VBG Total CO2 VBG O2 Saturation VBG Base Excess VBG Lactate Sodium 140 Potassium 3.6 Chloride 102 Carbon Dioxide 28.1 Anion Gap 9.9 BUN 21 Creatinine 1.27 H Est GFR (CKD-EPI 2020) 56.81 Glucose 169 H Calcium 8.7 Magnesium 1.9 Total Bilirubin 1.80 H AST 26 ALT 26 Alkaline Phosphatase 89 Troponin I Cancelled C-Reactive Protein NT-Pro-B Natriuret Pep Total Protein 6.1 Albumin 3.6 Lipase TSH COVID-19 Source SARS-CoV-2 (PCR) Influenza Type A (PCR) Influenza Type B (PCR) RSV (PCR) Add-On Test Request VTE Prohylaxis Risk Level: Moderate/High Risk Contraindications: None Prophylaxis: Patient anticoagulated and Mechanical Time Spent with Patient Time Spent with Patient: 35-49 minutes Time was spent: preparing to see the patient(eg.review tests), obtaining and/or reviewing separately otained hiistory, ordering medications,tests, procedures, referring, communicating with other health college and career counselor, indepentently interpreting results, counseling the patient and care coordination
[2025-02-12] MEDS: predniSONE 20 MG TAB 60 MG PO (10:54)
[2025-02-12 12:46] LABS: Glucose Negative (Negative)
--- NOTE | 2025-02-12 14:25 | CHAPLAIN ---
Reza was sitting up in bed when I visited. 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 He asked about a few coworkers who have retired. Reza talked about his kids and grandkids and missing being with them. His grandkids range in age from 20s to a one year old. He would like more grandchildren, selfishly he said, but worries about the state of the world and bringing more kids into the world. Some of his grandkids are in [place], [place] and [place] so he gets to see them. He lives in [facility] [place] with his and one of their daughters, in the same house he has lived for over 30 years. I explained my role and offered support.
--- NOTE | 2025-02-12 14:30 | DI.US_ITS ---
APPROVED REPORT EXAM: Comprehensive 2D, Doppler, and color-flow Echocardiogram Patient Location: Out-Patient Room/Bed: [address] Cow Washer: Morelia Alves RDCS (AE) Indications: CHF exacerbation Other Information Study Quality: Fair. Technically limited study due to body habitus. Conclusion Technically difficult study Normal left ventricular wall thickness and chamber size. Ejection fraction is 50 to 55%. No segmental wall motion abnormalities are identified. The patient is in atrial fibrillation with [id number] variation Right ventricle is not well-visualized but does not appear grossly enlarged Both atria are severely dilated No structural valvular abnormalities are noted Mild to moderate mitral and tricuspid regurgitation. Estimated right ventricular systolic pressure is 45 mmHg Ascending aorta measures 3.61 cm Wall motion Left Ventricle The left ventricle is normal size. The left ventricular systolic function is normal. The left ventricular ejection fraction is within the normal range. There is normal left ventricular wall thickness. Regional wall motion is not well visualized. There is no ventricular septal defect visualized. LVEF is 50-55%. Right Ventricle Right ventricle is not well visualized. Right ventricular systolic function could not be assessed. Atria Left atrium is severely dilated. Right atrium is severely dilated. The interatrial septum is intact with no evidence for an atrial septal defect. Aortic Valve The aortic valve is normal in structure. Number of aortic valve leaflets could not be assessed. There is no aortic valvular stenosis. No aortic regurgitation is present. Mitral Valve The mitral valve is normal in structure. No evidence of mitral valve stenosis. Mild to moderate mitral regurgitation. Tricuspid Valve The tricuspid valve is normal in structure. There is no tricuspid valve stenosis. Mild to moderate tricuspid regurgitation. The RVSP is 45.0 mmHg. Pulmonic Valve Pulmonic valve is not well visualized. There is no pulmonic valvular stenosis. Great Vessels The aortic root is normal in size. The ascending aorta is mildly dilated. Aortic arch is not well visualized. The IVC collapses <50% with inspiration. Pericardium There is no pericardial effusion. 2D Dimensions IVSD d PLAX 1.13 cm M: 0.6-1.2 Ao Root d 2.98 cm M: 3.1 - 3.7 LVPW d PLAX 1.10 cm M: 0.6 - 1.2 Ao Asc Diam d 3.61 cm M: 2.6 - 3.4 LVID d PLAX 5.80 cm M: 4.2 - 5.8 LVDs 4.30 cm M: 2.5 - 4.0 LV EF Teichholz 50.0 % FS 25.79 % LV EDV (Teich) 164.1 mL LV ESV (Teich) 82.0 mL LA Volume LA Length A4C 9.3 cm LA Length A2C 8.9 cm LA Area A4C s 50.98 cm2 LA Area A2C s 50.56 cm2 LA Vol A4C A-L 236.31 mL LA Vol A2C A-L 243.81 mL LA Vol Biplane A-L 245.8 mL LA Vol/BSA A4C A-L LA Vol/BSA A2C A-L LA Vol/BSA BP A-L 90.7 mL/m2 LA Vol A4C MOD 223.0 mL LA Vol A2C MOD 226.8 mL LA Vol BP MOD 230.1 mL RA Volume RA Area A4C 44.3 cm2 RA ESV A4C (A-L) 202.5mL RA Vol/BSA A4C A-L RA Length A4C 8.2 cm RA ESV A4C (MOD) 191.1mL LV Diastology MV E' lateral 0.137 (>0.1 m/s) MV E Vmax 1.08 (0.4-1.3 m/s) Aortic Valve AoV Vmax 1.65 m/s LVOT Vmax 0.91 m/s AoV Peak Grad 10.9 mmHg LVOT Peak Grad 3.3 mmHg AoV Area (Vmax) 1.73 cm2 LVOT VTI 0.194 m AoV VTI 0.277 m LVOT Mean Grad 2.2 mmHg AoV Mean Rolf. 1.12 m/s LVOT SV 60.53 mL AoV Mean Grad 5.9 mmHg LVOT Diam s 1.95 cm AoV Area (VTI) 2.18 cm2 AV Regurg Peak Gr. 10.92 mmHg Velocity Ratio 0.55 Mitral Valve MV Vmax TIPS 1.18 m/s MV Mean Grad 2.1 (<2mmHg) MV Area PHT 4.31 cm2 MV VTI 0.264 m Pulmonary Valve PV Vmax 1.07 (0.5-1.5 m/s) RVOT Vmax 0.67 m/s PV Peak Grad 4.6 mmHg RVOT Peak Gr. 1.8 mmHg PV Mean Rolf 0.67 m/s RVOT VTI 0.121 m PV Mean Grad 2.2 mmHg RVOT Mean Gr. 1.1 mmHg Tricuspid Valve RA Pressure 8.00 mmHg TR Vmax 3.04 m/s TR Peak Grad 37.0 mmHg RVSP (TR) 45.0 mmHg
[2025-02-12] MEDS: Furosemide 40 MG/4 ML VIAL 80 MG IVP (16:15)
[2025-02-12] MEDS: FLUTICASONE PROPION SALMETEROL 2 EACH IH (16:25)
[2025-02-12] MEDS: Atorvastatin 40 MG TAB 80 MG PO (20:01)
[2025-02-12] MEDS: Lisinopril 20 MG TAB 60 MG PO (20:01)
[2025-02-12] MEDS: cefTRIAXone 1 GM/50 ML BAG IVPB (20:02)
[2025-02-12 20:28] LABS: Prot/Crea Ur Ratio 0.27 mg/mg Cr
[2025-02-12] MEDS: FLUTICASONE PROPION SALMETEROL 1 EACH IH (21:00)
[2025-02-13] VITALS (10 sets, daily range): BP systolic 107–133; BP diastolic 61–82; PULSE 63–90; RESP 16–17; TEMP 36.5–36.9; O2SAT 93–99
[2025-02-13] MEDS: Acetaminophen 325 MG TAB 650 MG PO (01:56)
[2025-02-13] MEDS: diphenhydrAMINE 25 MG CAP PO ×2 (01:57→22:30)
--- NOTE | 2025-02-13 03:51 | RESPIRATORY ---
Pt has home bipap unit at bedside that he wore t/o the night.
[2025-02-13] MEDS: Albuterol/Ipratropium 3 ML UPD VIAL UPD ×3 (07:05→20:30)
[2025-02-13] MEDS: FLUTICASONE PROPION SALMETEROL 1 EACH IH (07:43)
[2025-02-13 07:53] LABS: Anion Gap 9.2 mmol/L (3-11); BUN 33 mg/dL (9-23); CO2 26.8 mmol/L (20.0-31.0); Calcium 8.5 mg/dL (8.3-10.6); Chloride 103 mmol/L (98-107); Glucose 134 mg/dL (74-106); Potassium 4.0 mmol/L (3.5-5.1); Sodium 139 mmol/L (136-145)
[2025-02-13 08:30] LABS: Magnesium 2.0 mg/dL (1.6-2.6)
--- NOTE | 2025-02-13 08:53 | CMPROGNOTE_ITS ---
Date of service: 02/13/25 Time of Service: 08:53 Care Management Progress Note Progress Note Text Progress Note Text: Star was sitting up in a chair when CM met with him. He appeared to be in good spirits and stated that he is feeling a little better. Satr did complain about not sleeping much last night and admitted that he is really tired today. Star has been receiving IV diuretics and has been voiding but he has not lost any weight. The provider is changing his meds around a bit to try to increase the diuresis. Star shared that he believes he will be able to go home tomorrow if he loses a little more fluid. Star did have a PT evaluation today and their recommendation is that he be discharged home with no services. Discharge Potential Discharge Needs: PCP F/U Appt Anticipated Barriers to Discharge: None Identified Patient/Family Education Needs: Review discharge instructions, discuss Ask Me Three Transportation: Private vehicle Plan: Star will likely be discharged home with no new services. He will follow up with community providers and plan of care and transport with family. CM will follow and support Star and his discharge planning needs. Social Determinants of Health Screening Social Determinants of health last assessed in clinic: 02/13/25 Will the Patient Participate in the Screening?: Yes Do you worry about having a steady place to live?: yes What is your living situation today?: I have housing today, but am worried about losing it Problems where you live: no known problems In the past 12 months, have you had to go without electric, gas, oil or water in your home?: no 1. Within the past 12 months, we worried whether our food would run out before we got money to buy more.: Never true 2. Within the past 12 months, the food we bought just didn't last and we didn't have money to get more.: Never true Has lack of transportation kept you from medical appointments or from doing things needed for daily living?: no Has anyone in your life made you feel unsafe or unsupported?: no How hard is it for you to pay for the very basics like food, housing, medical care, and heating? Would you say it is:: Not hard at all Do you want help finding or keeping work or a job?: I do not need or want help If for any reason you need help with day-to-day activities such as bathing, preparing meals, shopping, managing finances, etc., do you get the help you need?: I don?t need any help How often do you feel lonely or isolated from those around you?: Always Do you speak a language other than [place] at home?: No Does the patient want assistance with any of the above?: No Health Related Social Needs Health related social needs: housing instability, housed, with risk of homelessness (Z59.811) and feeling lonely/isolated (Z60.8) Health related social needs details: Feels lonely
[2025-02-13] MEDS: Normal Saline Flush 10 ML SYR IVP ×3 (09:04→22:23)
[2025-02-13] MEDS: Furosemide 40 MG/4 ML VIAL 80 MG IVP (09:06)
[2025-02-13] MEDS: amLODIPine 10 MG TAB PO (09:06)
[2025-02-13] MEDS: Apixaban 5 MG TAB PO ×2 (09:07→19:50)
[2025-02-13] MEDS: Metoprolol CR 100 MG TABCR 200 MG PO ×2 (09:07→19:49)
[2025-02-13] MEDS: DOXYCYCLINE 100 MG in Normal Saline 100 ML IVPB ×2 (09:07→22:23)
[2025-02-13] MEDS: predniSONE 20 MG TAB 60 MG PO (09:07)
[2025-02-13] MEDS: buPROPion-CR 150 MG TABCR PO ×2 (09:07→19:49)
[2025-02-13] MEDS: Potassium Chloride 10 MEQ CAPCR PO (09:11)
[2025-02-13] MEDS: Minoxidil 2.5 MG TAB 10 MG PO ×2 (09:11→19:49)
--- NOTE | 2025-02-13 09:32 | IN_ITS ---
PT Notes Visit Reasons: Acute Hypoxic Resp Failure, COPD and CHF [facility] Inpatient Initial Evaluation Date: 02/13/2025 Referring Doctor:Beatrice Jeff MD PT Orders: PT CONSULT: Fall safety assessment Precautions: Fall. Standard. Activity as tolerated. O2 nasal canula Patient Profile/Admitting Diagnosis: 64-year-old male admitted for pneumonia, CHF, COPD. Pt had an ultrasound for confirmation. PMHX: Acute hypoxic respiratory failure (Acute) Asthma exacerbation in COPD (Acute) Asthma (Chronic) Fluid overload (Acute) Acute exacerbation of CHF (congestive heart failure) (Acute) COVID-19 (Acute) Multifocal pneumonia (Acute) Chronic rhinitis (Chronic 03/24/11) Dysmetabolic syndrome X (Chronic 03/24/11) obesity, impaired FBS, hypertension, Knee pain, right (Chronic 09/16/14) prior x-rays 2006, 2011; Synvisc Dr Piña Localized primary osteoarthritis of lower leg (Chronic 03/24/11) Localized primary osteoarthritis of lower legs, bilateral (Chronic 03/24/11) Paroxysmal ventricular tachycardia (Chronic 06/13/07) JUNE 2007 [facility] [place] [facility] ANTHONY DYKES, F/U 09/2011; EP STUDY 10/22/11, NOT INDUCABLE Medical History Atrial fibrillation (07/22/15) Chronic anticoagulation (04/14/15) CADSVaSC2 score 3: Apixaban ([facility] [place]); ASA discontinued 12/2016! Essential hypertension (03/28/82) difficult to control, onset 1982 at life insurance PE Goal 140/90 Hyperlipidemia (03/24/11) goal LDL<70 Luis Morbid obesity (03/24/11) realistic goal 340 (07/2013) achieved 01/2014; new goal 330#; Take [employer] Life program with Dtr-in-law Sleep apnea Bi-PAP SINCE 2006 per [facility] Neurology, Dr Min Morrissey Surgical History History of bilateral knee replacement Social History/Home Situation: Pt lives in single family home with and child. Pt home has [address] with one railing and a flight of stairs with a railing on one side and a wall on the other, inside the home. Pt sleeps in chair Equipment Owned/DME: FWW and cane Subjective: Pt stated he was feeling well and was unsure why a PT Consult was put in since he had been up walking in room already Objective: General Observation: Pt lying in bed just finished breakfast as PT entered. Pt had 3+edema in BLE.Dressing in place to right calf Mental Status: Alert and oriented as to person, place, time, and purpose. Able to pay attention, focus, and respond appropriately. Pain: No pain reported Vital Signs: Monitored by nursing Sitting: SPO2 99% on 2L of O2 via Nasal canal Standing: SPO2 96% on 2L of O2 via Nasal canal Post stairs: SPO2 86% on 2L of O2 via Nasal canal, (took only about a minute to go back to 96% Post ambulation with one standing rest period: SPO2 88% on 2L of O2 via Nasal canal (took only about a minute to go back to 96% ROM: Right Upper Extremity:?? Shoulder Flexion WFL. Shoulder abduction WFL. Elbow flexion WFL. Wrist flexion WFL. Functional opening and closing of hand WFL. Left Upper Extremity:? Shoulder Flexion WFL. Shoulder abduction WFL. Elbow fle xion WFL. Wrist flexion WFL. Functional opening and closing of hand WFL. Right Lower Extremity: Hip flexion WFL. Hip abduction WFL. Knee flexion WFL. Ankle dorsiflexion limited to neutral. Ankle plantarflexion WFL. Left Lower Extremity: Hip flexion WFL. Hip abduction WFL. Knee flexion WFL. Ankle dorsiflexion limited to neutral. Ankle plantarflexion WFL. Strength: Right Upper Extremity: Grossly 5/5 Left Upper Extremity: Grossly 5/5 Right Lower Extremity: Grossly 5/5 Left Lower Extremity: Grossly 5/5 Bed Mobility/Transfers: Supine to sit Independent HOB upright Sit to supine Independent Sit to stand Independent Stand to sit Independent Reclining chair to bed independent Gait: Instructed patient with level surface ambulation of 40 feet requiring supervision assist. Kiah decreased. Step height normal. Step length normal. Stairs: pt ambulated 2 6inch steps and 3 4inch steps. Pt had a reciprocal pattern ascending 4inch steps and a step two pattern for descending and ascending 6inch steps. Pt needed hands on both rails. Balance: Static Sitting: normal Dynamic Sitting: normal Static Standing: good Dynamic Standing: good Special Tests: Mobility Limitations Standardized Measure [facility] 6 clicks Basic Mobility Inpatient Short Form: Raw Score: 21? CMS Score: 28.97% deficit? Informed Consent/Education:? Patient was instructed in purpose of PT consult and plan of care. Agreeable to proceed with established PT POC to achieve personal goals. Theraputeic activity 50331: Ambulation: Pt ambulated 110 feet with supervision on 2L of O2 via nasal canula. Pt needed to stop and have a standing rest period (only last about 90 seconds) at about 55 feet. Pt had a reciprocal step pattern and showed no signs of u nsteadiness. Assessment: Pt was able ambulate a total of 150 feet with no AD independently on 2L of O2 via nasal canula. Pt needed mild verbal cueing for directions. PT monitored pt and pt?s oxygen throughout ambulation. PT asked if pt needed to sit and rest throughout the session and pt decline, reporting he felt fine. Later in the session, pt needed one standing rest break and was aware enough to let PT know. Pt O2 levels did drop with activity, but the levels would rise quickly with moments of rest. Pt is mindful of this and knows when to take a rest period before his O2 drop to a critical level. Although pt has some impairments pt is functionally at his baseline and can be discharged when medically cleared. Patient presents with clinical signs and symptoms consistent with current/ admitting diagnoses that have resulted to mobility limitations, gait instability, generalized weakness, and overall ADL decline as demonstrated by the following impairment level findings: 1.?? Impaired standing balance 2.? Impaired activity tolerance 3.? Shortness of breath/ unable to lay flat d/t dyspnea 4.? Swelling 5. lightheadedness with activity Impairments are contributing to the following functional limitations: 1.? Decline in bed mobility skills 2.? Decline in transfer skills 3.? Increased completion time for mobility ADL performance ? Patient is assessed as a Low complexity based on the following: History: 64-year-old male with past medical history as indicated above Examination: Demonstrable impairment in strength, balance, and mobility level with underlying impairments and functional limitations as exhibited above as well as deficit score of 28.97% utilizing the [facility] Mobility Inpatient Short Form Presentation: stable but evolving Decision Making: Low complexity DISCHARGE RECOMMENDATIONS: Home with no services TREATMENT CODE/TIME: 99435,91850/ 8:43-9:14am Thank you for the opportunity to participate in the care of this patient. Written by: Yanick Espana DPTS Supervised by: Janette Jean, PT [facility] [place], [place]
--- NOTE | 2025-02-13 13:56 | PGE_ITS ---
Date of Service Date of service: 02/13/25 Time of Service: 13:56 Assessment and Plan Assessment and plan (1) Acute hypoxic respiratory failure: Start date: 02/11/25 Status: Acute Assessment and plan: With evidence of CHF (weight gain and edema) and also possible COPD exacerbation and pneumonia. No CO2 retention. O2 requirement back to baseline 2 liters 02/13 (2) Acute exacerbation of CHF (congestive heart failure): Start date: 02/11/25 Status: Acute Assessment and plan: Some minimal/moderate response to 40mg furosemide or 80mg updated echocardiogram 02/12 with preserved LVEF 50-55%, RVSP mildly elevated at 45mmHg, IVC still plethoric suggesting could diurese more. Edema diffuse, inflammatory rash may be a part of this, but albumin normal and no severe proteinuria on prot/Cr urine, u/a bland, not c/w nephritis/nephrosis (3) Asthma exacerbation in COPD: Start date: 02/11/25 Status: Acute Assessment and plan: Continue steroids with nebulizer treatment. Transitioned to oral prednisone 02/12 I think this is the major cause of dyspnea and is imrpoving. (4) Multifocal pneumonia: Start date: 02/11/25 Status: Acute Assessment and plan: IV antibiotic therapy to cover possible community-acquired pneumonia, ceftriaxone and doxycycline, continue. no longer getting chills. (5) Atrial fibrillation: Assessment and plan: Clinically stable with continue medical therapy including anticoagulation. (6) Sleep apnea: Assessment and plan: On BiPAP which will be continued as patient tolerates. Patient should have home machine. (7) Rash: Status: Acute Assessment and plan: This was his presenting complaint. Diffuses nature c/w viral or allergic. Last new medication was about 3 weeks proir, pantoprazole, now off. A/w mild/moderately elevated CRP, possible respiratory infection. IgA nephritis also in ddx, but reassuring urinalysis and prot/cr. He is getting steroids. With improvement today, will defer punch biopsy (8) LEVON (acute kidney injury): Status: Acute Assessment and plan: I think related to more agressive diuresis, which hasn't been fruitful. Stop IV furosemide, follow Subjective Subjective Patient reports: no new complaints, feels better and tolerating a regular diet; denies nausea, vomiting, shortness of breath or fever Interval history since last seen: Feeling a little better. Still not urinating as much with furosemide 80mg IV as he does with home torsemide 20mg. Breathing is a little better. He is on the same oxygen at home. Rash fading on back, arms, but not so much on legs. Exam Narrative Exam Narrative: General: alert and oriented x 4 and in no acute distress HEENT: no musosal lesions Lungs: No rales or wheezing. Fair aeration. Heart: Irregular irregular rhythm but normal rate. Distant heart sounds. Abdomen: +BS, soft NT/ND Extremities: 2+ pitting edema which with firm edema over both lower extremities, anterio lichenification/hyperpigmenation R>L, red coalescing papular rash from distal to knees tati. No cyanosis or clubbing. Fair cap refill. Skin: legs as above, fading pink maculopapular rash over trunk, more on back excluding face, extremities. Otherwise normal color, warm and dry. Objective Last Vital Signs Temp 36.5 C 02/13/25 11:32 Pulse 89 02/13/25 11:32 Resp 17 02/13/25 07:57 BP 121/82 02/13/25 11:32 Pulse Ox 94 02/13/25 11:32 Laboratory Results - last 24 hr 02/12/25 02/13/25 12:23 06:57 Sodium 139 Potassium 4.0 Chloride 103 Carbon Dioxide 26.8 Anion Gap 9.2 BUN 33 H Creatinine 1.55 H Est GFR (CKD-EPI 2020) 45.14 Glucose 134 H Calcium 8.5 Magnesium 2.0 Ur Random Creatinine 81.70 U Random Total Protein 22.6 H U [place] Prot/Creat Ratio 0.27 VTE Prohylaxis Risk Level: Moderate/High Risk Contraindications: None Prophylaxis: Patient anticoagulated and Mechanical Time Spent with Patient Time Spent with Patient: 35-49 minutes Time was spent: preparing to see the patient(eg.review tests), obtaining and/or reviewing separately otained hiistory, ordering medications,tests, procedures, referring, communicating with other health care management coordinator, indepentently interpreting results, counseling the patient and care coordination
[2025-02-13] MEDS: TIOTROPIUM BROMIDE RESPIMAT 2 EACH IH (14:10)
[2025-02-13] MEDS: Atorvastatin 40 MG TAB 80 MG PO (19:49)
[2025-02-13] MEDS: Lisinopril 20 MG TAB 60 MG PO (19:49)
[2025-02-13] MEDS: cefTRIAXone 1 GM/50 ML BAG IVPB (19:51)
[2025-02-14 07:12] LABS: Anion Gap 10 mmol/L (3-11); BUN 37 mg/dL (9-23); CO2 28.0 mmol/L (20.0-31.0); Calcium 9.0 mg/dL (8.3-10.6); Chloride 103 mmol/L (98-107); Glucose 112 mg/dL (74-106); Potassium 3.9 mmol/L (3.5-5.1); Sodium 141 mmol/L (136-145)
[2025-02-14 07:14] LABS: Magnesium 2.1 mg/dL (1.6-2.6)
[2025-02-14 07:56] VITALS: BP 142/80; PULSE 96; RESP 17; TEMP 36.5; O2SAT 100
[2025-02-14] MEDS: amLODIPine 10 MG TAB PO (08:04)
[2025-02-14] MEDS: Torsemide 20 MG TAB 40 MG PO (08:05)
[2025-02-14] MEDS: Apixaban 5 MG TAB PO (08:05)
[2025-02-14] MEDS: Minoxidil 2.5 MG TAB 10 MG PO (08:05)
[2025-02-14] MEDS: buPROPion-CR 150 MG TABCR PO (08:06)
[2025-02-14] MEDS: Potassium Chloride 10 MEQ CAPCR PO (08:06)
[2025-02-14] MEDS: predniSONE 20 MG TAB 60 MG PO (08:06)
[2025-02-14] MEDS: diphenhydrAMINE 25 MG CAP PO (08:06)
[2025-02-14] MEDS: Metoprolol CR 100 MG TABCR 200 MG PO (08:06)
[2025-02-14] MEDS: Normal Saline Flush 10 ML SYR IVP ×2 (08:07→11:26)
[2025-02-14 08:38] VITALS: PULSE 112; RESP 17; O2SAT 99
[2025-02-14] MEDS: Albuterol/Ipratropium 3 ML UPD VIAL UPD ×2 (08:38→13:28)
[2025-02-14] MEDS: FLUTICASONE IH (08:40)
[2025-02-14] MEDS: SALMETEROL IH (08:40)
--- NOTE | 2025-02-14 08:58 | CMDISCH_ITS ---
Date of service: 02/14/25 Time of Service: 08:58 LACE Index Scoring Tool Questions: Length of Stay (in days): 3 Was the patient admitted via the E.D.?: Yes Comorbidities: Congestive Heart Failure and Chronic Pulmonary Disease E.D. Visits: 1 Answers: Total Score: 12 Risk of Readmission: High Risk Care Management Discharge Plan Reason for Hospitalization: CHF Discharge Plan: Ray will be discharged home with no new services. He will follow up with community providers and plan of care and transport with family. Patient/Family Education Needs: Review discharge instructions, discuss Ask Me Three SDOH Health Related Social Needs: Health related social needs risk of homeless lonely/is olated Health related social needs details Feels lonely Health related social needs details: Feels lonely
--- NOTE | 2025-02-14 09:01 | PDOC.CMPRO ---
Date of service: 02/14/25 Time of Service: 09:01 Care Management Progress Note Discharge Potential Discharge Needs: PCP F/U Appt Anticipated Barriers to Discharge: None Identified Patient/Family Education Needs: Review discharge instructions, discuss Ask Me Three Transportation: Private vehicle Plan: Star will likely be discharged home with no new services. He will follow up with community providers and plan of care and transport with family. CM will follow and support Star and his discharge planning needs. Social Determinants of Health Screening Social Determinants of health last assessed in clinic: 02/13/25 Will the Patient Participate in the Screening?: Yes Do you worry about having a steady place to live?: yes What is your living situation today?: I have housing today, but am worried about losing it Problems where you live: no known problems In the past 12 months, have you had to go without electric, gas, oil or water in your home?: no Has lack of transportation kept you from medical appointments or from doing things needed for daily living?: no Has anyone in your life made you feel unsafe or unsupported?: no How hard is it for you to pay for the very basics like food, housing, medical care, and heating? Would you say it is:: Not hard at all Do you want help finding or keeping work or a job?: I do not need or want help If for any reason you need help with day-to-day activities such as bathing, preparing meals, shopping, managing finances, etc., do you get the help you need?: I don?t need any help How often do you feel lonely or isolated from those around you?: Always Do you speak a language other than Bulgarian at home?: No Does the patient want assistance with any of the above?: No Health Related Social Needs Health related social needs: housing instability, housed, with risk of homelessness (Z59.811) and feeling lonely/isolated (Z60.8) Health related social needs details: Feels lonely
[2025-02-14 11:05] VITALS: BP 115/72; PULSE 108; RESP 17; TEMP 37.3; O2SAT 96
[2025-02-14] MEDS: DOXYCYCLINE 100 MG in Normal Saline 100 ML IVPB (11:25)
--- NOTE | 2025-02-14 13:05 | DSE_ITS ---
Date of service: 02/14/25 Time of Service: 13:05 DS: Diagnosis Discharge Diagnosis (1) Acute hypoxic respiratory failure: Status: Acute (2) Acute exacerbation of CHF (congestive heart failure): Status: Acute (3) Asthma exacerbation in COPD: Status: Acute (4) Multifocal pneumonia: Status: Acute (5) Atrial fibrillation: (6) Sleep apnea: (7) Rash: Status: Acute (8) LEVON (acute kidney injury): Status: Acute Discharge Plan Disposition Patient Disposition: Home Condition: Improving Discharge Details Reason For Visit: Acute Hypoxic Resp Failure, COPD and CHF Exacerbat Admit Date/Time: 02/11/25 19:59 Admit Provider: Earnest Cornejo Attending Provider: Earnest Cornejo Primary Care Provider: Jv Fam Hospital Course Hospital Course: 64-year-old gentleman with Asthma/COPD, atrial fibrillation, KAYLEEN, BMI 58, recently initiating home oxygen therapy who presented with a diffuse rash and shortness of breath and was found to have increase in his chronic hypoxia and LE edema with recent 20lb weight gain. CXR showed multifocal pneumonia, and he was wheezing. He was admitted and treated for a combination CAP, COPD exacerbation, and CHF exacerbation. His SOB and oxygen requirement improved on prednisone, ceftriaxone/doxy, and furosemide, though he did not diurese well with 80mg IV BID furosemide. He was changed back to torsemide at higher dose of 40mg and was two liters negative on the morning of discharged after the first dose. He had a repeat echocardiogram which showed preserved LVEF. His rash was clinically consistent with allergic or viral. He had diffuse edema c/w anasarca but albuin was normal and urinalysis was reassuring and he only had borderline proteinuria with urine Pr/Cr of 0.26. It was noted he started pantoprazole about 3 weeks prior, and this was not continued. The rash improved and was no longer visible on his back, though was still evident in lower legs along with venous stasis changes that had worsened on the left. Compression was recommended, starting with compression bandages. Seeping areas should remain covered His creatinine was up to 1.55 with diursesis, but improved to 1.4 on the day of discharge after not gettign the second dose of IV furosemide the day prior. His renal function and electrolytes should be followed on the increased dose of torsemide. He was discharged home with 3 more days of cefdinir and doxycycline for pneumonia and a prednisone taper. He was cleared by physical therapy without services. Recommendations for Follow Up Recommended tests to be ordered by follow up provider: Mg ANDRIY 1 week prior to PCP appointment Home Meds and New Rx's Prescriptions: New prednisone 20 mg Tablet See Taper PO DAILY Qty: 13 0RF Taper: Prednisone 20mg taper 60 mg Daily for 2 Days and 0 Hour 40 mg Daily for 2 Days and 0 Hour 20 mg Daily for 2 Days and 0 Hour 10 mg Daily for 2 Days and 0 Hour doxycycline hyclate 100 mg tablet 100 mg PO BID 3 Days Qty: 6 0RF cefdinir 300 mg capsule 300 mg PO BID 3 Days Qty: 6 0RF Continued metoprolol succinate 200 mg tablet extended release 24 hr 200 mg PO BID Qty: 60 0RF Eliquis 5 mg tablet 5 mg PO BID 90 Days Qty: 180 3RF Rx Instructions: began 04/15/15 [facility] [place] cardiology, for atrial fibrillation, prevent clots potassium chloride [Klor-Con 8] 8 mEq tablet extended release 8 meq PO DAILY 90 Days Qty: 90 3RF Rx Instructions: replace potassium lisinopril 20 mg tablet 20 mg PO DAILY 90 Days Qty: 90 3RF Rx Instructions: along with 40 mg (total 60 mg/d) for BP control lisinopril 40 mg tablet 40 mg PO DAILY 90 Days Qty: 90 3RF Rx Instructions: along with 20 mg to control BP bupropion HCl 150 mg tablet sustained-release 12 hr 150 mg PO BID amlodipine 10 mg tablet 10 mg PO DAILY minoxidil 10 mg tablet 10 mg PO BID atorvastatin 80 mg tablet 80 mg PO DAILY fluticasone propion-salmeterol 500-50 mcg/dose blister with device 1 inh INHALATION DAILY albuterol sulfate 90 mcg/actuation HFA aerosol inhaler 1 inh INHALATION Q4H PRN fluticasone propion-salmeterol [Advair HFA] 230-21 mcg/actuation HFA aerosol inhaler 2 puff INHALATION DAILY Spiriva Respimat 2.5 mcg/actuation mist 2 puff INHALATION DAILY Changed torsemide 20 mg tablet 40 mg PO DAILY Qty: 180 0RF Discharge Instructions Instructions: Chronic Obstructive Pulmonary Disease (COPD) (DC), Heart Failure, Adult (DC) Additional Instructions: use bandages to compress the legs, keep the legs elevated finish the taper of prednisone for your breathing and rash Take the increased dose of torsemide. Weigh yourself daily to assess fluid retention. Stand Alone Forms: Portal Information Activity:: Activity as Tolerated Equipment/Supplies:: No Equipment Needed Diet:: Low Sodium Discharge Orders Discharge Orders: Discharge Order (Routine); Ordered 02/14/25 Ordered By: Benedicto Jeff DS: Summary Time Spent with Patient providing and/or coordinating discharge services: Greater than 30 minutes Status at Discharge Functional status at discharge: independent ambulation Overall status at discharge: patient is progressing back to baseline Mental Status: mental status grossly normal Speech and Movement: speech and movement normal Mood: congruent mood Affect: normal affect Quality:SDOH Health Related Social Needs: Health related social needs risk of homeless lonely/is olated Health related social needs details Feels lonely Health related social needs details: Feels lonely Exam Narrative Exam Narrative: General: alert and oriented x 4 and in no acute distress HEENT: no musosal lesions Lungs: No rales or wheezing. Fair aeration. Heart: Irregular irregular rhythm but normal rate. Distant heart sounds. Abdomen: +BS, soft NT/ND. some pitting edema over abdomen Extremities: 2-3+ pitting edema which with firm edema over both lower extremities, anterio lichenification/hyperpigmenation R>L, red coalescing papular rash from distal to knees tati. Some seeping from left scales. No cyanosis or clubbing. Fair cap refill. Skin: legs as above, pink maculopapular rash no longer visible over trunk, fading in upper extremities. Otherwise normal color, warm and dry. Psych Mental Status: mental status grossly normal Speech and Movement: speech and movement normal Mood: congruent mood Affect: normal affect DS: Data Vitals/I&O Vitals and I&O: Vital Signs Temperature 37.3 C 02/14/25 11:05 Temperature Source Temporal Artery Scan 02/14/25 11:05 Pulse 108 H 02/14/25 11:05 Pulse Rhythm Regular 02/11/25 21:40 Pulse 80 02/11/25 20:31 Respiratory Rate 17 02/14/25 11:05 Respiratory Effort Short of Breath 02/11/25 21:40 Respiratory Depth Normal 02/11/25 21:40 Respiratory Pattern Normal 02/11/25 21:40 Blood Pressure 115/72 02/14/25 11:05 Blood Pressure Mean 86 02/14/25 11:05 Pulse Oximetry 96 02/14/25 11:05 Oxygen Delivery Method Room Air 02/14/25 11:05 Oxygen Flow Rate 0 02/14/25 11:05 Fraction of Inspired Oxygen (FIO2) 30 02/12/25 02:39 Pain Level 0 02/14/25 07:56 Comment pt refused...pt asleep...q4 while awake 02/14/25 03:00 Comment 3L NC 02/11/25 20:31 Intake & Output 02/13/25 02/14/25 02/14/25 23:59 11:59 23:59 Intake Total 1710 / 2260 240 / 460 220 / 460 Output Total 1425 / 2475 3150 / 3150 Balance 285 / -215 -2910 / -2690 220 / -2690 Weight 178.8 kg Intake: IV 160 / 260 Oral 1550 / 2000 240 / 460 220 / 460 Output: Urine 1425 / 2475 3150 / 3150 Other: Urine Color Yellow Pale Yellow Urine Appearance Clear Urine Odor Normal Stool Size Moderate Stool Characteristics Soft Formed Data Completed and Pending Pending Labs at Discharge: 02/11/25 02/11/25 02/11/25 14:48 15:55 16:39 WBC 8.51 RBC 4.60 Hgb 13.4 L Hct 40.9 MCV 89 MCH 29.1 MCHC 32.8 RDW 13.6 Plt Count 190 MPV 10.5 Immature Gran % 0.4 Neutrophils % 76.0 Lymphocytes % 7.5 Monocytes % 11.2 Eosinophils % 4.5 Basophils % 0.4 Nucleated RBC % 0.0 Absolute Neutrophils 6.48 Absolute Lymphocytes 0.64 L Absolute Monocytes 0.95 H Absolute Eosinophils 0.38 Absolute Basophils 0.03 ESR 11 PT 14.2 H INR 1.4 H APTT 29.1 VBG pH 7.43 H VBG pCO2 47 VBG pO2 49 VBG HCO3 31 H VBG Total CO2 27 VBG O2 Saturation 84 VBG Base Excess 7 H VBG Lactate 1.5 Sodium 142 Potassium 3.7 Chloride 105 Carbon Dioxide 30.3 Anion Gap 6.7 BUN 15 Creatinine 1.13 Est GFR (CKD-EPI 2020) 65.01 Glucose 125 H Calcium 8.5 Magnesium 1.8 Total Bilirubin 2.60 H AST 27 ALT 25 Alkaline Phosphatase 91 Troponin I 35 39 C-Reactive Protein 2.78 H NT-Pro-B Natriuret Pep 3225 H Total Protein 6.2 Albumin 3.5 Lipase 25 TSH 1.52 Urine Color Urine Clarity Urine pH Ur Specific [place] Urine Protein Urine Ketones Urine Blood Urine Nitrite Urine Bilirubin Urine Urobilinogen Ur Leukocyte Esterase Ur Random Creatinine U Random Total Protein U [place] Prot/Creat Ratio Urine Glucose COVID-19 Source Nasopharynx SARS-CoV-2 (PCR) Negative Influenza Type A (PCR) Negative Influenza Type B (PCR) Negative RSV (PCR) Negative Add-On Test Request DONE 02/11/25 02/12/25 02/12/25 17:13 05:50 12:23 WBC 6.89 RBC 4.57 Hgb 13.8 Hct 40.2 MCV 88 MCH 30.2 MCHC 34.3 RDW 13.2 Plt Count 198 MPV 10.9 Immature Gran % Neutrophils % Lymphocytes % Monocytes % Eosinophils % Basophils % Nucleated RBC % Absolute Neutrophils Absolute Lymphocytes Absolute Monocytes Absolute Eosinophils Absolute Basophils ESR PT 13.1 H INR 1.3 H APTT VBG pH VBG pCO2 VBG pO2 VBG HCO3 VBG Total CO2 VBG O2 Saturation VBG Base Excess VBG Lactate Sodium 140 Potassium 3.6 Chloride 102 Carbon Dioxide 28.1 Anion Gap 9.9 BUN 21 Creatinine 1.27 H Est GFR (CKD-EPI 2020) 56.81 Glucose 169 H Calcium 8.7 Magnesium 1.9 Total Bilirubin 1.80 H AST 26 ALT 26 Alkaline Phosphatase 89 Troponin I Cancelled C-Reactive Protein NT-Pro-B Natriuret Pep Total Protein 6.1 Albumin 3.6 Lipase TSH Urine Color Yellow Urine Clarity Clear Urine pH 5.5 Ur Specific [place] 1.010 Urine Protein Negative Urine Ketones Negative Urine Blood Negative Urine Nitrite Negative Urine Bilirubin Negative Urine Urobilinogen 0.2 Ur Leukocyte Esterase Negative Ur Random Creatinine 81.70 U Random Total Protein 22.6 H U [place] Prot/Creat Ratio 0.27 Urine Glucose Negative COVID-19 Source SARS-CoV-2 (PCR) Influenza Type A (PCR) Influenza Type B (PCR) RSV (PCR) Add-On Test Request 02/13/25 02/14/25 06:57 05:12 WBC RBC Hgb Hct MCV MCH MCHC RDW Plt Count MPV Immature Gran % Neutrophils % Lymphocytes % Monocytes % Eosinophils % Basophils % Nucleated RBC % Absolute Neutrophils Absolute Lymphocytes Absolute Monocytes Absolute Eosinophils Absolute Basophils ESR PT INR APTT VBG pH VBG pCO2 VBG pO2 VBG HCO3 VBG Total CO2 VBG O2 Saturation VBG Base Excess VBG Lactate Sodium 139 141 Potassium 4.0 3.9 Chloride 103 103 Carbon Dioxide 26.8 28.0 Anion Gap 9.2 10 BUN 33 H 37 H Creatinine 1.55 H 1.40 H Est GFR (CKD-EPI 2020) 45.14 50.76 Glucose 134 H 112 H Calcium 8.5 9.0 Magnesium 2.0 2.1 Total Bilirubin AST ALT Alkaline Phosphatase Troponin I C-Reactive Protein NT-Pro-B Natriuret Pep Total Protein Albumin Lipase TSH Urine Color Urine Clarity Urine pH Ur Specific [place] Urine Protein Urine Ketones Urine Blood Urine Nitrite Urine Bilirubin Urine Urobilinogen Ur Leukocyte Esterase Ur Random Creatinine U Random Total Protein U [place] Prot/Creat Ratio Urine Glucose COVID-19 Source SARS-CoV-2 (PCR) Influenza Type A (PCR) Influenza Type B (PCR) RSV (PCR) Add-On Test Request Preliminary micro results at discharge 02/11/25 14:48 Blood Blood Culture - Preliminary NO GROWTH 48 HOURS 02/11/25 14:40 Blood Blood Culture - Preliminary NO GROWTH 48 HOURS PFSH All Active Problems (Updated 02/13/25 @ 14:12 by Benedicto Jeff) LEVON (acute kidney injury) (Acute) Rash (Acute) Acute hypoxic respiratory failure (Acute) Asthma exacerbation in COPD (Acute) Asthma (Chronic) Fluid overload (Acute) Acute exacerbation of CHF (congestive heart failure) (Acute) Multifocal pneumonia (Acute) COVID-19 (Acute) Chronic rhinitis (Chronic 03/24/11) Dysmetabolic syndrome X (Chronic 03/24/11) obesity, impaired FBS, hypertension, Knee pain, right (Chronic 09/16/14) prior x-rays 2006, 2011; Synvisc Dr Piña Localized primary osteoarthritis of lower leg (Chronic 03/24/11) Localized primary osteoarthritis of lower legs, bilateral (Chronic 03/24/11) Paroxysmal ventricular tachycardia (Chronic 06/13/07) JUNE 2007 [facility] [place] ANTHONY DYKES F/Jonah 09/2011; EP STUDY 10/22/11, NOT INDUCABLE Medical History Atrial fibrillation (05/10/16) Chronic anticoagulation (04/14/15) CADSVaSC2 score 3: Apixaban ([facility] [place]); ASA discontinued 12/2016! Essential hypertension (03/28/82) difficult to control, onset 1982 at life insurance PE Goal 140/90 Hyperlipidemia (03/24/11) goal LDL<70 [place] Morbid obesity (03/24/11) realistic goal 340 (07/2013) achieved 01/2014; new goal 330#; Take Steps for Life program with Dtr-in-law Sleep apnea Bi-PAP SINCE 2006 per [facility], Dr Min Morrissey Surgical History History of bilateral knee replacement Family History Mother , auto accident at age 30. No problems noted. Father Heart disease Myocardial infarction Sister No problems noted. 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
[2025-02-14 13:28] VITALS: PULSE 87; O2SAT 95
[2025-02-14] MEDS: TIOTROPIUM BROMIDE RESPIMAT 2 EACH IH (13:36)
[2025-02-14 14:08] VITALS: PULSE 111; O2SAT 82; O2SAT 90; O2SAT 95
== END 2025-02-14 16:05 | disposition home or self-care (01) | DRG 193 ==
LOC: ER 19:33 → MS 21:09
PROVIDERS: Registered Nurse Emergency; Admitting Provider Family Medicine; Emergency Provider Nurse Practitioner Family; PCP Family Medicine; Responsible Provider Family Medicine; Visit Provider Family Medicine
DX: J44.1 Chronic obstructive pulmonary disease with (acute) exacerbation (principal); J44.0 Chronic obstructive pulmonary disease with (acute) lower respiratory infection; J18.9 Pneumonia, unspecified organism; J96.01 Acute respiratory failure with hypoxia; G47.33 Obstructive sleep apnea (adult) (pediatric); N17.9 Acute kidney failure, unspecified; J45.901 Unspecified asthma with (acute) exacerbation; I48.20 Chronic atrial fibrillation, unspecified; Z59.811 Housing instability, housed, with risk of homelessness; Z68.44 Body mass index [BMI] 60.0-69.9, adult; I11.0 Hypertensive heart disease with heart failure; I50.9 Heart failure, unspecified; R21 Rash and other nonspecific skin eruption; E78.5 Hyperlipidemia, unspecified; E66.01 Morbid (severe) obesity due to excess calories; E11.9 Type 2 diabetes mellitus without complications; Z95.4 Presence of other heart-valve replacement; Z79.01 Long term (current) use of anticoagulants; Z96.653 Presence of artificial knee joint, bilateral; Z60.8 Other problems related to social environment
CPT/HCPCS: 00123; 36415; 74177; 80048; 80053; 82805; 83690; 85027; 85652; 87040; 87637; 93005; 93306; 94618; 94640; 96374; 96375; 97161; 97530; 99285; 71045; 71260; 81003; 82565; 83605; 83735; 83880; 84156; 84443; 84484; 85025; 85610; 85730; 86140; 93010; 93970; 94660; 94664; 94760; 99223; 99232; 99238; J0696; J1200; J1938; J2919; J3490; J7512; J7620